=== PATIENT | female | born 1940 | race Caucasian/White ===

== ENCOUNTER 2021-11-11 17:04 | Emergency (ER) | payer MEDICARE, MEDICAID, SELFPAY ==
--- NOTE | 2021-11-11 17:06 | ED_ITS ---
HPI - Female Genitourinary General Chief complaint: Urogenital-Female Stated complaint: cath replacement Source: patient and EMS Mode of arrival: EMS Limitations: no limitations History of Present Illness HPI Narrative: 81-year-old female presents via EMS for Cabrera catheter replacement. MD elicited complaint: other (Replacement Cabrera catheterization) Onset (ago): day(s) (1) Severity: mild Female Urogenital Radiation: Non-Radiating Vaginal discharge: none Vaginal bleeding: none Exacerbating factors: none Relieving factors: none Associated symptoms: denies other symptoms Treatment prior to arrival: none Sexual activity: No Related Data Previous Rx's Medication Instructions Recorded fluconazole 150 mg tablet 150 mg PO DAILY #1 tab 11/11/21 (Diflucan) levofloxacin 750 mg tablet 750 mg PO Q24H #4 tabs 11/11/21 Allergies Allergy/AdvReac Type Severity Reaction Status Date / Time No Known Allergies Allergy Verified 11/11/21 17:20 Review of Systems Review of Systems: Constitutional: No Fever, No Chills ENT/Mouth: No Ear Pain, No Hoarseness, No sore throat Eyes: No Eye Pain, No Swelling, No Redness, No Foreign Body Cardiovascular: No Chest Pain, No SOB Respiratory: No Cough, No Dyspnea Gastrointestinal: No Nausea, No Vomiting, No Diarrhea, No abdominal Pain Genitourinary: No Dysuria, No Hematuria Musculoskeletal: No joint pain, No Myalgias, No Joint Swelling Skin: No Skin lacerations, No rash Neuro: No Weakness, No Numbness, No Paresthesias, No Loss of Consciousness, No Dizziness, No Headache Psych: No Anxiety/Panic, No Depression Heme/Lymph: no easy bruising, no Lymphadenopathy Endocrine: No Polyuria, No Polydipsia Yes all other systems are reviewed and are negative [facility] Past Medical History Attestation statement: The following information was validated with the patient. Source: old records reviewed Social History Social History Patient Tobacco Use Status: Former Tobacco user Use of substances other than those prescribed or required for medical reasons: No Advance Directives: No Advance Directives Information Provided: No Physical Exam Vital Signs: Vital Signs: Last Vital Signs Temp 98 F 11/11/21 19:19 Pulse 83 11/11/21 19:19 Resp 18 11/11/21 19:19 BP 132/61 11/11/21 19:19 Pulse Ox 99 11/11/21 19:19 O2 Del Method 11/11/21 19:19 BMI result Body Mass Index 26.2 Appearance: Alert. Oriented X3. No acute distress. Left-sided hemiparesis per baseline. Eyes: Pupils equal, round and reactive to light. ENT: Pharynx normal. Neck: Normal inspection. Neck supple. CVS: Normal heart rate and rhythm. Pulses normal. Respiratory: No respiratory distress. Breath sounds normal. Abdomen: Soft and nontender. Skin: Skin warm and dry. Normal skin color. Normal skin turgor. Extremities: No lower extremity edema. Moves right-sided extremities without difficulty. Bilateral lower orthotics and braces in place. Neuro: No motor deficit. No sensory deficit. Cranial nerves 2-12 intact. Course Course Course Narrative: 81-year-old female presents via EMS for Cabrera catheter placement. States that she has chronic Cabrera catheterization, catheter fell out. Patient has no other complaints. 17:15 Cabrera catheter placed without any difficulty. Clear yellow urine upon insertion. Skin fold noted to be red and irritated consistent with yeast. Will treat with Diflucan. Patient is in agreement with this plan. Patient verbalized understanding of and agrees to plan of care to discharge home. Verbalized understanding of signs and symptoms indicating need for emergent intervention MDM - Female Genitourinary MDM Narrative Medical decision making narrative: Cabrera catheter placement Differential Diagnosis Differential diagnosis: Likely urinary tract infection Medical Records Attestation: I reviewed the patient's medical records. Lab Data Attestation: I reviewed the patient's lab results. Labs: Lab Results 11/11/21 Range/Units 17:57 Urine Color YELLOW Urine Appearance CLEAR Urine pH 5.5 (5.0-8.0) Ur Specific [place] >= 1.030 H (1.005-1.025) Urine Protein 1+ H (NEG-TRACE) MG/DL Urine Glucose (UA) 100 H (NEG) MG/DL Urine Ketones NEG (NEG) MG/DL Urine Blood 3+ H (NEG) Urine Nitrite NEG (NEG) Ur Leukocyte Esterase 1+ H (NEG) Urine RBC 1-4 (0) /HPF Urine WBC 30-49 H (0-4) /HPF Urine WBC Clumps NOTED Ur Squamous Epith Cells 2+ /LPF Urine Bacteria 1+ /LPF Urine Mucus 2+ /LPF ECG Data Attestation: I personally reviewed and interpreted this ECG as follows: ECG interpretation date: 11/11/21 ECG interpretation time: 19:00 Prior ECG tracings: not available for review Interpretation: Vent. rate 83 BPM MA interval 188 ms QRS duration 70 ms QT/QTc 386/453 ms P-R-T axes 59 -12 3 Normal sinus rhythm Septal infarct , age undetermined Inferior infarct , age undetermined Abnormal ECG No previous ECGs available Procedures Catheter Insertion (Urinary) Date of insertion: 11/11/21 Time of insertion: 17:23 Reason for placing: Yes Reason for placing indwelling catheter: Other (Chronic Cabrera) Bladder scan/ultrasound used before catheterization: No Estimated amount of urine (mLs): 200 Antiseptic solution prep: Povidone-Iodine Topical anesthesia used: No Catheter type/location: Urethral Size (Kazakh): 16 Catheter balloon size (mL): 10 Catheter balloon amount: 10 Results: successfully catheterized-immediate flow Procedure performed: without complications Discharge Plan Discharge Clinical Impression: Urinary catheter (Cabrera) change required, Candidiasis, Urinary tract infection Patient Disposition: Home, Self-Care Instructions: Cabrera Catheter Placement and Care (ED), Yeast Infection (ED), Catheter-associated Urinary Tract Infection (ED) Additional Instructions: You presented to the emergency department for urinary Cabrera catheter replacement. We replaced your fully with a 16 Kazakh, filled the balloon with 10 mL of sterile water. We noticed yeast infection to your abdominal folds and groin. We treated you with 1 tablet of Diflucan. Please repeat Diflucan 150 mg in 3 days from now. Urinalysis positive for UTI. Please take Levaquin 750 mg for the next 4 days. Start this medication tomorrow. We gave your 1st dose in the emergency department on 11/11/2021. Follow-up with primary care physician. Thank you for choosing this emergency department for evaluation. Please follow-up with primary care physician as needed. Return to the emergency department for any new, concerning, or worsening symptoms. Prescriptions: New fluconazole [Diflucan] 150 mg tablet 150 mg PO DAILY Qty: 1 0RF Rx Instructions: Take this medication on 11/14/2021. First dose given 11/11/2021 in the emergency department. levofloxacin 750 mg tablet 750 mg PO Q24H Qty: 4 0RF Rx Instructions: Start 11/12/2021. First dose given in the emergency department on 11/11/2021.
[2021-11-11 17:13] VITALS: BP 157/70; PULSE 95; O2SAT 98; BMI 26.2
[2021-11-11] MEDS: Fluconazole 150 MG TABLET PO (17:40)
[2021-11-11 17:42] VITALS: BP 153/90; PULSE 94; O2SAT 97
[2021-11-11 18:03] LABS: Appearance Urine CLEAR; Color Urine YELLOW; Glucose Urine UA 100 MG/DL (NEG); Leukocyte Esterase Urine 1+ (NEG); Nitrite Urine NEG (NEG); PH 5.5 (5.0-8.0); Specific Gravity - Urine >= 1.030 (1.005-1.025); UACC Culture Trigger YES; Urine Blood 3+ (NEG); Urine Ketones NEG (NEG); Urine Protein 1+ MG/DL (NEG-TRACE)
--- NOTE | 2021-11-11 18:08 | ECG_ITS ---
Test Reason : BASELINE STATUS CHECK Blood Pressure : / mmHG Vent. Rate : 083 BPM Atrial Rate : 083 BPM P-R Int : 188 ms QRS Dur : 070 ms QT Int : 386 ms P-R-T Axes : 059 -12 003 degrees QTc Int : 453 ms Normal sinus rhythm Septal infarct , age undetermined Inferior infarct , age undetermined Abnormal ECG No previous ECGs available Referred By: Elsy Martin Electronically Signed By:PRISCILLA FENTON
[2021-11-11 18:29] LABS: Bacteria Urine 1+ /LPF; Mucus Urine 2+ /LPF; Squamous Epithelial Cell Urine 2+ /LPF; WBC Clumps Urine NOTED; WBC Urine 30-49 /HPF (0-4)
[2021-11-11 19:19] VITALS: BP 132/61; PULSE 83; RESP 18; TEMP 36.6; O2SAT 99
[2021-11-11] MEDS: levoFLOXacin 750 MG TABLET PO (19:21)
== END 2021-11-11 22:10 | disposition home or self-care (01) ==
PROVIDERS: Nurse Practitioner Family; Emergency Provider Emergency Medicine
DX: N39.0 Urinary tract infection, site not specified (principal); B37.49 Other urogenital candidiasis
CPT/HCPCS: 51702; 81001; 87086; 87088; 87186; 93005; 99284

== ENCOUNTER 2021-11-12 13:21 | Emergency (ER) | payer MEDICARE, MEDICAID, SELFPAY ==
--- NOTE | ~2021-11-12 | CT_ITS ---
EXAMINATION: CT abdomen pelvis wo con CLINICAL INFORMATION: Reason for Exam Complicated Cabrera catheter, lower abdominal pain COMPARISON: No prior CT available for comparison. TECHNIQUE: Multidetector volumetric imaging was performed from the superior aspect of the liver through the pubic symphysis , noncontrasted study. Sagittal and coronal reformatted images were obtained on the technologist's workstation. This CT examination was performed using dose optimization techniques as appropriate, variously including the following: *Automated exposure control *Adjustment of mA and/or kV according to patient size (this includes techniques or standardized protocols for targeted exams where dose is matched to indication/reason for exam; i.e. extremities or head) *Use of iterative reconstruction technique DLP: 687 mGy-cm FINDINGS: LOWER THORAX: Included lung bases are clear. HEPATOBILIARY: No focal hepatic lesions. No biliary ductal dilatation. GALLBLADDER: Gallbladder is distended. No gallstones, no pericholecystic fluid collection. SPLEEN: Spleen is normal in size. PANCREAS: No focal mass or ductal dilatation. STOMACH AND GASTROINTESTINAL TRACT: Stomach is grossly unremarkable. There is no bowel distention or thickening. Heavy sigmoid diverticulosis without CT evidence of acute diverticulitis. ADRENALS: No adrenal nodules. KIDNEYS/URETERS: No hydronephrosis, stones or solid mass lesions. URINARY BLADDER: Partially decompressed. Following catheter in place. PELVIC VISCERA: Unremarkable PERITONEUM: No free air or fluid. LYMPH NODES: No lymphadenopathy. VASCULAR:Aorta is heavily calcified, nonaneurysmal. BONES, ABDOMINAL WALL AND SOFT TISSUES: Age-appropriate changes of the spine and skeletal system, no destructive osteolytic or osteosclerotic bone lesion found there is anterior listhesis L4 on L5 and L5 on S1. Underlying degenerative disc disease. CT/CT abdomen pelvis wo con IMPRESSION: Limited noncontrasted study. *Cabrera catheter properly positioned within the urinary bladder. Urinary bladder is decompressed. *Heavy sigmoid diverticulosis without CT evidence of acute diverticulitis. *Distended gallbladder, no evidence of gallbladder wall thickening or pericholecystic fluid. *Heavy vascular calcification. 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 There is underlying degenerative disc disease.
[2021-11-12 13:29] VITALS: BP 152/94; PULSE 94; O2SAT 92
[2021-11-12 13:32] VITALS: BP 126/82; PULSE 84; RESP 16; BMI 32.3
[2021-11-12 13:35] VITALS: BP 126/82; PULSE 84; RESP 16; O2SAT 98
--- NOTE | 2021-11-12 13:38 | PC.NURSE ---
PT REPORTS THAT SHE HAS HAD A 16F PLACED
--- NOTE | 2021-11-12 13:59 | ED_ITS ---
HPI - Female Genitourinary General Chief complaint: Urogenital-Female Stated complaint: cath issues Time Seen by Provider: 11/12/21 13:59 Source: patient and EMS Mode of arrival: EMS Limitations: no limitations History of Present Illness HPI Narrative: 81-year-old female history of stroke and chronic indwelling Cabrera catheter. Patient is here today for placement of Cabrera catheter, patient was seen in the emergency department yesterday and Cabrera catheter was replaced yesterday and patient was treated for suprapubic yeast infection. Patient stated that the catheter fell off and returned today for replacing the Cabrera catheter, patient otherwise declined any abdominal pain, no chest pain, no shortness of breath, no nausea, no vomiting, no diarrhea. Related Data Previous Rx's Medication Instructions Recorded fluconazole 150 mg tablet 150 mg PO DAILY #1 tab 11/11/21 (Diflucan) levofloxacin 750 mg tablet 750 mg PO Q24H #4 tabs 11/11/21 Allergies Allergy/AdvReac Type Severity Reaction Status Date / Time No Known Allergies Allergy Verified 11/11/21 17:20 Review of Systems Review of Systems: All other systems are reviewed and are negative Constitutional: Reports as per HPI and Reports no additional constitutional complaints Eyes: Reports as per HPI and Reports no additional eye complaints Reports system reviewed and no additional complaints, except as documented Cardiovascular: Reports as per HPI and Reports no additional cardiovascular complaints Respiratory: Reports as per HPI and Reports no additional respiratory complaints Gastrointestinal: Reports as per HPI and Reports no additional gastrointestinal complaints Genitourinary: Reports no additional female genitourinary complaints Musculoskeletal: Reports no additional musculoskeletal complaints Skin/Breast: Reports system reviewed and no additional complaints, except as docu Psychiatric: Reports no additional psychiatric complaints Endocrine: Reports no additional endocrine complaints Hematologic/Lymphatic: Reports no additional hematologic/lymphatic complaints Allergic/Immunologic: Reports no additional allergic/immunologic complaints Reports system reviewed and no additional complaints, except as documented and Reports Abnormal speech present [facility] Social History Social History Patient Tobacco Use Status: Former Tobacco user Advance Directives: Yes Advance Directives Information Provided: No Advance Directives on File: No Physical Exam Vital Signs: Vital Signs: Last Vital Signs Pulse 84 11/12/21 13:35 Resp 16 11/12/21 13:35 BP 126/82 11/12/21 13:35 Pulse Ox 98 06/11/22 13:35 O2 Del Method 11/12/21 13:35 BMI result Body Mass Index 32.3 Vital signs have been reviewed as appeared to be correct. Blood pressure normal. Heart rate normal. Respiration rate normal. Temperature normal. Oxygen saturation normal. Appearance: Alert. Oriented X3. No acute distress. Head: Normal external exam. Normocephalic. Atraumatic. No Pace signs noted. No raccoon eyes noted Eyes: PERRLA. EOMI. Conjunctiva and sclera normal. Eyelids normal. ENT: TM's Normal. Pharynx normal. Uvula midline. Moist mucous membranes. No trismus noted. No drooling noted. No muffled voice noted. Neck: Normal inspection. Neck supple. FROM. No adenopathy. Thyroid Normal. No meningeal signs. No neck mass noted. CVS: Normal heart rate and rhythm. Heart sound normal. No murmurs noted. Pulses normal throughout. Respiratory: No respiratory distress. Painless inspiration. Breath sounds normal. No wheezes/rales/rhonchi noted. Chest nontender. No accessory muscle usage noted or decreased air movement noted. Abdomen: Soft and nontender. Bowel sounds normal in all 4 quadrants. No distention noted. No organomegaly noted. No visible injury noted. Lower abdominal wall candidal infection. Pelvic exam: Swollen edematous labia with redness of the skin. Back: No CVA tenderness. Full range of motion noted. Skin: Skin warm and dry. Normal skin color. Normal skin turgor. No rashes/lesions/lacerations noted. Extremities: No lower extremity edema. Extremities exhibit normal range of motion. Extremities nontender. Neuro: Oriented X 3. Cranial nerve exam: II-XII are grossly intact Course Course Course Narrative: Assessment and plan. 81-year-old female require chronic indwelling Cabrera catheter secondary to a stroke, came in for Cabrera catheter placement, patient was received the prescription treatment for Migdalia cellulitis of the lower abdomen and perineum. Discharge Plan Discharge Clinical Impression: Chronic indwelling Cabrera catheter, Complication of Cabrera catheter, Migdalia infection Patient Disposition: Home, Self-Care Instructions: Cabrera Catheter Placement and Care (ED) Prescriptions: No Action fluconazole [Diflucan] 150 mg tablet 150 mg PO DAILY Qty: 1 0RF Rx Instructions: Take this medication on 11/14/2021. First dose given 11/11/2021 in the emergency department. levofloxacin 750 mg tablet 750 mg PO Q24H Qty: 4 0RF Rx Instructions: Start 11/12/2021. First dose given in the emergency department on 11/11/2021. Referrals: Physician,Unknown J [Primary Care Provider] -
[2021-11-12 15:38] VITALS: TEMP 36.6
--- NOTE | 2021-11-12 15:41 | PC.NURSE ---
Patients daughter called to picked her mother up and to bring shorts. Sanderson placed by Me 18f sanderson catheter. instilled 10cc's draining clear yellow urine. Patient is swollen and raw from urinary incontinence. cleaned and dried area. Awaiting daughter for molded goods spot picker.
[2021-11-12 16:34] LABS: MANUAL DIFF FLAG NO
[2021-11-12 16:36] VITALS: BP 118/62; PULSE 70; RESP 16; TEMP 36.8; O2SAT 97
[2021-11-12 16:36] LABS: Basophils Percent Auto 0.1 % (0-2); Eosinophils Absolute Auto 0.1 X10*3/uL (0.0-0.4); Eosinophils Percent Auto 1.2 % (0-4); Hematocrit 38.9 % (37.0-47.0); Hemoglobin 12.6 g/dl (12.0-16.0); Imm Gran Abs Auto 0.06 X10*3/uL (0.00-0.03); Imm Gran Pct Auto 0.7 % (0.0-0.4); Lymphocytes Percent Auto 22.6 % (20-40); Mean Corpuscular HGB Conc 32.4 g/dl (31.0-35.0); Mean Corpuscular Hemoglobin 29.4 pg (27.0-33.0); Mean Corpuscular Volume 90.9 fL (80.0-98.0); Mean Platelet Volume 9.4 fL (9.4-12.3); Monocytes Absolute Auto 0.6 X10*3/uL (0.1-1.2); Monocytes Percent Auto 6.6 % (2-11); Neutrophils Absolute Auto 6.1 x10*3/uL (2.0-8.3); Neutrophils Percent Auto 68.8 % (45-73); Platelet Count 257 X10*3/uL (160-400); Red Blood Count 4.28 X10*6/uL (4.20-5.50); Red Cell Distribution Width 12.9 % (11.0-16.0); White Blood Count 8.9 X10*3/uL (4.8-10.8)
[2021-11-12 17:02] LABS: Anion Gap 15 (12-20); Blood Urea Nitrogen 20 mg/dL (9-16); Calcium 10.3 mg/dL (8.4-10.2); Carbon Dioxide 26 mmol/L (22-29); Chloride 101 mmol/L (96-108); Creatinine Clr Calc Pharmacy 50.7; Estimated Glomerular Filt Rate > 60; Glucose Random 121 mg/dL (60-115); Potassium 4.4 mmol/L (3.3-5.1); Sodium 138 mmol/L (135-145)
[2021-11-12 18:45] VITALS: BP 153/57; PULSE 69; RESP 18; TEMP 36.4; O2SAT 98
== END 2021-11-12 20:29 | disposition home or self-care (01) ==
PROVIDERS: Emergency Provider Emergency Medicine
DX: Z46.6 Encounter for fitting and adjustment of urinary device (principal); L03.311 Cellulitis of abdominal wall; B37.89 Other sites of candidiasis; Z86.73 Personal history of transient ischemic attack (TIA), and cerebral infarction without residual deficits
CPT/HCPCS: 36415; 74176; 80048; 85025; 99283; 99284

== ENCOUNTER 2022-06-23 10:30 | Emergency (ER) | payer MEDICARE, MEDICAID, SELFPAY ==
--- NOTE | ~2022-06-23 | CT_ITS ---
EXAMINATION: CT ABDOMEN AND PELVIS WITH CONTRAST CLINICAL INFORMATION: Left lower quadrant pain COMPARISON: 11/12/2021 TECHNIQUE: Multidetector volumetric images were obtained from the superior aspect of the liver through the pubic symphysis following administration 85 mL of Omnipaque 350 intravenous contrast. Sagittal and coronal reformatted images were obtained on the technologist's workstation. Oral contrast: No This CT examination was performed using dose optimization techniques as appropriate, variously including the following: *Automated exposure control *Adjustment of mA and/or kV according to patient size (this includes techniques or standardized protocols for targeted exams where dose is matched to indication/reason for exam; i.e. extremities or head) *Use of iterative reconstruction technique DLP: 632 mGy-cm FINDINGS: LUNG BASES: The visualized lung bases are unremarkable. LIVER, GALLBLADDER, AND BILIARY TREE: Liver has a nodular contour consistent with cirrhosis. The gallbladder is unremarkable with no evidence of radiopaque gallstones, gallbladder wall thickening, or obvious pericholecystic inflammatory changes. PANCREAS: Unremarkable. SPLEEN: Unremarkable. ADRENAL GLANDS: Unremarkable. KIDNEYS AND URETERS: There is symmetric bilateral renal enhancement. The left kidney is somewhat atrophic compared to the right. There is bilateral hydroureter with mild bilateral hydronephrosis, right greater than left. The dilated ureters are both followed to the level of the urinary bladder. BLADDER: There is a Cabrera catheter in place. The urinary bladder is largely collapsed with circumferential irregularity and hyperemia. GASTROINTESTINAL TRACT: Stomach and small bowel are nondilated. Normal appendix. Extensive colonic diverticulosis without evidence of colitis or diverticulitis. ABDOMINAL WALL: Small fat-containing umbilical hernia. LYMPH NODES: Numerous normal sized retroperitoneal and iliac lymph nodes are present. No pathologically enlarged lymphadenopathy. VASCULAR: No aneurysm or dissection. Circumferential calcified and noncalcified irregular atherosclerotic changes. PELVIC VISCERA: Uterus not seen either diminutive or surgically absent. No adnexal mass. OSSEOUS STRUCTURES: Grade 1 anterolisthesis of L4 on L5 and L5 on S1. Degenerative disc disease with vacuum disc phenomenon at those levels as well. Lower lumbar facet arthropathy. CT/CT abdomen pelvis w IV con IMPRESSION: There is new right greater than left lateral hydroureteronephrosis with the dilated ureters followed to a thick-walled hyperemic urinary bladder. Cystitis could give this appearance. Recommend correlation with urinalysis and cystoscopy as clinically indicated. No evidence of colitis or diverticulitis. Fleischner guidelines were followed.
[2022-06-23 10:35] VITALS: BP 120/90; PULSE 94; O2SAT 98
[2022-06-23 10:36] VITALS: BP 147/58; PULSE 84; RESP 17; TEMP 35.5; O2SAT 98; BMI 29.5
--- NOTE | 2022-06-23 10:53 | ED_ITS ---
HPI - Abdominal Pain General Chief Complaint: Abdominal Pain <BELEN Hill - Last Filed: 06/23/22 16:32> Stated Complaint: abd pain <BELEN Hill - Last Filed: 06/23/22 16:32> Time Seen by Provider: 06/23/22 10:49 <BELEN Hill - Last Filed: 06/23/22 16:32> Source: patient <BELEN Hill - Last Filed: 06/23/22 16:32> Mode of arrival: ambulatory <BELEN Hill - Last Filed: 06/23/22 16:32> Limitations: no limitations <BELEN Hill - Last Filed: 06/23/22 16:32> History of Present Illness HPI narrative: 82 yo female With history of stroke with left-sided hemiparesis, wheelchair-bound,, chronic indwelling Cabrera catheter, history of yeast infection and cellulitis of the lower abdomen and perineum who presents to the ER for evaluation of lower abdominal pain for the last couple of days. She states the pain comes and goes and is cramping in nature. It is worsened for the last couple of days but overall is been happening intermittently for the last 3 months. She does have her Cabrera catheter changed yesterday. She follows with the urologist in [place] who she sees once per year. <BELEN Hill - Last Filed: 06/23/22 16:32> MD elicited complaint: abdominal pain <BELEN Hill Last Filed: 06/23/22 16:32> Pertinent past history: past UTI <BELEN Hill Last Filed: 06/23/22 16:32> Onset (ago): day(s) (3) <BELEN Hill - Last Filed: 06/23/22 16:32> Pain Consistency: intermittent <BELEN Hill Last Filed: 06/23/22 16:32> Location: LLQ and suprapubic <BELEN Hill Last Filed: 06/23/22 16:32> Severity: moderate <BELEN Hill Last Filed: 06/23/22 16:32> Quality: cramping and aching <BELEN Hill - Last Filed: 06/23/22 16:32> Migration to: no migration <BELEN Hill - Last Filed: 06/23/22 16:32> Exacerbating factors: nothing <BELEN Hill Last Filed: 06/23/22 16:32> Relieving factors: nothing <BELEN Hill Last Filed: 06/23/22 16:32> Context: history of similar episodes <BELEN Hill Last Filed: 06/23/22 16:32> Associated symptoms: denies other symptoms <BELEN Hill Last Filed: 06/23/22 16:32> Related Data Home Medications: Previous Rx's Medication Instructions Recorded fluconazole 150 mg tablet 150 mg PO DAILY #1 tab 11/11/21 (Diflucan) levofloxacin 750 mg tablet 750 mg PO Q24H #4 tabs 11/11/21 levofloxacin 500 mg tablet 500 mg PO DAILY #7 tabs 06/23/22 <BELEN Hill - Last Filed: 06/23/22 16:32> Allergies/Adverse Reactions: Allergies Allergy/AdvReac Type Severity Reaction Status Date / Time No Known Allergies Allergy Verified 11/11/21 17:20 <BELEN Hill Last Filed: 06/23/22 16:32> Review of Systems Review of Systems Yes all other systems are reviewed and are negative <BELEN Hill Last Filed: 06/23/22 16:32> [facility] Social History Social History: Social History Patient Tobacco Use Status: Former Tobacco user Advance Directives: No Advance Directives Information Provided: Yes <BELEN Hill Last Filed: 06/23/22 16:32> Physical Exam ED Vital Signs: Vital Signs - 24 hr 06/23/22 10:36 06/23/22 13:51 Temperature 96 F L Pulse Rate 84 74 Respiratory Rate 17 11 L Blood Pressure 147/58 H 138/58 L Pulse Oximetry 98 95 Oxygen Delivery Method Room Air Room Air BMI result Body Mass Index 29.5 <BELEN Hill Last Filed: 06/23/22 16:32> Vital Signs - 24 hr 06/23/22 10:36 06/23/22 13:51 Temperature 96 F L Pulse Rate 84 74 Respiratory Rate 17 11 L Blood Pressure 147/58 H 138/58 L Pulse Oximetry 98 95 Oxygen Delivery Method Room Air Room Air BMI result Body Mass Index 29.5 <Zafar Anderson MD - Last Filed: 07/03/22 18:52> Appearance: Alert. Oriented X3. No acute distress. Eyes: Pupils equal, round and reactive to light. ENT: Pharynx normal. Neck: Normal inspection. Neck supple. CVS: Normal heart rate and rhythm. Pulses normal. Respiratory: No respiratory distress. Breath sounds normal. Abdomen: Obese, soft with left pelvic tenderness, LLQ tenderness, no rebound or guarding, normal +BS x4. normal external genitalia without erythema or rash Skin: Skin warm and dry. Normal skin color. Normal skin turgor. No rashes. Extremities: No lower extremity edema, left leg in brace Neuro: Oriented X 3. left sided hemiparesis <BELEN Hill - Last Filed: 06/23/22 16:32> Course Course Course Narrative: 82-year-old female with history of stroke, residual left-sided weakness, wheelchair bound, history of chronic Cabrera and recurrent UTIs who presents to the ER for intermittent lower abdominal pain for the last couple of months, acu tely worsened last couple of days. She has left lower quadrant, left-sided as suprapubic tenderness without rebound or guarding. Concern for possible UTI, less likely kidney stone. Could be diverticulitis. Will get labs and CT scan for further evaluation. She is hemodynamically stable and afebrile. Her Cabrera catheter was exchanged yesterday and appears to be draining appropriately. <BELEN Hill - Last Filed: 06/23/22 16:32> Reevaluation(s) Reevaluation #1: Labs show WBC 11.7. Normal renal function. No electrolyte abnormalities. Urinalysis is consistent with infection. Her CT scan is showing new, right greater than left hydroureter nephrosis with a decompressed bladder, bladder wall thickening consistent with cystitis. Case was discussed with Dr. Salgado from Urology, this could be due to UTI. He is recommending 7 days of antibiotics and follow up with Urology as an outpatient. Results and plan discussed with patient who is in agreement. <BELEN Hill - Last Filed: 06/23/22 16:32> Medical Decision Making Differential Diagnosis Differential Diagnoses: The differential diagnosis associated with the presentation includes <BELEN Hill Last Filed: 06/23/22 16:32> Diverticulitis, UTI, pyelonephritis, kidney stone, cystitis, malpositioned Cabrera catheter, less likely abscess or colonic perforation, malignancy, cellulitis <BELEN Hill - Last Filed: 06/23/22 16:32> Admission/Observation Consideration of admission/observation: Escalation of care including admission/observation considered <BELEN Hill - Last Filed: 06/23/22 16:32> not septic. no obstructive uropathy -ok for po abx and outpatient follow up. <BELEN Hill Last Filed: 06/23/22 16:32> Consult Healthcare Provider Management of the patient was discussed with: Computer Applications Instructor <BELEN Hill - Last Filed: 06/23/22 16:32> case discussed with Dr. Salgado who is recommending 1 week of antibiotics and follow up with her outpatient urologist. <BELEN Hill - Last Filed: 06/23/22 16:32> Lab Data MDM Lab Attestation statement: I reviewed the patient's lab results. <BELEN Hill - Last Filed: 06/23/22 16:32> Ptosis, WBC 11.7, normal kidney function, no major metabolic derangement. Normal H&H and platelets. <BELEN Hill - Last Filed: 06/23/22 16:32> Result Diagrams: 06/23/22 11:09 06/23/22 11:09 <BELEN Hill - Last Filed: 06/23/22 16:32> Labs: Lab Results 06/23/22 06/23/22 06/23/22 Range/Units 11:09 11:09 13:54 WBC 11.7 H (4.8-10.8) X10*3/uL RBC 4.36 (4.20-5.50) X10*6/uL Hgb 12.7 (12.0-16.0) g/dl Hct 39.0 (37.0-47.0) % MCV 89.4 (80.0-98.0) fL MCH 29.1 (27.0-33.0) pg MCHC 32.6 (31.0-35.0) g/dl RDW 12.9 (11.0-16.0) % Plt Count 276 (160-400) X10*3/uL MPV 8.8 L (9.4-12.3) fL Immature Gran % (Auto) 0.7 H (0.0-0.4) % Neut % (Auto) 69.6 (45-73) % Lymph % (Auto) 20.7 (20-40) % [place] % (Auto) 7.7 (2-11) % Eos % (Auto) 1.0 (0-4) % Baso % (Auto) 0.3 (0-2) % Lymph # (Auto) 2.4 (1.2-4.9) X10*3/uL [place] # (Auto) 0.9 (0.1-1.2) X10*3/uL Eos # (Auto) 0.1 (0.0-0.4) X10*3/uL Baso # (Auto) 0.0 (0.0-0.2) X10*3/uL Abs Immat Gran (auto) 0.08 H (0.00-0.03) X10*3/uL Absolute Neuts (auto) 8.1 (2.0-8.3) x10*3/uL Absolute Nucleated RBC 0.000 (0.0-0.012) X10*3/uL Nucleated RBC % (auto) 0.0 (0.0-0.2) /100WBC Sodium 136 (135-145) mmol/L Potassium 4.1 (3.3-5.1) mmol/L Chloride 97 (96-108) mmol/L Carbon Dioxide 27 (22-29) mmol/L Anion Gap 16 (12-20) BUN 31 H (9-16) mg/dL Creatinine 0.88 (0.5-1.4) mg/dL Estim Creat Clear Calc 51.6 Estimated GFR > 60 Random Glucose 166 H (60-115) mg/dL Calcium 10.3 H (8.4-10.2) mg/dL Magnesium 1.6 (1.6-2.6) mg/dL Total Bilirubin 0.5 (0.0-1.0) mg/dL Direct Bilirubin 0.2 (0.0-0.5) mg/dL AST 34 H (5-31) U/L ALT 26 (0-31) U/L Alkaline Phosphatase 79 (39-117) U/L Total Protein 8.2 H (6.5-8.0) g/dL Albumin 4.5 (3.5-5.0) g/dL Urine Color Yellow Urine Appearance Clear Urine pH 5.5 (5.0-9.0) Ur Specific [place] 1.020 (1.005-1.025) Urine Protein 30 (1+) H (Neg-Trace) mg/dL Urine Glucose (UA) Negative (Negative) mg/dL Urine Ketones Negative (Negative) mg/dL Urine Blood Large (3+) H (Negative) Urine Nitrite Negative (Negative) Ur Leukocyte Esterase Small (1+) H (Negative) Urine RBC >20 H (0-2) /HPF Urine WBC 11-20 H (0-5) /HPF Ur Squamous Epith Cells 0-2 (0-2) /HPF Urine Bacteria None Seen (None Seen) Hyaline Casts 0-2 (0-2) /LPF <BELEN Hill - Last Filed: 06/23/22 16:32> Lab Results 06/23/22 06/23/22 06/23/22 Range/Units 11:09 11:09 13:54 WBC 11.7 H (4.8-10.8) X10*3/uL RBC 4.36 (4.20-5.50) X10*6/uL Hgb 12.7 (12.0-16.0) g/dl Hct 39.0 (37.0-47.0) % MCV 89.4 (80.0-98.0) fL MCH 29.1 (27.0-33.0) pg MCHC 32.6 (31.0-35.0) g/dl RDW 12.9 (11.0-16.0) % Plt Count 276 (160-400) X10*3/uL MPV 8.8 L (9.4-12.3) fL Immature Gran % (Auto) 0.7 H (0.0-0.4) % Neut % (Auto) 69.6 (45-73) % Lymph % (Auto) 20.7 (20-40) % [place] % (Auto) 7.7 (2-11) % Eos % (Auto) 1.0 (0-4) % Baso % (Auto) 0.3 (0-2) % Lymph # (Auto) 2.4 (1.2-4.9) X10*3/uL [place] # (Auto) 0.9 (0.1-1.2) X10*3/uL Eos # (Auto) 0.1 (0.0-0.4) X10*3/uL Baso # (Auto) 0.0 (0.0-0.2) X10*3/uL Abs Immat Gran (auto) 0.08 H (0.00-0.03) X10*3/uL Absolute Neuts (auto) 8.1 (2.0-8.3) x10*3/uL Absolute Nucleated RBC 0.000 (0.0-0.012) X10*3/uL Nucleated RBC % (auto) 0.0 (0.0-0.2) /100WBC Sodium 136 (135-145) mmol/L Potassium 4.1 (3.3-5.1) mmol/L Chloride 97 (96-108) mmol/L Carbon Dioxide 27 (22-29) mmol/L Anion Gap 16 (12-20) BUN 31 H (9-16) mg/dL Creatinine 0.88 (0.5-1.4) mg/dL Estim Creat Clear Calc 51.6 Estimated GFR > 60 Random Glucose 166 H (60-115) mg/dL Calcium 10.3 H (8.4-10.2) mg/dL Magnesium 1.6 (1.6-2.6) mg/dL Total Bilirubin 0.5 (0.0-1.0) mg/dL Direct Bilirubin 0.2 (0.0-0.5) mg/dL AST 34 H (5-31) U/L ALT 26 (0-31) U/L Alkaline Phosphatase 79 (39-117) U/L Total Protein 8.2 H (6.5-8.0) g/dL Albumin 4.5 (3.5-5.0) g/dL Urine Color Yellow Urine Appearance Clear Urine pH 5.5 (5.0-9.0) Ur Specific [place] 1.020 (1.005-1.025) Urine Protein 30 (1+) H (Neg-Trace) mg/dL Urine Glucose (UA) Negative (Negative) mg/dL Urine Ketones Negative (Negative) mg/dL Urine Blood Large (3+) H (Negative) Urine Nitrite Negative (Negative) Ur Leukocyte Esterase Small (1+) H (Negative) Urine RBC >20 H (0-2) /HPF Urine WBC 11-20 H (0-5) /HPF Ur Squamous Epith Cells 0-2 (0-2) /HPF Urine Bacteria None Seen (None Seen) Hyaline Casts 0-2 (0-2) /LPF <Zafar Anderson MD - Last Filed: 07/03/22 18:52> Independent Interpretation I performed an independent interpretation of an: CT Scan <BELEN Hill - Last Filed: 06/23/22 16:32> Interpretation: Dilated ureters, thickened bladder wall. <BELEN Hill - Last Filed: 06/23/22 16:32> Radiology Impression Discussion of test interpretation with radiology: I have reviewed the radiologist's reading. <BELEN Hill - Last Filed: 06/23/22 16:32> Radiologist Impression: There is new right greater than left lateral hydroureteronephrosis with the dilated ureters followed to a thick-walled hyperemic urinary bladder. Cystitis could give this appearance. Recommend correlation with urinalysis and cystoscopy as clinically indicated. ? No evidence of colitis or diverticulitis.? <BELEN Hill - Last Filed: 06/23/22 16:32> Independent Historian Clinical information obtained from an independent historian. History obtained from or confirmed by: EMS <BELEN Hill - Last Filed: 06/23/22 16:32> External Record Review External record reviewed: Outpatient record, Prior outpatient labs and Prior outpatient radiology <BELEN Hill - Last Filed: 06/23/22 16:32> Prior UTIs were both sensitive to Levaquin and she was treated with Levaquin in the past. <BELEN Hill - Last Filed: 06/23/22 16:32> Prescription Management I considered prescription management with: Pain Medication and Antibiotic <BELEN Hill - Last Filed: 06/23/22 16:32> Chronic Conditions Patient?s care impacted by: Other ( Stroke and hemiparesis, neurogenic bladder with chronic Cabrera resulting in chronic and recurring UTIs.) <BELEN Hill - Last Filed: 06/23/22 16:32> Attestation Attending Attestation: Her review the documentation in chart for this patient and was seen primarily by the nurse practitioner/PA. I agree with the assessment and plan. <Zafar Anderson MD - Last Filed: 07/03/22 18:52> Medications Administered Discontinued Medications Generic Name Dose Route Start Last Admin Trade Name Freq PRN Reason Stop Dose Admin Acetaminophen 975 mg 06/23/22 16:45 06/23/22 16:51 Acetaminophen 325 Mg Tablet PO 06/23/22 16:46 975 mg ONCE ONE Administration Iohexol 85 ml 06/23/22 12:54 06/23/22 12:54 Iohexol 350 Mg/Ml 100 Ml Infus..Btl IV 06/23/22 12:55 85 ml ONCE ONE Administration Levofloxacin 750 mg 06/23/22 14:51 06/23/22 15:01 Levofloxacin 750 Mg Tablet PO 06/23/22 14:52 750 mg ONCE ONE Administration <BELEN Hill - Last Filed: 06/23/22 16:32> Medications Administered Discontinued Medications Generic Name Dose Route Start Last Admin Trade Name Freq PRN Reason Stop Dose Admin Acetaminophen 975 mg 06/23/22 16:45 06/23/22 16:51 Acetaminophen 325 Mg Tablet PO 06/23/22 16:46 975 mg ONCE ONE Administration Iohexol 85 ml 06/23/22 12:54 06/23/22 12:54 Iohexol 350 Mg/Ml 100 Ml Infus..Btl IV 06/23/22 12:55 85 ml ONCE ONE Administration Levofloxacin 750 mg 06/23/22 14:51 06/23/22 15:01 Levofloxacin 750 Mg Tablet PO 06/23/22 14:52 750 mg ONCE ONE Administration <Zafar Anderson MD - Last Filed: 07/03/22 18:52> Critical Care Time Critical Care Time Critical Care Time: No <BELEN Hill - Last Filed: 06/23/22 16:32> Discharge Plan Discharge Clinical Impression: Acute UTI, Hydroureteronephrosis <BELEN Hill - Last Filed: 06/23/22 16:32> Patient Disposition: Home, Self-Care <BELEN Hill - Last Filed: 06/23/22 16:32> Instructions: Urinary Tract Infection in Women (ED), Hydronephrosis (ED) <BELEN Hill - Last Filed: 06/23/22 16:32> Additional Instructions: Your urine test showed you have a urinary tract infection. Your CT scan showed new right greater than left lateral hydroureteronephrosis with dilated ureters followed to a thick walled hyperemic urinary bladder. Cystitis could give this appearance. Take the prescribed antibiotic as directed. Complete the entire course. Your given 1st dose today in the emergency room department. Start the antibiotics tomorrow around lunchtime. Make sure drinking plenty of water and staying hydrated. Follow-up with your urologist. If you develop new or worsening symptoms call 911 or come back to the ER for further evaluation. <BELEN Hill Last Filed: 06/23/22 16:32> Prescriptions: New levofloxacin 500 mg tablet 500 mg PO DAILY Qty: 7 0RF No Action fluconazole [Diflucan] 150 mg tablet 150 mg PO DAILY Qty: 1 0RF Rx Instructions: Take this medication on 11/14/2021. First dose given 11/11/2021 in the emergency department. levofloxacin 750 mg tablet 750 mg PO Q24H Qty: 4 0RF Rx Instructions: Start 11/12/2021. First dose given in the emergency department on 11/11/2021. <BELEN Hill - Last Filed: 06/23/22 16:32> Interventions: ED Discharge Assessment Last Done: 06/23/22 16:13 <BELEN Hill Last Filed: 06/23/22 16:32> Discharge Date/Time: 06/23/22 19:53 <BELEN Hill Last Filed: 06/23/22 16:32>
--- OUTSIDE RECORDS SUMMARY | 2022-06-23 11:08 | XMS_ITS | Continuity of Care Document ---
:1940 Author Organization [facility] Address [address] [place] [address]- Care Team Providers Name Role Phone Liz Marks NP Primary Care Physician Encounter [facility] [place] Date(s): 10/18/21 - 12/16/[address] [id number] Attending Physician: Moises Ryan MD Admitting Physician: Moises Ryan MD Referring Physician: Moises Ryan MD Allergies, Adverse Reactions, Alerts Substance Reaction Severity Status sulfa drugs Active Egg Allergy Active Medications atorvastatin 20 mg oral tablet 1 tablet = 20 mg, By Mouth, Daily, # 30 tablet, 0 Refills, Maintenance, 05/26/20 8:51:00 EST, Tablet, Partial fill upon patient request if the prescription is for a schedule II opioid drug. Start Date: 05/26/20 Status: Orderedgabapentin 300 mg oral capsule TAKE ONE CAPSULE DAILY BEFORE BEDTIME Start Date: 05/26/20 Status: Orderedhydrochlorothiazide 25 mg oral tablet 25 mg, 1, tablet, By Mouth, Daily, # 30 tablet, Refills 0, Maintenance, 05/26/20 8:51:00 EST, Partial fill upon patient request if the prescription is for a schedule II opioid drug. Start Date: 05/26/20 Status: Orderedmeclizine 25 mg oral tablet 1 tablet = 25 mg, By Mouth, 3 times a day, PRN for dizziness, # 30 tablet, 0 Refills, Maintenance, 05/26/20 8:52:00 EST, Tablet, Partial fill upon patient request if the prescription is for a schedule II opioid drug. Start Date: 05/26/20 Status: OrderedmetFORMIN 500 mg oral tablet 1 tablet = 500 mg, By Mouth, 2 times a day, # 180 tablet, 0 Refills, Maintenance, 05/26/20 8:51:00 EST, Tablet, Partial fill upon patient request if the prescription is for a schedule II opioid drug. Start Date: 05/26/20 Status: OrderedrOPINIRole 0.25 mg oral tablet TAKE ONE TABLET BY MOUTH EVERY DAY Start Date: 05/26/20 Status: Orderedtamsulosin 0.4 mg oral capsule TAKE ONE CAPSULE BY MOUTH EVERY DAY Start Date: 05/26/20 Status: Ordered
--- OUTSIDE RECORDS SUMMARY | 2022-06-23 11:08 | XMS_ITS | Continuity of Care Document ---
:1940 Author Organization [facility] Address [address] [place] [id number]- Care Team Providers Name Role Phone Liz Marks NP Primary Care Physician [place] [facility] [place] - 04/17/[address] [address]- Discharge Disposition: A-D/C Home Attending Physician: Lavinia Tejeda MD Admitting Physician: Lavinia Tejeda MD Referring Physician: Not on Staff, Referring MD Allergies, Adverse Reactions, Alerts Substance Reaction Severity Status sulfa drugs Active Egg Allergy Active Medications atorvastatin 20 mg oral tablet 1 tablet = 20 mg, By Mouth, Daily, # 30 tablet, 0 Refills, Maintenance, 05/26/20 8:51:00 EST, Tablet, Partial fill upon patient request if the prescription is for a schedule II opioid drug. Start Date: 05/26/20 Status: Orderedcefpodoxime 100 mg oral tablet 1 tablet = 100 mg, By Mouth, Every 12 hours, for 7 days, # 14 tablet, 0 Refills, Acute 04/24/21 20:10:00 EST, 04/17/21 20:10:00 EST, Tablet, Partial fill upon patient request if the prescription is fora schedule II opioid drug. Start Date: 04/17/21 Stop Date: 04/24/21 Status: Orderedgabapentin 300 mg oral capsule TAKE [...] EVERY DAY Start Date: 05/26/20 Status: Ordered Results Orders for Microbiology Reports Name Date Urine Culture (URINE CULTURE) 04/17/21 Microbiology Reports TEST:Urine Culture STATUS:Unauthenticated BODY SITE: SOURCE:URINE COLLECTED DATE/TIME:04/17/21 6:50 PMUrine Culture SPECIMEN DESCRIPTION : URINE SPECIAL REQUESTS : NONE Reflexed from [id number] REPORT STATUS : PRELIMINARY REPORT Vital Signs Most recent to oldest [Reference Range]: 1 2 Oxygen Saturation [94-100 %] 97 % 99 % (04/17/21 8:13 PM) (04/17/21 12:07 PM) Pulse Rate [55-90 bpm] 73 bpm 75 bpm (04/17/21 8:13 PM) (04/17/21 12:07 PM) Blood Pressure [90-138/55-84 mm Hg] 121/55 mm Hg 139/ 68 mm Hg (04/17/21 8:13 PM) *H* (04/17/21 12:07 PM) Respiratory Rate [16-30 br/min] 20 br/min 21 br/mi n (04/17/21 8:13 PM) (04/17/21 12:07 PM) Temperature [96.8-100.4 DegF] 98.9 DegF 97.2 DegF (04/17/21 8:13 PM) (04/17/21 12:07 PM) Mode of Delivery (Oxygen) Room air Room air (04/17/21 8:13 PM) (04/17/21 12:07 PM) Blood pressure sites Arm, right Arm, right (04/17/21 8:13 PM) (04/17/21 12:07 PM) Temperature Route Oral Oral (04/17/21 8:13 PM) (04/17/21 12:07 PM)
--- OUTSIDE RECORDS SUMMARY | 2022-06-23 11:09 | XMS_ITS | Continuity of Care Document ---
:1940 Author Organization [facility] Address [address] [place] [id number]- Care Team Providers Name Role Phone Liz Marks NP Primary Care Physician [place]counter [facility] [place] Date(s): 09/17/21 - 09/17/[address] [address]- Discharge Disposition: A-D/C Home Attending Physician: Escobar Tavares DO Admitting Physician: Escobar Tavares DO Referring Physician: Not on Staff, Referring MD Allergies, Adverse Reactions, Alerts Substance Reaction Severity Status Egg Allergy Active sulfa drugs Active Medications atorvastatin 20 mg oral tablet 1 tablet = 20 mg, By Mouth, Daily, # 30 tablet, 0 Refills, Maintenance, 05/26/20 8:51:00 EST, Tablet, Partial fill upon patient request if the prescription is for a schedule II opioid drug. Start Date: 05/26/20 Status: Orderedcephalexin monohydrate 500 mg oral capsule 1 capsule = 500 mg, By Mouth, 4 times a day, for 7 days, # 28 capsule, 0 Refills, Acute 09/24/21 22:20:00 EDT, 09/17/21 22:20:00 EDT, Capsule, [facility], Partial fill upon patient request if the prescription is for a schedule II opioid... Start Date: 09/17/21 Stop Date: 09/24/21 Status: Orderedgabapentin 300 mg oral capsule TAKE [...] EVERY DAY Start Date: 05/26/20 Status: Ordered Vital Signs Most recent to oldest 1 2 3 [Reference Range]: Oxygen Saturation [94-100 %] 98 % 97 % 97 % (09/17/21 10:36 PM) (09/17/21 8:09 PM) (09/17/21 4: 55 PM) Pulse Rate [55-90 bpm] 81 bpm 79 bpm 86 bpm (09/17/21 10:36 PM) (09/17/21 8:09 PM) (09/17/21 4: 55 PM) Blood Pressure [90-138/55-84 139/63 mm Hg 137/69 mm Hg 138 /70 mm Hg mm Hg] *H* (09/17/21 8:09 PM) (09/17/21 4:55 PM) (09/17/21 10:36 PM) Respiratory Rate [16-30 16 br/min 16 br/min 16 br/mi n br/min] (09/17/21 10:36 PM) (09/17/21 8:09 PM) (09/17/21 4: 55 PM) Temperature [96.8-100.4 DegF] 97.9 DegF 98.2 DegF (09/17/21 8:09 PM) (09/17/21 2:10 PM) Mode of Delivery (Oxygen) Room air Room air Room a ir (09/17/21 10:36 PM) (09/17/21 8:09 PM) (09/17/21 4: 55 PM) Blood pressure sites Arm, right Arm, right (09/17/21 8:09 PM) (09/17/21 2:10 PM) Temperature Route Oral Oral (09/17/21 8:09 PM) (09/17/21 2:10 PM)
--- OUTSIDE RECORDS SUMMARY | 2022-06-23 11:09 | XMS_ITS ---
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 [place] [facility] hammer to e(s) [address] (acquired), righ t foot M20.41 ; Pain in right toe(s) M79.674 ; Other hammer toe(s) (acquired), left foot M20.42 ; Pain in left toe(s) M79.675 ; Type 2 diabetes mellitu s with diabetic periphe ral angiopathy witho ut gangrene E11.51 and Ingrowing nail L 60.[address] [facility] 14 Dec, 2019 Tin ea unguium B35.1 ; [place], [place] Other hammer to e(s) [address] (acquired), righ t foot M20.41 ; Pain in right toe(s) M79.674 ; Other hammer toe(s) (acquired), left foot M20.42 ; Pain in left toe(s) M79.675 a nd Type 2 diabetes melli tus with diabetic peripheral angio franci without gangrene E11.51 IMMUNIZATIONS Vaccine Route Administration Date Status Influenza Unknown Mar 04, 2019 Administered SOCIAL HISTORY Qualifiers Date Former Smoker REASON FOR REFERRAL FUNCTIONAL STATUS PLAN OF CARE Activity Details Future/Pending Procedure [id number] NAIL, 6 OR MOR E Future/Pending Procedure 18976-[id number] Plate Future/Pending Procedure [id number] SKIN LESIONS, 2 T O 4 Future/Pending Procedure [id number] NAIL, 6 OR MOR E Future/Pending Procedure [id number] SKIN LESIONS, 2 T O 4 VITAL SIGNS Height 5 ft 4 in in 2020-03-16 Weight 133 lbs 2020-03-16 BMI 22.83 kg/m2 2020-03-16 Temperature 98.2 degrees Fahrenheit 2020-03-16 Blood pressure systolic N mm Hg 2020-03-16 Blood pressure diastolic A mm Hg 2020-03-16 MEDICATIONS Medication Instructions Dosage Frequency Start End Duration Statu s Date Date Atorvastatin Calcium Orally Once a 1 tablet 24h 30 d ay(s) Active 20 MG day Vitamin C Active Glucosamine as Active Chondroitin Adv - directed rOPINIRole HCl 0.25 Orally Once a 1 tablet 1 24h 30 day(s) Active MG day to 3 hours before bedtime Vitamin D Active Fish Oil Active Aspirin Active metFORMIN HCl 500 MG Orally twice a 1 tablet 12h Active day with a meal Calcium Active hydroCHLOROthiazide Orally Once a 1 tablet 24h 30 da y(s) Active 25 MG day in the morning Extra Depth as Active Orthopedic Shoes (1 directed Pair) with Customized Heat Molded Multidensity Innersoles (3 Pair) Multivitamin Active Apple Cider Vinegar Acti ve Tamsulosin HCl 0.4 MG Orally Once a 1 capsule 24h 30 day(s) Active day PROCEDURES Procedure Date Ordered Result Body Site TRIM SKIN LESIONS, 2 TO 4 Mar 16, 2020 TRIM SKIN LESIONS, 2 TO 4 December 16, 2019 Avulsion Plate Mar 16, 2020 DEBRIDE NAIL, 6 OR MORE Mar 16, 2020 DEBRIDE NAIL, 6 OR MORE December 16, 2019 RESULTS Name Result Date Reference Range HEMOGLOBIN A1C (GLYCOHEMOGLOBIN) 2019-11-25 TOTAL HEMOGLOBIN (HGBA1C) HEMOGLOBIN A1C (HH) 7.2 HEMOGLOBIN A1C % (HH) ESTIMATED AVG GLUCOSE REASON FOR VISIT Insurance Providers [facility] Member Patient Patient Patient Patient Patient Subscriber Subscriber Subscriber Group Insurance Plan Plan Plan Plan ID Relationship Address Phone Name Date of ID Name Date of No Type Insurance Insurance Insurance Coverage to Subscriber Address Phone Name Dates Medicare National [id number] Medicare self [place] [id number] Govt S[employer] [address] [employer] [address] [place] [address] [employer] [phone] Med[employer] self [place] 1 [id number] Shield [id number] Shield [address] [employer] [id number] MEDICAL (GENERAL) HISTORY Type Description Date Medical History Anemia Medical History Arthritis Medical History Back,Hip,and Knee pain Medical History Cataracts Medical History Diabetic Medical History Headaches/Migraines Medical History High blood pressure Medical History Sciatica Medical History Stroke Medical History Measles Medical History Chicken pox Medical History Transfusions Medical History Vertigo Surgical History tonsillectomy 1946 Surgical History hysterectomy 1990 Surgical History cataract surgery 2017 Surgical History eye lift 2018 Surgical History Dental Surgery 1993
[2022-06-23 11:13] LABS: MANUAL DIFF FLAG NO
[2022-06-23 11:14] LABS: Basophils Percent Auto 0.3 % (0-2); Eosinophils Absolute Auto 0.1 X10*3/uL (0.0-0.4); Hemoglobin 12.7 g/dl (12.0-16.0); Imm Gran Abs Auto 0.08 X10*3/uL (0.00-0.03); Imm Gran Pct Auto 0.7 % (0.0-0.4); Lymphocytes Absolute Auto 2.4 X10*3/uL (1.2-4.9); Lymphocytes Percent Auto 20.7 % (20-40); Mean Corpuscular HGB Conc 32.6 g/dl (31.0-35.0); Mean Corpuscular Hemoglobin 29.1 pg (27.0-33.0); Mean Corpuscular Volume 89.4 fL (80.0-98.0); Mean Platelet Volume 8.8 fL (9.4-12.3); Monocytes Absolute Auto 0.9 X10*3/uL (0.1-1.2); Monocytes Percent Auto 7.7 % (2-11); Neutrophils Absolute Auto 8.1 x10*3/uL (2.0-8.3); Neutrophils Percent Auto 69.6 % (45-73); Platelet Count 276 X10*3/uL (160-400); Red Blood Count 4.36 X10*6/uL (4.20-5.50); Red Cell Distribution Width 12.9 % (11.0-16.0); White Blood Count 11.7 X10*3/uL (4.8-10.8)
[2022-06-23 11:45] LABS: Alanine Aminotransferase 26 U/L (0-31); Albumin Level 4.5 g/dL (3.5-5.0); Alkaline Phosphatase 79 U/L (39-117); Anion Gap 16 (12-20); Aspartate Amino Transferase 34 U/L (5-31); Bilirubin Direct 0.2 mg/dL (0.0-0.5); Bilirubin Total 0.5 mg/dL (0.0-1.0); Blood Urea Nitrogen 31 mg/dL (9-16); Calcium 10.3 mg/dL (8.4-10.2); Carbon Dioxide 27 mmol/L (22-29); Chloride 97 mmol/L (96-108); Creatinine Clr Calc Pharmacy 51.6; Estimated Glomerular Filt Rate > 60; Glucose Random 166 mg/dL (60-115); Magnesium 1.6 mg/dL (1.6-2.6); Potassium 4.1 mmol/L (3.3-5.1); Sodium 136 mmol/L (135-145); Total Protein 8.2 g/dL (6.5-8.0)
[2022-06-23] MEDS: iohexoL 350 MG/ML 100 ML INFUS..BTL 85 ML IV (12:54)
[2022-06-23 13:51] VITALS: BP 138/58; PULSE 74; RESP 11; O2SAT 95
[2022-06-23 14:06] LABS: Appearance Urine Clear; Color Urine Yellow; Glucose Urine UA Negative (Negative); Leukocyte Esterase Urine Small (1+) (Negative); Nitrite Urine Negative (Negative); PH 5.5 (5.0-9.0); UMIC TRIGGER UACC YES; Urine Blood Large (3+) (Negative); Urine Ketones Negative (Negative); Urine Protein 30 (1+) mg/dL (Neg-Trace)
[2022-06-23 14:08] LABS: Bacteria Urine None Seen (None Seen); Hyaline Casts Urine 0-2 /LPF (0-2); RBC Urine >20 /HPF (0-2); Squamous Epithelial Cell Urine 0-2 /HPF (0-2); UACC Culture Trigger YES
[2022-06-23] MEDS: levoFLOXacin 750 MG TABLET PO (15:01)
[2022-06-23] MEDS: Acetaminophen 325 MG TABLET 975 MG PO (16:51)
== END 2022-06-23 19:53 | disposition home or self-care (01) ==
PROVIDERS: Physician Assistant; Emergency Provider Emergency Medicine
DX: N39.0 Urinary tract infection, site not specified (principal); N13.6 Pyonephrosis; I69.354 Hemiplegia and hemiparesis following cerebral infarction affecting left non-dominant side; Z99.3 Dependence on wheelchair
CPT/HCPCS: 36415; 74177; 80048; 80076; 81001; 83735; 85025; 87086; 87088; 87186; 99284; Q9967

== ENCOUNTER 2022-07-25 04:52 | Emergency (ER) | payer MEDICARE, MEDICAID, SELFPAY ==
[2022-07-25 05:01] VITALS: BP 142/83; PULSE 118; O2SAT 96
[2022-07-25 05:03] VITALS: BP 146/108; PULSE 119; RESP 18; TEMP 36.8; O2SAT 96; BMI 29.9
--- NOTE | 2022-07-25 05:16 | PC.NURSE ---
balloon not inflated in correct spot, balloon was blocking exit of urine. deflated to check placement, 600mL urine put out no issues. patient reports great relief of pain. will place new sanderson catheter and send urine sample
[2022-07-25 05:42] LABS: Appearance Urine Turbid; Color Urine Red; Glucose Urine UA Negative (Negative); Leukocyte Esterase Urine Large (3+) (Negative); Nitrite Urine Negative (Negative); PH 5.5 (5.0-9.0); UMIC TRIGGER UACC YES; Urine Blood Large (3+) (Negative); Urine Ketones Negative (Negative); Urine Protein 100 (2+) mg/dL (Neg-Trace)
--- NOTE | 2022-07-25 05:42 | ED.FEMALEGU ---
HPI - Female Genitourinary General Chief complaint: Urogenital-Female Stated complaint: lower abd pain, history of uti Time Seen by Provider: 07/25/22 05:17 Source: patient and family Mode of arrival: EMS Limitations: no limitations History of Present Illness HPI Narrative: Patient with history of CVA chronic indwelling Cabrera catheter for last 2 years came as she was feeling discomfort in lower abdomen on arrival bladder scan was done which shows 680 cc of urine and when the balloon was deflated patient urinated likely it was dislodged patient just missed your doxycycline for UTI yesterday received Levaquin last month Related Data Previous Rx's Medication Instructions Recorded fluconazole 150 mg tablet 150 mg PO DAILY #1 tab 11/11/21 (Diflucan) levofloxacin 750 mg tablet 750 mg PO Q24H #4 tabs 11/11/21 levofloxacin 500 mg tablet 500 mg PO DAILY #7 tabs 06/23/22 ciprofloxacin HCl 500 mg tablet 500 mg PO BID #20 tabs 07/25/22 (Cipro) Allergies Allergy/AdvReac Type Severity Reaction Status Date / Time No Known Allergies Allergy Verified 11/11/21 17:20 Review of Systems Review of Systems: Yes all other systems are reviewed and are negative [facility] Social History Social History Patient Tobacco Use Status: Former Tobacco user Advance Directives: No Advance Directives Information Provided: Yes Physical Exam Vital Signs: Vital Signs: Last Vital Signs Temp 98.2 F 07/25/22 05:03 Pulse 119 H 07/25/22 05:03 Resp 18 07/25/22 05:03 BP 146/108 H 07/25/22 05:03 Pulse Ox 96 07/25/22 05:03 O2 Del Method 07/25/22 05:03 BMI result Body Mass Index 29.9 Appearance: Alert. Oriented X3. No acute distress. Eyes: PERRLA, No Nystagmus ENT: Pharynx normal. Oral Mucosa moist Neck: Normal inspection. Neck supple. CVS: Normal heart rate and rhythm. Pulses normal. Respiratory: No respiratory distress. Equal air entry bilateral, no wheezing/rales/rhonchi Abdomen: Soft and nontender. Bowel sounds are present, no mass palpable, no CVA tenderness Skin: Skin warm and dry. Normal skin color. Normal skin turgor. Extremities: No lower extremity edema. No calf tenderness Neuro: Oriented X 3. 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 Labs: Lab Results 07/25/22 Range/Units 05:34 Urine Color Red A Urine Appearance Turbid Urine pH 5.5 (5.0-9.0) Ur Specific [place] 1.020 (1.005-1.025) Urine Protein 100 (2+) H (Neg-Trace) mg/dL Urine Glucose (UA) Negative (Negative) mg/dL Urine Ketones Negative (Negative) mg/dL Urine Blood Large (3+) H (Negative) Urine Nitrite Negative (Negative) Ur Leukocyte Esterase Large (3+) H (Negative) Urine RBC >20 H (0-2) /HPF Urine WBC >50 H (0-5) /HPF Ur Squamous Epith Cells >20 (0-2) /HPF Other Crystals Present Urine Bacteria 2+ (None Seen) Hyaline Casts 11-20 (0-2) /LPF Discharge Plan Discharge Clinical Impression: Urinary tract infection, Dislodged Cabrera catheter Patient Disposition: Home, Self-Care Instructions: Catheter-associated Urinary Tract Infection (ED) Additional Instructions: Drink plenty of fluids Antibiotic as prescribed Follow-up with your PCP Catheter care as advised Prescriptions: New ciprofloxacin HCl [Cipro] 500 mg tablet 500 mg PO BID Qty: 20 0RF No Action fluconazole [Diflucan] 150 mg tablet 150 mg PO DAILY Qty: 1 0RF Rx Instructions: Take this medication on 11/14/2021. First dose given 11/11/2021 in the emergency department. levofloxacin 750 mg tablet 750 mg PO Q24H Qty: 4 0RF Rx Instructions: Start 11/12/2021. First dose given in the emergency department on 11/11/2021. levofloxacin 500 mg tablet 500 mg PO DAILY Qty: 7 0RF
[2022-07-25 05:53] LABS: Bacteria Urine 2+ (None Seen); Other Crystals Urine Present; RBC Urine >20 /HPF (0-2); Squamous Epithelial Cell Urine >20 /HPF (0-2); UACC Culture Trigger YES; WBC Urine >50 /HPF (0-5)
[2022-07-25] MEDS: levoFLOXacin 500 MG TABLET PO (06:52)
--- NOTE | 2022-07-25 08:41 | MHC.EDTECH ---
@0808 [facility] CALLED FOR BLS TX BACK HOME ESTABAN ANSWERS, TAKES PT INFO AND MED NEC, THEN SAYS THEY WILL SEND AN AMB WHEN ONE IS AVAILABLE @0811 LORRIE FROM [facility] CALLS TO ASK MED NEC FOR TX MED GIVEN AND A BETTER ETA REQUESTED LORRIE GIVES WITHIN THE HOUR
[2022-07-25 09:17] VITALS: BP 146/96; PULSE 98; RESP 16; O2SAT 98
--- NOTE | 2022-07-25 10:31 | PHA.MEDREC ---
Pharmacy Consult ? Medication Reconciliatiation pt discharged before med rec could be complete
== END 2022-07-25 09:23 | disposition home or self-care (01) ==
PROVIDERS: Emergency Provider Internal Medicine
DX: T83.511A Infection and inflammatory reaction due to indwelling urethral catheter, initial encounter (principal); N39.0 Urinary tract infection, site not specified; T83.021A Displacement of indwelling urethral catheter, initial encounter; Y73.8 Miscellaneous gastroenterology and urology devices associated with adverse incidents, not elsewhere classified; Y92.9 Unspecified place or not applicable
CPT/HCPCS: 51702; 81001; 87086; 99283; 99284

== ENCOUNTER 2022-08-17 10:09 | Outpatient (REF) | payer MEDICARE, MEDICAID, SELFPAY ==
--- NOTE | ~2022-08-17 | US_ITS ---
EXAMINATION: US RETROPERITONEAL LIMITED (RENAL ONLY) CLINICAL INFORMATION: Other neuromuscular dysfunction of bladder/retention of urine. COMPARISON: CT abdomen and pelvis with contrast 06/23/2022. TECHNIQUE: Real-time imaging of the kidneys. FINDINGS: RIGHT KIDNEY: 9.4 x 5.5 x 5.5 cm (SAG x AP x TRV). The kidney is normal in contour and echogenicity. Renal cortical thickness is normal. No calculi or focal parenchymal lesions. No hydronephrosis. Mild hydronephrosis seen at the time of the prior CT scan is not present on the current study. LEFT KIDNEY: 9.6 x 5.4 x 4.8 cm (SAG x AP x TRV). The kidney is normal in contour and echogenicity. Renal cortical thickness is normal. No calculi or focal parenchymal lesions. No hydronephrosis. Mild hydronephrosis seen at the time of the prior CT scan is not present on the current study. BLADDER: Bladder is decompressed. A Cabrera catheter is in place. US/US retroperitoneal limited IMPRESSION: Normal-appearing kidneys.
== END 2022-08-17 10:10 | disposition home or self-care (01) ==
LOC: HO.US 10:09
PROVIDERS: Visit Provider Nurse Practitioner Family
DX: R33.9 Retention of urine, unspecified (principal); N31.8 Other neuromuscular dysfunction of bladder
CPT/HCPCS: 76775

== ENCOUNTER 2022-08-24 12:34 | Emergency (ER) | payer MEDICARE, MEDICAID, SELFPAY ==
[2022-08-24 13:00] VITALS: BP 136/82; BP 137/54; PULSE 78; PULSE 88; RESP 18; TEMP 36.3; O2SAT 100; O2SAT 99; BMI 25.7
--- NOTE | 2022-08-24 13:09 | ED_ITS ---
HPI - Female Genitourinary General Chief complaint: Urogenital-Female Stated complaint: F/C ISSUE,VNA HAVING TROUBLE INSERTING PER EMS Time Seen by Provider: 08/24/22 13:06 Source: patient, EMS and old records reviewed Mode of arrival: EMS Limitations: no limitations History of Present Illness HPI Narrative: 82-year-old female with history of stroke in 2019with left-sided hemiparesis, wheelchair-bound, chronic indwelling Sanderson for the last 4 years with recurrent UTIs who presents to the ER from home for evaluation of difficulty replacing Sanderson catheter. EMS reported that visiting RN was unable to replace the catheter so a decorating supervisor came and was also unsuccessful. She was leaking around what was placed so she was brought to the ER for further evaluation. She reports suprapubic discomfort and continuously leaking urine. This has been happening on and off for a long time. No fever, chills, N/V/D. She recently completed a course of abx for UTI. She states she gets her catheter exchanged every 3 weeks or so. elicited complaint: other (leaking sanderson catheter) Pertinent past history: recurrent UTIs and other (chronic Sanderson) Location of symptoms: external genitalia and urethra Severity: moderate Female Urogenital Radiation: Suprapubic Quality of pain: aching Consistency: intermittent Vaginal discharge: none Vaginal bleeding: none Exacerbating factors: none Relieving factors: none Associated symptoms: denies other symptoms Treatment prior to arrival: none Related Data Previous Rx's Medication Instructions Recorded fluconazole 150 mg tablet 150 mg PO DAILY #1 tab 11/11/21 (Diflucan) levofloxacin 750 mg tablet 750 mg PO Q24H #4 tabs 11/11/21 levofloxacin 500 mg tablet 500 mg PO DAILY #7 tabs 06/23/22 ciprofloxacin HCl 500 mg tablet 500 mg PO BID #20 tabs 07/25/22 (Cipro) Allergies Allergy/AdvReac Type Severity Reaction Status Date / Time No Known Allergies Allergy Verified 11/11/21 17:20 Review of Systems Review of Systems: Yes all other systems are reviewed and are negative [facility] Past Medical History Medical History (Updated 08/24/22 @ 13:48 by BELEN Hill) 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 Social History Social History Patient Tobacco Use Status: Former Tobacco user Advance Directives: Yes Advance Directives Information Provided: Yes Advance Directives on File: No Physical Exam Vital Signs: Vital Signs: Last Vital Signs Temp 97.4 F 08/24/22 13:00 Pulse 78 08/24/22 13:00 Resp 18 08/24/22 13:00 BP 137/54 L 08/24/22 13:00 Pulse Ox 99 08/24/22 13:00 O2 Del Method Room Air 08/24/22 13:00 BMI result Body Mass Index 25.7 Appearance: Alert. Oriented X3. No acute distress. Eyes: Pupils equal, round and reactive to light. ENT: Pharynx normal. Neck: Normal inspection. Neck supple. CVS: Normal heart rate and rhythm. Pulses normal. Respiratory: No respiratory distress. Breath sounds normal. Abdomen: Soft with suprapubic tenderness, BS x4 Skin: Skin warm and dry. Normal skin color. Normal skin turgor. No rashes. Extremities: No lower extremity edema. Neuro: Oriented X 3. Normal speech and cognition. left sided weakness, hemiparesis Course Course Course Narrative: 82-year-old female with chronic Sanderson with left-sided hemiparesis due to stroke presenting with malfunction/malposition Sanderson catheter. Sanderson catheter was found to be in the vagina. It was easily replaced by nursing. Upgraded to an 18 Ivorian to help with leakage. No infection. Stable for discharge Medical Decision Making Medical Decision Making [facility] Narrative: 82-year-old female presents to the ER for evaluation of difficulty inserting and replacing a chronic Sanderson catheter. Patient was found to have the catheter placed in her vagina rather than her urethra. Nursing was able to replace a Sanderson catheter, size 18 Ivorian into the urethra. No difficulty. Urinalysis does not show any evidence of infection. She will follow-up with your urologist for further care. Stable for discharge back home. Differential Diagnosis Differential Diagnoses: The differential diagnosis associated with the presentation includes Catheter associated UTI, sediment clogging the catheter, false tract, placement in the vagina rather than the urethra Lab Data [facility] Lab Attestation statement: I reviewed the patient's lab results. No evidence of UTI Labs: Lab Results 08/24/22 Range/Units 14:11 Urine Color Yellow Urine Appearance Clear Urine pH 5.0 (5.0-9.0) Ur Specific [place] <= 1.005 (1.005-1.025) Urine Protein Negative (Neg-Trace) mg/dL Urine Glucose (UA) Negative (Negative) mg/dL Urine Ketones Negative (Negative) mg/dL Urine Blood Trace H (Negative) Urine Nitrite Negative (Negative) Ur Leukocyte Esterase Trace H (Negative) Urine RBC 0-2 (0-2) /HPF Urine WBC 0-5 (0-5) /HPF Ur Squamous Epith Cells 0-2 (0-2) /HPF Urine Bacteria None Seen (None Seen) Hyaline Casts 0-2 (0-2) /LPF Independent Historian Clinical information obtained from an independent historian. History obtained from or confirmed by: EMS External Record Review External record reviewed: Outpatient record and Prior outpatient labs Chronic Conditions Patient?s care impacted by: Other (Stroke with hemiparesis, chronic urinary retention requiring Sanderson catheter) Critical Care Time Critical Care Time Critical Care Time: No Discharge Plan Discharge Clinical Impression: Malfunction of Sanderson catheter Patient Disposition: Home, Self-Care Instructions: Sanderson Catheter Placement and Care (ED) Additional Instructions: Your Sanderson catheter was replaced without issue. Size was upgraded to an 18 Ivorian. This should help with leaking. Your urine test did not show any evidence of infection. Recommend following up with your urologist. Prescriptions: No Action fluconazole [Diflucan] 150 mg tablet 150 mg PO DAILY Qty: 1 0RF Rx Instructions: Take this medication on 11/14/2021. First dose given 11/11/2021 in the emergency department. levofloxacin 750 mg tablet 750 mg PO Q24H Qty: 4 0RF Rx Instructions: Start 11/12/2021. First dose given in the emergency department on 11/11/2021. levofloxacin 500 mg tablet 500 mg PO DAILY Qty: 7 0RF ciprofloxacin HCl [Cipro] 500 mg tablet 500 mg PO BID Qty: 20 0RF
--- NOTE | 2022-08-24 13:39 | PC.NURSE ---
18 korean sanderson with Betty PCT at bedside placed clear yellow urine draining will CTM
[2022-08-24 14:19] LABS: Appearance Urine Clear; Color Urine Yellow; Glucose Urine UA Negative (Negative); Leukocyte Esterase Urine Trace (Negative); Nitrite Urine Negative (Negative); Specific Gravity - Urine <= 1.005 (1.005-1.025); UMIC TRIGGER UACC YES; Urine Blood Trace (Negative); Urine Ketones Negative (Negative); Urine Protein Negative (Neg-Trace)
[2022-08-24 14:22] LABS: Bacteria Urine None Seen (None Seen); Hyaline Casts Urine 0-2 /LPF (0-2); RBC Urine 0-2 /HPF (0-2); Squamous Epithelial Cell Urine 0-2 /HPF (0-2); WBC Urine 0-5 /HPF (0-5)
--- NOTE | 2022-08-24 14:45 | PC.NURSE ---
Attempt to call daughter Claribel to let lillien into house no answer, patient stated daughter had appt today unsure of time will attempt to call back later provider aware will CTM
--- NOTE | 2022-08-24 15:09 | PC.NURSE ---
Spoke with daughter Claribel will be available to let patient into house will book transport
[2022-08-24 15:51] VITALS: BP 124/58; PULSE 65; RESP 18; TEMP 36.5; O2SAT 97
--- NOTE | 2022-08-24 16:28 | MHC.EDTECH ---
this pct assumed care of pt at 1500 ,pt was incontinent of urine ,care given linen change .
--- NOTE | 2022-08-24 17:05 | PC.NURSE ---
report to EMS
== END 2022-08-24 17:05 | disposition home or self-care (01) ==
PROVIDERS: Physician Assistant; Emergency Provider Student in an Organized Health Care Education/Training Program
DX: T83.028A Displacement of other urinary catheter, initial encounter (principal); Y73.8 Miscellaneous gastroenterology and urology devices associated with adverse incidents, not elsewhere classified; Y92.019 Unspecified place in single-family (private) house as the place of occurrence of the external cause
CPT/HCPCS: 51702; 81001; 99284

== ENCOUNTER 2022-08-25 12:20 | Emergency (ER) | payer MEDICARE, MEDICAID, SELFPAY ==
--- NOTE | 2022-08-25 12:31 | ED.FEMALEGU ---
HPI - Female Genitourinary General Chief complaint: Urogenital-Female Stated complaint: Cabrera cath fell out per EMS Time Seen by Provider: 08/25/22 12:24 Source: patient, EMS and old records reviewed Mode of arrival: EMS Limitations: no limitations History of Present Illness HPI Narrative: 82-year-old female with a history of a stroke with left-sided hemiparesis, chronic urinary retention requiring Cabrera catheter for the last 4 years, recurrent UTIs presents to the ER for evaluation of a Cabrera dislodgement that occurred at home just prior to arrival while patient was on the commode. Patient denies any knowledge of any trauma or pulling at the catheter. She states the balloon was not fully inflated when he came out. She reports some soreness in her vaginal area. She states this happens from time to time. She was here yesterday when visiting nursing was unable to replace a catheter that fell out. An 18 [place]an Cabrera catheter was placed yesterday, clear yellow urine returned and patient was discharged back home. MD elicited complaint: other Pertinent past history: recurrent UTIs and other (Chronic Cabrera) Onset (ago): minute(s) Location of symptoms: urethra Severity: moderate Female Urogenital Radiation: Non-Radiating Quality of pain: burning Vaginal bleeding: none Exacerbating factors: urination and palpation Relieving factors: none Associated symptoms: denies other symptoms Treatment prior to arrival: none Sexual activity: No Related Data Previous Rx's Medication Instructions Recorded fluconazole 150 mg tablet 150 mg PO DAILY #1 tab 11/11/21 (Diflucan) levofloxacin 750 mg tablet 750 mg PO Q24H #4 tabs 11/11/21 levofloxacin 500 mg tablet 500 mg PO DAILY #7 tabs 06/23/22 ciprofloxacin HCl 500 mg tablet 500 mg PO BID #20 tabs 07/25/22 (Cipro) Allergies Allergy/AdvReac Type Severity Reaction Status Date / Time No Known Allergies Allergy Verified 11/11/21 17:20 Review of Systems Review of Systems: Yes all other systems are reviewed and are negative [facility] Past Medical History Medical History (Updated 08/25/22 @ 12:52 by BELEN Hill) 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 Social History Social History Patient Tobacco Use Status: Former Tobacco user Advance Directives: Yes Advance Directives Information Provided: Yes Advance Directives on File: No Physical Exam Vital Signs: Vital Signs: Last Vital Signs Temp 97.6 F 08/25/22 12:36 Pulse 74 08/25/22 12:36 Resp 18 08/25/22 12:36 BP 121/42 L 08/25/22 12:36 Pulse Ox 100 08/25/22 12:36 O2 Del Method Room Air 08/25/22 12:36 BMI result Body Mass Index 25.7 Appearance: Alert. Oriented X3. No acute distress. HEENT: normal inspection CVS: Normal heart rate and rhythm. Pulses normal. Respiratory: No respiratory distress. Skin: Skin warm and dry. Normal skin color. Normal skin turgor. No rashes. : Normal external appearance of the tail ER, there is some trace blood at the vaginal introitus, visualized the urethral meatus and there was bright red blood, tenderness, no lacerations or lesions. Extremities: normal inspection, brace on the left lower leg. Neuro: Oriented X 3. Left-sided hemiparesis Course Reevaluation(s) Reevaluation #1: Clear yellow urine draining out of the Cabrera catheter after replacement. Stable for discharge home Medical Decision Making Medical Decision Making MDM Narrative: 82-year-old female presents back to the ER within 24 hours for dislodged Cabrera catheter. On examination it appears as though the fully was dislodged dramatically. She has blood at the urethral meatus, the area is very tender. The 18 [place]ankan Cabrera catheter was able to be successfully placed with clear yellow urine returning. No evidence of traumatic hematuria. 10 cc balloon inflated and catheter maintained adequate positioning with adequate drainage. Stable for discharge back to her home with VNA, she will follow-up with her outpatient urologist. Differential Diagnosis Differential Diagnoses: The differential diagnosis associated with the presentation includes Traumatic Cabrera dislodgement, false tract, vaginal placement of the Cabrera catheter Independent Historian Clinical information obtained from an independent historian. History obtained from or confirmed by: EMS External Record Review External record reviewed: Outpatient record Chronic Conditions Patient?s care impacted by: Other (Stroke with hemiparesis, urinary retention requiring chronic Cabrera) Critical Care Time Critical Care Time Critical Care Time: No Discharge Plan Discharge Clinical Impression: Dislodged Cabrera catheter Patient Disposition: Home, Self-Care Instructions: Cabrera Catheter Placement and Care (ED) Additional Instructions: It appeared as though your Cabrera was traumatically dislodged. It is important that you are very careful with any movement or position changes not to pull on it Follow up with your Urologist Prescriptions: No Action fluconazole [Diflucan] 150 mg tablet 150 mg PO DAILY Qty: 1 0RF Rx Instructions: Take this medication on 11/14/2021. First dose given 11/11/2021 in the emergency department. levofloxacin 750 mg tablet 750 mg PO Q24H Qty: 4 0RF Rx Instructions: Start 11/12/2021. First dose given in the emergency department on 11/11/2021. levofloxacin 500 mg tablet 500 mg PO DAILY Qty: 7 0RF ciprofloxacin HCl [Cipro] 500 mg tablet 500 mg PO BID Qty: 20 0RF
[2022-08-25 12:36] VITALS: BP 121/42; BP 125/82; PULSE 74; PULSE 75; RESP 18; TEMP 36.4; O2SAT 100; O2SAT 97; BMI 25.7
--- NOTE | 2022-08-25 13:22 | PC.NURSE ---
18 occitan sanderson with [address] with Patrica PCT at bedside patient has some swelling and redness to uretha reports sanderson just fell out did not pull out provider aware.
--- NOTE | 2022-08-25 15:14 | PC.NURSE ---
Clear yellow urine noted in indwelling sanderson will prepare for discharge
[2022-08-25 16:46] VITALS: BP 114/45; PULSE 67; RESP 16; O2SAT 99
--- NOTE | 2022-08-25 17:25 | PC.NURSE ---
Spoke with daughter Claribel she will be home to let patient into house
--- NOTE | 2022-08-25 18:34 | PC.NURSE ---
Patient sleeping easily aroused awaiting transport home.
--- NOTE | 2022-08-25 18:44 | PC.NURSE ---
Report to EMS
== END 2022-08-25 18:56 | disposition home or self-care (01) ==
PROVIDERS: Emergency Provider Student in an Organized Health Care Education/Training Program
DX: T83.9XXA Unspecified complication of genitourinary prosthetic device, implant and graft, initial encounter (principal); R33.9 Retention of urine, unspecified; Y73.2 Prosthetic and other implants, materials and accessory gastroenterology and urology devices associated with adverse incidents; Y92.9 Unspecified place or not applicable; Z87.891 Personal history of nicotine dependence; Z79.899 Other long term (current) drug therapy
CPT/HCPCS: 51702; 99283; 99284

== ENCOUNTER 2022-09-24 11:33 | Emergency (ER) | payer MEDICARE, MEDICAID, SELFPAY ==
--- NOTE | ~2022-09-24 | CT_ITS ---
EXAMINATION: CT PELVIS WITHOUT CONTRAST CLINICAL INFORMATION: Post Cabrera removal COMPARISON: None available. TECHNIQUE: Helical scanning was performed with submillimeter collimation through the pelvis. Sagittal and coronal multiplanar 2-D reconstructions were obtained. This CT examination was performed using dose optimization techniques as appropriate, variously including the following: *Automated exposure control *Adjustment of mA and/or kV according to patient size (this includes techniques or standardized protocols for targeted exams where dose is matched to indication/reason for exam; i.e. extremities or head) *Use of iterative reconstruction technique DLP: 388 mGy-cm FINDINGS: The bladder is empty. There may be mild diffuse mild bladder wall thickening. No abnormal fluid or air in the pelvis is seen. Diverticulosis of the colon. Small and large bowel is otherwise unremarkable. Atherosclerotic disease. No adenopathy. The uterus appears to have been removed. No pelvic mass. OSSEOUS STRUCTURES: Degenerative changes of the spine and hip joints. Stable mild anterior subluxation of L4 with respect L5 probably related to facet arthritis. CT/CT pelvis wo IV con IMPRESSION: The bladder is empty. There may be mild diffuse bladder wall thickening. No fluid or air collection seen in the pelvis. Diverticulosis.
--- NOTE | ~2022-09-24 | CT_ITS ---
EXAMINATION: CT ABDOMEN AND PELVIS WITHOUT CONTRAST CLINICAL INFORMATION: Rule out bladder mass. Difficulty inserting Cabrera catheter COMPARISON: Previous ultrasound August [address] June 2022 TECHNIQUE: Multidetector volumetric imaging was performed from the superior aspect of the liver through the pubic symphysis. Sagittal and coronal reformatted images were obtained on the technologist's workstation. This CT examination was performed using dose optimization techniques as appropriate, variously including the following: *Automated exposure control *Adjustment of mA and/or kV according to patient size (this includes techniques or standardized protocols for targeted exams where dose is matched to indication/reason for exam; i.e. extremities or head) *Use of iterative reconstruction technique DLP: 623 mGy-cm FINDINGS: LUNG BASES: The visualized lung bases are unremarkable. LIVER, GALLBLADDER, AND BILIARY TREE: Cirrhotic-appearing liver. No focal hepatic lesion or biliary ductal dilatation is present. The gallbladder is unremarkable with no evidence of radiopaque gallstones, gallbladder wall thickening, or obvious pericholecystic inflammatory changes. PANCREAS: Unremarkable. SPLEEN: Unremarkable. ADRENAL GLANDS: Unremarkable. KIDNEYS AND URETERS: The kidneys are normal in size, shape, and attenuation. Small nonobstructing left renal stones. No hydronephrosis. Normal right kidney. BLADDER: There is a Cabrera catheter coiled in the bladder. The bladder is empty. GASTROINTESTINAL TRACT: Diverticulosis of the colon. There is question of mild wall thickening of the proximal colon versus changes due to underdistention. Small and large bowel is otherwise normal. The appendix is normal. ABDOMINAL WALL: No significant hernia is appreciated. LYMPH NODES: Normal. VASCULAR: Atherosclerotic disease. No aneurysm. PELVIC VISCERA: The uterus appears to have been removed. No pelvic mass. OSSEOUS STRUCTURES: Unremarkable. CT/CT abdomen pelvis wo IV con IMPRESSION: Cabrera catheter coiled in the bladder. The bladder is empty. Small nonobstructing left renal stones. No hydronephrosis. Diverticulosis of the colon. Cirrhotic-appearing liver. Fleischner guidelines were followed.
[2022-09-24 11:41] VITALS: BP 132/69; PULSE 84; RESP 18; TEMP 36.4; O2SAT 98; BMI 27.4
[2022-09-24 11:42] VITALS: RESP 16
[2022-09-24 11:46] VITALS: BP 128/84; PULSE 94; O2SAT 99
--- NOTE | 2022-09-24 12:02 | PC.NURSE ---
preliminary med rec completed.
--- NOTE | 2022-09-24 12:59 | ED_ITS ---
HPI - Female Genitourinary General Chief complaint: Urogenital-Female Stated complaint: SOLIS CATH PROBLEM Time Seen by Provider: 09/24/22 12:29 Source: patient Mode of arrival: wheelchair Limitations: physical limitation History of Present Illness HPI Narrative: 82-year-old female with a past medical history of prolapsed urethra and chronic Solis catheter due to neurogenic bladder from stroke presents to the emergency department after her Solis catheter ?shot out? of her urethra with balloon intact at roughly 1:00 a.m.. She reports she had severe 10/10 pain at her urethra and then felt the Solis come out. She reports this has happened several times to her and that the last time she needed replaced was 1 and half weeks ago. She reports she has been unable to urinate since the Solis came out roughly 11-12 hours ago. She denies any abdominal pain, nausea, vomiting, bleeding from the urethra, constipation, diarrhea, fever, chills. Pertinent positives and negatives discussed in HPI. Related Data Home Medications Medication Instructions Recorded Confirmed apple cider vinegar 300 mg tablet 450 mg PO DAILY 09/24/22 09/24/22 ascorbic acid (vitamin C) 1,000 mg 1,000 mg PO DAILY 09/24/22 09/24/22 tablet (Vitamin C) atorvastatin 20 mg tablet 20 mg PO DAILY 09/24/22 09/24/22 calcium carbonate 600 mg-vitamin 2 cap PO DAILY 09/24/22 09/24/22 D3 12.5 mcg (500 unit) capsule (Calcium 600 with Vitamin D3) cholecalciferol (vitamin D3) 100 1,000 unit PO DAILY 09/24/22 09/24/22 mcg (4,000 unit) capsule clotrimazole 1 % topical cream 1 appl topical BID PRN Itching 09/24/22 09/24/22 finerenone 20 mg tablet (Kerendia) 20 mg PO DAILY 09/24/22 09/24/22 gabapentin 300 mg capsule 300 mg PO BID 09/24/22 09/24/22 glucosamine sulf dipot 1 cap PO DAILY 09/24/22 09/24/22 chlr,msm,chond 550 mg-C 30 mg-lyric 1 mg capsule (Glucosamine Chondroitin) hydrochlorothiazide 25 mg tablet 25 mg PO DAILY 09/24/22 09/24/22 meclizine 25 mg tablet 25 mg PO TID PRN Dizziness 09/24/22 09/24/22 metformin 500 mg tablet 1,000 mg PO BID 09/24/22 09/24/22 multivitamin,jz-lmav-mbdownkw 1 tab PO DAILY 09/24/22 09/24/22 omega 0-hkq-wer-fish oil 1,000 mg 1 cap PO DAILY 09/24/22 09/24/22 (120 mg-180 mg) capsule (Fish Oil) oxybutynin chloride 5 mg 5 mg PO DAILY 09/24/22 09/24/22 tablet,extended release 24 hr ropinirole 0.25 mg tablet 0.25 mg PO DAILY 09/24/22 09/24/22 sodium hyaluronate 20 mg capsule 100 mg PO BID 09/24/22 09/24/22 tamsulosin 0.4 mg capsule 0.4 mg PO DAILY 09/24/22 09/24/22 Allergies Allergy/AdvReac Type Severity Reaction Status Date / Time No Known Allergies Allergy Verified 11/11/21 17:20 Review of Systems Review of Systems: Yes all other systems are reviewed and are negative [facility] Past Medical History Medical History (Updated 09/24/22 @ 16:01 by Evelia Osei NP) 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 Social History Social History Alcohol intake: current Alcohol intake frequency: holidays/special occasions on ly Patient Tobacco Use Status: Former Tobacco user Smoked in Last 30 Days: No Use of substances other than those prescribed or required for medical reasons: No Advance Directives: No Advance Directives Information Provided: No Physical Exam Vital Signs: Vital Signs: Last Vital Signs Temp 97.7 F 09/24/22 13:56 Pulse 87 09/24/22 13:56 Resp 14 09/24/22 13:56 BP 124/53 L 09/24/22 13:56 Pulse Ox 96 09/24/22 13:56 O2 Del Method Room Air 09/24/22 13:56 BMI result Body Mass Index 27.4 Nursing notes and vital signs reviewed. GENERAL APPEARANCE: A&0 x 4, generally well appearing, no acute distress HENMT: Normal to inspection, atraumatic, face symmetrical. Normal external ears, nose, and oropharynx clear. CHEST: Normal to inspection HEART: Normal rate and regular rhythm, normal S1/S2, no M/R/G LUNGS: LS CTA, moving air well. Able to speak in complete sentences. No crackles, wheezes, or rhonchi auscultated ABDOMEN: Soft, nontender, nondistended. Normal bowel sounds noted : Prolapse urethra noted on exam protruding 1 cm from normal urethral opening. Patient incontinent of urine. EXTREMITIES: No cyanosis, clubbing, or edema. Normal capillary refill. NEUROLOGICAL: Alert and oriented, moving right-sided extremities at baseline. Left-sided hemiparesis secondary to CVA. CN not formally tested but appearing grossly intact. Cognition normal SKIN: Warm and dry without any lesions, rash, or visible sores PSYCH: Cooperative, normal affect, normal thought process Medical Decision Making Medical Decision Making MDM Narrative: 1240: Old records reviewed for previous imaging, lab studies, ECGs, or notes. Patient was assessed the emergency department. No acute distress or toxicity noted. Patient is A&O x4, LS CTA, SUMNER x4 with good strength. Based on HPI and PE plan for reinsert chronic Solis catheter. 1350: Nursing with difficulty inserting Solis catheter due to discomfort at urethral opening and deep per patient. Nursing reports they feel there is an obstruction that is not allowing them to fully insert catheter. Plan for CT abdomen pelvis to evaluate bladder. 1420: Wet read of CT abdomen pelvis shows Solis catheter coiled in bladder. Solis catheter removed and plan for additional scan of pelvis. 1445: I have independently interpreted the initial CT abdomen pelvis showing the initial Solis catheter coiled in the bladder, small nonobstructing left renal stones, diverticulosis of colon, and cirrhotic appearing liver. Second CT pelvis interpreted by myself showing diffuse bladder wall thickening and an empty bladder. 1515: I spoke with patient regarding reinserted and a Solis catheter verses incontinence care. Patient reports her daughter helps care for her at home and would like to have her daughter included in this conversation. I spoke with patient's daughter regarding home care. Daughter reports patient is wheelchair- bound and cares for herself throughout the day as the daughter works. Discussed need for Solis catheter verses urinary incontinence as Solis catheter insertion was painful and suprapubic catheter placement is scheduled for October 02. Patient's daughter requests reinsertion of Solis catheter as long as her mother is in agreement with catheter. In return conversation with patient, she is agreeable for insertion of Solis catheter. Plan for lidocaine Uro jet and insertion of 20 Arabic Solis catheter. 1530: Solis catheter successfully inserted by myself due to previous urethral trauma from earlier for a catheter. Sterile technique was maintained and RN present during procedure. Patient tolerated without incident. Plan for d ischarge home. Patient is safe for discharge at this time with plan for [id number] Tylenol and/or NSAID such as ibuprofen or naproxen for fever/discomfort with dosing as per packaging. HPI, PE, diagnostics, and plan discussed with patient and family with no unanswered questions at this time. Strict return precautions given to return to the emergency department with new, worsening, or concerning emergent symptoms. Recommended to follow-up with there primary care provider in 24-48 hours for further treatment and management. Differential Diagnosis Differential Diagnoses: The differential diagnosis associated with the presentation includes Dislodged Solis catheter Independent Interpretation I performed an independent interpretation of an: CT Scan Radiology Impression Discussion of test interpretation with radiology: I have reviewed the radiologist's reading. Discharge Plan Discharge Clinical Impression: Dislodged Solis catheter Patient Disposition: Home, Self-Care Instructions: Solis Catheter Placement and Care (ED) Prescriptions: No Action metformin 500 mg tablet 1,000 mg PO BID ascorbic acid (vitamin C) [Vitamin C] 1,000 mg Tablet 1,000 mg PO DAILY atorvastatin 20 mg tablet 20 mg PO DAILY tamsulosin 0.4 mg capsule 0.4 mg PO DAILY ropinirole 0.25 mg tablet 0.25 mg PO DAILY meclizine 25 mg tablet 25 mg PO TID PRN (Reason: Dizziness) oxybutynin chloride 5 mg tablet extended release 24hr 5 mg PO DAILY gabapentin 300 mg capsule 300 mg PO BID hydrochlorothiazide 25 mg tablet 25 mg PO DAILY clotrimazole 1 % cream 1 appl TOPICAL BID PRN (Reason: Itching) Complete Multivitamin Tablet 1 tab PO DAILY Hyaluronic Acid (sodium) 20 mg Capsule 100 mg PO BID apple cider vinegar 300 mg Tablet 450 mg PO DAILY calcium carbonate-vitamin D3 [Calcium 600 with Vitamin D3] 600 mg-12.5 mcg (500 unit) Capsule 2 cap PO DAILY Vitamin D3 100 mcg (4,000 unit) Capsule 1,000 unit PO DAILY Glucosamine Chondroitin 550-30-1 mg Capsule 1 cap PO DAILY Kerendia 20 mg tablet 20 mg PO DAILY omega 4-rug-uai-fish oil [Fish Oil] 1,000 mg (120 mg-180 mg) Capsule 1 cap PO DAILY Referrals: Moises Ryan MD [Physician] - Print Language: Tristanian
[2022-09-24 13:56] VITALS: BP 124/53; PULSE 87; RESP 14; TEMP 36.5; O2SAT 96
--- NOTE | 2022-09-24 14:18 | PC.NURSE ---
Pt has externally visual urethral tissue. Provider aware. Cabrera placed per Order. First attempt done by latin american studies director; tolerated well, with urine return and ultimately with confirmed vaginal placement. Scant bleeding noted opening. 2nd attempt done by myself, with provider at bedside. Pt reported discomfort. Cabrera secured to leg with tape and brought to CT for imaging due to concerns of potential mass/externalized tissue.
--- NOTE | 2022-09-24 15:48 | PC.NURSE ---
Cabrera placed by MLP with urojet. Tolerated well.
[2022-09-24 16:14] VITALS: BP 124/69; PULSE 77; RESP 16; TEMP 36.5; O2SAT 98
[2022-09-24] MEDS: Acetaminophen 325 MG TABLET 650 MG PO (16:28)
== END 2022-09-24 17:24 | disposition home or self-care (01) ==
PROVIDERS: Emergency Provider Emergency Medicine Emergency Medical Services
DX: T83.028A Displacement of other urinary catheter, initial encounter (principal); R10.2 Pelvic and perineal pain; Y73.8 Miscellaneous gastroenterology and urology devices associated with adverse incidents, not elsewhere classified; Y92.9 Unspecified place or not applicable
CPT/HCPCS: 51702; 72192; 74176; 99284

== ENCOUNTER 2022-09-28 13:49 | Emergency (ER) | payer MEDICARE, MEDICAID, SELFPAY ==
--- NOTE | 2022-09-28 13:59 | ED.FEMALEGU ---
HPI - Female Genitourinary General Chief complaint: Urogenital-Female Stated complaint: F/C FELL OUT PER EMS Time Seen by Provider: 09/28/22 13:58 Source: patient, EMS and old records reviewed Mode of arrival: EMS Limitations: no limitations History of Present Illness HPI Narrative: 82 yo female with history of a stroke with left-sided hemiparesis, chronic urinary retention requiring Sanderson catheter for the last 4 years, recurrent UTIs presents to the ER for evaluation of a Sanderson dislodgement that occurred at home. This is her 4th visit to the ER this month for the same. She states today the catheter came out with the balloon inflated and it felt like she was birthing a child. She has some raw sensation of her external genitalia now but no significant pain. She denies bleeding. She denies any sediment or clogging of the tube prior to this. She is due to get a suprapubic catheter on Sunday with her Urologist in [place] due to recurrently dislodging catheters. MD elicited complaint: other (sanderson catheter came out ) Pertinent past history: other (chronic sanderson) Onset (ago): minute(s) Location of symptoms: urethra Severity: moderate Female Urogenital Radiation: Non-Radiating Quality of pain: burning and aching Consistency: improved Vaginal discharge: none Exacerbating factors: palpation Relieving factors: none Associated symptoms: denies other symptoms Treatment prior to arrival: none Sexual activity: No Patient : No Related Data Home Medications Medication Instructions Recorded Confirmed apple cider vinegar 300 mg tablet 450 mg PO DAILY 09/24/22 09/24/22 ascorbic acid (vitamin C) 1,000 mg 1,000 mg PO DAILY 09/24/22 09/24/22 tablet (Vitamin C) atorvastatin 20 mg tablet 20 mg PO DAILY 09/24/22 09/24/22 calcium carbonate 600 mg-vitamin 2 cap PO DAILY 09/24/22 09/24/22 D3 12.5 mcg (500 unit) capsule (Calcium 600 with Vitamin D3) cholecalciferol (vitamin D3) 100 1,000 unit PO DAILY 09/24/22 09/24/22 mcg (4,000 unit) capsule clotrimazole 1 % topical cream 1 appl topical BID PRN Itching 09/24/22 09/24/22 finerenone 20 mg tablet (Kerendia) 20 mg PO DAILY 09/24/22 09/24/22 gabapentin 300 mg capsule 300 mg PO BID 09/24/22 09/24/22 glucosamine sulf dipot 1 cap PO DAILY 09/24/22 09/24/22 chlr,msm,chond 550 mg-C 30 mg-lyric 1 mg capsule (Glucosamine Chondroitin) hydrochlorothiazide 25 mg tablet 25 mg PO DAILY 09/24/22 09/24/22 meclizine 25 mg tablet 25 mg PO TID PRN Dizziness 09/24/22 09/24/22 metformin 500 mg tablet 1,000 mg PO BID 09/24/22 09/24/22 multivitamin,ki-ewie-fixjyqzn 1 tab PO DAILY 09/24/22 09/24/22 omega 3-wco-qfn-fish oil 1,000 mg 1 cap PO DAILY 09/24/22 09/24/22 (120 mg-180 mg) capsule (Fish Oil) oxybutynin chloride 5 mg 5 mg PO DAILY 09/24/22 09/24/22 tablet,extended release 24 hr ropinirole 0.25 mg tablet 0.25 mg PO DAILY 09/24/22 09/24/22 sodium hyaluronate 20 mg capsule 100 mg PO BID 09/24/22 09/24/22 tamsulosin 0.4 mg capsule 0.4 mg PO DAILY 09/24/22 09/24/22 Allergies Allergy/AdvReac Type Severity Reaction Status Date / Time No Known Allergies Allergy Verified 11/11/21 17:20 Review of Systems Review of Systems: Yes all other systems are reviewed and are negative [facility] Past Medical History Medical History (Updated 09/28/22 @ 14:24 by BELEN Hill) 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 Social History Social History Alcohol intake: current Alcohol intake frequency: holidays/special occasions only Patient Tobacco Use Status: Former Tobacco user Smoked in Last 30 Days: No Use of substances other than those prescribed or required for medical reasons: No Advance Directives: Yes Advance Directives Information Provided: No Advance Directives on File: No Patient : No Physical Exam Vital Signs: Vital Signs: Last Vital Signs Temp 97.8 F 09/28/22 14:07 Pulse 89 09/28/22 14:07 Resp 16 09/28/22 14:07 BP 120/48 L 09/28/22 14:07 Pulse Ox 98 09/28/22 14:07 O2 Del Method Room Air 09/28/22 14:07 BMI result Body Mass Index 31.2 Appearance: Alert. Oriented X3. No acute distress. HEENT: normal inspection CVS: Normal heart rate and rhythm. Pulses normal. Respiratory: No respiratory distress. Skin: Skin warm and dry. Normal skin color. Normal skin turgor. No rashes. : erythematous and tender urethreal meatus and vaginal canal. no active bleeding or lesions. Extremities: normal inspection Neuro: Oriented X 3. left sided hemiparesis Medications Administered Discontinued Medications Generic Name Dose Route Start Last Admin Trade Name Freq PRN Reason Stop Dose Admin Lidocaine HCl 10 ml 09/28/22 14:09 09/28/22 15:25 Lidocaine Hcl 2 % Urojet 10 Ml Jel.Pf.Milly TOPICAL 09/28/22 14:10 10 ml ONCE ONE Administration Medical Decision Making Medical Decision Making MDM Narrative: 82 yo female with history of a stroke with left-sided hemiparesis, chronic urinary retention requiring Sanderson catheter for the last 4 years, recurrent UTIs presents to the ER for evaluation of a Sanderson dislodgement that occurred at home. This is her 4th visit to the ER this month for the same, plan for SBT on Sunday with her Urologist. Sanderson catheter was replaced by nursing. no immediate return of urine however patient was just incontinent of urine. she was given PO juice and then clear yellow urine was draining from the tube. she is stable for d/c back home with outpatient Urology workup Differential Diagnosis Differential Diagnoses: The differential diagnosis associated with the presentation includes dislodged sanderson catheter, urethrea diltation, urethral trauma, UTI Independent Historian Clinical information obtained from an independent historian. History obtained from or confirmed by: EMS External Record Review External record reviewed: Outpatient record Prescription Management I considered prescription management with: Pain Medication Chronic Conditions Patient?s care impacted by: Other (CVA w/ urinary retention requiring chronic Sanderson) Critical Care Time Critical Care Time Critical Care Time: No Discharge Plan Discharge Clinical Impression: Dislodged Sanderson catheter Patient Disposition: Home, Self-Care Instructions: Sanderson Catheter Placement and Care (ED) Additional Instructions: goodluck with your suprapubic catheter procedure on Sunday :) Prescriptions: No Action metformin 500 mg tablet 1,000 mg PO BID ascorbic acid (vitamin C) [Vitamin C] 1,000 mg Tablet 1,000 mg PO DAILY atorvastatin 20 mg tablet 20 mg PO DAILY tamsulosin 0.4 mg capsule 0.4 mg PO DAILY ropinirole 0.25 mg tablet 0.25 mg PO DAILY meclizine 25 mg tablet 25 mg PO TID PRN (Reason: Dizziness) oxybutynin chloride 5 mg tablet extended release 24hr 5 mg PO DAILY gabapentin 300 mg capsule 300 mg PO BID hydrochlorothiazide 25 mg tablet 25 mg PO DAILY clotrimazole 1 % cream 1 appl TOPICAL BID PRN (Reason: Itching) Complete Multivitamin Tablet 1 tab PO DAILY Hyaluronic Acid (sodium) 20 mg Capsule 100 mg PO BID apple cider vinegar 300 mg Tablet 450 mg PO DAILY calcium carbonate-vitamin D3 [Calcium 600 with Vitamin D3] 600 mg-12.5 mcg (500 unit) Capsule 2 cap PO DAILY Vitamin D3 100 mcg (4,000 unit) Capsule 1,000 unit PO DAILY Glucosamine Chondroitin 550-30-1 mg Capsule 1 cap PO DAILY Kerendia 20 mg tablet 20 mg PO DAILY omega 4-ztv-ekz-fish oil [Fish Oil] 1,000 mg (120 mg-180 mg) Capsule 1 cap PO DAILY
[2022-09-28 14:00] VITALS: BP 114/82; BP 120/48; PULSE 80; PULSE 89; RESP 16; TEMP 36.4; O2SAT 98; O2SAT 99; BMI 31.2
[2022-09-28 14:07] VITALS: BP 120/48; PULSE 89; RESP 16; TEMP 36.6; O2SAT 98
[2022-09-28] MEDS: Lidocaine HCl 2 % Urojet 10 ML JEL.PF.APP TOPICAL (15:25)
== END 2022-09-28 18:19 | disposition home or self-care (01) ==
PROVIDERS: Emergency Provider Emergency Medicine; PCP Nurse Practitioner Adult Health
DX: T83.028A Displacement of other urinary catheter, initial encounter (principal); R10.2 Pelvic and perineal pain; Y82.8 Other medical devices associated with adverse incidents; Y92.099 Unspecified place in other non-institutional residence as the place of occurrence of the external cause; I69.354 Hemiplegia and hemiparesis following cerebral infarction affecting left non-dominant side
CPT/HCPCS: 51702; 99284

== ENCOUNTER 2023-08-30 20:40 | Inpatient (IN) | payer MEDICARE, MEDICAID, SELFPAY ==
--- NOTE | ~2023-08-30 | XR_ITS ---
EXAMINATION: XR CHEST CLINICAL INFORMATION: Dyspnea, cough COMPARISON: None available. TECHNIQUE: Frontal view of the chest was obtained. FINDINGS: Lung volumes are symmetric. No focal consolidation is seen. No evidence of pneumothorax, pleural effusion, or pulmonary edema. Cardiac silhouette appears near the upper limits of normal in size. Degenerative changes are noted in the spine. XR/XR chest 1V IMPRESSION: No acute cardiopulmonary findings.
[2023-08-30 20:55] VITALS: BP 100/70; BP 144/74; PULSE 100; PULSE 101; RESP 18; TEMP 37.4; O2SAT 95; BMI 25.7
[2023-08-30 21:54] LABS: Influenza A PCR POSITIVE (Negative); Influenza B PCR NEGATIVE (Negative); Resp Syncy Virus RNA Qual PCR NEGATIVE (Negative); SARS COV2 PCR INHOUSE NEGATIVE (Negative)
--- NOTE | 2023-08-30 22:33 | ED_ITS ---
HPI - General Adult General Chief complaint: Fever Stated complaint: FLU-LIKE SYMPTOMS,BODY ACHES Time Seen by Provider: 08/30/23 22:19 Source: patient and EMS Mode of arrival: EMS Limitations: no limitations History of Present Illness HPI narrative: Patient comes to the emergency room via ambulance from home. According to the EMS crew, the family informed them that the patient has had flu-like symptoms for 2 days including body aches, fever, poor appetite. All the family has the same symptoms as well. At baseline patient has left-sided paralysis in upper and lower extremity secondary to a CVA. Patient seems a bit confused, not answering questions clearly, seems forgetful. Unclear if patient has dementia or what her baseline is. Related Data Home Medications Medication Instructions Recorded Confirmed apple cider vinegar 300 mg tablet 450 mg PO DAILY 09/24/22 09/24/22 ascorbic acid (vitamin C) 1,000 mg 1,000 mg PO DAILY 09/24/22 09/24/22 tablet (Vitamin C) atorvastatin 20 mg tablet 20 mg PO DAILY 09/24/22 09/24/22 calcium carbonate 600 mg-vitamin 2 cap PO DAILY 09/24/22 09/24/22 D3 12.5 mcg (500 unit) capsule (Calcium 600 with Vitamin D3) cholecalciferol (vitamin D3) 100 1,000 unit PO DAILY 09/24/22 09/24/22 mcg (4,000 unit) capsule clotrimazole 1 % topical cream 1 appl topical BID PRN Itching 09/24/22 09/24/22 finerenone 20 mg tablet (Kerendia) 20 mg PO DAILY 09/24/22 09/24/22 gabapentin 300 mg capsule 300 mg PO BID 09/24/22 09/24/22 glucosamine sulf dipot 1 cap PO DAILY 09/24/22 09/24/22 chlr,msm,chond 550 mg-C 30 mg-lyric 1 mg capsule (Glucosamine Chondroitin) hydrochlorothiazide 25 mg tablet 25 mg PO DAILY 09/24/22 09/24/22 meclizine 25 mg tablet 25 mg PO TID PRN Dizziness 09/24/22 09/24/22 metformin 500 mg tablet 1,000 mg PO BID 09/24/22 09/24/22 multivitamin,rz-rdge-qmwyxppp 1 tab PO DAILY 09/24/22 09/24/22 omega 2-ipe-oag-fish oil 1,000 mg 1 cap PO DAILY 09/24/22 09/24/22 (120 mg-180 mg) capsule (Fish Oil) oxybutynin chloride 5 mg 5 mg PO DAILY 09/24/22 09/24/22 tablet,extended release 24 hr ropinirole 0.25 mg tablet 0.25 mg PO DAILY 09/24/22 09/24/22 sodium hyaluronate 20 mg capsule 100 mg PO BID 09/24/22 09/24/22 tamsulosin 0.4 mg capsule 0.4 mg PO DAILY 09/24/22 09/24/22 Allergies Allergy/AdvReac Type Severity Reaction Status Date / Time No Known Allergies Allergy Verified 11/11/21 17:20 Review of Systems 2 Review of Systems: Yes Unobtainable due to mental condition [facility] Past Medical History Medical History 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 Social History Social History Alcohol intake: current Alcohol intake frequency: holidays/special occasions only Patient Tobacco Use Status: Former Tobacco user Smoked in Last 30 Days: No Use of substances other than those prescribed or required for medical reasons: No Advance Directives: No Advance Directives Information Provided: No Physical Exam ED Vital Signs: Vital Signs - 24 hr 08/30/23 20:55 08/30/23 23:25 Temperature 99.4 F 101.7 F H Pulse Rate 101 H Respiratory Rate 18 Blood Pressure 144/74 H Pulse Oximetry 95 Oxygen Delivery Method Room Air BMI result Body Mass Index 25.7 Const Other: Appearance: Alert. No acute distress. Patient too weak to sit up by herself Eyes: Pupils equal, round and reactive to light. ENT: Pharynx normal. Neck: Normal inspection. Neck supple. No lymph nodes noted. No crepitus CVS: Normal heart rate and rhythm. Pulses normal. Normal S1 and S2 Respiratory: No respiratory distress. Breath sounds normal. No Wheezing. No rales Abdomen: Soft and nontender. No rigidity. No distention. : Chronic Cabrera catheter in place, strong odor of UTI Skin: Skin warm and dry. Normal skin color. Normal skin turgor. Extremities: No lower extremity edema. No Lacerations. No Rash Neuro: No motor deficit. No sensory deficit. Moving all extremities. No slurred speech. CN 2 through 12 grossly intact Psych: calm, cooperative, normal affect Course Course Course Narrative: All of patient's labs and imaging pending Medications Administered Discontinued Medications Generic Name Dose Route Start Last Admin Trade Name Cindy PRN Reason Stop Dose Admin Sodium Chloride 1,000 mls @ 999 mls/hr 08/30/23 22:35 08/30/23 23:23 Ns IVCONT 08/30/23 23:35 999 mls/hr .Q1H1M ONE Administration Medical Decision Making Medical Decision Making [facility] Narrative: -my interpretation of labs: Patient tested positive for influenza, patient has a chronic Cabrera catheter, expected to be positive. However, patient is significantly symptomatic, possibly because of the influenza but the UTI could contribute to the weakness as well. -patient is too weak to sit up -patient does have fever, tachycardia from the fever, blood pressure 144/74, at this time, 23:32, sepsis not suspected. -rectal temperature 101.7 degrees. Patient given Tylenol. -my interpretation of labs: Hematology and chemistry do not show any significant abnormalities. Patient did test positive for influenza. Patient has a chronic Cabrera catheter, UA was positive. However, patient is weaker than usual, we will go ahead and treat. -we are able to get in touch with the patient's family, they state that they are usually able to take care of her. However, over last 2 days, patient has been too weak. In the ED, patient is also be, unable to sit up due to weakness. -I discussed the patient with Dr. Oliva, patient being admitted Differential Diagnosis Differential Diagnoses: The differential diagnosis associated with the presentation includes (Influenza, COVID, UTI, viral syndrome) Admission/Observation Consideration of admission/observation: Escalation of care including admission/observation considered Consult Healthcare Provider Management of the patient was discussed with: Hospitalist Lab Data [facility] Lab Attestation statement: I reviewed the patient's lab results. 08/30/23 23:15 08/30/23 23:15 Labs: Lab Results 08/30/23 08/30/23 08/30/23 Range/Units 21:12 22:37 23:15 WBC 6.1 (4.8-10.8) X10*3/uL RBC 3.23 L D (4.20-5.50) X10*6/uL Hgb 9.6 L D (12.0-16.0) g/dl Hct 29.6 L D (37.0-47.0) % MCV 91.6 (80.0-98.0) fL MCH 29.7 (27.0-33.0) pg MCHC 32.4 (31.0-35.0) g/dl RDW 13.1 (11.0-16.0) % Plt Count 166 D (160-400) X10*3/uL MPV 9.5 (9.4-12.3) fL Immature Gran % (Auto) 0.5 H (0.0-0.4) % Neut % (Auto) 75.6 H (45-73) % Lymph % (Auto) 15.7 L (20-40) % [place] % (Auto) 8.0 (2-11) % Eos % (Auto) 0.0 (0-4) % Baso % (Auto) 0.2 (0-2) % Lymph # (Auto) 1.0 L (1.2-4.9) X10*3/uL [place] # (Auto) 0.5 (0.1-1.2) X10*3/uL Eos # (Auto) 0.0 (0.0-0.4) X10*3/uL Baso # (Auto) 0.0 (0.0-0.2) X10*3/uL Abs Immat Gran (auto) 0.03 (0.00-0.03) X10*3/uL Absolute Neuts (auto) 4.6 (2.0-8.3) x10*3/uL Absolute Nucleated RBC 0.000 (0.0-0.012) X10*3/uL Nucleated RBC % (auto) 0.0 (0.0-0.2) /100WBC Sodium 138 (135-145) mmol/L Potassium 3.9 (3.3-5.1) mmol/L Chloride 99 (96-108) mmol/L Carbon Dioxide 26 (22-29) mmol/L Anion Gap 17 (12-20) BUN 14 (9-16) mg/dL Creatinine 0.96 (0.5-1.4) mg/dL Estim Creat Clear Calc 43.5 Estimated GFR 56 Random Glucose 169 H (60-115) mg/dL Lactic Acid 1.5 (0.5-2.0) mmol/L Calcium 9.9 (8.4-10.2) mg/dL Total Bilirubin 0.4 (0.0-1.0) mg/dL Direct Bilirubin 0.2 (0.0-0.5) mg/dL AST 87 H (5-31) U/L ALT 67 H (0-31) U/L Alkaline Phosphatase 83 (39-117) U/L Total Protein 8.1 H (6.5-8.0) g/dL Albumin 4.1 (3.5-5.0) g/dL Urine Color Yellow Urine Appearance Cloudy Urine pH 7.5 (5.0-9.0) Ur Specific [place] 1.015 (1.005-1.025) Urine Protein Trace (Neg-Trace) mg/dL Urine Glucose (UA) Negative (Negative) mg/dL Urine Ketones Trace (Negative) mg/dL Urine Blood Small (1+) H (Negative) Urine Nitrite Negative (Negative) Ur Leukocyte Esterase Moderate (2+) H (Negative) Urine RBC 3-5 H (0-2) /HPF Urine WBC 6-10 (0-5) /HPF Ur Squamous Epith Cells 3-5 (0-2) /HPF Urine Bacteria 2+ (None Seen) Hyaline Casts 3-5 (0-2) /LPF Influenza Type A (PCR) POSITIVE A (Negative) Influenza Type B (PCR) NEGATIVE (Negative) RSV RNA Qual (PCR) NEGATIVE (Negative) SARS-CoV-2 RNA (RT-PCR) NEGATIVE (Negative) Critical Care Time Critical Care Time Critical Care Time: Yes Total Critical Care Time: 60 Attestation: I have personally provided critical care time. Time includes review of lab data, radiology results, discussion with consultants, and monitoring for potential decompensation. Intervention performed as documented. Discharge Plan Discharge Clinical Impression: Influenza, Acute UTI, Weakness Patient Disposition: Admitted As Inpatient Prescriptions: No Action metformin 500 mg tablet 1,000 mg PO BID ascorbic acid (vitamin C) [Vitamin C] 1,000 mg Tablet 1,000 mg PO DAILY atorvastatin 20 mg tablet 20 mg PO DAILY tamsulosin 0.4 mg capsule 0.4 mg PO DAILY ropinirole 0.25 mg tablet 0.25 mg PO DAILY meclizine 25 mg tablet 25 mg PO TID PRN (Reason: Dizziness) oxybutynin chloride 5 mg tablet extended release 24hr 5 mg PO DAILY gabapentin 300 mg capsule 300 mg PO BID hydrochlorothiazide 25 mg tablet 25 mg PO DAILY clotrimazole 1 % cream 1 appl TOPICAL BID PRN (Reason: Itching) Complete Multivitamin Tablet 1 tab PO DAILY Hyaluronic Acid (sodium) 20 mg Capsule 100 mg PO BID apple cider vinegar 300 mg Tablet 450 mg PO DAILY calcium carbonate-vitamin D3 [Calcium 600 with Vitamin D3] 600 mg-12.5 mcg (500 unit) Capsule 2 cap PO DAILY Vitamin D3 100 mcg (4,000 unit) Capsule 1,000 unit PO DAILY Glucosamine Chondroitin 550-30-1 mg Capsule 1 cap PO DAILY Kerendia 20 mg tablet 20 mg PO DAILY omega 7-ifl-pgg-fish oil [Fish Oil] 1,000 mg (120 mg-180 mg) Capsule 1 cap PO DAILY
[2023-08-30 22:45] LABS: Appearance Urine Cloudy; Color Urine Yellow; Glucose Urine UA Negative (Negative); Leukocyte Esterase Urine Moderate (2+) (Negative); Nitrite Urine Negative (Negative); PH 7.5 (5.0-9.0); Specific Gravity - Urine 1.015 (1.005-1.025); UMIC TRIGGER UACC YES; Urine Blood Small (1+) (Negative); Urine Ketones Trace mg/dL (Negative); Urine Protein Trace mg/dL (Neg-Trace)
[2023-08-30 23:16] LABS: Bacteria Urine 2+ (None Seen); UACC Culture Trigger YES
[2023-08-30] MEDS: 0.9 % Sodium Chloride 1,000 ML 999 ML IVCONT (23:23)
[2023-08-30 23:25] VITALS: TEMP 38.7
[2023-08-30 23:28] LABS: MANUAL DIFF FLAG NO
[2023-08-30 23:29] LABS: Basophils Percent Auto 0.2 % (0-2); Hematocrit 29.6 % (37.0-47.0); Hemoglobin 9.6 g/dl (12.0-16.0); Imm Gran Abs Auto 0.03 X10*3/uL (0.00-0.03); Imm Gran Pct Auto 0.5 % (0.0-0.4); Lymphocytes Percent Auto 15.7 % (20-40); Mean Corpuscular HGB Conc 32.4 g/dl (31.0-35.0); Mean Corpuscular Hemoglobin 29.7 pg (27.0-33.0); Mean Corpuscular Volume 91.6 fL (80.0-98.0); Mean Platelet Volume 9.5 fL (9.4-12.3); Monocytes Absolute Auto 0.5 X10*3/uL (0.1-1.2); Neutrophils Absolute Auto 4.6 x10*3/uL (2.0-8.3); Neutrophils Percent Auto 75.6 % (45-73); Platelet Count 166 X10*3/uL (160-400); Red Blood Count 3.23 X10*6/uL (4.20-5.50); Red Cell Distribution Width 13.1 % (11.0-16.0); White Blood Count 6.1 X10*3/uL (4.8-10.8)
[2023-08-30 23:40] LABS: Lactic Acid 1.5 mmol/L (0.5-2.0)
[2023-08-30 23:45] LABS: Alanine Aminotransferase 67 U/L (0-31); Albumin Level 4.1 g/dL (3.5-5.0); Alkaline Phosphatase 83 U/L (39-117); Anion Gap 17 (12-20); Aspartate Amino Transferase 87 U/L (5-31); Bilirubin Direct 0.2 mg/dL (0.0-0.5); Bilirubin Total 0.4 mg/dL (0.0-1.0); Blood Urea Nitrogen 14 mg/dL (9-16); Calcium 9.9 mg/dL (8.4-10.2); Carbon Dioxide 26 mmol/L (22-29); Chloride 99 mmol/L (96-108); Creatinine Clr Calc Pharmacy 43.5; Estimated Glomerular Filt Rate 56; Glucose Random 169 mg/dL (60-115); Potassium 3.9 mmol/L (3.3-5.1); Sodium 138 mmol/L (135-145); Total Protein 8.1 g/dL (6.5-8.0)
[2023-08-30] MEDS: cefTRIAXone sodium 1 GM in 0.9 % Sodium Chloride 50 ML IV (23:58)
[2023-08-31] VITALS (7 sets, daily range): BP systolic 109–149; BP diastolic 52–75; PULSE 67–82; RESP 18–22; TEMP 36.2–37.1; O2SAT 93–98
[2023-08-31] MEDS: Oseltamivir Phosphate 75 MG CAPSULE PO (00:56)
[2023-08-31] MEDS: Acetaminophen 325 MG TABLET 975 MG PO (00:56)
--- NOTE | 2023-08-31 01:26 | P.HPHOSP_ITS ---
History of Present Illness Date of Service: 08/31/23 Chief Complaint: Fever This is a 83-year-old female with pertinent history of urinary incontinence, mixed hyperlipidemia, essential hypertension, cyd-scqqafz-knonjxhys diabetes mellitus, history of CVA who was sent to the emergency department for evaluation of fever, confusion and weakness. Patient is a poor historian and does not know why she in the hospital. History obtained after talking to the daughter via phone call. The daughter states that the whole family has been sick for the last 2 days. The patient has been having fevers, generalized malaise and fatigability. On the day of presentation, she was found to be confused and she was unable to get up from her bed. The patient does not have dementia at baseline as per the daughter. 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 Unable to obtain review of systems. Review of Systems 2 Review of Systems: Yes Unobtainable due to mental status [facility] Medical History Mixed hyperlipidemia Urinary incontinence Non-insulin dependent type 2 diabetes mellitus Hypertension 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 Pertinent family history: Unable to obtain Social History Alcohol intake: current Alcohol intake frequency: holidays/special occasions only Patient Tobacco Use Status: Former Tobacco user Smoked in Last 30 Days: No Use of substances other than those prescribed or required for medical reasons: No Advance Directives: No Advance Directives Information Provided: No Meds Allergies Allergy/AdvReac Type Severity Reaction Status Date / Time No Known Allergies Allergy Verified 11/11/21 17:20 Home Medications Medication Instructions Recorded Confirmed Last Taken Type apple cider vinegar 300 mg tablet 450 mg PO DAILY 09/24/22 09/24/22 1 Day Ago History ~09/23/22 ascorbic acid (vitamin C) 1,000 mg 1,000 mg PO DAILY 09/24/22 09/24/22 1 Day Ago History tablet (Vitamin C) ~09/23/22 atorvastatin 20 mg tablet 20 mg PO DAILY 09/24/22 09/24/22 1 Day Ago History ~09/23/22 calcium carbonate 600 mg-vitamin 2 cap PO DAILY 09/24/22 09/24/22 1 Day Ago History D3 12.5 mcg (500 unit) capsule ~09/23/22 (Calcium 600 with Vitamin D3) cholecalciferol (vitamin D3) 100 1,000 unit PO DAILY 09/24/22 09/24/22 1 Day Ago History mcg (4,000 unit) capsule ~09/23/22 clotrimazole 1 % topical cream 1 appl topical BID PRN Itching 09/24/22 09/24/22 1 Day Ago History ~09/23/22 finerenone 20 mg tablet (Kerendia) 20 mg PO DAILY 09/24/22 09/24/22 1 Day Ago History ~09/23/22 gabapentin 300 mg capsule 300 mg PO BID 09/24/22 09/24/22 1 Day Ago History ~09/23/22 glucosamine sulf dipot 1 cap PO DAILY 09/24/22 09/24/22 1 Day Ago History chlr,msm,chond 550 mg-C 30 mg-lyric ~09/23/22 1 mg capsule (Glucosamine Chondroitin) hydrochlorothiazide 25 mg tablet 25 mg PO DAILY 09/24/22 09/24/22 1 Day Ago History ~09/23/22 meclizine 25 mg tablet 25 mg PO TID PRN Dizziness 09/24/22 09/24/22 1 Day Ago History ~09/23/22 metformin 500 mg tablet 1,000 mg PO BID 09/24/22 09/24/22 1 Day Ago History ~09/23/22 multivitamin,hn-mqik-obviepfs 1 tab PO DAILY 09/24/22 09/24/22 1 Day Ago History ~09/23/22 omega 9-ihh-mzm-fish oil 1,000 mg 1 cap PO DAILY 09/24/22 09/24/22 1 Day Ago History (120 mg-180 mg) capsule (Fish Oil) ~09/23/22 oxybutynin chloride 5 mg 5 mg PO DAILY 09/24/22 09/24/22 1 Day Ago History tablet,extended release 24 hr ~09/23/22 ropinirole 0.25 mg tablet 0.25 mg PO DAILY 09/24/22 09/24/22 1 Day Ago History ~09/23/22 sodium hyaluronate 20 mg capsule 100 mg PO BID 09/24/22 09/24/22 1 Day Ago History ~09/23/22 tamsulosin 0.4 mg capsule 0.4 mg PO DAILY 09/24/22 09/24/22 1 Day Ago History ~09/23/22 Physical Exam 2 Vital Signs and Narrative: Vital Signs: Last Vital Signs Temp 101.7 F H 08/30/23 23:25 Pulse 101 H 08/30/23 20:55 Resp 18 08/30/23 20:55 BP 144/74 H 08/30/23 20:55 Pulse Ox 95 08/30/23 20:55 O2 Del Method Room Air 08/30/23 20:55 BMI result Body Mass Index 25.7 Middle-aged female lying in bed in no distress Neck supple, no JVD, dry mucous membranes Regular rate and rhythm, S1-S2 heard Regular breath sounds bilaterally, no wheezing or crackles appreciated Abdomen soft nontender, no guarding, no rigidity Patient is awake, alert and oriented to self, disoriented to place, time and person ; left-sided weakness present Psych: Normal mood Results Labs 08/30/23 23:15 08/30/23 23:15 Labs: Laboratory Results - last 24 hr 08/30/23 08/30/23 08/30/23 21:12 22:37 23:15 MCV 91.6 MCH 29.7 MCHC 32.4 RDW 13.1 Plt Count 166 D MPV 9.5 Immature Gran % (Auto) 0.5 H Neut % (Auto) 75.6 H Lymph % (Auto) 15.7 L [place] % (Auto) 8.0 Eos % (Auto) 0.0 Baso % (Auto) 0.2 Lymph # (Auto) 1.0 L [place] # (Auto) 0.5 Eos # (Auto) 0.0 Baso # (Auto) 0.0 Abs Immat Gran (auto) 0.03 Absolute Neuts (auto) 4.6 Absolute Nucleated RBC 0.000 Nucleated RBC % (auto) 0.0 Anion Gap 17 Estim Creat Clear Calc 43.5 Estimated GFR 56 Random Glucose 169 H Lactic Acid 1.5 Calcium 9.9 Total Bilirubin 0.4 Direct Bilirubin 0.2 AST 87 H ALT 67 H Alkaline Phosphatase 83 Total Protein 8.1 H Albumin 4.1 Urine Color Yellow Urine Appearance Cloudy Urine pH 7.5 Ur Specific [place] 1.015 Urine Protein Trace Urine Glucose (UA) Negative Urine Ketones Trace Urine Blood Small (1+) H Urine Nitrite Negative Ur Leukocyte Esterase Moderate (2+) H Urine RBC 3-5 H Urine WBC 6-10 Ur Squamous Epith Cells 3-5 Urine Bacteria 2+ Hyaline Casts 3-5 Influenza Type A (PCR) POSITIVE A Influenza Type B (PCR) NEGATIVE RSV RNA Qual (PCR) NEGATIVE SARS-CoV-2 RNA (RT-PCR) NEGATIVE Imaging Radiologist's Impressions: Impressions Chest X-Ray 08/31/23 00:57 IMPRESSION: No acute cardiopulmonary findings. Assessment and Plan (1) Influenza: Status: Acute (2) Weakness: Status: Acute Plan This is a 83-year-old female with pertinent history of urinary incontinence, mixed hyperlipidemia, essential hypertension, pgs-jbwrxey-tyempidok diabetes mellitus, history of CVA who was sent to the emergency department for evaluation of fever, confusion and weakness. #. Acute metabolic encephalopathy and viral sepsis due to influenza a infection: Will admit patient with isolation precautions. Resuscitated with IV crystalloids. Patient received Rocephin in the ER, defer further antibiotics. Lactic acid and blood culture obtained. Initiating Tamiflu. Monitor mentation #. Generalized weakness in the setting of above: Consulting Physical therapy to evaluate and treat #. Urinary incontinence: On oxybutynin and Flomax #. Rgp-gbptmaz-quztoosim diabetes mellitus: Initiating Accu-Cheks sliding scale insulin #. History of CVA: Not on aspirin or high-intensity statin #. Bacteriuria: Nitrite negative and no pyuria, no overt evidence of UTI. Med rec pending DVT prophylaxis: Lovenox Full code. Discussed with daughter on the phone Admit as inpatient and will require two night minimum hospital stay for close monitoring of mentation, IV crystalloid resuscitation (as above), which is not possible in a lesser acute setting. Will need evaluation by physical therapy for safe disposition Quality Stroke Does the patient have a stroke diagnosis?: No VTE Prior VTE?: No VTE Risk Level:: Medical - moderate - high VTE Device Contraindication: Treatment Not Indicated VTE Drug Contraindication: N/A - Med Ordered
[2023-08-31] MEDS: Enoxaparin Sodium 40 MG/0.4 ML SYRINGE SUBCUT (03:01)
[2023-08-31] MEDS: 0.9 % Sodium Chloride 1,000 ML 125 ML IVCONT (03:02)
[2023-08-31 05:31] LABS: MANUAL DIFF FLAG NO
[2023-08-31 05:35] LABS: Basophils Percent Auto 0.2 % (0-2); Eosinophils Percent Auto 0.2 % (0-4); Hematocrit 34.7 % (37.0-47.0); Hemoglobin 11.3 g/dl (12.0-16.0); Imm Gran Abs Auto 0.04 X10*3/uL (0.00-0.03); Imm Gran Pct Auto 0.7 % (0.0-0.4); Lymphocytes Absolute Auto 1.7 X10*3/uL (1.2-4.9); Mean Corpuscular HGB Conc 32.6 g/dl (31.0-35.0); Mean Corpuscular Hemoglobin 28.8 pg (27.0-33.0); Mean Corpuscular Volume 88.5 fL (80.0-98.0); Mean Platelet Volume 9.8 fL (9.4-12.3); Monocytes Absolute Auto 0.7 X10*3/uL (0.1-1.2); Monocytes Percent Auto 11.8 % (2-11); Neutrophils Absolute Auto 3.6 x10*3/uL (2.0-8.3); Neutrophils Percent Auto 59.1 % (45-73); Platelet Count 214 X10*3/uL (160-400); Red Blood Count 3.92 X10*6/uL (4.20-5.50); Red Cell Distribution Width 13.1 % (11.0-16.0)
[2023-08-31] MEDS: Benzonatate 100 MG CAPSULE 200 MG PO ×2 (05:42→20:13)
[2023-08-31 05:51] LABS: Anion Gap 12 (12-20); Blood Urea Nitrogen 15 mg/dL (9-16); Carbon Dioxide 23 mmol/L (22-29); Chloride 104 mmol/L (96-108); Creatinine Clr Calc Pharmacy 41.7; Estimated Glomerular Filt Rate 53; Glucose Random 129 mg/dL (60-115); Potassium 3.4 mmol/L (3.3-5.1); Sodium 136 mmol/L (135-145)
[2023-08-31 07:18] LABS: Glucose, Whole Blood 112 mg/dL (60-115)
--- NOTE | 2023-08-31 07:39 | P.PNIM_ITS ---
Subjective Subjective Date of Service: 08/31/23 Interval History: f/u on metabolic encephalopathy, uti, interval history: mental state seems better, Physical Exam 2 Vital Signs: Vital Signs: Last Vital Signs Temp 98.3 F 08/31/23 05:39 Pulse 67 08/31/23 07:32 Resp 20 08/31/23 05:39 BP 149/67 H 08/31/23 07:32 Pulse Ox 98 08/31/23 07:32 O2 Del Method Room Air 08/31/23 05:39 BMI result Body Mass Index 25.7 General: AO X 2, no acute distress Resp: CTA bilateral CVS: S1,S2,RRR GI: +BS, NT, no distention Skin: No rash Neuro: motor grossly intact Psych: appropriate affect Objective Data Active Medications Acetaminophen (Acetaminophen 325 Mg Tablet) 650 mg PO Q6H PRN PRN Reason: Pain, Mild (Pain Scale 1-3) Benzonatate (Benzonatate 100 Mg Capsule) 200 mg PO TID PRN PRN Reason: Cough Last Admin: 08/31/23 05:42 Dose: 200 mg Documented By: CANDELARIO Dextrose (Dextrose 50 % 25 Gm/50 Ml Syringe) 25 gm IVPUSH Q15M PRN; Protocol PRN Reason: per Hypoglycemia Standing Ord. Enoxaparin Sodium (Enoxaparin Sodium 40 Mg/0.4 Ml Syringe) 40 mg SUBCUT DAILY@0600 ZAC Last Admin: 08/31/23 03:01 Dose: 40 mg Documented By: CANDELARIO Glucose (Glucose Gel 15 Gm Gel..Gram.) 15 gm PO Q15M PRN; Protocol PRN Reason: per Hypoglycemia Standing Ord. Sodium Chloride (Ns) 1,000 mls @ 125 mls/hr IVCONT .Q8H ONE Stop: 08/31/23 10:17 Last Admin: 08/31/23 03:02 Dose: 125 mls/hr Documented By: CANDELARIO Insulin Human Lispro (Insulin Lispro 100 Unit/Ml 3 Ml Vial) 0 unit SUBCUT QIDACHS [facility]; Protocol Melatonin (Melatonin 3 Mg Tablet) 6 mg PO BEDTIME PRN PRN Reason: Insomnia Ondansetron HCl (Ondansetron Hcl 4 Mg/2 Ml Vial) 4 mg IVPUSH Q8H PRN PRN Reason: Nausea and Vomiting Oseltamivir Phosphate (Oseltamivir Phosphate 30 Mg Capsule) 30 mg PO Q12H [facility] Stop: 09/04/23 21:01 Sodium Chloride (0.9 % Sodium Chloride Flush 3 Ml Syringe) [facility] 08/31/23 05:00 08/31/23 05:00 Labs: Laboratory Results - last 24 hr 08/30/23 08/30/23 08/30/23 21:12 22:37 23:15 MCV 91.6 MCH 29.7 MCHC 32.4 RDW 13.1 Plt Count 166 D MPV 9.5 Immature Gran % (Auto) 0.5 H Neut % (Auto) 75.6 H Lymph % (Auto) 15.7 L [place] % (Auto) 8.0 Eos % (Auto) 0.0 Baso % (Auto) 0.2 Lymph # (Auto) 1.0 L [place] # (Auto) 0.5 Eos # (Auto) 0.0 Baso # (Auto) 0.0 Abs Immat Gran (auto) 0.03 Absolute Neuts (auto) 4.6 Absolute Nucleated RBC 0.000 Nucleated RBC % (auto) 0.0 Anion Gap 17 Estim Creat Clear Calc 43.5 Estimated GFR 56 POC Glucose Random Glucose 169 H Lactic Acid 1.5 Calcium 9.9 Total Bilirubin 0.4 Direct Bilirubin 0.2 AST 87 H ALT 67 H Alkaline Phosphatase 83 Total Protein 8.1 H Albumin 4.1 Urine Color Yellow Urine Appearance Cloudy Urine pH 7.5 Ur Specific [place] 1.015 Urine Protein Trace Urine Glucose (UA) Negative Urine Ketones Trace Urine Blood Small (1+) H Urine Nitrite Negative Ur Leukocyte Esterase Moderate (2+) H Urine RBC 3-5 H Urine WBC 6-10 Ur Squamous Epith Cells 3-5 Urine Bacteria 2+ Hyaline Casts 3-5 Influenza Type A (PCR) POSITIVE A Influenza Type B (PCR) NEGATIVE RSV RNA Qual (PCR) NEGATIVE SARS-CoV-2 RNA (RT-PCR) NEGATIVE 08/31/23 08/31/23 05:00 07:15 MCV 88.5 MCH 28.8 MCHC 32.6 RDW 13.1 Plt Count 214 D MPV 9.8 Immature Gran % (Auto) 0.7 H Neut % (Auto) 59.1 Lymph % (Auto) 28.0 [place] % (Auto) 11.8 H Eos % (Auto) 0.2 Baso % (Auto) 0.2 Lymph # (Auto) 1.7 [place] # (Auto) 0.7 Eos # (Auto) 0.0 Baso # (Auto) 0.0 Abs Immat Gran (auto) 0.04 H Absolute Neuts (auto) 3.6 Absolute Nucleated RBC 0.000 Nucleated RBC % (auto) 0.0 Anion Gap 12 Estim Creat Clear Calc 41.7 Estimated GFR 53 POC Glucose 112 Random Glucose 129 H Lactic Acid Calcium 9.0 D Total Bilirubin Direct Bilirubin AST ALT Alkaline Phosphatase Total Protein Albumin Urine Color Urine Appearance Urine pH Ur Specific [place] Urine Protein Urine Glucose (UA) Urine Ketones Urine Blood Urine Nitrite Ur Leukocyte Esterase Urine RBC Urine WBC Ur Squamous Epith Cells Urine Bacteria Hyaline Casts Influenza Type A (PCR) Influenza Type B (PCR) RSV RNA Qual (PCR) SARS-CoV-2 RNA (RT-PCR) Assessment and Plan (1) Metabolic encephalopathy: Status: Acute (2) Acute UTI: Status: Acute (3) Non-insulin dependent type 2 diabetes mellitus: Status: Acute (4) Mixed hyperlipidemia: Status: Acute Plan This is a 83-year-old female with pertinent history of urinary incontinence, mixed hyperlipidemia, essential hypertension, vdk-fwdhfbs-odgzdynpx diabetes mellitus, history of CVA who was sent to the emergency department for evaluation of fever, confusion and weakness. Acute metabolic encephalopathy and viral sepsis due to influenza a infection and UTI. -Treat underlying issues as below UTI--Given ceftriaxone in ED, no associated sepsis, ceftin 250 bid for 3 days Influenaza--symptomatic treatment and Tamiflu for 5 days Generalized weakness in the setting of above - out of bed, -PT eval prior to discharge Urinary incontinence: On oxybutynin and Flomax Tuq-hwrbvyl-egczvbyop diabetes mellitus -BS check, SSI, restart metformin if eating History of CVA: Not on aspirin or high-intensity statin DVT prophylaxis: Lovenox Full code. Per daughter Need for inptient: neuropathy, UTI causing weakness, need for hydration, antibiotics and safe disposition Quality Stroke Does the patient have a stroke diagnosis?: No VTE Prior VTE?: No VTE Risk Level:: Medical - moderate - high VTE Device Contraindication: Treatment Not Indicated VTE Drug Contraindication: N/A - Med Ordered
[2023-08-31] MEDS: Oseltamivir Phosphate 30 MG CAPSULE PO ×2 (09:48→20:13)
--- NOTE | 2023-08-31 10:11 | PHA.MEDREC ---
Pharmacy Consult ? Medication Reconciliation Pharmacy has completed the medication reconciliation. Spoke to daughter Jodi Hines [phone] on phone and confirmed medication list. Hometyped medication list was also faxed to pharmacy.
--- NOTE | 2023-08-31 10:26 | PC.NURSE ---
Daughter updated on current condition and plan for Toshia to be admitted
[2023-08-31] MEDS: Cholecalciferol (Vitamin D3) 25 MCG TABLET 50 MCG PO (11:15)
[2023-08-31] MEDS: Tamsulosin HCL 0.4 MG CAPSULE PO (11:15)
[2023-08-31] MEDS: Gabapentin 300 MG CAPSULE PO ×2 (11:15→20:23)
[2023-08-31] MEDS: Multivitamin TABLET 1 TAB PO (11:15)
[2023-08-31 11:41] LABS: Glucose, Whole Blood 154 mg/dL (60-115)
[2023-08-31] MEDS: Insulin Lispro 100 UNIT/ML 3 ML VIAL SUBCUT ×3 (13:07→20:27)
[2023-08-31] MEDS: guaiFENesin 100 MG/5 ML LIQUID PO ×2 (14:08→20:13)
[2023-08-31 16:15] LABS: Glucose, Whole Blood 185 mg/dL (60-115)
[2023-08-31] MEDS: metFORMIN HCl 1,000 MG TABLET 1000 MG PO (16:48)
[2023-08-31] MEDS: Acetaminophen 325 MG TABLET 650 MG PO (17:46)
[2023-08-31] MEDS: Losartan Potassium 50 MG TABLET PO (20:11)
[2023-08-31] MEDS: Aspirin Enteric Coated 81 MG TABLET.DR PO (20:11)
[2023-08-31] MEDS: oxyBUTYnin chloride ER 5 MG TAB.ER.24 PO (20:12)
[2023-08-31] MEDS: hydroCHLOROthiazide 25 MG TABLET PO (20:12)
[2023-08-31] MEDS: rOPINIRole HCL 0.25 MG TABLET PO (20:13)
[2023-08-31] MEDS: cefuroxime axetiL 250 MG TABLET PO (20:13)
[2023-08-31] MEDS: 0.9 % Sodium Chloride Flush 3 ML SYRINGE IVFLUSH (20:14)
[2023-08-31] MEDS: Atorvastatin Calcium 20 MG TABLET PO (20:23)
[2023-08-31 20:50] LABS: Glucose, Whole Blood 153 mg/dL (60-115)
[2023-09-01 03:07] VITALS: BP 112/56; PULSE 78; RESP 18; TEMP 36.6; O2SAT 92
[2023-09-01] MEDS: Enoxaparin Sodium 40 MG/0.4 ML SYRINGE SUBCUT (05:04)
[2023-09-01 07:33] VITALS: BP 106/59; PULSE 68; RESP 17; TEMP 37; O2SAT 92
[2023-09-01 07:45] LABS: Glucose, Whole Blood 118 mg/dL (60-115)
[2023-09-01] MEDS: Ascorbic Acid 500 MG TABLET PO (08:01)
[2023-09-01] MEDS: Gabapentin 300 MG CAPSULE PO ×2 (08:01→20:27)
[2023-09-01] MEDS: 0.9 % Sodium Chloride Flush 3 ML SYRINGE IVFLUSH ×3 (08:01→22:15)
[2023-09-01] MEDS: Calcium + Vitamin D 250 MG TABLET 500 MG PO (08:02)
[2023-09-01] MEDS: Tamsulosin HCL 0.4 MG CAPSULE PO (08:02)
[2023-09-01] MEDS: Multivitamin TABLET 1 TAB PO (08:02)
[2023-09-01] MEDS: Oseltamivir Phosphate 30 MG CAPSULE PO ×2 (08:02→20:27)
[2023-09-01] MEDS: cefuroxime axetiL 250 MG TABLET PO ×2 (08:02→20:27)
[2023-09-01] MEDS: metFORMIN HCl 1,000 MG TABLET 1000 MG PO ×2 (08:02→16:54)
[2023-09-01] MEDS: Cholecalciferol (Vitamin D3) 25 MCG TABLET 50 MCG PO (08:02)
--- NOTE | 2023-09-01 09:37 | PM.DS ---
DS: Providers Provider Date of Service: 09/02/23 Date of admission: 08/31/23 01:25 Primary care physician: Unknown Physician Consults: 08/31/23 12:59 Consult to Wound Care Routine Reason for consultation: ulcer at rectum. redness around suprapubic site. DS: Diagnosis Discharge Diagnosis (1) Metabolic encephalopathy: Status: Acute (2) Acute UTI: Status: Acute (3) Non-insulin dependent type 2 diabetes mellitus: Status: Acute (4) Mixed hyperlipidemia: Status: Acute DS: Summary Hospital Course Hospital Course: Admission hpi Chief Complaint: Fever This is a 83-year-old female with pertinent history of urinary incontinence, mixed hyperlipidemia, essential hypertension, noy-hemdhov-qcvtoijtx diabetes mellitus, history of CVA who was sent to the emergency department for evaluation of fever, confusion and weakness. Patient is a poor historian and does not know why she in the hospital. History obtained after talking to the daughter via phone call. The daughter states that the whole family has been sick for the last 2 days. The patient has been having fevers, generalized malaise and fatigability. On the day of presentation, she was found to be confused and she was unable to get up from her bed. The patient does not have dementia at baseline as per the daughter. 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 Unable to obtain review of systems. hospital course She presented with with fever, altered mental status and found to have Influenza and UTI. Her symptoms have resolved with treatement for the influeza and UTI. She is not requiring oxygen and essentially is back to her baseline. She will be discharge to complete Tamiflu for total of 5 days and Cefuroxime for UTI. Time Attestation Discharge Coordination Time (in mins): 35 Quality: Safe Use of Opioids Does Pt have an Active Cancer Diagnosis on the Problem List?: No Quality: Stroke Does the patient have a stroke diagnosis?: No Physical Exam Vital Signs: Vital Signs: Selected Entries 09/02/23 07:06 Temperature 98 F Pulse Rate 68 Respiratory Rate 18 Blood Pressure 105/58 L Pulse Oximetry 96 Oxygen Delivery Me thod Room Air Discharge Plan Discharge Anticipated Discharge Date/Time: 09/02/23 08:25 Patient Disposition: Home, Self-Care Discharge Diagnosis: Metabolic encephalopathy, UTI, and Influenza Referrals: Physician,Unknown J [Primary Care Provider] - 1 Week Discharge Medications: New oseltamivir 30 mg Capsule 30 mg PO Q12H Qty: 5 0RF cefuroxime axetil 250 mg Tablet 250 mg PO BID Qty: 4 0RF Continued metformin 500 mg tablet 1,000 mg PO BID ascorbic acid (vitamin C) [Vitamin C] 1,000 mg Tablet 500 mg PO QAM atorvastatin 20 mg tablet 20 mg PO QPM tamsulosin 0.4 mg capsule 0.4 mg PO DAILY ropinirole 0.25 mg tablet 0.25 mg PO QPM meclizine 25 mg tablet 25 mg PO TID PRN (Reason: Dizziness) oxybutynin chloride 5 mg tablet extended release 24hr 5 mg PO QPM gabapentin 300 mg capsule 300 mg PO BID hydrochlorothiazide 25 mg tablet 25 mg PO QPM clotrimazole 1 % cream 1 appl TOPICAL BID PRN (Reason: Itching) calcium carbonate-vitamin D3 [Calcium 600 with Vitamin D3] 600 mg-12.5 mcg (500 unit) Capsule 2 cap PO DAILY Kerendia 20 mg tablet 20 mg PO QPM losartan 50 mg tablet 50 mg PO QPM aspirin 81 mg Tablet,Delayed Release (Dr/Ec) 81 mg PO QPM multivitamin Tablet 1 tab PO QAM acetaminophen 500 mg Tablet 1,000 mg PO QAM PRN (Reason: Pain) apple cider vinegar 500 mg Tablet 450 mg PO QAM cholecalciferol (vitamin D3) [Vitamin D3] 50 mcg (2,000 unit) Tablet 50 mcg PO QAM omega 8-yuo-ttm-fish oil [Fish Oil] 1,000 mg (120 mg-180 mg) Capsule 1 cap PO QAM Hyaluronic Acid (chond-collgn) 40-80-400 mg Capsule 2 cap PO QAM Glucosamine Chondroitin 550-30-1 mg Capsule 1 cap PO QAM Discharge Orders: Discharge Order (Routine); Ordered 09/02/23 Ordered By: Sixto Ivy Diet: Diabetic diet Activity on Discharge: As tolerated Stand Alone Forms: Patient Portal Discharge page Care Plan Goals: recovery from influenza and urinary tract infection and returned to baseline functional status Health Concerns: metabolic encephalopathy urinary tract infection influenza a Plan of Treatment: take Tamiflu for Influenza take Cefuroxime for UTI follow up with your Doctor in a week, call for appointment Assessment: see above
--- NOTE | 2023-09-01 09:46 | HO.PM.IMPN ---
Subjective Subjective Date of Service: 09/01/23 Interval History: f/u on metabolic encephalopathy, uti, interval history: no confusion, at baseline, no fever, and respiratory issues Physical Exam Vital Signs: Vital Signs: Last Vital Signs Temp 98.6 F 09/01/23 07:33 Pulse 68 09/01/23 07:33 Resp 17 09/01/23 07:33 BP 106/59 L 09/01/23 07:33 Pulse Ox 92 09/01/23 07:33 O2 Del Method Room Air 09/01/23 07:33 BMI result Body Mass Index 25.7 Objective Data Active Medications Acetaminophen (Acetaminophen 325 Mg Tablet) 650 mg PO Q6H PRN PRN Reason: Pain, Mild (Pain Scale 1-3) Last Admin: 08/31/23 17:46 Dose: 650 mg Documented By: TRINO Ascorbic Acid (Ascorbic Acid 500 Mg Tablet) 500 mg PO DAILY [facility] Last Admin: 09/01/23 08:01 Dose: 500 mg Documented By: CHRISTINE Aspirin (Aspirin Enteric Coated 81 Mg Tablet.) 81 mg PO BEDTIME [facility] Last Admin: 08/31/23 20:11 Dose: 81 mg Documented By: JOSESITO Atorvastatin Calcium (Atorvastatin Calcium 20 Mg Tablet) 20 mg PO BEDTIME [facility] Last Admin: 08/31/23 20:23 Dose: 20 mg Documented By: JOSESITO Benzonatate (Benzonatate 100 Mg Capsule) 200 mg PO TID PRN PRN Reason: Cough Last Admin: 08/31/23 20:13 Dose: 200 mg Documented By: JOSESITO Calcium Carbonate/Cholecalciferol (Calcium + Vitamin D 250 Mg Tablet) 500 mg PO DAILY [facility] Last Admin: 09/01/23 08:02 Dose: 500 mg Documented By: CHRISTINE Cefuroxime Axetil (Cefuroxime Axetil 250 Mg Tablet) 250 mg PO BID [facility] Last Admin: 09/01/23 08:02 Dose: 250 mg Documented By: CHRISTINE Clotrimazole (Clotrimazole 1 % Cream 15 Gm Tube) 1 appl TOPICAL BID PRN; Protocol PRN Reason: Itching Dextrose (Dextrose 50 % 25 Gm/50 Ml Syringe) 25 gm IVPUSH Q15M PRN; Protocol PRN Reason: per Hypoglycemia Standing Ord. Enoxaparin Sodium (Enoxaparin Sodium 40 Mg/0.4 Ml Syringe) 40 mg SUBCUT DAILY@0600 [facility] Last Admin: 09/01/23 05:04 Dose: 40 mg Documented By: REJI Gabapentin (Gabapentin 300 Mg Capsule) 300 mg PO BID [facility] Last Admin: 09/01/23 08:01 Dose: 300 mg Documented By: CHRISTINE Glucose (Glucose Gel 15 Gm Gel..Gram.) 15 gm PO Q15M PRN; Protocol PRN Reason: per Hypoglycemia Standing Ord. Guaifenesin (Guaifenesin 100 Mg/5 Ml Liquid) 5 ml PO Q6H PRN PRN Reason: Cough Last Admin: 08/31/23 20:13 Dose: 5 ml Documented By: JOSESITO Hydrochlorothiazide (Hydrochlorothiazide 25 Mg Tablet) 25 mg PO BEDTIME [facility]; Protocol Last Admin: 08/31/23 20:12 Dose: 25 mg Documented By: JOSESITO Insulin Human Lispro (Insulin Lispro 100 Unit/Ml 3 Ml Vial) 0 unit SUBCUT QIDACHS [facility]; Protocol Last Admin: 09/01/23 07:47 Dose: Not Given Documented By: CHRISTINE Non-Admin Reason: No Insulin Coverage Losartan Potassium (Losartan Potassium 50 Mg Tablet) 50 mg PO BEDTIME [facility]; Protocol Last Admin: 08/31/23 20:11 Dose: 50 mg Documented By: JOSESITO Melatonin (Melatonin 3 Mg Tablet) 6 mg PO BEDTIME PRN PRN Reason: Insomnia Metformin HCl (Metformin Hcl 1,000 Mg Tablet) 1,000 mg PO BID@0800,1700 [facility] Last Admin: 09/01/23 08:02 Dose: 1,000 mg Documented By: CHRISTINE Multivitamins/Vitamin C (Multivitamin Tablet) 1 tab PO DAILY [facility] Last Admin: 09/01/23 08:02 Dose: 1 tab Documented By: CHRISTINE Ondansetron HCl (Ondansetron Hcl 4 Mg/2 Ml Vial) 4 mg IVPUSH Q8H PRN PRN Reason: Nausea and Vomiting Oseltamivir Phosphate (Oseltamivir Phosphate 30 Mg Capsule) 30 mg PO Q12H [facility] Stop: 09/04/23 21:01 Last Admin: 09/01/23 08:02 Dose: 30 mg Documented By: CHRISTINE Oxybutynin Chloride (Oxybutynin Chloride Er 5 Mg Tab.Er.24) 5 mg PO BEDTIME [facility] Last Admin: 08/31/23 20:12 Dose: 5 mg Documented By: JOSESITO Ropinirole HCl (Ropinirole Hcl 0.25 Mg Tablet) 0.25 mg PO BEDTIME [facility] Last Admin: 08/31/23 20:13 Dose: 0.25 mg Documented By: JOSESITO Sodium Chloride (0.9 % Sodium Chloride Flush 3 Ml Syringe) 3 ml IVFLUSH QSHIFT [facility] Last Admin: 09/01/23 08:01 Dose: 3 ml Documented By: CHRISTINE Tamsulosin HCl (Tamsulosin Hcl 0.4 Mg Capsule) 0.4 mg PO DAILY [facility] Last Admin: 09/01/23 08:02 Dose: 0.4 mg Documented By: CHRISTINE Vitamin D (Cholecalciferol (Vitamin D3) 25 Mcg Tablet) 50 mcg PO DAILY [facility] Last Admin: 09/01/23 08:02 Dose: 50 mcg Documented By: CHRISTINE Labs 08/31/23 05:00 08/31/23 05:00 Labs: Laboratory Results - last 24 hr 08/31/23 08/31/23 08/31/23 11:37 16:12 20:22 POC Glucose 154 H 185 H 153 H 09/01/23 07:39 POC Glucose 118 H Microbiology Microbiology Results: Microbiology 08/31/23 00:13 Urine Culture - Preliminary Urine clean catch - Urine feldman top Culture in progress. 08/31/23 00:13 Blood Culture - Preliminary Blood - Venous No growth after 24 hours. 08/30/23 23:15 Blood Culture - Preliminary Blood - Venous No growth after 24 hours. Assessment and Plan (1) Metabolic encephalopathy: Status: Acute (2) Acute UTI: Status: Acute (3) Non-insulin dependent type 2 diabetes mellitus: Status: Acute (4) Mixed hyperlipidemia: Status: Acute Plan This is a 83-year-old female with pertinent history of urinary incontinence, mixed hyperlipidemia, essential hypertension, smt-sxxhqbd-rzaeffrxj diabetes mellitus, history of CVA who was sent to the emergency department for evaluation of fever, confusion and weakness. Acute metabolic encephalopathy and viral sepsis due to influenza a infection and UTI. Ecephalopathy resolved and back to baseline -Treat underlying issues as below UTI--Given ceftriaxone in ED, no associated sepsis, ceftin 250 bid for 3 more days Influenaza--symptomatic treatment and Tamiflu for 5 days Generalized weakness in the setting of above - out of bed, -PT recommends return home Urinary incontinence: On oxybutynin and Flomax Skn-uqfvdmz-afamomcae diabetes mellitus -BS check, SSI, continue metformin History of CVA: Not on aspirin or high-intensity statin DVT prophylaxis: Lovenox Full code. Per daughter Need for inptient: neuropathy, UTI causing weakness, need for hydration, antibiotics and safe disposition consider dc today Quality Stroke Does the patient have a stroke diagnosis?: No VTE Prior VTE?: No VTE Risk Level:: Medical - moderate - high VTE Device Contraindication: Treatment Not Indicated VTE Drug Contraindication: N/A - Med Ordered
[2023-09-01 11:23] LABS: Glucose, Whole Blood 134 mg/dL (60-115)
[2023-09-01 15:26] VITALS: BP 104/52; PULSE 73; RESP 18; TEMP 36.4; O2SAT 94
[2023-09-01 16:24] LABS: Glucose, Whole Blood 177 mg/dL (60-115)
[2023-09-01] MEDS: Insulin Lispro 100 UNIT/ML 3 ML VIAL SUBCUT ×2 (16:54→20:28)
[2023-09-01] MEDS: guaiFENesin 100 MG/5 ML LIQUID PO ×2 (16:54→22:18)
[2023-09-01 19:57] VITALS: BP 119/60; PULSE 76; RESP 16; TEMP 36.4; O2SAT 96
[2023-09-01 20:09] LABS: Glucose, Whole Blood 159 mg/dL (60-115)
[2023-09-01] MEDS: Atorvastatin Calcium 20 MG TABLET PO (20:25)
[2023-09-01] MEDS: Aspirin Enteric Coated 81 MG TABLET.DR PO (20:26)
[2023-09-01] MEDS: Losartan Potassium 50 MG TABLET PO (20:26)
[2023-09-01] MEDS: rOPINIRole HCL 0.25 MG TABLET PO (20:27)
[2023-09-01] MEDS: hydroCHLOROthiazide 25 MG TABLET PO (20:27)
[2023-09-01] MEDS: oxyBUTYnin chloride ER 5 MG TAB.ER.24 PO (20:28)
[2023-09-01] MEDS: Benzonatate 100 MG CAPSULE 200 MG PO (22:18)
[2023-09-02 03:06] VITALS: BP 101/53; PULSE 70; RESP 16; TEMP 36.4; O2SAT 94
[2023-09-02] MEDS: Enoxaparin Sodium 40 MG/0.4 ML SYRINGE SUBCUT (05:48)
[2023-09-02 07:06] VITALS: BP 105/58; PULSE 68; RESP 18; TEMP 36.6; O2SAT 96
[2023-09-02 07:24] LABS: Glucose, Whole Blood 120 mg/dL (60-115)
[2023-09-02] MEDS: Ascorbic Acid 500 MG TABLET PO (08:49)
[2023-09-02] MEDS: Oseltamivir Phosphate 30 MG CAPSULE PO (08:49)
[2023-09-02] MEDS: Tamsulosin HCL 0.4 MG CAPSULE PO (08:49)
[2023-09-02] MEDS: metFORMIN HCl 1,000 MG TABLET 1000 MG PO (08:49)
[2023-09-02] MEDS: Multivitamin TABLET 1 TAB PO (08:49)
[2023-09-02] MEDS: 0.9 % Sodium Chloride Flush 3 ML SYRINGE IVFLUSH (08:49)
[2023-09-02] MEDS: Gabapentin 300 MG CAPSULE PO (08:49)
[2023-09-02] MEDS: Cholecalciferol (Vitamin D3) 25 MCG TABLET 50 MCG PO (08:50)
[2023-09-02] MEDS: Calcium + Vitamin D 250 MG TABLET 500 MG PO (08:52)
[2023-09-02] MEDS: guaiFENesin 100 MG/5 ML LIQUID PO (08:54)
[2023-09-02] MEDS: cefuroxime axetiL 250 MG TABLET PO (08:56)
--- NOTE | 2023-09-02 10:03 | MHC.CM.PN ---
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
== END 2023-09-02 11:34 | disposition home or self-care (01) | DRG 871 ==
LOC: HO.ED 08-31 00:45 → HO.EDOVER 08-31 01:28 → HO.S3 08-31 11:27
PROVIDERS: Admitting Provider Student in an Organized Health Care Education/Training Program; Emergency Provider Emergency Medicine; Visit Provider Internal Medicine
DX: A41.89 Other specified sepsis (principal); G93.41 Metabolic encephalopathy; I69.354 Hemiplegia and hemiparesis following cerebral infarction affecting left non-dominant side; N39.0 Urinary tract infection, site not specified; I10 Essential (primary) hypertension; J10.1 Influenza due to other identified influenza virus with other respiratory manifestations; E78.2 Mixed hyperlipidemia; R32 Unspecified urinary incontinence; E11.9 Type 2 diabetes mellitus without complications; Z20.822 Contact with and (suspected) exposure to COVID-19; Z87.891 Personal history of nicotine dependence; Z79.82 Long term (current) use of aspirin; Z79.84 Long term (current) use of oral hypoglycemic drugs; Z79.899 Other long term (current) drug therapy
CPT/HCPCS: 0241U; 36415; 71045; 80048; 80076; 81001; 82947; 83605; 85025; 87040; 87086; 87186; 97162; 99285; J0696; J1650

== ENCOUNTER → 2023-08-31 01:25 | Outpatient (BNV) | payer MEDICARE, MEDICAID, SELFPAY | PROVIDERS: Admitting Provider Student in an Organized Health Care Education/Training Program; Emergency Provider Emergency Medicine; Visit Provider Student in an Organized Health Care Education/Training Program | DX: G93.41 Metabolic encephalopathy (principal); N39.0 Urinary tract infection, site not specified; E11.9 Type 2 diabetes mellitus without complications; E78.2 Mixed hyperlipidemia | CPT/HCPCS: 99223; 99232; 99239; 99499 ==

== ENCOUNTER 2023-12-08 20:37 | Emergency (ER) | payer MEDICARE, MEDICAID, SELFPAY ==
--- NOTE | 2023-12-08 | ECG_ITS ---
Test Reason : HEADACHE Blood Pressure : / mmHG Vent. Rate : 071 BPM Atrial Rate : 071 BPM P-R Int : 180 ms QRS Dur : 072 ms QT Int : 398 ms P-R-T Axes : 019 -13 017 degrees QTc Int : 432 ms Normal sinus rhythm Low voltage QRS Borderline ECG When compared with ECG of 11-NOV-2021 18:58, Criteria for Septal infarct are no longer Present T wave inversion no longer evident in Anterior leads Referred By: Tristen Bhandari Electronically Signed By:PRISCILLA FENTON
[2023-12-08 20:42] VITALS: BP 141/88; BP 147/73; PULSE 73; PULSE 78; RESP 17; TEMP 37.2; O2SAT 95; O2SAT 96; BMI 29.5
[2023-12-08 21:02] LABS: MANUAL DIFF FLAG NO
--- NOTE | 2023-12-08 21:03 | PC.NURSE ---
pt biba from home, a&ox4, respirations even and unlabored. pt reporting onset of headache and sore throat x1 week. reports the headache is intermittent, front side of the head reports it feels throbbing and sharp. pt reports photosensitivity.pt reports having hx of stroke with left sided deficits, pt has bilateral leg braces, supra pubic sanderson in place draining well. pt denies n/v/d and chest pain. 20G placed in right wrist, labs obtained and sent to lab.
[2023-12-08 21:05] LABS: Basophils Percent Auto 0.4 % (0-2); Eosinophils Absolute Auto 0.2 X10*3/uL (0.0-0.4); Hematocrit 37.2 % (37.0-47.0); Hemoglobin 12.3 g/dl (12.0-16.0); Imm Gran Abs Auto 0.03 X10*3/uL (0.00-0.03); Imm Gran Pct Auto 0.4 % (0.0-0.4); Lymphocytes Absolute Auto 2.6 X10*3/uL (1.2-4.9); Lymphocytes Percent Auto 35.7 % (20-40); Mean Corpuscular HGB Conc 33.1 g/dl (31.0-35.0); Mean Corpuscular Volume 90.7 fL (80.0-98.0); Mean Platelet Volume 9.4 fL (9.4-12.3); Monocytes Absolute Auto 0.5 X10*3/uL (0.1-1.2); Monocytes Percent Auto 7.3 % (2-11); Neutrophils Percent Auto 54.2 % (45-73); Platelet Count 256 X10*3/uL (160-400); White Blood Count 7.4 X10*3/uL (4.8-10.8)
--- NOTE | 2023-12-08 21:13 | ED_ITS ---
HPI - Headache General Chief Complaint: Headache Stated Complaint: HEADACHE X 1WK,SORE THROAT Time Seen by Provider: 12/08/23 20:44 Source: patient Mode of arrival: EMS Limitations: no limitations History of Present Illness ED Provider: Dr. 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 The patient states that she has had a headache for proximally 1 week, located behind her left eye, associated with nausea, photophobia and is 10/10. Patient states that the headache is similar to her previous migraine headaches. Patient was also complaining of a sore throat. Vital signs revealed an elevated blood pressure otherwise unremarkable. Physical examination was unremarkable except for her left-sided hemiplegia which is consistent with her previous stroke. She also has a suprapubic catheter which appears to be functioning with no evidence of cellulitis around the insertion site. Differential diagnosis: ?Includes but is not limited to migraine headache, nonspecific headache, viral syndrome, COVID-19, influenza, RSV, electrolyte abnormalities, anemia Following evaluation was ordered: CBC, CMP, rapid strep test, COVID-19, influenza, RSV Patient was initially treated with the following: Benadryl 12.5 mg IV, Toradol 15 mg IV and Reglan 5 mg IV Course: 21:32 My interpretation patient's laboratory evaluation as follows: CBC was normal. BUN elevated 21 with normal creatinine of 1.01 patient has had similar elevations in the past. AST and ALT were elevated 54 and 50, again with similar elevations in the past. Rapid strep was negative. Related Data Home Medications ?Medication ?Instructions ?Recorded ?Confirmed ascorbic acid (vitamin C) 1,000 mg 500 mg PO QAM 09/24/22 08/31/23 tablet (Vitamin C) atorvastatin 20 mg tablet 20 mg PO QPM 09/24/22 08/31/23 calcium carbonate 600 mg-vitamin 2 cap PO DAILY 09/24/22 08/31/23 D3 12.5 mcg (500 unit) capsule (Calcium 600 with Vitamin D3) clotrimazole 1 % topical cream 1 appl topical BID PRN Itching 09/24/22 08/31/23 finerenone 20 mg tablet (Kerendia) 20 mg PO QPM 09/24/22 08/31/23 gabapentin 300 mg capsule 300 mg PO BID 09/24/22 08/31/23 hydrochlorothiazide 25 mg tablet 25 mg PO QPM 09/24/22 08/31/23 meclizine 25 mg tablet 25 mg PO TID PRN Dizziness 09/24/22 08/31/23 metformin 500 mg tablet 1,000 mg PO BID 09/24/22 08/31/23 oxybutynin chloride 5 mg 5 mg PO QPM 09/24/22 08/31/23 tablet,extended release 24 hr ropinirole 0.25 mg tablet 0.25 mg PO QPM 09/24/22 08/31/23 tamsulosin 0.4 mg capsule 0.4 mg PO DAILY 09/24/22 08/31/23 acetaminophen 500 mg tablet 1,000 mg PO QAM PRN Pain 08/31/23 08/31/23 apple cider vinegar 500 mg tablet 450 mg PO QAM 08/31/23 08/31/23 aspirin 81 mg tablet,delayed 81 mg PO QPM 08/31/23 08/31/23 release cholecalciferol (vitamin D3) 50 50 mcg PO QAM 08/31/23 08/31/23 mcg (2,000 unit) tablet (Vitamin D3) glucosamine sulf dipot 1 cap PO QAM 08/31/23 08/31/23 chlr,msm,chond 550 mg-C 30 mg-lyric 1 mg capsule (Glucosamine Chondroitin) hyalur ac-chond sul-colg II-AA 40 2 cap PO QAM 08/31/23 08/31/23 mg-80 mg-400 mg capsule losartan 50 mg tablet 50 mg PO QPM 08/31/23 08/31/23 multivitamin 1 tab PO QAM 08/31/23 08/31/23 omega 8-zcx-twr-fish oil 1,000 mg 1 cap PO QAM 08/31/23 08/31/23 (120 mg-180 mg) capsule (Fish Oil) Previous Rx's ?Medication ?Instructions ?Recorded cefuroxime axetil 250 mg tablet 250 mg PO BID #4 tabs 09/02/23 oseltamivir 30 mg capsule 30 mg PO Q12H #5 caps 09/02/23 diphenhydramine HCl 25 mg capsule 25 mg PO Q6H PRN headache, 12/08/23 nausea, vomiting #20 caps ibuprofen 400 mg tablet 400 mg PO TID PRN fever or pain 12/08/23 #30 tabs metoclopramide HCl 10 mg tablet 10 mg PO Q6H PRN nausea and 12/08/23 (Reglan) vomiting #14 tabs Allergies Allergy/AdvReac Type Severity Reaction Status Date / Time egg Allergy Unknown Verified 12/08/23 20:48 Penicillins Allergy Unknown Verified 12/08/23 20:48 walnut Allergy Unknown Verified 12/08/23 20:48 Review of Systems 2 Review of Systems: Yes all other systems are reviewed and are negative [facility] Past Medical History [facility] Narrative: Social history: The patient denies tobacco, alcohol and drug use Medical History Mixed hyperlipidemia Urinary incontinence Non-insulin dependent type 2 diabetes mellitus Hypertension 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 Social History Social History Household Members: Family Household Members Other:: daughter and son in law Housing: House Do you presently have visiting nurse or other home services: Yes (Elder services) Alcohol intake: current Alcohol intake frequency: holidays/special occasions only Patient Tobacco Use Status: Former Tobacco user Smoked in Last 30 Days: No Use of substances other than those prescribed or required for medical reasons: No Advance Directives: No Advance Directives Information Provided: No Do you have a plan to hurt others: No Plan service: No Physical Exam 2 Vital Signs: Vital Signs: Last Vital Signs Temp 98.9 F 12/08/23 20:42 Pulse 73 12/08/23 20:42 Resp 17 12/08/23 20:42 BP 147/73 H 12/08/23 20:42 Pulse Ox 95 12/08/23 20:42 O2 Del Method Room Air 12/08/23 20:42 BMI result Body Mass Index 29.5 Vital signs did reveal an elevated blood pressure of 147/73 Exam: General: Awake, alert in no distress Head: Normocephalic, atraumatic EENT: PERRL, Lids normal, sclera normal, conjunctiva normal, nose normal , ears normal, throat without erythema or exudates Neck: Supple, no adenopathy Lung: breath sounds symmetric, no wheezing, rales or rhonchi Chest: symmetric movement, nontender Heart: regular rate and rhythm, normal S1, S2 no murmurs or rubs Abdomen: soft, non-tender, nondistended, normal bowel sounds, patient's suprapubic catheter is in place, there is some slight reddish discharge from the insertion site but no obvious bleeding noted Back: no vertebral tenderness, no CVAT Extremities: no deformities, moves all extremities symmetrically Neuro: Awake, alert, oriented, normal speech, cranial nerves intact, moves all extremities symmetrically Psych: Pleasant, cooperative Medications Administered Discontinued Medications Generic Name Dose Route Start Last Admin Trade Name Freq PRN Reason Stop Dose Admin Diphenhydramine HCl 12.5 mg 12/08/23 21:14 12/08/23 21:35 Diphenhydramine Hcl 50 Mg/Ml Vial IVPUSH 12/08/23 21:15 12.5 mg ONCE ONE Administration Ketorolac Tromethamine 15 mg 12/08/23 21:14 12/08/23 21:35 Ketorolac Tromethamine 15 Mg/Ml Vial IVPUSH 12/08/23 21:15 15 mg ONCE STA Administration Metoclopramide HCl 10 mg 12/08/23 21:14 12/08/23 21:35 Metoclopramide Hcl 10 Mg/2 Ml Vial IVPUSH 12/08/23 21:15 10 mg ONCE STA Administration Medical Decision Making Medical Decision Making [facility] Narrative: 83-year-old female with a history of migraine headaches, hyperlipidemia, diabetes, hypertension, stroke in 2019 with left-sided hemiplegia, suprapubic catheter who presents emergency department for evaluation of headache and sore throat. The patient states that she has had a headache for proximally 1 week. She states that the headache is constant, located on the left side of her head behind her eye associated with nausea and photophobia. Patient states she has had similar headaches in the past and has seen a neurologist at [facility] and was diagnosed with migraines and was started on gabapentin. Patient's vital signs revealed an elevated blood pressure of 147/73, physical examination was otherwise unremarkable Differential diagnosis: ?Includes but is not limited to migraine headache, nonspecific headache, viral infection, COVID-19, influenza, RSV, electrolyte abnormalities, anemia Following evaluation was ordered: CBC, CMP, COVID-19, influenza, RSV, rapid strep, EKG Patient was initially treated with the following: Toradol 15 mg IV, Benadryl 12.5 mg IV, Reglan 5 mg IV Course: 22:38 My interpretation patient's laboratory evaluation is as follows: CBC was normal. Elevated AST and ALT 54 and 50, COVID-19, RSV, influenza and rapid strep were negative. Patient states that her headache did improve with the above treatment. The patient states she feels good enough to go home. Patient will be started on the following medications for her migraine headaches every 6 hours as needed: Reglan 10 mg, Benadryl 25 mg and ibuprofen 400 mg. Patient was given printed and verbal instructions and discharged Admission/Observation Consideration of admission/observation: Escalation of care including admission/observation considered Lab Data 12/08/23 20:58 12/08/23 20:58 Labs: Lab Results 12/08/23 Range/Units 20:58 WBC 7.4 (4.8-10.8) X10*3/uL RBC 4.10 L (4.20-5.50) X10*6/uL Hgb 12.3 (12.0-16.0) g/dl Hct 37.2 (37.0-47.0) % MCV 90.7 (80.0-98.0) fL MCH 30.0 (27.0-33.0) pg MCHC 33.1 (31.0-35.0) g/dl RDW 13.0 (11.0-16.0) % Plt Count 256 (160-400) X10*3/uL MPV 9.4 (9.4-12.3) fL Immature Gran % (Auto) 0.4 (0.0-0.4) % Neut % (Auto) 54.2 (45-73) % Lymph % (Auto) 35.7 (20-40) % Lasalle % (Auto) 7.3 (2-11) % Eos % (Auto) 2.0 (0-4) % Baso % (Auto) 0.4 (0-2) % Lymph # (Auto) 2.6 (1.2-4.9) X10*3/uL Lasalle # (Auto) 0.5 (0.1-1.2) X10*3/uL Eos # (Auto) 0.2 (0.0-0.4) X10*3/uL Baso # (Auto) 0.0 (0.0-0.2) X10*3/uL Abs Immat Gran (auto) 0.03 (0.00-0.03) X10*3/uL Absolute Neuts (auto) 4.0 (2.0-8.3) x10*3/uL Absolute Nucleated RBC 0.000 (0.0-0.012) X10*3/uL Nucleated RBC % (auto) 0.0 (0.0-0.2) /100WBC Sodium 142 (135-145) mmol/L Potassium 4.4 D (3.3-5.1) mmol/L Chloride 104 (96-108) mmol/L Carbon Dioxide 26 (22-29) mmol/L Anion Gap 16 (12-20) BUN 21 H (9-16) mg/dL Creatinine 1.01 (0.5-1.4) mg/dL Estim Creat Clear Calc 44.1 Estimated GFR 53 Random Glucose 111 (60-115) mg/dL Calcium 10.5 H D (8.4-10.2) mg/dL Total Bilirubin 0.5 (0.0-1.0) mg/dL AST 54 H (5-31) U/L ALT 50 H (0-31) U/L Alkaline Phosphatase 71 (39-117) U/L Total Protein 8.2 H (6.5-8.0) g/dL Albumin 4.2 (3.5-5.0) g/dL Influenza Type A (PCR) NEGATIVE (Negative) Influenza Type B (PCR) NEGATIVE (Negative) RSV RNA Qual (PCR) NEGATIVE (Negative) SARS-CoV-2 RNA (RT-PCR) NEGATIVE (Negative) S. pyogenes GrpA ADRIA Negative (Negative) Discharge Plan Discharge Clinical Impression: Migraine Patient Disposition: Home, Self-Care Instructions: Migraine Headache (ED) Additional Instructions: Your blood work was unremarkable. Your COVID-19, influenza, RSV and rapid strep tests were negative. Your symptoms are consistent with a migraine headache. Continue taking medications as prescribed by your providers. I want you to take the following 3 medications together every 6 hours as needed for headache, nausea or vomiting. Reglan (metoclopramide) in 10 mg, 1 pill Benadry (diphenhydramine) 25 mg, 1 pills Ibuprofen 400 mg pills, 1 pill After you take these medications, lie down in a dark quiet room and try to fall asleep. ?These medications will make you sleepy, do not drive or work after taking these medications. Follow-up with your doctor in 2 days. Please return to the emergency department if your symptoms get worse or if you develop any symptoms that are concerning to you. Prescriptions: New diphenhydramine HCl 25 mg capsule 25 mg PO Q6H PRN (Reason: headache, nausea, vomiting) Qty: 20 0RF ibuprofen 400 mg tablet 400 mg PO TID PRN (Reason: fever or pain) Qty: 30 0RF metoclopramide HCl [Reglan] 10 mg tablet 10 mg PO Q6H PRN (Reason: nausea and vomiting) Qty: 14 0RF No Action metformin 500 mg tablet 1,000 mg PO BID ascorbic acid (vitamin C) [Vitamin C] 1,000 mg Tablet 500 mg PO QAM atorvastatin 20 mg tablet 20 mg PO QPM tamsulosin 0.4 mg capsule 0.4 mg PO DAILY ropinirole 0.25 mg tablet 0.25 mg PO QPM meclizine 25 mg tablet 25 mg PO TID PRN (Reason: Dizziness) oxybutynin chloride 5 mg tablet extended release 24hr 5 mg PO QPM gabapentin 300 mg capsule 300 mg PO BID hydrochlorothiazide 25 mg tablet 25 mg PO QPM clotrimazole 1 % cream 1 appl TOPICAL BID PRN (Reason: Itching) calcium carbonate-vitamin D3 [Calcium 600 with Vitamin D3] 600 mg-12.5 mcg (500 unit) Capsule 2 cap PO DAILY Kerendia 20 mg tablet 20 mg PO QPM losartan 50 mg tablet 50 mg PO QPM aspirin 81 mg Tablet,Delayed Release (Dr/Ec) 81 mg PO QPM multivitamin Tablet 1 tab PO QAM acetaminophen 500 mg Tablet 1,000 mg PO QAM PRN (Reason: Pain) apple cider vinegar 500 mg Tablet 450 mg PO QAM cholecalciferol (vitamin D3) [Vitamin D3] 50 mcg (2,000 unit) Tablet 50 mcg PO QAM omega 4-oxh-xxb-fish oil [Fish Oil] 1,000 mg (120 mg-180 mg) Capsule 1 cap PO QAM hyalur ac-chond sul-colg II-AA 40-80-400 mg Capsule 2 cap PO QAM Glucosamine Chondroitin 550-30-1 mg Capsule 1 cap PO QAM cefuroxime axetil 250 mg Tablet 250 mg PO BID Qty: 4 0RF Rx Instructions: Tolerated in the hospital oseltamivir 30 mg Capsule 30 mg PO Q12H Qty: 5 0RF Print Language: Cape Verdean
[2023-12-08 21:18] LABS: IDNOW Serial# 58CA691E; Strep A Nucleic Acid Negative (Negative)
[2023-12-08 21:21] LABS: Alanine Aminotransferase 50 U/L (0-31); Albumin Level 4.2 g/dL (3.5-5.0); Alkaline Phosphatase 71 U/L (39-117); Anion Gap 16 (12-20); Aspartate Amino Transferase 54 U/L (5-31); Bilirubin Total 0.5 mg/dL (0.0-1.0); Blood Urea Nitrogen 21 mg/dL (9-16); Calcium 10.5 mg/dL (8.4-10.2); Carbon Dioxide 26 mmol/L (22-29); Chloride 104 mmol/L (96-108); Creatinine Clr Calc Pharmacy 44.1; Estimated Glomerular Filt Rate 53; Glucose Random 111 mg/dL (60-115); Potassium 4.4 mmol/L (3.3-5.1); Sodium 142 mmol/L (135-145); Total Protein 8.2 g/dL (6.5-8.0)
[2023-12-08] MEDS: Ketorolac Tromethamine 15 MG/ML VIAL IVPUSH (21:35)
[2023-12-08] MEDS: diphenhydrAMINE HCL 50 MG/ML VIAL 12.5 MG IVPUSH (21:35)
[2023-12-08] MEDS: Metoclopramide HCl 10 MG/2 ML VIAL IVPUSH (21:35)
--- NOTE | 2023-12-08 21:37 | PC.NURSE ---
pt medicated per mar at this time.
[2023-12-08 21:43] LABS: Influenza A PCR NEGATIVE (Negative); Influenza B PCR NEGATIVE (Negative); Resp Syncy Virus RNA Qual PCR NEGATIVE (Negative); SARS COV2 PCR INHOUSE NEGATIVE (Negative)
[2023-12-08 22:34] VITALS: BP 126/50; PULSE 60; RESP 17; TEMP 36.9; O2SAT 98
[2023-12-09 00:34] VITALS: BP 136/57; PULSE 60; RESP 15; TEMP 36.4; O2SAT 95
[2023-12-09 01:10] VITALS: BP 149/76; PULSE 68; RESP 15; TEMP 37.2; O2SAT 95
[2023-12-09 01:25] VITALS: BP 149/76; PULSE 68; RESP 15; TEMP 37.2; O2SAT 95
== END 2023-12-09 01:25 | disposition home or self-care (01) ==
PROVIDERS: Emergency Provider Emergency Medicine Emergency Medical Services
DX: G43.909 Migraine, unspecified, not intractable, without status migrainosus (principal); J02.9 Acute pharyngitis, unspecified; E11.9 Type 2 diabetes mellitus without complications; I10 Essential (primary) hypertension; E78.5 Hyperlipidemia, unspecified; Z03.818 Encounter for observation for suspected exposure to other biological agents ruled out; Z79.84 Long term (current) use of oral hypoglycemic drugs; Z79.02 Long term (current) use of antithrombotics/antiplatelets; Z79.899 Other long term (current) drug therapy; Z79.82 Long term (current) use of aspirin; Z96.0 Presence of urogenital implants
CPT/HCPCS: 0241U; 80053; 85025; 87651; 93005; 96374; 96375; 99284; 99285; J1200; J1885; J2765

== ENCOUNTER → 2023-12-08 21:12 | Outpatient (BNV) | payer MEDICARE, MEDICAID, SELFPAY | PROVIDERS: Emergency Provider Emergency Medicine Emergency Medical Services; Visit Provider Internal Medicine | DX: R94.31 Abnormal electrocardiogram [ECG] [EKG] (principal) | CPT/HCPCS: 93010 ==

== ENCOUNTER 2024-02-07 08:11 | Emergency (ER) | payer MEDICARE, MEDICAID, SELFPAY ==
--- NOTE | ~2024-02-07 | XR_ITS ---
EXAMINATION: XR CHEST CLINICAL INFORMATION: Cough. COMPARISON: August 31, 2023 TECHNIQUE: Frontal view of the chest was obtained. FINDINGS: The lungs are hyperexpanded. No focal consolidation. No pleural effusion. Cardiac silhouette is unchanged. Advanced degenerative changes of the right shoulder. XR/XR chest 1V IMPRESSION: No acute abnormality. Electronically signed by: Celestino Horn MD 02/07/2024 09:57 AM EDT
[2024-02-07 08:21] VITALS: BP 114/64; BP 128/84; PULSE 100; PULSE 96; RESP 18; TEMP 37.2; O2SAT 93; O2SAT 94; BMI 28.8
[2024-02-07 08:25] VITALS: O2SAT 94
--- OUTSIDE RECORDS SUMMARY | 2024-02-07 08:48 | XMS_ITS | Patient Health Record ---
[facility] randall HuangKimani Address [address] [address] Care Team Providers Care Medic Technician Name Role Phone Kendrick HUBBARD, Liz Primary Care Provider Josse Leyva Unavailable [phone] ALLERGIES Allergen (clinical drug ingredient) Drug/Non Drug Allergy documented on EMR Reaction Allergy Type Onset Date Status amoxicillin Amoxicillin rash Drug Allergy Act natty Adhesive Unknown Allergy Active REASON FOR REFERRAL No Information MEDICATIONS Medication SIG (Take, Route, Frequency, Duration) Notes Start Date End Date Status rOPINIRole HCl 0.25 MG 1 tablet 1 to 3 h ours before bedtime Orally Once a day for 30 day(s) Active Tamsulosin HCl 0.4 MG 1 capsule Orally O nce a day for 30 day(s) Active Atorvastatin Calcium 20 MG 1 tablet Oral ly Once a day for 30 day(s) Active Vitamin C Active Aspirin Active Vitamin D Active Apple Cider Vinegar Active Extra Depth Orthopedic Shoes (1 Pair) with Customized Heat Molded Multidensity Innersoles (3 Pair) as directed Dx: NIDDM/Polyneuropathy (E11.42), Hammertoe Foot Deformity (M20.41,M20.42), Preulcerative Skin Lesion(s) (L85.1 Active Calcium Active Fish Oil Active hydroCHLOROthiazide 25 MG 1 tablet in th e morning Orally Once a day for 30 day(s) Active Glucosamine Chondroitin Adv - as directed Orally Active metFORMIN HCl 500 MG 1 tablet with a glenna l Orally twice a day Active Multivitamin Active IMMUNIZATIONS Vaccine Route Administration Date Status Comme nts Influenza Unknown 03/04/2019 Administered SOCIAL HISTORY Tobacco Use: Social History Observation Description Date Details (start date - stop date) Former Smoker NA - NA Sex Assigned At : Social History Observation Description Sex Assigned At Unknown Tobacco Use/Smoking Question Answer Notes Are you a: former smoker Additional Findings: Tobacco Non-User Current no n-smoker Alcohol Screen Question Answer Notes Did you have a drink containing alcohol in the p ast year? No Points 0 Interpretation Negative Tobacco use other than smoking: Question Answer Notes Are you an other tobacco user? 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.51) Active confirmed Type 2 diabetes mellitus with peripheral angiopathy (380661882) PLAN OF TREATMENT Pending Test Test Name Order Date [id number] NAIL, 6 OR MORE 03/16/2020 [id number] NAIL, 6 OR MORE 12/16/2019 [id number] Plate 03/16/2020 [id number] SKIN LESIONS, 2 TO 4 03/16/20 [id number] SKIN LESIONS, 2 TO 4 12/16/19 Insurance Providers Payer Name Payer Address Payer Phone Subscriber Number Group Number Insured Name Patient Relationship to Insured Coverage Start Date Coverage End Date Medicare National Govt Sv[employer] [address] [place] [address] [id number] Toshia Senior Self - patient is the insured [employer] [address] [place] [address] [phone] [id number] Toshia Senior Self - patient is the insured MEDICAL (GENERAL) HISTORY Medical History History ICD Code Anemia Arthritis Back,Hip,and Knee pain Cataracts Diabetic Headaches/Migraines High blood pressure Sciatica Stroke Measles Chicken pox Transfusions Vertigo Surgical History Surgery Date(Month/Year) tonsillectomy 194 hysterectomy 1990 cataract surgery 2018 eye lift 2019 Dental Surgery 1994
--- OUTSIDE RECORDS SUMMARY | 2024-02-07 08:48 | XMS_ITS | Continuity of Care Document ---
Author Organization [facility] Address [address] [place] [id number]- Care Team Providers Care Stereotyper Name Role Phone Kendrick FRANKLIN, Liz Mcdowell Primary Care Physician [place] [facility] [place] 05/26/20 - 05/31/[address] [id number]- Encounter Diagnosis UTI (urinary tract infection)(Final) - 05/25/20 Discharge Disposition: A-Transfer SNF Attending Physician: Anusha Wilson MD Admitting Physician: Blas Richards MD Referring Physician: Not on Staff, Referring [...] II opioid drug. Start Date: 05/26/20 Status: Ordered dexamethasone 6 mg oral tablet 1 tablet = 6 mg, By Mouth, Daily, for 4 days, # 4 tablet, 0 Refills, Acute 06/04/20 10:37:00 EST, 05/31/20 10:37:00 EST, Tablet, [facility], 71.1, kg, 05/26/20 9:40:00 EST, Dry Weight Start Date: 05/31/20 Stop Date: 06/04/20 Status: Ordered gabapentin 300 mg oral capsule TAKE ONE CAPSULE DAILY BEFORE BEDTIME Start Date: 05/26/20 Status: Ordered hydrochlorothiazide 25 mg oral tablet 25 mg, 1, tablet, By Mouth, Daily, # 30 tablet, Refills 0, Maintenance, 05/26/20 8:51:00 EST, Partial fill upon patient request if the prescription is for a schedule II opioid drug. Start Date: 05/26/20 Status: Ordered meclizine 25 mg oral tablet 1 tablet = 25 mg, By Mouth, 3 times a day, PRN for dizziness, # 30 tablet, 0 Refills, Maintenance, 05/26/20 8:52:00 EST, Tablet, Partial fill upon patient request if the prescription is for a schedule II opioid drug. Start Date: 05/26/20 Status: Ordered metFORMIN 500 mg oral tablet 1 tablet = 500 mg, By Mouth, 2 times a day, # 180 tablet, 0 Refills, Maintenance, 05/26/20 8:51:00 EST, Tablet, Partial fill upon patient request if the prescription is for a schedule II opioid drug. Start Date: 05/26/20 Status: Ordered rOPINIRole 0.25 mg oral tablet TAKE ONE TABLET BY MOUTH EVERY DAY Start Date: 05/26/20 Status: Ordered tamsulosin 0.4 mg oral capsule TAKE ONE CAPSULE BY MOUTH EVERY DAY Start Date: 05/26/20 Status: Ordered Results Orders for Microbiology Reports Name Date Urine Culture (URINE CULTURE) 05/25/20 Microbiology Reports TEST:Urine Culture STATUS:Auth (Verified) BODY SITE: SOURCE:URINE COLLECTED DATE/TIME:05/25/20 6:39 PM Urine Culture SPECIMEN DESCRIPTION : URINE CLEAN CATCH/MIDSTREAM SPECIAL REQUESTS : NONE CULTURE : Mixed bacterial joyce, indicative of urogenital contamination. REPORT STATUS : FINAL 05/27/2020 Radiology Reports * Exam Date Time Procedure Performing Provider Status 05/25/20 10:58 PM Chest Portable Dolly Haas; Auth (Verified) Notes: (Chest Portable) Reason For Exam: Abdominal Pain RESULT: Chest Portable Chest Portable Hx of Present Illness: pt has had nausea and vommiting x3-4 days. radiates to back. chronic sanderson and elft sided defisits from past stroke.; Reason: Abdominal Pain; Clinical Question(s): Pneumonia COMPARISON: None. FINDINGS: LINES AND TUBES: None. LUNGS AND PLEURA: Low lung volumes with mild basilar atelectasis. Lungs are otherwise clear with no consolidation. No pleural effusion. No pneumothorax. HEART, MEDIASTINUM AND STARR: Mild prominence of the cardiac silhouette. Normal upper mediastinal and hilar contour. BONES AND SOFT TISSUES: No acute abnormality. IMPRESSION: Low lung volumes with mild basilar atelectasis. No acute abnormality. WSN: [id number] Ordering Physician: Liz Sifuentes Dictated By: Fercho Duvall MD Dictated Date/Time: 05/25/20 11:22 p Reviewed By: Fercho Duvall MD Signed By: Fercho Duvall MD Signed Date/Time: 05/25/20 11:22 pm Transcribed By: YO Transcribed Date/Time: 05/25/20 11:21 pm Vital Signs Most recent to oldest [Reference Range]: 1 2 3 Oxygen Saturation [94-100 %] 96 % (05/31/20 7:47 PM) 98 % (05/31/20 4:00 PM) 100 % (05/31/20 12:00 PM) Pulse Rate [55-90 bpm] 68 bpm (05/31/20 7:47 PM) 76 bpm (05/31/20 4:00 PM) 63 bpm (05/31/20 12:00 PM) Blood Pressure [90-138/55-84 mm Hg] 114/60mm Hg (05/31/20 7:47 PM) 137/73mm Hg (05/31/20 4:00 PM) 115/70mm Hg (05/31/20 12:00 PM) Respiratory Rate [16-30 br/min] 18 br/min (05/31/20 7:47 PM) 18 br/min (05/31/20 4:00 PM) 18 br/min (05/31/20 12:00 PM) Temperature [96.8-100.4 DegF] 97.1 DegF (05/31/20 7:47 PM) 97.6 DegF (05/31/20 4:00 PM) 97.6 DegF (05/31/20 12:00 PM) Liters per Minute 0 L/min (05/27/20 7:43 AM) 2 L/min (05/26/20 12:19 AM) 2 L/min (05/25/20 8:21 PM) Mode of Delivery (Oxygen) Room air (05/31/20 7:47 PM) Room air (05/31/20 4:00 PM) Room air (05/31/20 12:00 PM) Blood pressure sites Arm, left (05/31/20 4:00 PM) Arm, left (05/31/20 12:00 PM) Arm, left (05/31/20 8:00 AM) Temperature Route Oral (05/31/20 7:47 PM) Oral (05/31/20 4:00 PM) Oral (05/31/20 12:00 PM) Dry Weight 71.1 kg (05/26/20 9:40 AM)
--- NOTE | 2024-02-07 09:01 | ED.URI ---
HPI - URI/Sore Throat General Chief Complaint: Upper Respiratory Symptoms Stated Complaint: COUGH X4D,L WEAK FROM STROKE PER EMS Source: patient and EMS Mode of arrival: EMS Limitations: no limitations History of Present Illness ED Provider: ERICA HUNTER Narrative: 83 yo female with PMH of CVA L sided hemiparesis and neurogenic bladder, HTN, HLD, suprapubic catheter, here with c/o cough x 4 days but no fevers, eating and drinking well, at her baseline, she just hates the cough. Her grandchild was ill. No n/v/d, fevers, weakness, no chest pain or trouble breathing. She wants the cough to stop. Her also has illness. MD elicited complaint: cough Onset (ago): day(s) (4) Consistency: intermittent Severity: mild Description of mucous: clear Able to tolerate fluids by mouth: Yes Exacerbating factors: nothing Relieving factors: nothing Context: other Associated symptoms: denies other symptoms Treatments prior to arrival: none Related Data Home Medications ?Medication ?Instructions ?Recorded ?Confirmed ascorbic acid (vitamin C) 1,000 mg 500 mg PO QAM 09/24/22 08/31/23 tablet (Vitamin C) atorvastatin 20 mg tablet 20 mg PO QPM 09/24/22 08/31/23 calcium carbonate 600 mg-vitamin 2 cap PO DAILY 09/24/22 08/31/23 D3 12.5 mcg (500 unit) capsule (Calcium 600 with Vitamin D3) clotrimazole 1 % topical cream 1 appl topical BID PRN Itching 09/24/22 08/31/23 finerenone 20 mg tablet (Kerendia) 20 mg PO QPM 09/24/22 08/31/23 gabapentin 300 mg capsule 300 mg PO BID 09/24/22 08/31/23 hydrochlorothiazide 25 mg tablet 25 mg PO QPM 09/24/22 08/31/23 meclizine 25 mg tablet 25 mg PO TID PRN Dizziness 09/24/22 08/31/23 metformin 500 mg tablet 1,000 mg PO BID 09/24/22 08/31/23 oxybutynin chloride 5 mg 5 mg PO QPM 09/24/22 08/31/23 tablet,extended release 24 hr ropinirole 0.25 mg tablet 0.25 mg PO QPM 09/24/22 08/31/23 tamsulosin 0.4 mg capsule 0.4 mg PO DAILY 09/24/22 08/31/23 acetaminophen 500 mg tablet 1,000 mg PO QAM PRN Pain 08/31/23 08/31/23 apple cider vinegar 500 mg tablet 450 mg PO QAM 08/31/23 08/31/23 aspirin 81 mg tablet,delayed 81 mg PO QPM 08/31/23 08/31/23 release cholecalciferol (vitamin D3) 50 50 mcg PO QAM 08/31/23 08/31/23 mcg (2,000 unit) tablet (Vitamin D3) glucosamine sulf dipot 1 cap PO QAM 08/31/23 08/31/23 chlr,msm,chond 550 mg-C 30 mg-lyric 1 mg capsule (Glucosamine Chondroitin) hyalur ac-chond sul-colg II-AA 40 2 cap PO QAM 08/31/23 08/31/23 mg-80 mg-400 mg capsule losartan 50 mg tablet 50 mg PO QPM 08/31/23 08/31/23 multivitamin 1 tab PO QAM 08/31/23 08/31/23 omega 7-uzp-uwz-fish oil 1,000 mg 1 cap PO QAM 08/31/23 08/31/23 (120 mg-180 mg) capsule (Fish Oil) Previous Rx's ?Medication ?Instructions ?Recorded cefuroxime axetil 250 mg tablet 250 mg PO BID #4 tabs 09/02/23 oseltamivir 30 mg capsule 30 mg PO Q12H #5 caps 09/02/23 diphenhydramine HCl 25 mg capsule 25 mg PO Q6H PRN headache, 12/08/23 nausea, vomiting #20 caps ibuprofen 400 mg tablet 400 mg PO TID PRN fever or pain 12/08/23 #30 tabs metoclopramide HCl 10 mg tablet 10 mg PO Q6H PRN nausea and 12/08/23 (Reglan) vomiting #14 tabs Allergies Allergy/AdvReac Type Severity Reaction Status Date / Time egg Allergy Unknown Verified 02/07/24 08:22 Penicillins Allergy Unknown Verified 02/07/24 08:22 walnut Allergy Unknown Verified 02/07/24 08:22 Review of Systems Review of Systems: Constitutional : No Fever, No Chills ENT/Mouth : No Hoarseness, No sore throat, No Rhinorrhea Eyes: No Redness, No Discharge, No Vision Changes Cardiovascular : No Chest Pain, no SOB, Respiratory : positive Cough, No Sputum, no Wheezing, Gastrointestinal : No Nausea, No Vomiting, No Diarrhea, No abdominal Pain Genitourinary : No Dysuria, No Hematuria Musculoskeletal : No joint pain, No Myalgias Skin : No rash Neuro : No Weakness, No Numbness, No Headache Psych : No anxiety, depression All other systems reviewed and are negative [facility] Past Medical History Attestation statement: The following information was validated with the patient. Source: old records reviewed Medical History Mixed hyperlipidemia Urinary incontinence Non-insulin dependent type 2 diabetes mellitus Hypertension 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 Social History Social History Household Members: Family Household Members Other:: daughter and son in law Housing: House Do you presently have visiting nurse or other home services: Yes (Elder services) Alcohol intake: current Alcohol intake frequency: other Patient Tobacco Use Status: Former Tobacco user Smoked in Last 30 Days: No Use of substances other than those prescribed or required for medical reasons: No Advance Directives: No Advance Directives Information Provided: No Do you have a plan to hurt others: No Plan service: No Physical Exam Vital Signs: Vital Signs: Last Vital Signs Temp 99 F 02/07/24 08:21 Pulse 96 02/07/24 08:21 Resp 18 02/07/24 08:21 BP 114/64 02/07/24 08:21 Pulse Ox 94 02/07/24 08:25 O2 Del Method Room Air 02/07/24 08:25 BMI result Body Mass Index 28.8 Appearance: Alert. Oriented X3. No acute distress. Eyes: Pupils equal, round and reactive to light. ENT: Pharynx normal. Neck: Normal inspection. Neck supple. CVS: Normal heart rate and rhythm. Pulses normal. Respiratory: No respiratory distress. Breath sounds normal. Abdomen: Soft and nontender. Skin: Skin warm and dry. Normal skin color. Normal skin turgor. Extremities: No lower extremity edema. Neuro: Oriented X 3. chronic L sided deficits. No sensory deficit. Medical Decision Making Medical Decision Making MDM Narrative: 83 yo female with PMH of CVA L sided hemiparesis and neurogenic bladder, HTN, HLD, suprapubic catheter, here with c/o cough but no other symptoms no hypoxia and not toxic appearing. she denies n/v/d states she is tolerating PO and has no CP/SOB. She has sick contacts as well with and grandson - suspect viral syndrome. Overall looks well. Differential Diagnosis Differential Diagnoses: The differential diagnosis associated with the presentation includes URI, bronchitis, COVID Admission/Observation Consideration of admission/observation: Escalation of care including admission/observation considered no hypoxia not toxic, xray negative 94% on RA stable for DC Lab Data [facility] Lab Attestation statement: I reviewed the patient's lab results. Labs: Lab Results 02/07/24 Range/Units 08:49 Influenza Type A (PCR) NEGATIVE (Negative) Influenza Type B (PCR) NEGATIVE (Negative) RSV RNA Qual (PCR) NEGATIVE (Negative) SARS-CoV-2 RNA (RT-PCR) POSITIVE A (Negative) Independent Interpretation I performed an independent interpretation of an: Plain X-Ray (no pneumonia) Radiology Impression Discussion of test interpretation with radiology: I have reviewed the radiologist's reading. External Record Review External record reviewed: Outpatient record Discharge Plan Discharge Clinical Impression: COVID-19 Patient Disposition: Home, Self-Care Instructions: COVID-19 (Coronavirus Disease 2019) (ED) Additional Instructions: return for worsening breathing, chest pain, confusion, vomiting or any other concerns normal oxygen level and no pneumonia on chest xray wear a mask and protect others stay hydrated your cough can last up to 1 month Prescriptions: No Action metformin 500 mg tablet 1,000 mg PO BID ascorbic acid (vitamin C) [Vitamin C] 1,000 mg Tablet 500 mg PO QAM atorvastatin 20 mg tablet 20 mg PO QPM tamsulosin 0.4 mg capsule 0.4 mg PO DAILY ropinirole 0.25 mg tablet 0.25 mg PO QPM meclizine 25 mg tablet 25 mg PO TID PRN (Reason: Dizziness) oxybutynin chloride 5 mg tablet extended release 24hr 5 mg PO QPM gabapentin 300 mg capsule 300 mg PO BID hydrochlorothiazide 25 mg tablet 25 mg PO QPM clotrimazole 1 % cream 1 appl TOPICAL BID PRN (Reason: Itching) calcium carbonate-vitamin D3 [Calcium 600 with Vitamin D3] 600 mg-12.5 mcg (500 unit) Capsule 2 cap PO DAILY Kerendia 20 mg tablet 20 mg PO QPM diphenhydramine HCl 25 mg capsule 25 mg PO Q6H PRN (Reason: headache, nausea, vomiting) Qty: 20 0RF ibuprofen 400 mg tablet 400 mg PO TID PRN (Reason: fever or pain) Qty: 30 0RF metoclopramide HCl [Reglan] 10 mg tablet 10 mg PO Q6H PRN (Reason: nausea and vomiting) Qty: 14 0RF losartan 50 mg tablet 50 mg PO QPM aspirin 81 mg Tablet,Delayed Release (Dr/Ec) 81 mg PO QPM multivitamin Tablet 1 tab PO QAM acetaminophen 500 mg Tablet 1,000 mg PO QAM PRN (Reason: Pain) apple cider vinegar 500 mg Tablet 450 mg PO QAM cholecalciferol (vitamin D3) [Vitamin D3] 50 mcg (2,000 unit) Tablet 50 mcg PO QAM omega 5-eoa-fxj-fish oil [Fish Oil] 1,000 mg (120 mg-180 mg) Capsule 1 cap PO QAM hyalur ac-chond sul-colg II-AA 40-80-400 mg Capsule 2 cap PO QAM Glucosamine Chondroitin 550-30-1 mg Capsule 1 cap PO QAM cefuroxime axetil 250 mg Tablet 250 mg PO BID Qty: 4 0RF Rx Instructions: Tolerated in the hospital oseltamivir 30 mg Capsule 30 mg PO Q12H Qty: 5 0RF Print Language: Mohawk
[2024-02-07 09:29] LABS: Influenza A PCR NEGATIVE (Negative); Influenza B PCR NEGATIVE (Negative); Resp Syncy Virus RNA Qual PCR NEGATIVE (Negative); SARS COV2 PCR INHOUSE POSITIVE (Negative)
[2024-02-07 10:12] VITALS: BP 140/62; PULSE 97; RESP 16; TEMP 37.2; O2SAT 95
[2024-02-07 12:48] VITALS: BP 140/62; PULSE 97; RESP 16; TEMP 37.2; O2SAT 95
== END 2024-02-07 12:48 | disposition home or self-care (01) ==
PROVIDERS: Emergency Provider Emergency Medicine; PCP Nurse Practitioner Adult Health
DX: U07.1 COVID-19 (principal); R05.9 Cough, unspecified
CPT/HCPCS: 0241U; 71045; 99283; 99284

== ENCOUNTER 2025-01-03 10:52 | Emergency (ER) | payer MEDICARE, MEDICAID, SELFPAY ==
--- NOTE | ~2025-01-03 | XR_ITS ---
CLINICAL HISTORY: thoracic back pain Three views of the thoracic spine. COMPARISON: None provided. FINDINGS: Normal vertebral body alignment. Vertebral body heights are maintained. No evidence of acute vertebral body injury. Marginal osteophytes with loss of disc space height present throughout the mid to lower thoracic spine. Advanced degenerative changes of the partially visualized cervical spine. IMPRESSION: 1. No radiographic evidence of acute injury to the thoracic spine. 2. Moderate to advanced mid to lower thoracic spondylosis. This document has been electronically signed by: Anthony Khoury MD on 01/03/2025 13:05:40
--- NOTE | ~2025-01-03 | XR_ITS ---
CLINICAL HISTORY: SOB, cough Single view of the chest. COMPARISON: XR chest dated 02/07/24 at 09:28 EDT FINDINGS: Low lung volumes. Borderline cardiomegaly, likely exaggerated secondary to low lung volumes. Atherosclerotic thoracic aorta. No consolidation. Crowding of the bronchovascular markings, likely secondary to low lung volumes. No pleural effusion. No pneumothorax. Mild spondylosis. No acute fracture. IMPRESSION: 1. Low lung volumes with associated crowding of the bronchovascular markings. This document has been electronically signed by: Anthony Khoury MD on 01/03/2025 13:00:15
--- NOTE | ~2025-01-03 | CT_ITS ---
CLINICAL HISTORY: back px rad to neck, comment on Tspine plz! CT angiography of the chest with IV contrast. 3D/MIP post processing reconstructions were performed. COMPARISON: None provided. FINDINGS: No evidence of thoracic aortic dissection. Atherosclerotic plaque present along the partially visualized infrarenal abdominal aorta without significant stenosis. Visualized portions of the arch branch vessels appear patent. Celiac trunk, SMA renal arteries appear patent. No central pulmonary embolism. Visualized thyroid is unremarkable. No supraclavicular or axillary lymphadenopathy. Ascending aorta and main pulmonary artery are normal in caliber. Cardiomegaly. No pericardial effusion. Normal esophagus. No mediastinal or hilar lymphadenopathy. No pleural effusion. Minimal atelectasis along the posterior lower lobes. Trachea and central airways are clear. No significant bronchial wall thickening. No bronchiectasis. Lobular hepatic contour. Normal gallbladder. Normal spleen. Normal pancreas. Normal adrenal glands. Moderate to advanced spondylosis in the mid to lower thoracic spine. No acute fracture. Advanced degenerative changes of the partially visualized lower cervical spine. Degenerative changes of the bilateral shoulders. IMPRESSION: 1. No evidence of aortic dissection. 2. No acute intrathoracic findings. No evidence of pneumonia. 3. Moderate to advanced mid to lower thoracic spondylosis. No acute fracture. This document has been electronically signed by: Anthony Khoury MD on 01/03/2025 17:05:43
[2025-01-03 11:05] VITALS: PULSE 70; RESP 18; TEMP 36.4; O2SAT 96; BMI 28.5
--- NOTE | 2025-01-03 11:08 | ED.GENADULT ---
HPI - General Adult General Chief complaint: Back Pain/Injury Stated complaint: BACK PAIN PER EMS Time Seen by Provider: 01/03/25 11:06 Source: patient, EMS and RN notes reviewed Mode of arrival: EMS Limitations: no limitations History of Present Illness ED Provider: Theresa Miranda PA-C HPI narrative: 84-year-old female with medical history of HLD, T2DM, HTN, CVA with left-sided deficits, urinary incontinence, presents to ED by EMS due to 2 days of mid back pain. Patient states she was sitting at her computer doing work when she felt her right side mid back tense up, and pain radiate up to the right shoulder and neck. Patient states she has been taking Tylenol, using a heating pad at night, without effect. Patient states she uses a wheelchair and 4 pronged cane for ambulation at baseline however, has had to use her wheelchair more due to back pain. Patient states the pain is steady, aching, and sharp when turning her torso to the left or right, and coughing, movement makes the pain worse. She denies tearing pain, chest pain, shortness of breath, abdominal pain, nausea, vomiting, diarrhea, dark/tarry stool, headaches, visual changes. MD complaint: thoracic back pain Related Data Home Medications ?Medication ?Instructions ?Recorded ?Confirmed ascorbic acid (vitamin C) 1,000 mg 500 mg PO QAM 09/24/22 08/31/23 tablet (Vitamin C) atorvastatin 20 mg tablet 20 mg PO QPM 09/24/22 08/31/23 calcium 600 mg (as 2 cap PO DAILY 09/24/22 08/31/23 carbonate)-vitamin D3 12.5 mcg (500 unit) capsule (Calcium with Vit D3) clotrimazole 1 % topical cream 1 appl topical BID PRN Itching 09/24/22 08/31/23 finerenone 20 mg tablet (Kerendia) 20 mg PO QPM 09/24/22 08/31/23 gabapentin 300 mg capsule 300 mg PO BID 09/24/22 08/31/23 hydrochlorothiazide 25 mg tablet 25 mg PO QPM 09/24/22 08/31/23 meclizine 25 mg tablet 25 mg PO TID PRN Dizziness 09/24/22 08/31/23 metformin 500 mg tablet 1,000 mg PO BID 09/24/22 08/31/23 oxybutynin chloride 5 mg 5 mg PO QPM 09/24/22 08/31/23 tablet,extended release 24 hr ropinirole 0.25 mg tablet 0.25 mg PO QPM 09/24/22 08/31/23 tamsulosin 0.4 mg capsule 0.4 mg PO DAILY 09/24/22 08/31/23 acetaminophen 500 mg tablet 1,000 mg PO QAM PRN Pain 08/31/23 08/31/23 apple cider vinegar 500 mg tablet 450 mg PO QAM 08/31/23 08/31/23 aspirin 81 mg tablet,delayed 81 mg PO QPM 08/31/23 08/31/23 release cholecalciferol (vitamin D3) 50 50 mcg PO QAM 08/31/23 08/31/23 mcg (2,000 unit) tablet (Vitamin D3) chondroitin 80 mg-collagen 400 2 cap PO QAM 08/31/23 08/31/23 mg-hyaluronic 40 mg-amino acid capsule glucosamine sulf dipot 1 cap PO QAM 08/31/23 08/31/23 chlr,msm,chond 550 mg-C 30 mg-lyric 1 mg capsule (Glucosamine Chondroitin) losartan 50 mg tablet 50 mg PO QPM 08/31/23 08/31/23 multivitamin 1 tab PO QAM 08/31/23 08/31/23 omega 4-upf-xwc-fish oil 1,000 mg 1 cap PO QAM 08/31/23 08/31/23 (120 mg-180 mg) capsule (Fish Oil) Previous Rx's ?Medication ?Instructions ?Recorded cefuroxime axetil 250 mg tablet 250 mg PO BID #4 tabs 09/02/23 oseltamivir 30 mg capsule 30 mg PO Q12H #5 caps 09/02/23 diphenhydramine HCl 25 mg capsule 25 mg PO Q6H PRN headache, 12/08/23 nausea, vomiting #20 caps ibuprofen 400 mg tablet 400 mg PO TID PRN fever or pain 12/08/23 #30 tabs metoclopramide HCl 10 mg tablet 10 mg PO Q6H PRN nausea and 12/08/23 (Reglan) vomiting #14 tabs Allergies Allergy/AdvReac Type Severity Reaction Status Date / Time egg Allergy Unknown Verified 01/03/25 11:09 Penicillins Allergy Unknown Verified 01/03/25 11:09 walnut Allergy Unknown Verified 01/03/25 11:09 Review of Systems Review of Systems: CONST: Negative for fever, body aches and chills. HENT: Negative for neck pain/stiffness, headache, congestion, sore throat, swelling. EYES: Negative for discharge/pain or vision changes. RESP: Negative for cough/hemoptysis and shortness of breath. CV: Negative chest pain, difficulty breathing, palpitations. ABD: Negative pain, nausea, vomiting. : Negative increase frequency, dysuria, blood in urine or stool. MUSC: Negative for muscle aches, edema. POS R sided thoracic back pain, radiate to R neck and shoulder SKIN: Negative rash, lesions/sores. NEURO: Negative headache, dizziness, weakness. [facility] Past Medical History Attestation statement: The following information was validated with the patient. Source: old records reviewed and nursing notes reviewed Medical History Mixed hyperlipidemia Urinary incontinence Non-insulin dependent type 2 diabetes mellitus Hypertension 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 Social History Social History Household Members: Family Household Members Other:: daughter and son in law Housing: House Do you presently have visiting nurse or other home services: Yes (Elder services) Alcohol intake: current Alcohol intake frequency: other Patient Tobacco Use Status: Former Tobacco user Smoked in Last 30 Days: No Use of substances other than those prescribed or required for medical reasons: No Advance Directives: Yes Advance Directives Information Provided: No Advance Directives on File: No Do you have a plan to hurt others: No Plan service: No Physical Exam ED Vital Signs: Vital Signs - 24 hr 01/03/25 11:05 01/03/25 11:15 01/03/25 14:23 Temperature 97.5 F 97.5 F Pulse Rate 70 75 66 Respiratory Rate 18 14 20 Blood Pressure 148/54 H 134/62 Pulse Oximetry 96 97 96 Oxygen Delivery Method Room Air Room Air Room Air 01/03/25 16:04 Temperature Pulse Rate 80 Respiratory Rate 18 Blood Pressure 134/64 Pulse Oximetry 98 Oxygen Delivery Method Room Air BMI result Body Mass Index 28.5 GENERAL APPEARANCE: ?AxOx4, generally well-appearing, no acute distress. HEENT: ?NC, AT. MMM. EOMI, clear conjunctiva, oropharynx clear. NECK: ?Supple without lymphadenopathy.? No stiffness. Cervical paraspinal muscles TTP, without restricted ROM. HEART:? Normal rate and regular rhythm, normal S1/S2, no m/r/g LUNGS:? CTAB, moving air well. No crackles or wheezes are heard. ABDOMEN: ?Soft, nontender, nondistended with good bowel sounds heard. BACK: No CVAT, no obvious deformity. Right side Thoracic paraspinal muscles TTP, no overlying skin changes, no midline spinal tenderness. EXTREMITIES: ?Without cyanosis, clubbing or edema. Right shoulder TTP over glenohumeral joint, restricted ROM due to pain with flexion, SILT NEUROLOGICAL: ?Grossly nonfocal. Alert and oriented, moving right sided extremities. Skin: ?Warm and dry without any rash. Medications Administered Discontinued Medications Generic Name Dose Route Start Last Admin Trade Name Freq PRN Reason Stop Dose Admin Acetaminophen 650 mg 01/03/25 11:22 01/03/25 11:34 Acetaminophen 325 Mg Tablet PO 01/03/25 11:23 650 mg ONCE ONE Administration Cyclobenzaprine HCl 5 mg 01/03/25 11:22 01/03/25 11:34 Cyclobenzaprine Hcl 5 Mg Tablet PO 01/03/25 11:23 5 mg ONCE ONE Administration Magnesium Sulfate 2 gm in 50 mls @ 150 mls/hr 01/03/25 12:44 01/03/25 16:38 Magnesium Sulfate/H2o IV 01/03/25 13:03 Infused ONCE ONE Infusion Iohexol 100 ml 01/03/25 15:41 01/03/25 15:45 Iohexol 350 Mg/Ml 100 Ml Infus..Btl IV 01/03/25 15:42 70 ml ONCE ONE Administration Prednisone 40 mg 01/03/25 11:22 01/03/25 11:34 Prednisone 20 Mg Tablet PO 01/03/25 11:23 40 mg ONCE ONE Administration Medical Decision Making Medical Decision Making MDM Narrative: 84-year-old female with medical history of HLD, T2DM, HTN, CVA with left-sided deficits, urinary incontinence, presents to ED by EMS due to 2 days of mid back pain. Patient states she was sitting at her computer doing work when she felt her right side mid back tense up, and pain radiate up to the right shoulder and neck. Patient states she has been taking Tylenol, using a heating pad at night, without effect. Patient states she has been using her wheelchair more for ambulation due to the pain. Patient states the pain is steady, aching, and sharp when turning her torso to the left or right, and coughing, movement makes the pain worse. VSS, BP 148/54 no hypotension, pulse rate 75 beats per minute, O2 saturation 97% on room air. Physical exam reveals thoracic paraspinal muscles TTP, no overlying skin changes, cervical paraspinal muscles TTP, without reduced ROM, right shoulder with TTP over glenohumeral joint, restricted ROM with flexion due to pain. Abdomen soft, nontender, no pulsatile masses. EKG normal sinus rhythm, no ST elevation/depression, T-wave abnormality, initial troponin 4.7, we will obtain 2nd troponin to evaluate for positive delta changes. Plan for XR thoracic spine to evaluate for compression fracture, XR chest to observe aortic silhouette, pneumothorax. Course 12:36- labs reveal hypomagnesemia at 1.5, H&H stable. We will replete with 2 g IV magnesium. Patient medicated with 40 mg prednisone, 5 mg cyclobenzaprine, 650 mg Tylenol for thoracic lumbar strain. 13:50- patient states pain has not improved after being medicated with 40 mg prednisone, 5 mg cyclobenzaprine, 650 mg Tylenol. Due to patient's vital signs stable, BP 134/62, patient is stable, in no acute distress, thoracic back pain right-sided only, H and H stable, no pulsatile masses on abdominal exam, D-dimer negative at 215 NG/mL -less likely aortic dissection. 14:33- patient states back pain is still present. Will obtain CTA chest to observe for possible occult fracture, and aortic dissection as patient is diabetic and pain is radiating into neck. 17:14- CTA negative for aortic dissection, imaging shows degenerative changes of the lower cervical spine, degenerative changes of bilateral shoulders, with moderate to advanced spondylosis in the mid to lower thoracic spine. No acute fractures observed. I spoke with the patient's daughter on the phone, patient lives with her daughter, daughter feels that she will be able to care for her at home. Patient states that she feels she will be able to manage back pain at home with lidocaine patches and Tylenol. I discussed strict return precautions with patient, she is in understanding with the plan. Differential Diagnosis Differential Diagnoses: The differential diagnosis associated with the presentation includes Tension pneumothorax Thoracic lumbar strain Electrolyte abnormality Admission/Observation Consideration of admission/observation: Escalation of care including admission/observation considered Lab Data MDM Lab Attestation statement: I reviewed the patient's lab results. 01/03/25 11:36 01/03/25 11:36 Labs: Lab Results 01/03/25 01/03/25 Range/Units 11:36 13:34 WBC 6.7 (4.8-10.8) X10*3/uL RBC 4.02 L (4.20-5.50) X10*6/uL Hgb 11.9 L (12.0-16.0) g/dl Hct 36.7 L (37.0-47.0) % MCV 91.3 (80.0-98.0) fL MCH 29.6 (27.0-33.0) pg MCHC 32.4 (31.0-35.0) g/dl RDW 13.0 (11.0-16.0) % Plt Count 262 (160-400) X10*3/uL MPV 9.5 (9.4-12.3) fL Immature Gran % (Auto) 0.6 H (0.0-0.4) % Neut % (Auto) 60.0 (45-73) % Lymph % (Auto) 29.0 (20-40) % Archer % (Auto) 8.1 (2-11) % Eos % (Auto) 2.0 (0-4) % Baso % (Auto) 0.3 (0-2) % Lymph # (Auto) 1.9 (1.2-4.9) X10*3/uL Archer # (Auto) 0.5 (0.1-1.2) X10*3/uL Eos # (Auto) 0.1 (0.0-0.4) X10*3/uL Baso # (Auto) 0.0 (0.0-0.2) X10*3/uL Abs Immat Gran (auto) 0.04 H (0.00-0.03) X10*3/uL Absolute Neuts (auto) 4.0 (2.0-8.3) x10*3/uL Absolute Nucleated RBC 0.000 (0.0-0.012) X10*3/uL Nucleated RBC % (auto) 0.0 (0.0-0.2) /100WBC D-Dimer High Sensitivty 215 NG/ML Sodium 140 (135-145) mmol/L Potassium 4.8 (3.3-5.1) mmol/L Chloride 101 (96-108) mmol/L Carbon Dioxide 29 (22-29) mmol/L Anion Gap 15 (12-20) BUN 19 H (9-16) mg/dL Creatinine 1.05 (0.5-1.4) mg/dL Estim Creat Clear Calc 41.0 Estimated GFR 50 Random Glucose 170 H (60-115) mg/dL Calcium 10.4 H (8.4-10.2) mg/dL Magnesium 1.5 L (1.6-2.6) mg/dL Total Bilirubin 0.3 (0.0-1.0) mg/dL AST 50 H (5-31) U/L ALT 44 H (0-31) U/L Alkaline Phosphatase 73 (39-117) U/L Troponin I High Sens 4.7 4.8 (<3.5-17.0) ng/L Total Protein 8.4 H (6.5-8.0) g/dL Albumin 4.5 (3.5-5.0) g/dL Independent Interpretation I performed an independent interpretation of an: EKG and Plain X-Ray Interpretation: I independently interpreted the EKG which reveals normal sinus rhythm, no ST elevation/depression, T-wave abnormality Vent. Rate : 74 BPM Atrial Rate : 74 BPM P-R Int : 166 ms QRS Dur : 70 ms QT Int : 392 ms P-R-T Axes : 13 -22 3 degrees QTcB Int : 435 ms Normal sinus rhythm Cannot rule out Anterior infarct , age undetermined Abnormal ECG When compared with ECG of 08-Dec-2023 21:12, No significant change was found I independently interpreted the CXR which reveals appropriate aortic notch, no evidence of pleural effusions, pneumothorax, infiltrates, I agree with the radiologist's impression I independently interpreted the XR thoracic spine which does not reveal fracture, dislocation, I agree with the radiologist's impression. Radiology Impression Discussion of test interpretation with radiology: I have reviewed the radiologist's reading. Radiologist Impression: CXR FINDINGS: Low lung volumes. Borderline cardiomegaly, likely exaggerated secondary to low lung volumes. Atherosclerotic thoracic aorta. No consolidation. Crowding of the bronchovascular markings, likely secondary to low lung volumes. No pleural effusion. No pneumothorax. Mild spondylosis. No acute fracture. IMPRESSION: 1. Low lung volumes with associated crowding of the bronchovascular markings. This document has been electronically signed by: Anthony Khoury MD on 01/03/2025 13:00:15 Dictated By: Anthony Khoury MD Signed By: <Electronically signed by Anthony Khoury MD in OV> 01/03/25 130 XR thoracic spine FINDINGS: Normal vertebral body alignment. Vertebral body heights are maintained. No evidence of acute vertebral body injury. Marginal osteophytes with loss of disc space height present throughout the mid to lower thoracic spine. Advanced degenerative changes of the partially visualized cervical spine. IMPRESSION: 1. No radiographic evidence of acute injury to the thoracic spine. 2. Moderate to advanced mid to lower thoracic spondylosis. This document has been electronically signed by: Anthony Khoury MD on 01/03/2025 13:05:40 Dictated By: Anthony Khoury MD Signed By: <Electronically signed by Anthony Khoury MD in OV> 01/03/25 1306 CTA chest/aorta FINDINGS: No evidence of thoracic aortic dissection. Atherosclerotic plaque present along the partially visualized infrarenal abdominal aorta without significant stenosis. Visualized portions of the arch branch vessels appear patent. Celiac trunk, SMA renal arteries appear patent. No central pulmonary embolism. Visualized thyroid is unremarkable. No supraclavicular or axillary lymphadenopathy. Ascending aorta and main pulmonary artery are normal in caliber. Cardiomegaly. No pericardial effusion. Normal esophagus. No mediastinal or hilar lymphadenopathy. No pleural effusion. Minimal atelectasis along the posterior lower lobes. Trachea and central airways are clear. No significant bronchial wall thickening. No bronchiectasis. Lobular hepatic contour. Normal gallbladder. Normal spleen. Normal pancreas. Normal adrenal glands. Moderate to advanced spondylosis in the mid to lower thoracic spine. No acute fracture. Advanced degenerative changes of the partially visualized lower cervical spine. Degenerative changes of the bilateral shoulders. IMPRESSION: 1. No evidence of aortic dissection. 2. No acute intrathoracic findings. No evidence of pneumonia. 3. Moderate to advanced mid to lower thoracic spondylosis. No acute fracture. This document has been electronically signed by: Anthony Khoury MD on 01/03/2025 17:05:43 Dictated By: Anthony Khoury MD Signed By: <Electronically signed by Anthony Khoury MD in OV> 01/03/25 1706 Independent Historian Clinical information obtained from an independent historian. History obtained from or confirmed by: Other (Daughter contacted by phone) External Record Review External record reviewed: Inpatient record, Office record and Outpatient record Chronic Conditions Patient?s care impacted by: Diabetes and Hypertension Discharge Plan Discharge Clinical Impression: Strain of thoracic region Patient Disposition: Home, Self-Care Instructions: Muscle Strain (DC) Additional Instructions: You were evaluated in the ED today due to mid back pain. While in the department your labs showed that you were low on magnesium which is an electrolyte in the body. Your EKG was normal. The x-ray of your spine did not reveal any fracture, dislocations. The CAT scan of your chest did not reveal any emergent processes, however did reveal that you have some degenerative osteoarthritic changes of your cervical spine, bilateral shoulders, and of your thoracic spine which is your mid back. I believe you had of a mid back muscle strain. To manage this pain I will prescribe you lidocaine patches that you can place over the affected area once a day, and 500 mg of Tylenol that you can take every 8 hours. Additionally you can use ice, or heat pads to manage this pain. Please do not place ice or heat over the lidocaine patches when they are on your skin, as they can burn the skin. Please follow up with your primary care doctor to ensure improvement with this pain. Please return to the emergency department if you experience worsening back pain, difficulty ambulating, chest pain, shortness of breath, fevers over 100.4?, or any other new/concerning/worsening symptoms. Prescriptions: No Action metformin 500 mg tablet 1,000 mg PO BID ascorbic acid (vitamin C) [Vitamin C] 1,000 mg Tablet 500 mg PO QAM atorvastatin 20 mg tablet 20 mg PO QPM tamsulosin 0.4 mg capsule 0.4 mg PO DAILY ropinirole 0.25 mg tablet 0.25 mg PO QPM meclizine 25 mg tablet 25 mg PO TID PRN (Reason: Dizziness) oxybutynin chloride 5 mg tablet extended release 24hr 5 mg PO QPM gabapentin 300 mg capsule 300 mg PO BID hydrochlorothiazide 25 mg tablet 25 mg PO QPM clotrimazole 1 % cream 1 appl TOPICAL BID PRN (Reason: Itching) calcium carbonate-vitamin D3 [Calcium 600 with Vitamin D3] 600 mg-12.5 mcg (500 unit) Capsule 2 cap PO DAILY Kerendia 20 mg tablet 20 mg PO QPM diphenhydramine HCl 25 mg capsule 25 mg PO Q6H PRN (Reason: headache, nausea, vomiting) Qty: 20 0RF ibuprofen 400 mg tablet 400 mg PO TID PRN (Reason: fever or pain) Qty: 30 0RF metoclopramide HCl [Reglan] 10 mg tablet 10 mg PO Q6H PRN (Reason: nausea and vomiting) Qty: 14 0RF losartan 50 mg tablet 50 mg PO QPM aspirin 81 mg Tablet,Delayed Release (Dr/Ec) 81 mg PO QPM multivitamin Tablet 1 tab PO QAM acetaminophen 500 mg Tablet 1,000 mg PO QAM PRN (Reason: Pain) apple cider vinegar 500 mg Tablet 450 mg PO QAM cholecalciferol (vitamin D3) [Vitamin D3] 50 mcg (2,000 unit) Tablet 50 mcg PO QAM omega 2-yiy-ubc-fish oil [Fish Oil] 1,000 mg (120 mg-180 mg) Capsule 1 cap PO QAM ezbwyeqzt-knteywpa-egdrblth-AA 40-80-400 mg Capsule 2 cap PO QAM Glucosamine Chondroitin 550-30-1 mg Capsule 1 cap PO QAM cefuroxime axetil 250 mg Tablet 250 mg PO BID Qty: 4 0RF Rx Instructions: Tolerated in the hospital oseltamivir 30 mg Capsule 30 mg PO Q12H Qty: 5 0RF Print Language: [place] Citizen
[2025-01-03 11:15] VITALS: BP 148/54; PULSE 75; RESP 14; TEMP 36.4; O2SAT 97
--- NOTE | 2025-01-03 11:22 | ECG_ITS ---
Test Reason : UPPER BACK PAIN Blood Pressure : */* mmHG Vent. Rate : 74 BPM Atrial Rate : 74 BPM P-R Int : 166 ms QRS Dur : 70 ms QT Int : 392 ms P-R-T Axes : 13 -22 3 degrees QTcB Int : 435 ms Normal sinus rhythm Poor R wave progression Borderline ECG When compared with ECG of 08-Dec-2023 21:12, No significant change was found Referred By: Ruth Cardenas Electronically Signed By: CHRISTIANO FIELD MD
[2025-01-03 11:43] LABS: MANUAL DIFF FLAG NO
[2025-01-03 11:45] LABS: Hematocrit 36.7 % (37.0-47.0); Hemoglobin 11.9 g/dl (12.0-16.0); Imm Gran Abs Auto 0.04 X10*3/uL (0.00-0.03); Imm Gran Pct Auto 0.6 % (0.0-0.4); Lymphocytes Absolute Auto 1.9 X10*3/uL (1.2-4.9); Mean Corpuscular HGB Conc 32.4 g/dl (31.0-35.0); Mean Corpuscular Hemoglobin 29.6 pg (27.0-33.0); Mean Corpuscular Volume 91.3 fL (80.0-98.0); NRBC Abs Auto 0.000 X10*3/uL (0.0-0.012); NRBC Pct Auto 0.0 /100WBC (0.0-0.2); Platelet Count 262 X10*3/uL (160-400); Red Blood Count 4.02 X10*6/uL (4.20-5.50); White Blood Count 6.7 X10*3/uL (4.8-10.8)
--- OUTSIDE RECORDS SUMMARY | 2025-01-03 11:52 | XMS_ITS | Patient Health Record ---
Author Organization [facility] randall HuangKimani Address [address] [place] [address] Care Team Providers Care Ham Smoker Name Role Phone Kendrick HUBBARD, Liz Primary Care Provider Josse Leyva Unavailable [phone] Allergies Allergen (clinical drug ingredient) Drug/Non Drug Allergy documented on EMR Reaction Allergy Type Onset Date Status amoxicillin Amoxicillin rash Drug Allergy Act natty Adhesive Unknown Allergy Active Reason For Referral No Information Medications Medication SIG (Take, Route, Frequency, Duration) Notes Start Date End Date Status rOPINIRole HCl 0.25 MG 1 tablet 1 to 3 h ours before bedtime Orally Once a day; Duration: 30 day(s) Active Tamsulosin HCl 0.4 MG 1 capsule Orally O nce a day; Duration: 30 day(s) Active Atorvastatin Calcium 20 MG 1 tablet Oral ly Once a day; Duration: 30 day(s) Active Vitamin C Active Aspirin Active Vitamin D Active Apple Cider Vinegar Active Extra Depth Orthopedic Shoes (1 Pair) with Customized Heat Molded Multidensity Innersoles (3 Pair) as directed Dx: NIDDM/Polyneuropathy (E11.42), Hammertoe Foot Deformity (M20.41,M20.42), Preulcerative Skin Lesion(s) (L85.1 Active Calcium Active Fish Oil Active hydroCHLOROthiazide 25 MG 1 tablet in th e morning Orally Once a day; Duration: 30 day(s) Active Glucosamine Chondroitin Adv - as directed Orally Active metFORMIN HCl 500 MG 1 tablet with a glenna l Orally twice a day Active Multivitamin Active Immunizations Vaccine Route Administration Date Status Comme nts Influenza Unknown 03/04/2019 Administered Social History Tobacco Use: Social History Observation Description Date Details (start date - stop date) Former Smoker NA - NA Tobacco Use/Smoking Question Answer Notes Are you a: former smoker Additional Findings: Tobacco Non-User Current no n-smoker Alcohol Screen Question Answer Notes Did you have a drink containing alcohol in the p ast year? No Points 0 Interpretation Negative Tobacco use other than smoking: Question Answer Notes Are you an other tobacco user? No Problems Problem Type SNOMED Code ICD Code Onset Dates Problem Status W/U Status Risk Notes Problem Type 2 diabetes mellitus with peripheral angiopathy (728890636) Type 2 diabetes mellitus with diabetic peripheral angiopathy without gangrene (E11.51) Active confirmed Plan Of Treatment Pending Test Test Name Order Date [id number] NAIL, 6 OR MORE 12/16/2019 [id number] NAIL, 6 OR MORE 03/16/2020 [id number] Plate 03/16/2020 [id number] SKIN LESIONS, 2 TO 4 03/16/20 [id number] SKIN LESIONS, 2 TO 4 12/16/19 Insurance Providers Payer Name Payer Address Payer Phone Subscriber Number Group Number Insured Name Patient Relationship to Insured Coverage Start Date Coverage End Date Medicare National [employer] [address] [place] [address] [id number] Toshia Senior Self - patient is the insured [employer] [address] [place] [address] [phone] [id number] Toshia Senior Self - patient is the insured Medical (General) History Medical History History ICD Code Anemia Arthritis Back,Hip,and Knee pain Cataracts Diabetic Headaches/Migraines High blood pressure Sciatica Stroke Measles Chicken pox Transfusions Vertigo Surgical History Surgery Date(Month/Year) tonsillectomy 194 hysterectomy 1991 cataract surgery 2018 eye lift 2019 Dental Surgery 1994
--- OUTSIDE RECORDS SUMMARY | 2025-01-03 11:52 | XMS_ITS ---
Author Organization [facility] Care Team Providers Care Key Account Director Name Role Phone Pa Fung Unavailable Unavailable Genia Mcfarlane Unavailable Unavailable Allergies and adverse reactions Code CodeSystem Substance Reaction Severity StartDate Concern Status 242169058 SNOMED CT Sulfa Antibiotics Nausea (co de- 392497309, SNOMED CT) Moderate 05/31/2020 active Egg Nausea (code- 033193282, SNOMED CT) Moderate 05/31/2020 active Care Team Name Role Address Phone Organization Dates Pa Fung PCP [address] [facility] [address], [place], [address], [place]Office[place] : [facility] 06/01/2020 - 07/02/2020 Genia Mcfarlane [address] [facility] [address], [place], [address], [place] (Office): [facility] 06/01/2020 - 07/02/2020 Immunizations Immunization Status Vaccine Details Vaccine Code CodeSystem Yohan e Notes Influenza aborted Influenza, split virus, trivalent, injectable, contains preservative 141 CVX created date: 06/07/2020 consent date: 06/07/2020 eggs TB 2 Step Mantoux Skin Test completed tuberculin skin test; unspecified formulation lotNumber: [id number] expiry: 08/01/2021 Mfg: PAR pharmaceical Given 0.1 ml Left Forearm intradermally Step 1 of Multi-step with next step required 98 CVX created date: 06/09/2020 consent date: 06/08/2020 administere d date: 06/09/2020 TB 2 Step Mantoux Skin Test completed tuberculin skin test; unspecified formulation Given Left Forearm Step 1 of Multi-step with next step required 98 CVX created date: 06/07/2020 consent date: 06/07/2020 administere d date: 06/01/2020 PCV13 (Pneumococcal Conjugate)Vaccine completed pneumococcal conjugate vaccine, 13 valent 133 CVX created date: 06/07/2020 administere d date: 02/04/2020 Mental Status Section Date Assessment Total Score Description 07/02/2020 BIMS 15 cognitively int act CAM 0 No delirium ind icated PHQ-9 00 06/06/2020 BIMS 13 cognitively int act CAM 0 No delirium ind icated PHQ-9 00 Problems Problem # Description Date of onset Resolved Date Code CodeSystem Concern Status 1 COVID-19 06/01/[address] active 2 ESSENTIAL (PRIMARY) HYPERTENSION 06/01/[address] active 3 HYPERLIPIDEMIA, UNSPECIFIED 06/01/[address] active 4 TYPE 2 DIABETES MELLITUS WITHOUT COMPLICATIONS 06/01/[address] active 5 URINARY TRACT INFECTION, SITE NOT SPECIFIED 06/01/[address] active 6 ATELECTASIS 05/31/[address] active 7 BRADYCARDIA, UNSPECIFIED 05/31/[address] active 8 DIFFICULTY IN WALKING, NOT ELSEWHERE CLASSIFIED 05/31/[address] active 9 DYSPHAGIA FOLLOWING CEREBRAL INFARCTION 05/31/[address] active 10 HEMIPLEGIA AND HEMIPARESIS FOLLOWING CEREBRAL INFARCTION AFFECTING LEFT NON-DOMINANT SIDE 05/31/[address] active 11 MUSCLE WASTING AND ATROPHY, NOT ELSEWHERE CLASSIFIED, LEFT HAND 05/31/[address] active 12 MUSCLE WASTING AND ATROPHY, NOT ELSEWHERE CLASSIFIED, LEFT SHOULDER 05/31/[address] active 13 MUSCLE WEAKNESS (GENERALIZED) 05/31/[address] active 14 OTHER ABNORMALITIES OF GAIT AND MOBILITY 05/31/[address] active 15 OTHER LACK OF COORDINATION 05/31/[address] active 16 OTHER MALAISE 05/31/[address] act natty 17 OTHER REDUCED MOBILITY 05/31/[address] active 18 UNSPECIFIED LACK OF COORDINATION 05/31/[address] active 19 WEAKNESS 05/31/[address] active Reason for Referral No Reasons for Referral Entered Social History Social History Observation Description Start Date End Date Code Code System Current Smoking Status Tobacco smoking consumption unknown 482403048 SNOMED CT Sex Assigned At Female 1940 95138-9 [facility] Gender Identity Vital Signs Code Code System Vitals Name Values and Units Timing Information 2339-0 [facility] Blood Sugar Txklk=850.0 Units=mg/dL 07/02/2020 8462-4 [facility] Blood Pressure-Diastolic Value=88 Un its=mmHg 07/02/2020 8480-6 [facility] Blood Pressure-Systolic Uhubz=229 Un its=mmHg 07/02/2020 8867-4 [facility] Heart rate Value=72.0 Units=/min 50396-6 [facility] Pain Level Value=0.0 07/02/2020 9279-1 [facility] Respiratory Rate Value=18.0 Units=/m in 07/02/2020 8310-5 [facility] Body Temperature Value=97.4 Units= F 07/02/2020 96066-0 [facility] O2 % BldC Oximetry Value=95.0 Units= % 07/02/2020 03491-0 [facility] Weight Gyflo=750.0 Units=Lbs 8302-2 [facility] Height Value=63.0 Units=Inches 06/01/2020
[2025-01-03 12:02] LABS: Alanine Aminotransferase 44 U/L (0-31); Albumin Level 4.5 g/dL (3.5-5.0); Alkaline Phosphatase 73 U/L (39-117); Anion Gap 15 (12-20); Aspartate Amino Transferase 50 U/L (5-31); Blood Urea Nitrogen 19 mg/dL (9-16); Calcium 10.4 mg/dL (8.4-10.2); Carbon Dioxide 29 mmol/L (22-29); Chloride 101 mmol/L (96-108); Creatinine Clr Calc Pharmacy 41.0; Estimated Glomerular Filt Rate 50; Magnesium 1.5 mg/dL (1.6-2.6); Potassium 4.8 mmol/L (3.3-5.1); Sodium 140 mmol/L (135-145); Total Protein 8.4 g/dL (6.5-8.0)
[2025-01-03 12:12] LABS: Troponin-I High Sensitivity 4.7 ng/L (<3.5-17.0)
[2025-01-03] MEDS: Magnesium Sulfate/H2O 2 GM/50 ML PIGGYBACK IV (13:36)
[2025-01-03 13:55] LABS: D Dimer High Sensitivity 215 NG/ML
[2025-01-03 14:02] LABS: Troponin-I High Sensitivity 4.8 ng/L (<3.5-17.0)
[2025-01-03 14:23] VITALS: BP 134/62; PULSE 66; RESP 20; O2SAT 96
[2025-01-03] MEDS: iohexoL 350 MG/ML 100 ML INFUS..BTL IV (15:45)
[2025-01-03 16:04] VITALS: BP 134/64; PULSE 80; RESP 18; O2SAT 98
[2025-01-03 18:45] VITALS: BP 134/64; PULSE 80; RESP 18; TEMP 36.4; O2SAT 98
== END 2025-01-03 18:45 | disposition home or self-care (01) ==
PROVIDERS: Emergency Provider Emergency Medicine
DX: S29.012A Strain of muscle and tendon of back wall of thorax, initial encounter (principal); X58.XXXA Exposure to other specified factors, initial encounter; M54.6 Pain in thoracic spine; M54.2 Cervicalgia; M25.511 Pain in right shoulder; E78.5 Hyperlipidemia, unspecified; E11.9 Type 2 diabetes mellitus without complications; I10 Essential (primary) hypertension; I69.354 Hemiplegia and hemiparesis following cerebral infarction affecting left non-dominant side; R32 Unspecified urinary incontinence; E78.2 Mixed hyperlipidemia; R94.31 Abnormal electrocardiogram [ECG] [EKG]; Z87.891 Personal history of nicotine dependence; Z79.84 Long term (current) use of oral hypoglycemic drugs; Z79.82 Long term (current) use of aspirin
CPT/HCPCS: 36415; 71045; 71275; 72070; 80053; 83735; 84484; 85025; 85379; 93005; 96365; 96366; 99285; J3475; Q9967

== ENCOUNTER → 2025-01-03 11:22 | Outpatient (BNV) | payer MEDICARE, MEDICAID, SELFPAY | PROVIDERS: Emergency Provider Emergency Medicine; Visit Provider Radiology Diagnostic Radiology | DX: M47.814 Spondylosis without myelopathy or radiculopathy, thoracic region (principal); J84.9 Interstitial pulmonary disease, unspecified | CPT/HCPCS: 71045; 71275; 72070 ==

== ENCOUNTER → 2025-01-03 11:22 | Outpatient (BNV) | payer MEDICARE, MEDICAID, SELFPAY | PROVIDERS: Emergency Provider Emergency Medicine; Visit Provider Internal Medicine Cardiovascular Disease | DX: M54.6 Pain in thoracic spine (principal) | CPT/HCPCS: 93010 ==

== ENCOUNTER 2025-01-09 14:45 | Emergency (ER) | payer MEDICARE, MEDICAID, SELFPAY ==
[2025-01-09 14:56] VITALS: BP 140/100; PULSE 97; O2SAT 97
[2025-01-09 15:01] VITALS: BP 132/64; PULSE 91; RESP 16; TEMP 36.3; O2SAT 97; BMI 28.5
[2025-01-09 15:06] VITALS: TEMP 37.6
--- OUTSIDE RECORDS SUMMARY | 2025-01-09 15:21 | XMS_ITS | Patient Health Record ---
[facility] randall HuangKimani Address [address] [place] [address] Care Team Providers Care Field Merchandiser Name Role Phone Kendrick HUBBARD, Liz Primary Care Provider Josse Leyva Unavailable [phone] Allergies Allergen (clinical drug ingredient) Drug/Non Drug [...] Type 2 diabetes mellitus with peripheral angiopathy (154432863) Type 2 diabetes mellitus with diabetic peripheral angiopathy without gangrene (E11.51) Active confirmed Plan Of Treatment Pending Test Test Name Order Date 03472-YSRSOPT NAIL, 6 OR MORE 12/16/2019 72184-BNPPGXV NAIL, 6 OR MORE 03/16/2020 65779-Hynirrxp Plate 03/16/2020 73953-RUFT SKIN LESIONS, 2 TO 4 03/16/20 45016-SUPA SKIN LESIONS, 2 TO 4 12/16/19 Insurance Providers Payer Name Payer Address Payer Phone Subscriber Number Group Number Insured Name Patient Relationship to Insured Coverage Start Date Coverage End Date Medicare National [employer] [address] [place] [address] [id number] Toshia Senior Self - patient is the insured [employer] [address] [place] [address] [phone] [id number] Toshia Senior Self - patient is the insured Medical (General) History Medical History History ICD Code Anemia Arthritis Back,Hip,and Knee pain Cataracts Diabetic Headaches/Migraines High blood pressure Sciatica Stroke Measles Chicken pox Transfusions Vertigo Surgical History Surgery Date(Month/Year) tonsillectomy 194 hysterectomy 1991 cataract surgery 2018 eye lift 2019 Dental Surgery 1994
--- OUTSIDE RECORDS SUMMARY | 2025-01-09 15:21 | XMS_ITS | Clinical Summary ---
Author Organization [facility] Address [address] [address] Phone Care Team Providers Care Incident Response Consultant Name Role Phone Liz Marks RIGOBERTO Primary Care Provider [phone] Allergies Active Allergy Reactions Criticality Noted Date Comments Penicillins Rash Low 04/14/2019 Medications losartan (COZAAR) 50 MG tablet Take 50 mg by mouth daily. Active simvastatin (ZOCOR) 40 MG tablet Take 40 mg by mouth nightly at bedtime. Active meclizine (ANTIVERT) 25 MG tablet Take 25 mg by mouth as needed. Active metFORMIN (GLUCOPHAGE) 500 MG tablet Take 1,000 mg by mouth 2 (two) times a day with meals. Active acetaminophen (TYLENOL) 500 MG tablet Take 1,000 mg by mouth 3 (three) times a day. Active omega 7-bfw-ydr-fish oil 1,000 mg (120 mg-180 mg) Cap Take 1 capsule by mouth daily. Active Ca cit-D3-mag#11-zin j-jija-knc-bor (CALTRATE 600+D) 600 mg calcium- 800 unit-50 mg Tab Take 1 tablet by mouth daily. Active hydroCHLOROthiazi de (HYDRODIURIL) 25 MG tablet Take 25 mg by mouth daily. Active therapeutic multivitamin tablet Take 1 tablet by mouth daily. Active tamsulosin (FLOMAX) 0.4 mg Cap Take 0.4 mg by mouth daily. Active Active Problems Patient Care Coordination No te Formatting of this note migh t be different from the original. Height reported by pt. 5'4 unable to stand. 04/14/19 CA Problem Noted Date Diagnosed Date Bleeding disorder 05/19/2019 Encounters Date Type Department Care Team Description 12/31/2024 2:08 PM EDT - 12/31/2024 11:59 PM EDT Hospital Encounter Non-Invasive Cardiology [address] [place] [address] Matthew Champion MD Discharge Disposition: Home or Self Care 12/12/2024 Procedure Pass Non-Invasive Cardiology [address] [place] [address] 12/12/2024 Transcribe Orders Virtual Department [address] [place] [address] Matthew Champion MD Cerebrovascular accident (CVA), unspecified mechanism (Primary Dx) 12/12/2024 Transcribe Orders Virtual Department [address] [place] [address] Matthew Champion MD Cerebrovascular accident (CVA), unspecified mechanism (Primary Dx) 12/08/2024 7:14 AM EDT - 12/08/2024 11:59 PM EDT Hospital Encounter [address] [address] Matthew Champion MD Discharge Disposition: Home or Self Care 12/08/2024 Ancillary Orders [facility],Outside Imaging [address] [place] [address] Unknown, Mel, 12/08/2024 Ancillary Orders [facility],Outside Imaging [address] [place] [address] Unknown, MD Mel 12/08/2024 Ancillary Orders [facility],Outside Imaging [address] [place] [address] Unknown, MD Mel 12/08/2024 Ancillary Orders [facility],Outside Imaging [address] [place] [address] Unknown, MD Mel 11/17/2024 Procedure Pass [address] [address] 11/17/2024 Transcribe Orders Virtual Department [address] [place] [address] Matthew Champion MD Memory loss (Primary Dx); Cerebrovascular accident (CVA), unspecified mechanism; Vertigo from Last 3 Months Social History Tobacco Use Types Packs/Day Years Used Date Smoking Tobacco: Former Cigarettes Q uit: 04/14/2009 Smokeless Tobacco: Never Alcohol Use Standard Drinks/Week Comments Not Currently 0 (1 standard drink = 0.6 oz pur e alcohol) Education Answer Date Recorded Are you interested in more education? Not on silverio e 09/29/2022 Are you concerned about learning? Not on file 09/29/2022 No 09/29/2022 No 09/29/2022 Digital Access Answer Date Recorded No 10/31/2022 No 10/31/2022 No 10/31/2022 Reliable internet access at home? Not on file 10/31/2022 Device with a working camera? Not on file Comments Unknown Sex and Gender Information Value Date Recorded Sex Assigned at Not on file Legal Sex Female 10:52 AM EDT Gender Identity Not on file Sexual Orientation Not on file Last Filed Vital Signs Vital Sign Reading Time Taken Comments Blood Pressure 109/73 05/19/2019 4:31 PM EST Pulse 99 05/19/2019 4:31 PM EST Temperature 36.4 C (97.5 F) 05/19/2019 4:31 PM EST Respiratory Rate - - Oxygen Saturation 96% 05/19/2019 4:31 PM EST Inhaled Oxygen Concentration - - Weight 66.7 kg (147 lb) 12/01/2024 2:02 PM EDT Height 162.6 cm (5' 4 ) 12/01/2024 2:02 PM EDT Body Mass Index 25.23 12/01/2024 2:02 PM EDT Plan of Treatment Upcoming Encounters Date Type Department Care Team (Late st Contact Info) Description 12/12/2024 Procedure Pass [address] [address] 12/12/2024 Procedure Pass [address] [address] 01/30/2025 9:25 AM EDT Appointment [address] [address] Matthew Champion MD [address] [place] [address], [address] [place] [address] 01/30/2025 10:00 AM EDT Appointment [facility], Mri - [address] [address] Matthew Champion MD [address] [facility], [address] [place] [address] 02/14/2025 8:45 AM EDT Appointment [facility], Bone Density - [address] [address] Yudy Ham NP [address] [place] [phone] [email or web address] Health Maintenance Due Date Last Done Comments Adult Td,Tdap Booster 1940 DEPRESSION SCREENING 1954 LIPID PANEL 1960 OSTEOPOROSIS SCREENING INITIAL (ONE-TIME) 2007 ZOSTER VACCINES (2 of 3) 03/06/2012 01/10/2012 RSV VACCINE (1 - 1-dose 75+ series) 2017 CREATININE LEVEL 04/29/2020 04/29/2019, , 03/12/2019, Additional history exists POTASSIUM LEVEL 04/29/2020 04/29/2019, 03/04, 03/12/2019, Additional history exists COVID-19 VACCINE (2 - 2023- season) 2024 10/04/2020 PNEUMOCOCCAL VACCINES (50+ years) Completed 04/29/2019, 03/09/2016, 12/15/2014, Additional history exists HEPATITIS A VACCINES Aged Out No long er eligible based on patient's age to complete this topic HIB VACCINES Aged Out No longer eligi ble based on patient's age to complete this topic MENINGOCOCCAL VACCINES (ACWY) Aged Out No longer eligible based on patient's age to complete this topic MENINGOCOCCAL VACCINES (B) Aged Out N o longer eligible based on patient's age to complete this topic Medical Devices Not on file Procedures Procedure Name Priority Date/Time Associated Diagnosis Comments MRI BRAIN WITHOUT CONTRAST Routine 12/08/2024 8:48 AM EDT Memory loss Cerebrovascular accident (CVA), unspecified mechanism Vertigo COMPREHENSIVE METABOLIC PANEL Routine 04/29/2019 1:30 PM EST Bruising from Last 3 Months or Most Recently Relevant to Health Maintenance Results * MRI BRAIN WITHOUT CONTRAST (12/08/2024 8:48 AM EDT) Anatomical Region Laterality Modality Head Magnetic Resonan ce 12/09/2024 2:12 PM EDT Impressions 12/09/2024 2:21 PM EDT 1. No acute infarct, hemorrhage, or mass lesion. 2. Multiple small chronic right MCA territory infarcts in the right frontal and parietal lobes, new since the prior MRI from 01/18/2019. 3. Chronic infarct in the right internal capsule (acute at the time of the the prior MRI dated 01/18/2019). 4. Chronic lacunar infarcts in the bilateral thalami and right caudate. 5. Mild generalized volume loss. No disproportionate regional atrophy is identified. Narrative 12/09/2024 2:21 PM EDT MRI BRAIN WITHOUT CONTRAST Referring clinician's provided indication for this examination in Epic: Outside Radiology Order TECHNIQUE: MRI BRAIN WITHOUT CONTRAST Multi-sequence, multi-planar MRI of the brain was performed without intravenous contrast. COMPARISON: MRI BRAIN OUTSIDE (NO INTERPRETATION) FINDINGS: Brain Parenchyma: No evidence of acute infarct, mass lesion, or hemorrhage. Chronic infarct in the right internal capsule with wallerian degeneration along the right cortical spinal tract. This infarct was acute at the time of the prior MRI from 01/18/2019. Multiple small chronic infarcts in the right frontal and parietal lobes, new compared with the prior MRI. Chronic lacunar infarcts in the bilateral thalami and right caudate. Mild scattered foci of T2 hyperintensity in the cerebral white matter, likely a manifestation of chronic small vessel disease. Mild generalized volume loss. No disproportionate regional atrophy is identified. Ventricular System and Extra-Axial Spaces: No midline shift. No hydrocephalus. No extra-axial collections. Extracranial Structures: Arterial flow voids in the skull base are present. The extracranial soft tissues and orbits are unremarkable. No osseous lesions identified. Procedure Note Pascual Morales MD - 12/09/2024 MRI BRAIN WITHOUT CONTRAST Referring clinician's provided indication for this examination in Epic:Outside Radiology Order TECHNIQUE: MRI BRAIN WITHOUT CONTRAST Multi-sequence, multi-planar MRI of the brain was performed withoutintravenous contrast. COMPARISON: MRI BRAIN OUTSIDE (NO INTERPRETATION) FINDINGS: Brain Parenchyma: No evidence of acute infarct, mass lesion, orhemorrhage. Chronic infarct in the right internal capsule with wallerian degenerationalong the right cortical spinal tract. This infarct was acute at the timeof the prior MRI from 01/18/2019. Multiple small chronic infarcts in theright frontal and parietal lobes, new compared with the prior MRI. Chroniclacunar infarcts in the bilateral thalami and right caudate. Mild scattered foci of T2 hyperintensity in the cerebral white matter,likely a manifestation of chronic small vessel disease. Mild generalized volume loss. No disproportionate regional atrophy isidentified. Ventricular System and Extra-Axial Spaces: No midline shift. Nohydrocephalus. No extra-axial collections. Extracranial Structures: Arterial flow voids in the skull base arepresent. The extracranial soft tissues and orbits are unremarkable. Noosseous lesions identified. IMPRESSION: 1. No acute infarct, hemorrhage, or mass lesion. 2. Multiple small chronic right MCA territory infarcts in the rightfrontal and parietal lobes, new since the prior MRI from 01/18/2019. 3. Chronic infarct in the right internal capsule (acute at the time ofthe the prior MRI dated 01/18/2019). 4. Chronic lacunar infarcts in the bilateral thalami and right caudate. 5. Mild generalized volume loss. No disproportionate regional atrophy isidentified. us Matthew Champion MD IM MR HEAD/NECK Final Resul t * (ABNORMAL) Comprehensive metabolic panel (04/29/2019 1:30 PM EST) SODIUM 138 133 - 146 mmol/L [facility] POTASSIUM 3.6 3.3 - 5.1 mmol/L [facility] CHLORIDE 97 96 - 108 mmol/L [facility] CO2 26 21 - 35 mmol/L [facility] BUN 22(H) 6 - 19 mg/dL [facility] CREATININE 0.60 0.5 - 1.5 mg/dL [facility] GLUCOSE 141(H) 70 - 99 mg/dL [facility] ALBUMIN 4.5 3.9 - 4.8 g/dL [facility] TOTAL PROTEIN 8.3(H) 6.5 - 8.0 g/dL [facility] CALCIUM 10.7(H) 8.4 - 10.3 mg/dL [facility] ALKALINE PHOSPHATASE 170(H) 39 - 117 U/L [facility] TOTAL BILIRUBIN 0.3 0.0 - 1.2 mg/dL [facility] AST 48(H) 0 - 37 U/L [facility] ALT 53(H) 0 - 40 U/L [facility] GLOBULIN 3.8 1 - 4.8 g/dL [facility] EGFR 89 >59 mL/min/1.7 3m2 [facility] Comment:If patient is black, multiply result by 1.159. Estimated glomerular filtration rate calculated using the CKD-EPI equation. ANION GAP 19 10 - 20 mmol/L [facility] Blood 04/29/2019 1:30 PM EST 04/29/2019 1:51 PM EST us Kyle Humphrey MD LAB BLOOD ORDERABLES Final Resul t [facility] [address] [place] [address] from Last 3 Months or Most Recently Relevant to Health Maintenance Insurance MEDICARE PART A [place] & [place] MEDICARE PART A & B MEDICARE PART A & B HEALTH MEDICARE PART A & B MEDICARE PART A & B MEDICARE PART A [place] [id number] MEDICARE PART [place] [phone] Care Teams Incident Response Consultant Relationship Specialty Start Date End Date Liz Marks NP [address] [place] [address] PCP - General 04/14/19 Additional Source Comments The information contained in this document represents components of the legal health record. It is not the complete legal health record.[facility]
--- NOTE | 2025-01-09 16:54 | ED.BACK ---
HPI - Back Pain/Injury General Chief Complaint: Back Pain/Injury Stated Complaint: BACK PAIN Time Seen by Provider: 01/09/25 15:08 Source: patient Mode of arrival: EMS Limitations: no limitations History of Present Illness ED Provider: HPI Narrative: Patient has chronic back pain was seen here on 01/03 had a CTA chest shows scoliosis and arthritis and thoracic spine patient does complain of pain in same area said she could not get the prescription fell pain is interscapular no recent injury no paresthesia patient is lying in bed comfortably Related Data Home Medications ?Medication ?Instructions ?Recorded ?Confirmed ascorbic acid (vitamin C) 1,000 mg 500 mg PO QAM 09/24/22 08/31/23 tablet (Vitamin C) atorvastatin 20 mg tablet 20 mg PO QPM 09/24/22 08/31/23 calcium 600 mg (as 2 cap PO DAILY 09/24/22 08/31/23 carbonate)-vitamin D3 12.5 mcg (500 unit) capsule (Calcium with Vit D3) clotrimazole 1 % topical cream 1 appl topical BID PRN Itching 09/24/22 08/31/23 finerenone 20 mg tablet (Kerendia) 20 mg PO QPM 09/24/22 08/31/23 gabapentin 300 mg capsule 300 mg PO BID 09/24/22 08/31/23 hydrochlorothiazide 25 mg tablet 25 mg PO QPM 09/24/22 08/31/23 meclizine 25 mg tablet 25 mg PO TID PRN Dizziness 09/24/22 08/31/23 metformin 500 mg tablet 1,000 mg PO BID 09/24/22 08/31/23 oxybutynin chloride 5 mg 5 mg PO QPM 09/24/22 08/31/23 tablet,extended release 24 hr ropinirole 0.25 mg tablet 0.25 mg PO QPM 09/24/22 08/31/23 tamsulosin 0.4 mg capsule 0.4 mg PO DAILY 09/24/22 08/31/23 acetaminophen 500 mg tablet 1,000 mg PO QAM PRN Pain 08/31/23 08/31/23 apple cider vinegar 500 mg tablet 450 mg PO QAM 08/31/23 08/31/23 aspirin 81 mg tablet,delayed 81 mg PO QPM 08/31/23 08/31/23 release cholecalciferol (vitamin D3) 50 50 mcg PO QAM 08/31/23 08/31/23 mcg (2,000 unit) tablet (Vitamin D3) chondroitin 80 mg-collagen 400 2 cap PO QAM 08/31/23 08/31/23 mg-hyaluronic 40 mg-amino acid capsule glucosamine sulf dipot 1 cap PO QAM 08/31/23 08/31/23 chlr,msm,chond 550 mg-C 30 mg-lyric 1 mg capsule (Glucosamine Chondroitin) losartan 50 mg tablet 50 mg PO QPM 08/31/23 08/31/23 multivitamin 1 tab PO QAM 08/31/23 08/31/23 omega 3-qsg-rqx-fish oil 1,000 mg 1 cap PO QAM 08/31/23 08/31/23 (120 mg-180 mg) capsule (Fish Oil) Previous Rx's ?Medication ?Instructions ?Recorded cefuroxime axetil 250 mg tablet 250 mg PO BID #4 tabs 09/02/23 oseltamivir 30 mg capsule 30 mg PO Q12H #5 caps 09/02/23 diphenhydramine HCl 25 mg capsule 25 mg PO Q6H PRN headache, 12/08/23 nausea, vomiting #20 caps ibuprofen 400 mg tablet 400 mg PO TID PRN fever or pain 12/08/23 #30 tabs metoclopramide HCl 10 mg tablet 10 mg PO Q6H PRN nausea and 12/08/23 (Reglan) vomiting #14 tabs acetaminophen 500 mg tablet 500 mg PO Q6H PRN pain #40 tabs 01/09/25 (Tylenol Extra Strength) lidocaine 4 % topical patch 1 patch topical DAILY PRN pain #30 01/09/25 (Salonpas (lidocaine)) ea Allergies Allergy/AdvReac Type Severity Reaction Status Date / Time egg Allergy Unknown Verified 01/09/25 15:05 Penicillins Allergy Unknown Verified 01/09/25 15:05 walnut Allergy Unknown Verified 01/09/25 15:05 Review of Systems Review of Systems: Yes all other systems are reviewed and are negative [facility] Past Medical History Medical History Mixed hyperlipidemia Urinary incontinence Non-insulin dependent type 2 diabetes mellitus Hypertension 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 Social History Social History Household Members: Family Household Members Other:: daughter and son in law Housing: House Do you presently have visiting nurse or other home services: Yes (Elder services) Alcohol intake: current Alcohol intake frequency: other Patient Tobacco Use Status: Former Tobacco user Advance Directives: Yes Advance Directives Information Provided: No Advance Directives on File: No service: No Physical Exam Vital Signs: Vital Signs: Last Vital Signs Temp 99.7 F 01/09/25 15:06 Pulse 91 01/09/25 15:01 Resp 16 01/09/25 15:01 BP 132/64 01/09/25 15:01 Pulse Ox 97 01/09/25 15:01 O2 Del Method Room Air 01/09/25 15:01 BMI result Body Mass Index 28.5 Appearance: Alert. Oriented X3. No acute distress. Eyes: no pallor or icterus ENT: Pharynx normal Oral Mucosa moist tympanic membrane intact no erythema, Neck: Normal inspection. Neck supple. CVS: Normal heart rate and rhythm. Pulses normal. Respiratory: No respiratory distress. Equal air entry bilateral, no wheezing/rales/rhonchi Abd: soft, not tender Skin: Skin warm and dry. Normal skin color. Normal skin turgor. back; diffuse parathoracic spine diffuse tenderness no midline tenderness Extremities: No lower extremity edema, no calf tenderness Neuro: Oriented X 3. Medical Decision Making Medical Decision Making [facility] Narrative: Patient has diffuse thoracic spine muscular tenderness no midline tenderness no neuro deficits will prescribe forensic chemist cane patch and Tylenol Discharge Plan Discharge Clinical Impression: Thoracic back pain Patient Disposition: Home, Self-Care Instructions: Thoracic Pain (ED) Additional Instructions: Tylenol for pain as prescribed Apply lidocaine patch once a day as needed for the pain Prescriptions: New lidocaine [Salonpas (lidocaine)] 4 % adhesive patch,medicated 1 patch topical DAILY PRN (Reason: pain) Qty: 30 0RF acetaminophen [Tylenol Extra Strength] 500 mg tablet 500 mg PO Q6H PRN (Reason: pain) Qty: 40 0RF No Action metformin 500 mg tablet 1,000 mg PO BID ascorbic acid (vitamin C) [Vitamin C] 1,000 mg Tablet 500 mg PO QAM atorvastatin 20 mg tablet 20 mg PO QPM tamsulosin 0.4 mg capsule 0.4 mg PO DAILY ropinirole 0.25 mg tablet 0.25 mg PO QPM meclizine 25 mg tablet 25 mg PO TID PRN (Reason: Dizziness) oxybutynin chloride 5 mg tablet extended release 24hr 5 mg PO QPM gabapentin 300 mg capsule 300 mg PO BID hydrochlorothiazide 25 mg tablet 25 mg PO QPM clotrimazole 1 % cream 1 appl TOPICAL BID PRN (Reason: Itching) calcium carbonate-vitamin D3 [Calcium 600 with Vitamin D3] 600 mg-12.5 mcg (500 unit) Capsule 2 cap PO DAILY Kerendia 20 mg tablet 20 mg PO QPM diphenhydramine HCl 25 mg capsule 25 mg PO Q6H PRN (Reason: headache, nausea, vomiting) Qty: 20 0RF ibuprofen 400 mg tablet 400 mg PO TID PRN (Reason: fever or pain) Qty: 30 0RF metoclopramide HCl [Reglan] 10 mg tablet 10 mg PO Q6H PRN (Reason: nausea and vomiting) Qty: 14 0RF losartan 50 mg tablet 50 mg PO QPM aspirin 81 mg Tablet,Delayed Release (Dr/Ec) 81 mg PO QPM multivitamin Tablet 1 tab PO QAM acetaminophen 500 mg Tablet 1,000 mg PO QAM PRN (Reason: Pain) apple cider vinegar 500 mg Tablet 450 mg PO QAM cholecalciferol (vitamin D3) [Vitamin D3] 50 mcg (2,000 unit) Tablet 50 mcg PO QAM omega 1-dxb-nhu-fish oil [Fish Oil] 1,000 mg (120 mg-180 mg) Capsule 1 cap PO QAM btueyjkks-nkslveev-rctuffed-AA 40-80-400 mg Capsule 2 cap PO QAM Glucosamine Chondroitin 550-30-1 mg Capsule 1 cap PO QAM cefuroxime axetil 250 mg Tablet 250 mg PO BID Qty: 4 0RF Rx Instructions: Tolerated in the hospital oseltamivir 30 mg Capsule 30 mg PO Q12H Qty: 5 0RF Print Language: [place]
[2025-01-09] MEDS: Lidocaine 4 % Patch ADH..PATCH 1 PATCH TRANSDERMA (17:08)
[2025-01-09 19:41] VITALS: BP 152/70; PULSE 77; TEMP 36.4; O2SAT 97
== END 2025-01-09 21:55 | disposition home or self-care (01) ==
PROVIDERS: Emergency Provider Internal Medicine; PCP Nurse Practitioner Adult Health
DX: M54.6 Pain in thoracic spine (principal); M41.9 Scoliosis, unspecified; M19.90 Unspecified osteoarthritis, unspecified site; E11.9 Type 2 diabetes mellitus without complications; I10 Essential (primary) hypertension; E78.5 Hyperlipidemia, unspecified
CPT/HCPCS: 99282; 99283

== ENCOUNTER 2025-01-14 09:31 | Inpatient (IN) | payer MEDICARE, MEDICAID, SELFPAY ==
[2025-01-14] VITALS (26 sets, daily range): BP systolic 101–178; BP diastolic 40–88; PULSE 90–148; RESP 14–32; TEMP 36.6–38.7; O2SAT 88–100; BMI 25.3; BMI 23.6
--- NOTE | ~2025-01-14 | XR_ITS ---
EXAMINATION: XR CHEST 1 VIEW HISTORY: fever COMPARISON: Comparison is made with the prior examination dated 01/03/2025. FINDINGS: A single AP portable view of the chest performed at 10:14 AM is submitted. There are low lung volumes. The lungs are clear. There is no pleural effusion, pneumothorax, or pulmonary vascular congestion. The heart is normal in size. The aorta is calcified. There is degenerative disc disease of the spine. XR/XR chest 1V IMPRESSION: Low lung volumes. No acute cardiopulmonary abnormality. Electronically signed by: Jimenez Arauz MD 01/14/2025 10:30 AM EDT
--- NOTE | ~2025-01-14 | FL_ITS ---
EXAMINATION: FL GUIDANCE ONLY HISTORY: stone left COMPARISON: Correlation is made with a CT of the abdomen and pelvis without contrast dated 01/14/2025. TECHNIQUE: Fluoroscopy time: 18.7 seconds. Cumulative Dose: 5.88 mGy. Images: 2. FINDINGS: Images demonstrate placement of a right nephroureteral stent. The distal portion of the stent is not imaged. FL/FL guidance in OR IMPRESSION: Fluoroscopy during procedure. Please see procedure report for additional information. Electronically signed by: Jimenez Arauz MD 01/15/2025 07:18 AM EDT
--- NOTE | ~2025-01-14 | CT_ITS ---
EXAMINATION: CT ABDOMEN PELVIS WITHOUT IV CONTRAST HISTORY: flank pain, fevers, weakness, confusion COMPARISON: Comparison is made with the prior examination dated 09/24/2022. TECHNIQUE: CT scan of the abdomen and pelvis was performed without contrast using standard departmental protocol. Coronal and sagittal reformatted images were generated and reviewed. Oral contrast material was not administered per department protocol. This CT exam was performed with one or more of the following dose reduction techniques: automated exposure control, adjustment of the mA and/or kV according to patient size, use of iterative reconstruction technique. DLP: 388 mGy-cm FINDINGS: LOWER CHEST: The visualized lung bases are clear. There is no pleural effusion. CARDIOVASCULATURE: The heart is normal in size. There is no pericardial effusion. LIVER: The liver again demonstrates a nodular contour, consistent with cirrhosis. Evaluation for masses is limited on this unenhanced examination. GALLBLADDER / BILE DUCTS: The gallbladder is unremarkable. There is no intra or extrahepatic biliary ductal dilatation. SPLEEN: The spleen is normal in size and has an unremarkable unenhanced appearance. PANCREAS: The pancreas has an unremarkable unenhanced appearance. ADRENAL GLANDS: Unremarkable. KIDNEYS/RETROPERITONEUM: There is a 3 mm nonobstructing right renal calculus. An additional punctate calculus is noted at the lower pole. There is severe right hydroureteronephrosis. There is a 4 mm calculus at the UVJ and at least 2 additional calculi in the distal ureter measuring up to 6 mm in diameter. There is moderate perinephric soft tissue stranding. There is a 1.1 cm nonobstructing left renal calculus. There is no left hydronephrosis. LYMPH NODES: No retroperitoneal lymphadenopathy is identified in the abdomen or pelvis. VASCULATURE: The abdominal aorta demonstrates atherosclerotic calcification, but is normal in caliber. MESENTERY/PERITONEUM: No free fluid. No masses. There is no free intraperitoneal gas. STOMACH: There is a small hiatal hernia. The remainder of the stomach is collapsed. SMALL BOWEL: The small bowel is normal in caliber. COLON: There is colonic diverticulosis without evidence of diverticulitis. A temperature probe is seen in the rectum. APPENDIX: Normal. URINARY BLADDER/PELVIC ORGANS: The urinary bladder is decompressed with a suprapubic tube. The patient is status post hysterectomy. BONES / SOFT TISSUES: There is degenerative disc disease of the spine. There is grade I spondylolisthesis of L4 on L5, without change. CT/CT abdomen pelvis wo IV con IMPRESSION: 1. Severe right hydroureteronephrosis. There is a 4 mm calculus at the UVJ and at least 2 additional calculi in the distal ureter measuring up to 6 mm in diameter. 2. Bilateral nephrolithiasis as described. Electronically signed by: Jimenez Arauz MD 01/14/2025 12:24 PM EDT
--- NOTE | 2025-01-14 09:50 | PC.NURSE ---
Pt BIBA from home for reports of increased AMS. Upon arrival pt warm to touch and arrousable to verbal stimuli. Rectal temp 101.4, MD Null aware and rectal temp probe placed. Suprapubic cath noted with foul smelling/cloudy urine and redness noted to insertion site.
--- NOTE | 2025-01-14 09:52 | ECG_ITS ---
Test Reason : WEAKNESS Blood Pressure : */* mmHG Vent. Rate : 116 BPM Atrial Rate : 116 BPM P-R Int : 166 ms QRS Dur : 66 ms QT Int : 308 ms P-R-T Axes : 55 -13 22 degrees QTcB Int : 428 ms Sinus tachycardia Low voltage QRS Abnormal ECG When compared with ECG of 03-Jan-2025 11:31, No significant changes seen Referred By: Hellen Null Electronically Signed By: Anmol Brink
--- NOTE | 2025-01-14 10:01 | ED.GENADULT ---
HPI - General Adult General Chief complaint: General Medical Stated complaint: DTR STS AMS,SLURRED SPEECH PER EMS Time Seen by Provider: 01/14/25 09:31 Source: patient, EMS and old records reviewed Mode of arrival: EMS Limitations: altered mental status History of Present Illness ED Provider: ERICA HUNTER narrative: 84 yo female with PMHH of HTN, HLD, DM, prior CVA, UTI and suprapubic catheterization - prior Enterococcus and Pseudomonas infection, just seen here for thoracic back pain with xrays and neg CTA done. She reportedly has been getting more confused and EMS was called this AM. She just keeps telling me her now and wincing in pain. She cannot provider any other history. I am waiting for family to arrive. She is tachycardic on arrival and has very strong odor smell as well. MD complaint: confusion, weakness Onset (ago): day(s) Severity: severe Relieving factors: none Exacerbating factors: movement Associated symptoms: fever/chills, loss of appetite, weakness and other (confusion) Treatments prior to arrival: none Related Data Home Medications ?Medication ?Instructions ?Recorded ?Confirmed ascorbic acid (vitamin C) 1,000 mg 500 mg PO QAM 09/24/22 08/31/23 tablet (Vitamin C) atorvastatin 20 mg tablet 20 mg PO QPM 09/24/22 08/31/23 calcium 600 mg (as 2 cap PO DAILY 09/24/22 08/31/23 carbonate)-vitamin D3 12.5 mcg (500 unit) capsule (Calcium with Vit D3) clotrimazole 1 % topical cream 1 appl topical BID PRN Itching 09/24/22 08/31/23 finerenone 20 mg tablet (Kerendia) 20 mg PO QPM 09/24/22 08/31/23 gabapentin 300 mg capsule 300 mg PO BID 09/24/22 08/31/23 hydrochlorothiazide 25 mg tablet 25 mg PO QPM 09/24/22 08/31/23 meclizine 25 mg tablet 25 mg PO TID PRN Dizziness 09/24/22 08/31/23 metformin 500 mg tablet 1,000 mg PO BID 09/24/22 08/31/23 oxybutynin chloride 5 mg 5 mg PO QPM 09/24/22 08/31/23 tablet,extended release 24 hr ropinirole 0.25 mg tablet 0.25 mg PO QPM 09/24/22 08/31/23 tamsulosin 0.4 mg capsule 0.4 mg PO DAILY 09/24/22 08/31/23 acetaminophen 500 mg tablet 1,000 mg PO QAM PRN Pain 08/31/23 08/31/23 apple cider vinegar 500 mg tablet 450 mg PO QAM 08/31/23 08/31/23 aspirin 81 mg tablet,delayed 81 mg PO QPM 08/31/23 08/31/23 release cholecalciferol (vitamin D3) 50 50 mcg PO QAM 08/31/23 08/31/23 mcg (2,000 unit) tablet (Vitamin D3) chondroitin 80 mg-collagen 400 2 cap PO QAM 08/31/23 08/31/23 mg-hyaluronic 40 mg-amino acid capsule glucosamine sulf dipot 1 cap PO QAM 08/31/23 08/31/23 chlr,msm,chond 550 mg-C 30 mg-lyric 1 mg capsule (Glucosamine Chondroitin) losartan 50 mg tablet 50 mg PO QPM 08/31/23 08/31/23 multivitamin 1 tab PO QAM 08/31/23 08/31/23 omega 8-koj-tez-fish oil 1,000 mg 1 cap PO QAM 08/31/23 08/31/23 (120 mg-180 mg) capsule (Fish Oil) Previous Rx's ?Medication ?Instructions ?Recorded cefuroxime axetil 250 mg tablet 250 mg PO BID #4 tabs 09/02/23 oseltamivir 30 mg capsule 30 mg PO Q12H #5 caps 09/02/23 diphenhydramine HCl 25 mg capsule 25 mg PO Q6H PRN headache, 12/08/23 nausea, vomiting #20 caps ibuprofen 400 mg tablet 400 mg PO TID PRN fever or pain 12/08/23 #30 tabs metoclopramide HCl 10 mg tablet 10 mg PO Q6H PRN nausea and 12/08/23 (Reglan) vomiting #14 tabs acetaminophen 500 mg tablet 500 mg PO Q6H PRN pain #40 tabs 01/09/25 (Tylenol Extra Strength) lidocaine 4 % topical patch 1 patch topical DAILY PRN pain #30 01/09/25 (Salonpas (lidocaine)) ea Allergies Allergy/AdvReac Type Severity Reaction Status Date / Time egg Allergy Unknown Verified 01/14/25 09:52 Penicillins Allergy Unknown Verified 01/14/25 09:52 walnut Allergy Unknown Verified 01/14/25 09:52 Review of Systems Review of Systems: ROS unable to be obtained due to altered mental status [facility] Past Medical History Attestation statement: The following information was validated with the patient. Source: old records reviewed Medical History Mixed hyperlipidemia Urinary incontinence Non-insulin dependent type 2 diabetes mellitus Hypertension 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 Social History Social History Household Members: Family Household Members Other:: daughter and son in law Housing: House Do you presently have visiting nurse or other home services: Yes (Elder services) Unable to assess alcohol history related to: Unknown Alcohol intake: current Alcohol intake frequency: other Patient Tobacco Use Status: Former Tobacco user Advance Directives: No Advance Directives Information Provided: Yes service: No Physical Exam ED Vital Signs: Vital Signs - 24 hr 01/14/25 09:42 01/14/25 10:00 01/14/25 10:15 Temperature 101.4 F H 101.4 F H 101.5 F H Pulse Rate 113 H 113 H 112 H Respiratory Rate 14 17 17 Blood Pressure 130/63 124/46 L 135/49 L Pulse Oximetry 97 98 97 Oxygen Delivery Method Room Air Room Air Room Air Oxygen Flow Rate 01/14/25 10:32 01/14/25 12:10 01/14/25 12:31 Temperature 101.6 F H 101.5 F H 100.4 F Pulse Rate 106 H 116 H 109 H Respiratory Rate 17 20 18 Blood Pressure 127/71 110/47 L 106/45 L Pulse Oximetry 96 95 88 L Oxygen Delivery Method Room Air Room Air Room Air Oxygen Flow Rate 01/14/25 12:34 01/14/25 12:46 Temperature 99.7 F Pulse Rate 110 H Respiratory Rate 20 Blood Pressure 114/83 Pulse Oximetry 96 97 Oxygen Delivery Method Nasal Cannula Nasal Cannula Oxygen Flow Rate 2 2 BMI result Body Mass Index 25.3 Appearance: weak appearing, lethargic, confused repeating her name. moderate acute distress. Eyes: Pupils equal, round and reactive to light. ENT: Pharynx dry MM Neck: Normal inspection. Neck supple. CVS: tachycardic heart rate and rhythm. Pulses normal. Respiratory: No respiratory distress. Breath sounds bases diminished Abdomen: Soft and nontender. her suprapubic cath site is c/d/i but her tubing is caked with sediment there is dark yellow urine in her bag with clumps noted in it Back: touched her back and she cries it out is lower Skin: Skin warm and dry. pale Extremities: No lower extremity edema. Neuro: confused, cannot participate in exam but she is moving all extremities Course Course Course Narrative: left message for daughter went right to voicemail - 115pm Reevaluation(s) Reevaluation #1: daughter aware called back 119pm discussed plan Medications Administered Discontinued Medications Generic Name Dose Route Start Last Admin Trade Name Freq PRN Reason Stop Dose Admin Cefepime HCl 2 gm in 50 mls @ 100 mls/hr 01/14/25 09:51 01/14/25 12:02 Maxipime IV 01/14/25 10:20 Infused ONCE ONE Infusion Acetaminophen 1,000 mg in 100 mls @ 400 mls/hr 01/14/25 09:53 01/14/25 12:01 Ofirmev IV 01/14/25 10:07 Infused ONCE ONE Infusion Lactated Ringer's 2,133 mls @ 2,133 mls/hr 01/14/25 09:54 01/14/25 11:48 Lr 30 ml/kg infuse over 1 hr (2133 ml) 01/14/25 10:53 2,133 mls/hr IV Administration .Q1H ONE Vancomycin HCl 1,000 mg/ 535 mls @ 267.5 mls/hr 01/14/25 11:00 01/14/25 11:30 Vancomycin HCl 750 mg/ Sodium IV 01/14/25 12:59 267.5 mls/hr Chloride ONCE ONE Administration Ondansetron HCl 4 mg 01/14/25 12:25 01/14/25 12:28 Ondansetron Hcl 4 Mg/2 Ml Vial IVPUSH 01/14/25 12:26 4 mg ONCE ONE Administration Medical Decision Making Medical Decision Making [facility] Narrative: 84 yo female with PMHH of HTN, HLD, DM, prior CVA, UTI and suprapubic catheterization - prior Enterococcus and Pseudomonas infection here with c/o of weakness, confusion, back pain, AMS - she is febrile on arrival she cannot give a history I am putting her through sepsis protocol with IVF, tylenol, labs, cultures, lactic acid - sepsis alert was called. She is going to get a CXR for pneumonia and CT scan for possible abscess/pyelo/renal colic. She will get IV cefepime and vanco based off her prior cultures. RN aware of sepsis alert. Differential Diagnosis Differential Diagnoses: The differential diagnosis associated with the presentation includes UTI, pneumonia, weakness, viral syndrome, CHAI, anemia Admission/Observation Consideration of admission/observation: Escalation of care including admission/observation considered admit for UTI/OR Consult Healthcare Provider Management of the patient was discussed with: Hospitalist (will admit) and Independent Trader (Dr. Slagado notified 1239pm) added on OR later today Lab Data MDM Lab Attestation statement: I reviewed the patient's lab results. 01/14/25 11:29 01/14/25 11:28 Labs: Lab Results 01/14/25 01/14/25 01/14/25 Range/Units 11:28 11:29 12:12 WBC 24.6 H (4.8-10.8) X10*3/uL RBC 4.18 L (4.20-5.50) X10*6/uL Hgb 12.6 (12.0-16.0) g/dl Hct 38.0 (37.0-47.0) % MCV 90.9 (80.0-98.0) fL MCH 30.1 (27.0-33.0) pg MCHC 33.2 (31.0-35.0) g/dl RDW 13.5 (11.0-16.0) % Plt Count 310 (160-400) X10*3/uL MPV 9.4 (9.4-12.3) fL Immature Gran % (Auto) 0.6 H (0.0-0.4) % Neut % (Auto) 87.0 H (45-73) % Lymph % (Auto) 6.0 L (20-40) % [place] % (Auto) 5.8 (2-11) % Eos % (Auto) 0.4 (0-4) % Baso % (Auto) 0.2 (0-2) % Lymph # (Auto) 1.5 (1.2-4.9) X10*3/uL [place] # (Auto) 1.4 H (0.1-1.2) X10*3/uL Eos # (Auto) 0.1 (0.0-0.4) X10*3/uL Baso # (Auto) 0.0 (0.0-0.2) X10*3/uL Abs Immat Gran (auto) 0.16 H (0.00-0.03) X10*3/uL Absolute Neuts (auto) 21.5 H (2.0-8.3) x10*3/uL Absolute Nucleated RBC 0.000 (0.0-0.012) X10*3/uL Nucleated RBC % (auto) 0.0 (0.0-0.2) /100WBC Smear Tech's Comments VERIFIED Sodium 139 (135-145) mmol/L Potassium 4.3 (3.3-5.1) mmol/L Chloride 103 (96-108) mmol/L Carbon Dioxide 24 (22-29) mmol/L Anion Gap 16 (12-20) BUN 37 H (9-16) mg/dL Creatinine 1.44 H (0.5-1.4) mg/dL Estim Creat Clear Calc 28.1 Estimated GFR 35 Random Glucose 284 H (60-115) mg/dL Lactic Acid 3.2 H* (0.5-2.0) mmol/L Calcium 10.0 (8.4-10.2) mg/dL Magnesium 1.6 (1.6-2.6) mg/dL Total Bilirubin 0.6 (0.0-1.0) mg/dL Direct Bilirubin 0.3 (0.0-0.5) mg/dL AST 35 H (5-31) U/L ALT 21 (0-31) U/L Alkaline Phosphatase 61 (39-117) U/L C-Reactive Protein 26.73 H (< or = 0.50) mg/dL Total Protein 8.5 H (6.5-8.0) g/dL Albumin 4.4 (3.5-5.0) g/dL Lipase 8 (8-78) U/L Procalcitonin 9.24 ng/mL Urine Color Yellow Urine Appearance Turbid Urine pH 5.5 (5.0-9.0) Ur Specific [place] 1.020 (1.005-1.025) Urine Protein 100 (2+) H (Neg-Trace) mg/dL Urine Glucose (UA) >=1000 H (Negative) mg/dL Urine Ketones 15 (Negative) mg/dL Urine Blood Large (3+) H (Negative) Urine Nitrite Positive H (Negative) Ur Leukocyte Esterase Large (3+) H (Negative) Urine RBC 3-5 H (0-2) /HPF Urine WBC >50 H (0-5) /HPF Ur Squamous Epith Cells 0-2 (0-2) /HPF Urine Bacteria 4+ (None Seen) Hyaline Casts 11-20 (0-2) /LPF Granular Casts Present Influenza Type A (PCR) NEGATIVE (Negative) Influenza Type B (PCR) NEGATIVE (Negative) RSV RNA Qual (PCR) NEGATIVE (Negative) SARS-CoV-2 RNA (RT-PCR) NEGATIVE (Negative) Independent Interpretation I performed an independent interpretation of an: EKG, Plain X-Ray (normal ) and CT Scan (+ ureteral obstruction) Interpretation: Rate: 116 Rhythm: sinus tach [place]: left Normal P waves. Normal [place]. Normal QRS complex. ST T wave : artifact noted poor tracing no BETTY noted. qTC: 428 prior studies: artifact noted will repeat once HR down The study has been interpreted contemporaneously by me. . Radiology Impression Discussion of test interpretation with radiology: I have reviewed the radiologist's reading. Independent Historian Clinical information obtained from an independent historian. History obtained from or confirmed by: EMS External Record Review External record reviewed: Inpatient record and Outpatient record Critical Care Time Critical Care Time Critical Care Time: Yes Total Critical Care Time: 60 Attestation: Time is exclusive of separately billable procedures. Time includes: direct patient care, patient reassessment, coordination of patient care, interpretation of data (laboratory data, pulse oximetry, arterial blood gases and chest xrays), review of patient's medical records, medical consultation and documentation of patient care. IVF 30cc/kg bolus, sepsis protocol. Procedures excluded from critical care time: electrocardiography. I attest to this time spent taking care of the patient Discharge Plan Discharge Clinical Impression: Acute UTI, Acidosis, lactic, Ureterolithiasis Elevated WBC count Qualifiers: Leukocytosis type: unspecified Qualified Code(s): D72.829 - Elevated white blood cell count, unspecified Sepsis Qualifiers: Sepsis type: sepsis due to unspecified organism Sepsis acute organ dysfunction status: with acute organ dysfunction Severe sepsis acute organ dysfunction type: encephalopathy Severe sepsis shock status: without septic shock Qualified Code(s): A41.9 - Sepsis, unspecified organism Patient Disposition: Admitted As Inpatient Print Language: [place]
--- NOTE | 2025-01-14 10:22 | PC.NURSE ---
Pt difficult stick, attempted made my RN and technician assistant x 2, unable to obtain. Second technician assistant to attempt to attain labs. MD Null aware.
--- NOTE | 2025-01-14 10:47 | PC.NURSE ---
Addendum entered by Ginny Jauregui RN 01/14/25 10:59: Phlebotomy at bedside attempting to obtain labs, aware pt is difficult stick and phlebotomy is attempting to obtain labs Original Note: Additional certified composites technician attempted to obtain labs and unsuccessful x 2, phlebotomy contacted and reportedly on way to attempt to obtain labs.
--- NOTE | 2025-01-14 11:19 | PC.NURSE ---
Phlebotomy unable to obtain labs, MD Null aware. Additional soil science technical officer at bedside attempting to obtain.
[2025-01-14] MEDS: cefEPime HCl/D5W 2 GM/50 ML PIGGYBACK IV (11:30)
[2025-01-14] MEDS: vancomycin HCL 1,000 MG, vancomycin HCL 750 MG in 0.9 % Sodium Chloride 500 ML 267.5 MG IV (11:30)
[2025-01-14 11:43] LABS: Hematocrit 38.0 % (37.0-47.0); Hemoglobin 12.6 g/dl (12.0-16.0); Imm Gran Abs Auto 0.16 X10*3/uL (0.00-0.03); Imm Gran Pct Auto 0.6 % (0.0-0.4); Lymphocytes Absolute Auto 1.5 X10*3/uL (1.2-4.9); MANUAL DIFF FLAG SCAN; Mean Corpuscular HGB Conc 33.2 g/dl (31.0-35.0); Mean Corpuscular Hemoglobin 30.1 pg (27.0-33.0); Mean Corpuscular Volume 90.9 fL (80.0-98.0); NRBC Abs Auto 0.000 X10*3/uL (0.0-0.012); NRBC Pct Auto 0.0 /100WBC (0.0-0.2); Platelet Count 310 X10*3/uL (160-400); Red Blood Count 4.18 X10*6/uL (4.20-5.50); SCAN SMEAR FLAG 1; White Blood Count 24.6 X10*3/uL (4.8-10.8)
[2025-01-14] MEDS: LACTATED RINGERS 2133 ML IV (11:48)
--- NOTE | 2025-01-14 11:59 | PC.NURSE ---
Addendum entered by Ginny Jauregui RN 01/14/25 12:10: Pt noted to have small laceration to under side of right second toe, aware. Original Note: Labs obtained by additonal metallurgical lab technician. aware, abx/fluids admin per AUG. Pt to CT scan.
--- OUTSIDE RECORDS SUMMARY | 2025-01-14 12:01 | XMS_ITS | Clinical Summary ---
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 Active omega 7-yip-pwc-fish oil 1,000 mg (120 mg-180 mg) Cap Take 1 capsule by mouth daily. Active Ca cit-D3-mag#11-zin y-vwhx-pdz-bor (CALTRATE 600+D) 600 mg calcium- 800 unit-50 [...] 11:59 PM EDT Hospital Encounter Non-Invasive Cardiology [address] [place] [id number] Matthew Champion MD Discharge Disposition: Home or Self Care 12/12/2024 Procedure Pass Non-Invasive Cardiology [address] [place] [address] 12/12/2024 Transcribe Orders Virtual Department [address] [place] [phone] Matthew Champion MD Cerebrovascular accident (CVA), unspecified mechanism (Primary Dx) 12/12/2024 Transcribe Orders Virtual Department [address] [place] [id number] Matthew Champion MD Cerebrovascular accident (CVA), unspecified mechanism (Primary Dx) 12/08/2024 7:14 AM EDT - 12/08/2024 11:59 PM EDT Hospital Encounter [address] [address] Matthew Champion MD Discharge Disposition: Home or Self Care 12/08/2024 Ancillary Orders [facility],Outside Imaging [address] [place] [phone] Unknown, Mel, 12/08/2024 Ancillary Orders [facility],Outside Imaging [address] [place] [id number] Unknown, MD Mel 12/08/2024 Ancillary Orders [facility],Outside Imaging [address] [place] [phone] Unknown, MD Mel 12/08/2024 Ancillary Orders [facility],Outside Imaging [address] [place] [phone] Unknown, MD Mel 11/17/2024 Procedure Pass [address] [address] 11/17/2024 Transcribe Orders Virtual Department [address] [place] [phone] Matthew Champion MD Memory loss (Primary Dx); [...] st Contact Info) Description 12/12/2024 Procedure Pass [address] [address] 12/12/2024 Procedure Pass [address] [address] 01/30/2025 9:25 AM EDT Appointment [address] [address] Matthew Champion MD [address] [place] [address], [address] [place] [address] 01/30/2025 10:00 AM EDT Appointment [facility], Mri - [address] [address] Matthew Champion MD [address] [facility], [address] [place] [address] 02/14/2025 8:45 AM EDT Appointment [facility], Bone Density - [address] [address] Yudy Ham NP [address] [place] [phone] [email or web address] Health Maintenance Due Date Last Done [...] EST) SODIUM 138 133 - 146 mmol/L [facility] POTASSIUM 3.6 3.3 - 5.1 mmol/L [facility] CHLORIDE 97 96 - 108 mmol/L [facility] CO2 26 21 - 35 mmol/L [facility] BUN 22(H) 6 - 19 mg/dL [facility] CREATININE 0.60 0.5 - 1.5 mg/dL [facility] GLUCOSE 141(H) 70 - 99 mg/dL [facility] ALBUMIN 4.5 3.9 - 4.8 g/dL [facility] TOTAL PROTEIN 8.3(H) 6.5 - 8.0 g/dL [facility] CALCIUM 10.7(H) 8.4 - 10.3 mg/dL [facility] ALKALINE PHOSPHATASE 170(H) 39 - 117 U/L [facility] TOTAL BILIRUBIN 0.3 0.0 - 1.2 mg/dL [facility] AST 48(H) 0 - 37 U/L [facility] ALT 53(H) 0 - 40 U/L [facility] GLOBULIN 3.8 1 - 4.8 g/dL [facility] EGFR 89 >59 mL/min/1.7 3m2 [facility] Comment:If patient is black, multiply result by 1.159. Estimated glomerular filtration rate calculated using the CKD-EPI equation. ANION GAP 19 10 - 20 mmol/L [facility] Blood 04/29/2019 1:30 PM EST 04/29/2019 1:51 PM EST us Kyle Humphrey MD LAB BLOOD ORDERABLES Final Resul t [facility] [address] [place] [address] from Last 3 Months or Most Recently Relevant to Health Maintenance Insurance MEDICARE PART A [place] MEDICARE PART A & B MEDICARE PART A & B HEALTH MEDICARE PART A & B MEDICARE PART A & [place] MEDIC[place] [id number] MED[place] [phone] Care Teams Underground Drill Operator Relationship Specialty Start Date End Date Liz Marks NP [address] [place] [id number] PCP - General 04/14/19 Additional Source Comments The information contained in this document represents components of the legal health record. It is not the complete legal health record.[facility]
--- OUTSIDE RECORDS SUMMARY | 2025-01-14 12:01 | XMS_ITS | Patient Health Record ---
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 Name Role Phone Kendrick HUBBARD, Liz Primary Care Provider Josse Leyva Unavailable [phone] Allergies Allergen (clinical drug ingredient) Drug/Non Drug [...] Type 2 diabetes mellitus with peripheral angiopathy (554120374) Type 2 diabetes mellitus with diabetic peripheral angiopathy without gangrene (E11.51) Active confirmed Plan Of Treatment Pending Test Test Name Order Date [id number] NAIL, 6 OR MORE 12/16/2019 [id number] NAIL, 6 OR MORE 03/16/2020 [id number] Plate 03/16/2020 [id number] SKIN LESIONS, 2 TO 4 03/16/20 [id number] SKIN LESIONS, 2 TO 4 12/16/19 Insurance Providers Payer Name Payer Address Payer Phone Subscriber Number Group Number Insured Name Patient Relationship to Insured Coverage Start Date Coverage End Date Medicare National Govt Sv[employer] [address] [facility] [address] [id number] Toshia Senior Self - patient is the insured [employer] [address] [place] [address] [phone] [id number] Toshia Senior Self - patient is the insured Medical (General) History Medical History History ICD Code Anemia Arthritis Back,Hip,and Knee pain Cataracts Diabetic Headaches/Migraines High blood pressure Sciatica Stroke Measles Chicken pox Transfusions Vertigo Surgical History Surgery Date(Month/Year) tonsillectomy 194 hysterectomy 1991 cataract surgery 2018 eye lift 2019 Dental Surgery 1994
[2025-01-14 12:03] LABS: Alanine Aminotransferase 21 U/L (0-31); Albumin Level 4.4 g/dL (3.5-5.0); Alkaline Phosphatase 61 U/L (39-117); Anion Gap 16 (12-20); Aspartate Amino Transferase 35 U/L (5-31); Blood Urea Nitrogen 37 mg/dL (9-16); Calcium 10.0 mg/dL (8.4-10.2); Carbon Dioxide 24 mmol/L (22-29); Chloride 103 mmol/L (96-108); Creatinine Clr Calc Pharmacy 28.1; Estimated Glomerular Filt Rate 35; Lipase 8 U/L (8-78); Magnesium 1.6 mg/dL (1.6-2.6); Potassium 4.3 mmol/L (3.3-5.1); Sodium 139 mmol/L (135-145); Total Protein 8.5 g/dL (6.5-8.0)
[2025-01-14 12:18] LABS: Procalcitonin 9.24 ng/mL
[2025-01-14 12:19] LABS: Resp Syncy Virus RNA Qual PCR NEGATIVE (Negative); SARS COV2 PCR INHOUSE NEGATIVE (Negative)
[2025-01-14 12:30] LABS: Appearance Urine Turbid; Glucose Urine UA >=1000 mg/dL (Negative); PH 5.5 (5.0-9.0); Specific Gravity - Urine 1.020 (1.005-1.025); UMIC TRIGGER UACC YES
[2025-01-14 12:44] LABS: UACC Culture Trigger YES
--- NOTE | 2025-01-14 12:45 | PC.NURSE ---
Pt found to nausea and episode of vomiting x 2, aware and new orders in place. Pt medicated per AUG. Also noted to have O2 say 88 on room air, 2L O2 NC applied and O2 say >92%
[2025-01-14 13:38] LABS: Reflex Lactate? Lactic Acid Added
--- NOTE | 2025-01-14 13:51 | PC.NURSE ---
Report given to pre-op RN in short stay
--- NOTE | 2025-01-14 14:00 | PM.IMHP ---
History of Present Illness Date of Service: 01/14/25 Chief Complaint: Altered mental status and fever This is a 84-year-old female with pertinent history of urinary incontinence, has chronic suprapubic cather, mixed hyperlipidemia, essential hypertension, nmz-xxywbuh-vdcpvwcid diabetes mellitus, history of CVA sent to the ED to be evaluated for fever, confusion and cloudy smelling urine. Work up here has revealed gross UTI and meet sepsis criteris with elevated WBC of 24K, tachycardia and temp of 101. CT of abdomen and Pelvis show 1. Severe right hydroureteronephrosis. There is a 4 mm calculus at the UVJ and at least 2 additional calculi in the distal ureter measuring up to 6 mm in diameter. 2. Bilateral nephrolithiasis as described. Has been given IV vanco and Cefepime. Past urine cultures have included Pseudomoas and Enteroccocus. She is less confused now. There is plan for possible cystoscopy later today Review of Systems Review of Systems: Gen: + fever Resp: no sob, no cough CV: no chest, no LUND, no leg edema GI: No n/v, no abd pain Neuro: +confusion Yes all other systems are reviewed and are negative [facility], [facility] Medical History Mixed hyperlipidemia Urinary incontinence Non-insulin dependent type 2 diabetes mellitus Hypertension 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 Social History Household Members: Children and None Household Members Other:: daughter and son in law Housing: House Do you presently have visiting nurse or other home services: Yes Unable to assess alcohol history related to: Unknown Alcohol intake: current Alcohol intake frequency: other Patient Tobacco Use Status: Former Tobacco user e-Cigarette/Vaping Use: Former Use Second Hand Smoke Exposure: No service: No Meds Allergies Allergy/AdvReac Type Severity Reaction Status Date / Time egg Allergy Unknown Verified 01/14/25 09:52 Penicillins Allergy Unknown Verified 01/14/25 09:52 walnut Allergy Unknown Verified 01/14/25 09:52 Home Medications ?Medication ?Instructions ?Recorded ?Confirmed ?Last Taken ?Type ascorbic acid (vitamin C) 1,000 mg 500 mg PO QAM 09/24/22 01/14/25 01/13/25 History tablet (Vitamin C) atorvastatin 20 mg tablet 20 mg PO QPM 09/24/22 01/14/25 01/13/25 History calcium 600 mg (as 2 cap PO DAILY 09/24/22 01/14/25 01/13/25 History carbonate)-vitamin D3 12.5 mcg (500 unit) capsule (Calcium with Vit D3) clotrimazole 1 % topical cream 1 appl topical BID PRN Itching 09/24/22 01/14/25 01/13/25 History finerenone 20 mg tablet (Kerendia) 20 mg PO QPM 09/24/22 01/14/25 01/13/25 History gabapentin 300 mg capsule 300 mg PO BID 09/24/22 01/14/25 01/13/25 History hydrochlorothiazide 25 mg tablet 25 mg PO QPM 09/24/22 01/14/25 01/13/25 History meclizine 25 mg tablet 25 mg PO TID PRN Dizziness 09/24/22 01/14/25 01/13/25 History metformin 500 mg tablet 1,000 mg PO BID 09/24/22 01/14/25 01/13/25 History oxybutynin chloride 5 mg 5 mg PO QPM 09/24/22 01/14/25 01/13/25 History tablet,extended release 24 hr ropinirole 0.25 mg tablet 0.25 mg PO QPM 09/24/22 01/14/25 01/13/25 History acetaminophen 500 mg tablet 1,000 mg PO QAM PRN Pain 08/31/23 01/14/25 01/13/25 History apple cider vinegar 500 mg tablet 450 mg PO QAM 08/31/23 01/14/25 01/13/25 History aspirin 81 mg tablet,delayed 81 mg PO QPM 08/31/23 01/14/25 01/13/25 History release cholecalciferol (vitamin D3) 50 50 mcg PO QAM 08/31/23 01/14/25 01/13/25 History mcg (2,000 unit) tablet (Vitamin D3) chondroitin 80 mg-collagen 400 2 cap PO QAM 08/31/23 01/14/25 01/13/25 History mg-hyaluronic 40 mg-amino acid capsule glucosamine sulf dipot 1 cap PO QAM 08/31/23 01/14/25 01/13/25 History chlr,msm,chond 550 mg-C 30 mg-lyric 1 mg capsule (Glucosamine Chondroitin) losartan 50 mg tablet 50 mg PO QPM 08/31/23 01/14/25 01/13/25 History multivitamin 1 tab PO QAM 08/31/23 01/14/25 01/13/25 History omega 2-eip-zii-fish oil 1,000 mg 1 cap PO QAM 08/31/23 01/14/25 01/13/25 History (120 mg-180 mg) capsule (Fish Oil) cyanocobalamin (vitamin B-12) 1,000 mcg PO DAILY 01/14/25 01/14/25 01/13/25 History 1,000 mcg tablet (Vitamin B-12) sodium hyaluronate 20 mg capsule 200 mg PO DAILY 01/14/25 01/14/25 01/13/25 History tramadol 50 mg tablet 50 mg PO Q6H PRN Pain 01/14/25 01/14/25 01/13/25 History Physical Exam Vital Signs and Narrative: Vital Signs: Last Vital Signs Temp 99.7 F 01/14/25 12:46 Pulse 110 H 01/14/25 12:46 Resp 20 01/14/25 12:46 BP 114/83 01/14/25 12:46 Pulse Ox 97 01/14/25 12:46 O2 Del Method Nasal Cannula 01/14/25 12:46 O2 Flow Rate 2 01/14/25 12:46 BMI result Body Mass Index 25.3 Const: Other: General: Alert oriented to self and [facility], no acute distress Resp: CTA bilateral CVS: S1,S2,RRR GI: +BS, NT, no distention Skin: No rash Neuro: motor grossly intact Psych: appropriate affect Results Labs 01/15/25 06:05 01/15/25 06:05 Labs: Laboratory Results - last 24 hr 01/14/25 01/14/25 01/14/25 11:28 11:29 12:12 MCV 90.9 MCH 30.1 MCHC 33.2 RDW 13.5 Plt Count 310 MPV 9.4 Immature Gran % (Auto) 0.6 H Neut % (Auto) 87.0 H Lymph % (Auto) 6.0 L [place] % (Auto) 5.8 Eos % (Auto) 0.4 Baso % (Auto) 0.2 Lymph # (Auto) 1.5 [place] # (Auto) 1.4 H Eos # (Auto) 0.1 Baso # (Auto) 0.0 Abs Immat Gran (auto) 0.16 H Absolute Neuts (auto) 21.5 H Absolute Nucleated RBC 0.000 Nucleated RBC % (auto) 0.0 Smear Tech's Comments VERIFIED Anion Gap 16 Estim Creat Clear Calc 28.1 Estimated GFR 35 Random Glucose 284 H Lactic Acid 3.2 H* Calcium 10.0 Magnesium 1.6 Total Bilirubin 0.6 Direct Bilirubin 0.3 AST 35 H ALT 21 Alkaline Phosphatase 61 C-Reactive Protein 26.73 H Total Protein 8.5 H Albumin 4.4 Lipase 8 Procalcitonin 9.24 Urine Color Yellow Urine Appearance Turbid Urine pH 5.5 Ur Specific [place] 1.020 Urine Protein 100 (2+) H Urine Glucose (UA) >=1000 H Urine Ketones 15 Urine Blood Large (3+) H Urine Nitrite Positive H Ur Leukocyte Esterase Large (3+) H Urine RBC 3-5 H Urine WBC >50 H Ur Squamous Epith Cells 0-2 Urine Bacteria 4+ Hyaline Casts 11-20 Granular Casts Present Influenza Type A (PCR) NEGATIVE Influenza Type B (PCR) NEGATIVE RSV RNA Qual (PCR) NEGATIVE SARS-CoV-2 RNA (RT-PCR) NEGATIVE Imaging Radiologist's Impressions: Impressions Chest X-Ray 01/14/25 09:14 IMPRESSION: Low lung volumes. No acute cardiopulmonary abnormality. Electronically signed by: Jimenez Arauz MD 01/14/2025 10:30 AM EDT RP Abdomen/Pelvis CT 01/14/25 11:00 IMPRESSION: 1. Severe right hydroureteronephrosis. There is a 4 mm calculus at the UVJ and at least 2 additional calculi in the distal ureter measuring up to 6 mm in diameter. 2. Bilateral nephrolithiasis as described. Electronically signed by: Jimenez Arauz MD 01/14/2025 12:24 PM EDT RP Assessment and Plan (1) Acute UTI: Status: Acute (2) Sepsis: Qualifiers: Sepsis acute organ dysfunction status: with acute organ dysfunction Sepsis type: sepsis due to unspecified organism Severe sepsis acute organ dysfunction type: encephalopathy Severe sepsis shock status: without septic shock Qualified Code(s): A41.9 - Sepsis, unspecified organism; R65.20 - Severe sepsis without septic shock; G93.41 - Metabolic encephalopathy Status: Acute (3) Kidney stone: Status: Acute Plan This is a 84-year-old female with pertinent history of urinary incontinence, s/p suprapubic cath, hyperlipidemia, l hypertension, dxn-xevnxst-jtmvkxyld diabetes mellitus, history of CVA here with fever, AMS and found to have sepsis d/t UTI Acute metabolic encephalopathy d/t UTI -Treat underlying UTI Sepsis d/t UTI with chronic indwelling catheter -given Cefepime in the ED, continue, has unknown pen allergy -no further vanco for now Infected Kidney stone: 1. Severe right hydroureteronephrosis. There is a 4 mm calculus at the UVJ and at least 2 additional calculi in the distal ureter measuring up to 6 mm in diameter. Uro consult and possible cystoscopy and stenting later today Urinary incontinence: On oxybutynin and Flomax Das-mhrujmf-eomlrxdum diabetes mellitus -BS check, SSI, metformin when eating History of CVA: Not on aspirin or high-intensity statin DVT prophylaxis: Lovenox Full code. Quality Stroke Does the patient have a stroke diagnosis?: No VTE Prior VTE?: No VTE Risk Level:: Medical - moderate - high VTE Device Contraindication: Treatment Not Indicated VTE Drug Contraindication: N/A - Med Ordered
--- NOTE | 2025-01-14 14:01 | HO.ANESPROP2 ---
Documented by User: Alyce Fong NP 01/14/25 15:00 HPI - Anesthesia Eval Consult details Narrative: 84 yr old female Cystoscopy, Ureteroroscopy, Retro, Laser on left H/O CVA: left sided deficit, non-ambulatory Type 2 DM: on metformin On Kerendia: pt does not know why, unable to reach daughterJodi Active Problems Active Problems: All Active Problems Sepsis (Acute) Ureterolithiasis (Acute) Acidosis, lactic (Acute) Elevated WBC count (Acute) COVID-19 (Acute) Hypertension (Acute) Urinary incontinence (Acute) Acute UTI (Acute) Influenza (Acute) Past Medical History Medical History Mixed hyperlipidemia Urinary incontinence Non-insulin dependent type 2 diabetes mellitus Hypertension 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 Social History Social History Household Members: Family Household Members Other:: daughter and son in law Housing: House Do you presently have visiting nurse or other home services: Yes (Elder services) Unable to assess alcohol history related to: Unknown Alcohol intake: current Alcohol intake frequency: other Patient Tobacco Use Status: Former Tobacco user Advance Directives: No Advance Directives Information Provided: Yes service: No Meds Allergies Allergy/AdvReac Type Severity Reaction Status Date / Time egg Allergy Unknown Verified 01/14/25 09:52 Penicillins Allergy Unknown Verified 01/14/25 09:52 walnut Allergy Unknown Verified 01/14/25 09:52 Home Medications ?Medication ?Instructions ?Recorded ?Confirmed ?Last Taken ?Type ascorbic acid (vitamin C) 1,000 mg 500 mg PO QAM 09/24/22 01/14/25 01/13/25 History tablet (Vitamin C) atorvastatin 20 mg tablet 20 mg PO QPM 09/24/22 01/14/25 01/13/25 History calcium 600 mg (as 2 cap PO DAILY 09/24/22 01/14/25 01/13/25 History carbonate)-vitamin D3 12.5 mcg (500 unit) capsule (Calcium with Vit D3) clotrimazole 1 % topical cream 1 appl topical BID PRN Itching 09/24/22 01/14/25 01/13/25 History finerenone 20 mg tablet (Kerendia) 20 mg PO QPM 09/24/22 01/14/25 01/13/25 History gabapentin 300 mg capsule 300 mg PO BID 09/24/22 01/14/25 01/13/25 History hydrochlorothiazide 25 mg tablet 25 mg PO QPM 09/24/22 01/14/25 01/13/25 History meclizine 25 mg tablet 25 mg PO TID PRN Dizziness 09/24/22 01/14/25 01/13/25 History metformin 500 mg tablet 1,000 mg PO BID 09/24/22 01/14/25 01/13/25 History oxybutynin chloride 5 mg 5 mg PO QPM 09/24/22 01/14/25 01/13/25 History tablet,extended release 24 hr ropinirole 0.25 mg tablet 0.25 mg PO QPM 09/24/22 01/14/25 01/13/25 History acetaminophen 500 mg tablet 1,000 mg PO QAM PRN Pain 08/31/23 01/14/25 01/13/25 History apple cider vinegar 500 mg tablet 450 mg PO QAM 08/31/23 01/14/25 01/13/25 History aspirin 81 mg tablet,delayed 81 mg PO QPM 08/31/23 01/14/25 01/13/25 History release cholecalciferol (vitamin D3) 50 50 mcg PO QAM 08/31/23 01/14/25 01/13/25 History mcg (2,000 unit) tablet (Vitamin D3) chondroitin 80 mg-collagen 400 2 cap PO QAM 08/31/23 01/14/25 01/13/25 History mg-hyaluronic 40 mg-amino acid capsule glucosamine sulf dipot 1 cap PO QAM 08/31/23 01/14/25 01/13/25 History chlr,msm,chond 550 mg-C 30 mg-lyric 1 mg capsule (Glucosamine Chondroitin) losartan 50 mg tablet 50 mg PO QPM 08/31/23 01/14/25 01/13/25 History multivitamin 1 tab PO QAM 08/31/23 01/14/25 01/13/25 History omega 9-hef-rqn-fish oil 1,000 mg 1 cap PO QAM 08/31/23 01/14/25 01/13/25 History (120 mg-180 mg) capsule (Fish Oil) cyanocobalamin (vitamin B-12) 1,000 mcg PO DAILY 01/14/25 01/14/25 01/13/25 History 1,000 mcg tablet (Vitamin B-12) sodium hyaluronate 20 mg capsule 200 mg PO DAILY 01/14/25 01/14/25 01/13/25 History tramadol 50 mg tablet 50 mg PO Q6H PRN Pain 01/14/25 01/14/25 01/13/25 History Exam Height,Weight and Vital Signs: Height 5 ft 6 in Weight 71.1 kg Last Vital Signs Temp 99.7 F 01/14/25 12:46 Pulse 110 H 01/14/25 12:46 Resp 20 01/14/25 12:46 BP 114/83 01/14/25 12:46 Pulse Ox 97 01/14/25 12:46 O2 Del Method Nasal Cannula 01/14/25 12:46 O2 Flow Rate 2 01/14/25 12:46 Pertinent Lab Results Pertinent Lab Results: Laboratory Tests 01/14/25 01/14/25 01/14/25 11:28 11:29 12:12 WBC 24.6 H RBC 4.18 L Hgb 12.6 Hct 38.0 MCV 90.9 MCH 30.1 MCHC 33.2 RDW 13.5 Plt Count 310 MPV 9.4 Immature Gran % (Auto) 0.6 H Neut % (Auto) 87.0 H Lymph % (Auto) 6.0 L [place] % (Auto) 5.8 Eos % (Auto) 0.4 Baso % (Auto) 0.2 Lymph # (Auto) 1.5 [place] # (Auto) 1.4 H Eos # (Auto) 0.1 Baso # (Auto) 0.0 Abs Immat Gran (auto) 0.16 H Absolute Neuts (auto) 21.5 H Absolute Nucleated RBC 0.000 Nucleated RBC % (auto) 0.0 Smear Tech's Comments VERIFIED Sodium 139 Potassium 4.3 Chloride 103 Carbon Dioxide 24 Anion Gap 16 BUN 37 H Creatinine 1.44 H Estim Creat Clear Calc 28.1 Estimated GFR 35 Random Glucose 284 H Lactic Acid 3.2 H* Calcium 10.0 Magnesium 1.6 Total Bilirubin 0.6 Direct Bilirubin 0.3 AST 35 H ALT 21 Alkaline Phosphatase 61 C-Reactive Protein 26.73 H Total Protein 8.5 H Albumin 4.4 Lipase 8 Procalcitonin 9.24 Urine Color Yellow Urine Appearance Turbid Urine pH 5.5 Ur Specific [place] 1.020 Urine Protein 100 (2+) H Urine Glucose (UA) >=1000 H Urine Ketones 15 Urine Blood Large (3+) H Urine Nitrite Positive H Ur Leukocyte Esterase Large (3+) H Urine RBC 3-5 H Urine WBC >50 H Ur Squamous Epith Cells 0-2 Urine Bacteria 4+ Hyaline Casts 11-20 Granular Casts Present Influenza Type A (PCR) NEGATIVE Influenza Type B (PCR) NEGATIVE RSV RNA Qual (PCR) NEGATIVE SARS-CoV-2 RNA (RT-PCR) NEGATIVE Narrative Narrative: EKG 01/14/25 Vent. 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 Functional capacity: bed bound Family History Family history of problems with anesthesia: No Surgical History History of Problems with Anesthesia: No Social History Social History Household Members: Family Household Members Other:: daughter and son in law Housing: House Do you presently have visiting nurse or other home services: Yes (Elder services) Unable to assess alcohol history related to: Unknown Alcohol intake: current Alcohol intake frequency: other Patient Tobacco Use Status: Former Tobacco user Advance Directives: No Advance Directives Information Provided: Yes service: No Meds Allergies Allergy/AdvReac Type Severity Reaction Status Date / Time egg Allergy Unknown Verified 01/14/25 09:52 Penicillins Allergy Unknown Verified 01/14/25 09:52 walnut Allergy Unknown Verified 01/14/25 09:52 Home Medications ?Medication ?Instructions ?Recorded ?Confirmed ?Last Taken ?Type ascorbic acid (vitamin C) 1,000 mg 500 mg PO QAM 09/24/22 01/14/25 01/13/25 History tablet (Vitamin C) atorvastatin 20 mg tablet 20 mg PO QPM 09/24/22 01/14/25 01/13/25 History calcium 600 mg (as 2 cap PO DAILY 09/24/22 01/14/25 01/13/25 History carbonate)-vitamin D3 12.5 mcg (500 unit) capsule (Calcium with Vit D3) clotrimazole 1 % topical cream 1 appl topical BID PRN Itching 09/24/22 01/14/25 01/13/25 History finerenone 20 mg tablet (Kerendia) 20 mg PO QPM 09/24/22 01/14/25 01/13/25 History gabapentin 300 mg capsule 300 mg PO BID 09/24/22 01/14/25 01/13/25 History hydrochlorothiazide 25 mg tablet 25 mg PO QPM 09/24/22 01/14/25 01/13/25 History meclizine 25 mg tablet 25 mg PO TID PRN Dizziness 09/24/22 01/14/25 01/13/25 History metformin 500 mg tablet 1,000 mg PO BID 09/24/22 01/14/25 01/13/25 History oxybutynin chloride 5 mg 5 mg PO QPM 09/24/22 01/14/25 01/13/25 History tablet,extended release 24 hr ropinirole 0.25 mg tablet 0.25 mg PO QPM 09/24/22 01/14/25 01/13/25 History acetaminophen 500 mg tablet 1,000 mg PO QAM PRN Pain 08/31/23 01/14/25 01/13/25 History apple cider vinegar 500 mg tablet 450 mg PO QAM 08/31/23 01/14/25 01/13/25 History aspirin 81 mg tablet,delayed 81 mg PO QPM 08/31/23 01/14/25 01/13/25 History release cholecalciferol (vitamin D3) 50 50 mcg PO QAM 08/31/23 01/14/25 01/13/25 History mcg (2,000 unit) tablet (Vitamin D3) chondroitin 80 mg-collagen 400 2 cap PO QAM 08/31/23 01/14/25 01/13/25 History mg-hyaluronic 40 mg-amino acid capsule glucosamine sulf dipot 1 cap PO QAM 08/31/23 01/14/25 01/13/25 History chlr,msm,chond 550 mg-C 30 mg-lyric 1 mg capsule (Glucosamine Chondroitin) losartan 50 mg tablet 50 mg PO QPM 08/31/23 01/14/25 01/13/25 History multivitamin 1 tab PO QAM 08/31/23 01/14/25 01/13/25 History omega 9-szg-mwc-fish oil 1,000 mg 1 cap PO QAM 08/31/23 01/14/25 01/13/25 History (120 mg-180 mg) capsule (Fish Oil) cyanocobalamin (vitamin B-12) 1,000 mcg PO DAILY 01/14/25 01/14/25 01/13/25 History 1,000 mcg tablet (Vitamin B-12) sodium hyaluronate 20 mg capsule 200 mg PO DAILY 01/14/25 01/14/25 01/13/25 History tramadol 50 mg tablet 50 mg PO Q6H PRN Pain 01/14/25 01/14/25 01/13/25 History Exam Exam Date and Time: 01/14/2025 Airway Mallampati Class: II TM Dist: >3cm Neck ROM: Full Denture: Upper and Lower Heart: rrr Lungs: cta Assessment and Plan Assessment Anesthesia Assessment: Anesthesia Plan Discussed and Chart Reviewed Final Anesthetic Review Family History of Problems with Anesthesia: No History of Problems with Anesthesia: No NPO: Yes ASA Class: III and Emergency Final Preanesthetic Review: No Changes in Pt Med Stat, Meds/Allgs Chart Reviewed, Consent Obtained/Reviewed and Anes Risks/Benef Reviewed Patient Risk: High Procedure Risk: Intermediate Anesthetic Plan Anesthetic Plan: GA Disposition: Standard PACU
[2025-01-14 14:27] LABS: ~Lactic Acid-LAB USE ONLY 1.7 mmol/L (0.5-2.0)
[2025-01-14] MEDS: Lactated Ringers 1,000 ML 100 ML IVCONT (15:08)
[2025-01-14] MEDS: 0.9 % Sodium Chloride Flush 3 ML SYRINGE IVFLUSH (15:09)
--- NOTE | 2025-01-14 15:30 | MHC.EDTECH ---
Took over assignment @1530. Pad underneath pt was wet with urine, new pads placed, pillow placed behind pt's back d/t slight redness on sacrum. Vitals obtained and documented. Call rodarte and within reach
[2025-01-14 15:32] LABS: Glucose, Whole Blood 281 mg/dL (60-115)
--- NOTE | 2025-01-14 15:41 | PHA.MEDREC ---
Pharmacy Consult ? Medication Reconciliation Pharmacy has completed the medication reconciliation.
--- NOTE | 2025-01-14 16:37 | PM.UROCN ---
History of Present Illness Consult details Consult date: 01/14/25 Narrative: CC: Distal right ureteric stone with severe hydro uretero nephrosis and possible lactate acidosis 84-year-old female Chronic suprapubic catheter, [id number] diabetic Refer to emergency room for evaluation of altered mental status with fever and confusion and foul-smelling urine On evaluation meets sepsis criteria with WBC 24, tachycardia and temp of a 101 degrees UA shows positive nitrites, positive leukocytes, glucose greater than a 1000 suggestive of disordered blood sugars Imaging - CT - Severe right hydroureteronephrosis. There is a 4 mm calculus at the UVJ and at least 2 additional calculi in the distal ureter measuring up to 6 mm in diameter. Prior urine cultures have been positive for Pseudomonas and Enterococcus Has been given dose of vancomycin and cefepime Recommend intervention with at minimum stent placement on right side Review of Systems Constitutional: Constitutional: Reports as per HPI and Reports no additional constitutional complaints Cardiovascular: Cardiovascular: Reports as per HPI and Reports no additional cardiovascular complaints Respiratory: Respiratory: Reports as per HPI and Reports no additional respiratory complaints Gastrointestinal: Gastrointestinal: Reports as per HPI and Reports no additional gastrointestinal complaints Genitourinary: Genitourinary: Reports as per HPI Musculoskeletal: Musculoskeletal: Reports no additional musculoskeletal complaints and Reports as per HPI Neurologic: Reports system reviewed and no additional complaints, except as documented and Reports as per HPI [facility] Past Medical History Medical History Mixed hyperlipidemia Urinary incontinence Non-insulin dependent type 2 diabetes mellitus Hypertension 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 Social History Social History Household Members: Family Household Members Other:: daughter and son in law Housing: House Do you presently have visiting nurse or other home services: Yes (Elder services) Unable to assess alcohol history related to: Unknown Alcohol intake: current Alcohol intake frequency: other Patient Tobacco Use Status: Former Tobacco user Advance Directives: No Advance Directives Information Provided: Yes service: No Meds Allergies Allergy/AdvReac Type Severity Reaction Status Date / Time egg Allergy Unknown Verified 01/14/25 09:52 Penicillins Allergy Unknown Verified 01/14/25 09:52 walnut Allergy Unknown Verified 01/14/25 09:52 Active Medications: Current Medications Acetaminophen (Acetaminophen 325 Mg Tablet) 650 mg PO Q6H PRN PRN Reason: Pain, Mild 1-3,fever,headache Calcium Carbonate (Calcium Carbonate 750 Mg Tab.Chew) 750 mg PO Q4H PRN PRN Reason: Heartburn Dextrose (Dextrose 50 % 25 Gm/50 Ml Syringe) 25 gm IVPUSH Q15M PRN; Protocol PRN Reason: per Hypoglycemia Standing Ord. Enoxaparin Sodium (Enoxaparin Sodium 30 Mg/0.3 Ml Syringe) 30 mg SUBCUT Q24H [facility] Last Admin: 01/14/25 14:43 Dose: Not Given Glucose (Glucose Gel 15 Gm Gel..Gram.) 15 gm PO Q15M PRN; Protocol PRN Reason: per Hypoglycemia Standing Ord. Lactated Ringer's (Lr) 1,000 mls @ 100 mls/hr IVCONT .Q10H [facility] Last Admin: 01/14/25 15:08 Dose: 100 mls/hr Cefepime HCl 1 gm/ Sodium (Chloride) 50 mls @ 100 mls/hr IV Q24H [facility] Insulin Human Lispro (Insulin Lispro 100 Unit/Ml 3 Ml Vial) 0 unit SUBCUT QIDACHS [facility]; Protocol Last Admin: 01/14/25 15:13 Dose: Not Given Magnesium Hydroxide (Milk Of Magnesia 30 Ml Oral.Susp) 30 ml PO DAILY PRN PRN Reason: Constipation Melatonin (Melatonin 3 Mg Tablet) 6 mg PO BEDTIME PRN PRN Reason: Insomnia Ondansetron HCl (Ondansetron Hcl 4 Mg/2 Ml Vial) 4 mg IVPUSH Q8H PRN PRN Reason: Nausea and Vomiting Polyethylene Glycol (Polyethylene Glycol 3350 17 Gm Powd.Pack) 17 gm PO DAILY PRN PRN Reason: Constipation Sodium Chloride (0.9 % Sodium Chloride Flush 3 Ml Syringe) 3 ml IVFLUSH QSHIFT [facility] Last Admin: 01/14/25 15:09 Dose: 3 ml Home Medications ?Medication ?Instructions ?Recorded ?Confirmed ?Last Taken ?Type ascorbic acid (vitamin C) 1,000 mg 500 mg PO QAM 09/24/22 01/14/25 01/13/25 History tablet (Vitamin C) atorvastatin 20 mg tablet 20 mg PO QPM 09/24/22 01/14/25 01/13/25 History calcium 600 mg (as 2 cap PO DAILY 09/24/22 01/14/25 01/13/25 History carbonate)-vitamin D3 12.5 mcg (500 unit) capsule (Calcium with Vit D3) clotrimazole 1 % topical cream 1 appl topical BID PRN Itching 09/24/22 01/14/25 01/13/25 History finerenone 20 mg tablet (Kerendia) 20 mg PO QPM 09/24/22 01/14/25 01/13/25 History gabapentin 300 mg capsule 300 mg PO BID 09/24/22 01/14/25 01/13/25 History hydrochlorothiazide 25 mg tablet 25 mg PO QPM 09/24/22 01/14/25 01/13/25 History meclizine 25 mg tablet 25 mg PO TID PRN Dizziness 09/24/22 01/14/25 01/13/25 History metformin 500 mg tablet 1,000 mg PO BID 09/24/22 01/14/25 01/13/25 History oxybutynin chloride 5 mg 5 mg PO QPM 09/24/22 01/14/25 01/13/25 History tablet,extended release 24 hr ropinirole 0.25 mg tablet 0.25 mg PO QPM 09/24/22 01/14/25 01/13/25 History acetaminophen 500 mg tablet 1,000 mg PO QAM PRN Pain 08/31/23 01/14/25 01/13/25 History apple cider vinegar 500 mg tablet 450 mg PO QAM 08/31/23 01/14/25 01/13/25 History aspirin 81 mg tablet,delayed 81 mg PO QPM 08/31/23 01/14/25 01/13/25 History release cholecalciferol (vitamin D3) 50 50 mcg PO QAM 08/31/23 01/14/25 01/13/25 History mcg (2,000 unit) tablet (Vitamin D3) chondroitin 80 mg-collagen 400 2 cap PO QAM 08/31/23 01/14/25 01/13/25 History mg-hyaluronic 40 mg-amino acid capsule glucosamine sulf dipot 1 cap PO QAM 08/31/23 01/14/25 01/13/25 History chlr,msm,chond 550 mg-C 30 mg-lyric 1 mg capsule (Glucosamine Chondroitin) losartan 50 mg tablet 50 mg PO QPM 08/31/23 01/14/25 01/13/25 History multivitamin 1 tab PO QAM 08/31/23 01/14/25 01/13/25 History omega 2-hmx-dfg-fish oil 1,000 mg 1 cap PO QAM 08/31/23 01/14/25 01/13/25 History (120 mg-180 mg) capsule (Fish Oil) cyanocobalamin (vitamin B-12) 1,000 mcg PO DAILY 01/14/25 01/14/25 01/13/25 History 1,000 mcg tablet (Vitamin B-12) sodium hyaluronate 20 mg capsule 200 mg PO DAILY 01/14/25 01/14/25 01/13/25 History tramadol 50 mg tablet 50 mg PO Q6H PRN Pain 01/14/25 01/14/25 01/13/25 History Physical Exam Vital Signs: Vital Signs: Last Vital Signs Temp 99.1 F 01/14/25 15:39 Pulse 98 01/14/25 15:39 Resp 26 H 01/14/25 15:39 BP 117/61 01/14/25 15:39 Pulse Ox 92 01/14/25 15:39 O2 Del Method Room Air 01/14/25 15:39 O2 Flow Rate 1 01/14/25 14:41 BMI result Body Mass Index 25.3 Const: General: cooperative, healthy appearing, comfortable and no acute distress Orientation/consciousness: patient oriented x3 HEENT: Face and sinus: Yes normal facial exam Mouth: moist mucous membranes Neck: Neck: Yes normal visual inspection, Yes full ROM and Yes trachea midline Chest: Chest palpation & inspection: normal inspection of the chest Resp: Effort & Inspection: normal respiratory effort, able to speak in complete sentences and no respiratory distress GI: Inspection: Yes normal to inspection Back/Spine/Pelvis: Cervical Spine: normal cervical lordosis Thoracic/Lumbar Spine: thoracic and lumbar spine normal to inspection Skin: General skin exam: no rashes or lesions noted Neuro: General: patient oriented x3, tone normal and moves all extremities Extrem: General: Yes normal to inspection and Yes capillary refill normal Results Labs 01/14/25 11:29 01/14/25 11:28 Labs: Abnormal lab results 01/14/25 01/14/25 01/14/25 Range/Units 11:28 11:29 12:12 WBC 24.6 H (4.8-10.8) X10*3/uL RBC 4.18 L (4.20-5.50) X10*6/uL Immature Gran % (Auto) 0.6 H (0.0-0.4) % Neut % (Auto) 87.0 H (45-73) % Lymph % (Auto) 6.0 L (20-40) % [place] # (Auto) 1.4 H (0.1-1.2) X10*3/uL Abs Immat Gran (auto) 0.16 H (0.00-0.03) X10*3/uL Absolute Neuts (auto) 21.5 H (2.0-8.3) x10*3/uL BUN 37 H (9-16) mg/dL Creatinine 1.44 H (0.5-1.4) mg/dL POC Glucose (60-115) mg/dL Random Glucose 284 H (60-115) mg/dL Lactic Acid 3.2 H* (0.5-2.0) mmol/L AST 35 H (5-31) U/L C-Reactive Protein 26.73 H (< or = 0.50) mg/dL Total Protein 8.5 H (6.5-8.0) g/dL Urine Protein 100 (2+) H (Neg-Trace) mg/dL Urine Glucose (UA) >=1000 H (Negative) mg/dL Urine Blood Large (3+) H (Negative) Urine Nitrite Positive H (Negative) Ur Leukocyte Esterase Large (3+) H (Negative) Urine RBC 3-5 H (0-2) /HPF Urine WBC >50 H (0-5) /HPF 01/14/25 Range/Units 15:28 WBC (4.8-10.8) X10*3/uL RBC (4.20-5.50) X10*6/uL Immature Gran % (Auto) (0.0-0.4) % Neut % (Auto) (45-73) % Lymph % (Auto) (20-40) % [place] # (Auto) (0.1-1.2) X10*3/uL Abs Immat Gran (auto) (0.00-0.03) X10*3/uL Absolute Neuts (auto) (2.0-8.3) x10*3/uL BUN (9-16) mg/dL Creatinine (0.5-1.4) mg/dL POC Glucose 281 H (60-115) mg/dL Random Glucose (60-115) mg/dL Lactic Acid (0.5-2.0) mmol/L AST (5-31) U/L C-Reactive Protein (< or = 0.50) mg/dL Total Protein (6.5-8.0) g/dL Urine Protein (Neg-Trace) mg/dL Urine Glucose (UA) (Negative) mg/dL Urine Blood (Negative) Urine Nitrite (Negative) Ur Leukocyte Esterase (Negative) Urine RBC (0-2) /HPF Urine WBC (0-5) /HPF Short CBC 01/14/25 Range/Units 11:29 WBC 24.6 H (4.8-10.8) X10*3/uL Hgb 12.6 (12.0-16.0) g/dl Hct 38.0 (37.0-47.0) % Plt Count 310 (160-400) X10*3/uL BMP 01/14/25 11:28 Sodium 139 Potassium 4.3 Chloride 103 Carbon Dioxide 24 BUN 37 H Creatinine 1.44 H Calcium 10.0 Liver Function 01/14/25 Range/Units 11:28 Total Bilirubin 0.6 (0.0-1.0) mg/dL Direct Bilirubin 0.3 (0.0-0.5) mg/dL AST 35 H (5-31) U/L ALT 21 (0-31) U/L Alkaline Phosphatase 61 (39-117) U/L Albumin 4.4 (3.5-5.0) g/dL Urine 01/14/25 Range/Units 12:12 Urine Color Yellow Urine Appearance Turbid Urine pH 5.5 (5.0-9.0) Ur Specific [place] 1.020 (1.005-1.025) Urine Protein 100 (2+) H (Neg-Trace) mg/dL Urine Glucose (UA) >=1000 H (Negative) mg/dL All other labs normal. Assessment and Plan (1) Hydroureteronephrosis: Status: Acute (2) Ureterolithiasis: Status: Acute (3) Acidosis, lactic: Status: Acute Plan Risks, benefits and alternatives to therapy were discussed. These include but are not limited to infection, bleeding, damage to local organs and tissues, need for further interventions. Anesthetic risks regarding cardiac arrhythmia, blood clots, and potential mortality were discussed. The patient understands the typical recovery time and the outpatient nature of the procedure. After consideration of these risks the patient gives full informed consent and they wish to move ahead with the procedure. - cystoscopy, right retrograde, right stent placement - possible ureteroscopy but will depend on blood pressure Procedures Date of Service Date of Service: 01/14/25
--- NOTE | 2025-01-14 16:58 | MHC.SHP ---
Pre-Procedural Eval Section A - 24 Hr Update-Section A only Date of Service: 01/14/25 The patient is an INPATIENT: No Changes since office visit: No Cold of Flu in the past 2 weeks, No New Medical Problems, No Changes in Medication and No Patient answered all questions The patient has been examined within 24 hours of the surgical procedure. The History & Physical has been completed within 30 days and I have reviewed it.: Yes Section B - Complete if H&P > 30 days Chief Complaint: sepsis Allergies: Allergies Allergy/AdvReac Type Severity Reaction Status Date / Time egg Allergy Unknown Verified 01/14/25 09:52 Penicillins Allergy Unknown Verified 01/14/25 09:52 walnut Allergy Unknown Verified 01/14/25 09:52 Plan I have reviewed the history and physical and performed a pertinent physical examination on my patient. No changes have occurred unless specified. Time Spent With Patient Time: Total time managing care of this patient today ____ minutes.
--- NOTE | 2025-01-14 17:45 | HO.ANESPROP2 ---
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 Functional capacity: bed bound Patient : No Family History Family history of problems with anesthesia: No Surgical History History of Problems with Anesthesia: No Social History Social History Household Members: Family Household Members Other:: daughter and son in law Housing: House Do you presently have visiting nurse or other home services: Yes (Elder services) Unable to assess alcohol history related to: Unknown Alcohol intake: current Alcohol intake frequency: other Patient Tobacco Use Status: Former Tobacco user Advance Directives: No Advance Directives Information Provided: Yes service: No Meds Allergies Allergy/AdvReac Type Severity Reaction Status Date / Time egg Allergy Unknown Verified 01/14/25 09:52 Penicillins Allergy Unknown Verified 01/14/25 09:52 walnut Allergy Unknown Verified 01/14/25 09:52 Active Medications: Current Medications Acetaminophen (Acetaminophen 325 Mg Tablet) 650 mg PO Q6H PRN PRN Reason: Pain, Mild 1-3,fever,headache Calcium Carbonate (Calcium Carbonate 750 Mg Tab.Chew) 750 mg PO Q4H PRN PRN Reason: Heartburn Dextrose (Dextrose 50 % 25 Gm/50 Ml Syringe) 25 gm IVPUSH Q15M PRN; Protocol PRN Reason: per Hypoglycemia Standing Ord. Enoxaparin Sodium (Enoxaparin Sodium 30 Mg/0.3 Ml Syringe) 30 mg SUBCUT Q24H ZAC Last Admin: 01/14/25 14:43 Dose: Not Given Fentanyl (Fentanyl Citrate/Pf 100 Mcg/2 Ml Vial) 25 mcg IVPUSH Q5M PRN PRN Reason: Pain, Moderate to Severe (Pain Scale 4-10) Stop: 01/14/25 22:51 Glucose (Glucose Gel 15 Gm Gel..Gram.) 15 gm PO Q15M PRN; Protocol PRN Reason: per Hypoglycemia Standing Ord. Hydromorphone HCl (Hydromorphone Hcl 0.5 Mg/0.5 Ml Syringe) 0.25 mg IVPUSH Q5M PRN PRN Reason: Pain, Moderate to Severe (Pain Scale 4-10) Stop: 01/14/25 22:51 Lactated Ringer's (Lr) 1,000 mls @ 100 mls/hr IVCONT .Q10H [facility] Last Admin: 01/14/25 15:08 Dose: 100 mls/hr Cefepime HCl 1 gm/ Sodium (Chloride) 50 mls @ 100 mls/hr IV Q24H [facility]AC Lactated Ringer's (Lr) 500 mls @ 20 mls/hr IVCONT .Q24H [facility] Insulin Human Lispro (Insulin Lispro 100 Unit/Ml 3 Ml Vial) 0 unit SUBCUT QIDACHS [facility]; Protocol Last Admin: 01/14/25 15:13 Dose: Not Given Magnesium Hydroxide (Milk Of Magnesia 30 Ml Oral.Susp) 30 ml PO DAILY PRN PRN Reason: Constipation Melatonin (Melatonin 3 Mg Tablet) 6 mg PO BEDTIME PRN PRN Reason: Insomnia Naloxone HCl (Naloxone Hcl 0.4 Mg/Ml Vial) 0.04 mg IVPUSH Q5M PRN PRN Reason: Excessive sedation or RR < 8 Ondansetron HCl (Ondansetron Hcl 4 Mg/2 Ml Vial) 4 mg IVPUSH Q8H PRN PRN Reason: Nausea and Vomiting Ondansetron HCl (Ondansetron Hcl 4 Mg/2 Ml Vial) 4 mg IVPUSH ONCE PRN PRN Reason: Nausea and Vomiting Stop: 01/14/25 22:52 Polyethylene Glycol (Polyethylene Glycol 3350 17 Gm Powd.Pack) 17 gm PO DAILY PRN PRN Reason: Constipation Sodium Chloride (0.9 % Sodium Chloride Flush 3 Ml Syringe) 3 ml IVFLUSH [facility] Last Admin: 01/14/25 15:09 Dose: 3 ml Home Medications ?Medication ?Instructions ?Recorded ?Confirmed ?Last Taken ?Type ascorbic acid (vitamin C) 1,000 mg 500 mg PO QAM 09/24/22 01/14/25 01/13/25 History tablet (Vitamin C) atorvastatin 20 mg tablet 20 mg PO QPM 09/24/22 01/14/25 01/13/25 History calcium 600 mg (as 2 cap PO DAILY 09/24/22 01/14/25 01/13/25 History carbonate)-vitamin D3 12.5 mcg (500 unit) capsule (Calcium with Vit D3) clotrimazole 1 % topical cream 1 appl topical BID PRN Itching 09/24/22 01/14/25 01/13/25 History finerenone 20 mg tablet (Kerendia) 20 mg PO QPM 09/24/22 01/14/25 01/13/25 History gabapentin 300 mg capsule 300 mg PO BID 09/24/22 01/14/25 01/13/25 History hydrochlorothiazide 25 mg tablet 25 mg PO QPM 09/24/22 01/14/25 01/13/25 History meclizine 25 mg tablet 25 mg PO TID PRN Dizziness 09/24/22 01/14/25 01/13/25 History metformin 500 mg tablet 1,000 mg PO BID 09/24/22 01/14/25 01/13/25 History oxybutynin chloride 5 mg 5 mg PO QPM 09/24/22 01/14/25 01/13/25 History tablet,extended release 24 hr ropinirole 0.25 mg tablet 0.25 mg PO QPM 09/24/22 01/14/25 01/13/25 History acetaminophen 500 mg tablet 1,000 mg PO QAM PRN Pain 08/31/23 01/14/25 01/13/25 History apple cider vinegar 500 mg tablet 450 mg PO QAM 08/31/23 01/14/25 01/13/25 History aspirin 81 mg tablet,delayed 81 mg PO QPM 08/31/23 01/14/25 01/13/25 History release cholecalciferol (vitamin D3) 50 50 mcg PO QAM 08/31/23 01/14/25 01/13/25 History mcg (2,000 unit) tablet (Vitamin D3) chondroitin 80 mg-collagen 400 2 cap PO QAM 08/31/23 01/14/25 01/13/25 History mg-hyaluronic 40 mg-amino acid capsule glucosamine sulf dipot 1 cap PO QAM 08/31/23 01/14/25 01/13/25 History chlr,msm,chond 550 mg-C 30 mg-lyric 1 mg capsule (Glucosamine Chondroitin) losartan 50 mg tablet 50 mg PO QPM 08/31/23 01/14/25 01/13/25 History multivitamin 1 tab PO QAM 08/31/23 01/14/25 01/13/25 History omega 1-jcu-vbr-fish oil 1,000 mg 1 cap PO QAM 08/31/23 01/14/25 01/13/25 History (120 mg-180 mg) capsule (Fish Oil) cyanocobalamin (vitamin B-12) 1,000 mcg PO DAILY 01/14/25 01/14/25 01/13/25 History 1,000 mcg tablet (Vitamin B-12) sodium hyaluronate 20 mg capsule 200 mg PO DAILY 01/14/25 01/14/25 01/13/25 History tramadol 50 mg tablet 50 mg PO Q6H PRN Pain 01/14/25 01/14/25 01/13/25 History Exam Height,Weight and Vital Signs: Height 5 ft 6 in Weight 71.1 kg Last Vital Signs Temp 98.9 F 01/14/25 16:45 Pulse 122 H 01/14/25 16:45 Resp 22 H 01/14/25 16:45 BP 125/77 01/14/25 16:45 Pulse Ox 96 01/14/25 16:45 O2 Del Method Room Air 01/14/25 16:45 O2 Flow Rate 1 01/14/25 14:41 Pertinent Lab Results Pertinent Lab Results: Laboratory Tests 01/14/25 01/14/25 01/14/25 11:28 11:29 12:12 WBC 24.6 H RBC 4.18 L Hgb 12.6 Hct 38.0 MCV 90.9 MCH 30.1 MCHC 33.2 RDW 13.5 Plt Count 310 MPV 9.4 Immature Gran % (Auto) 0.6 H Neut % (Auto) 87.0 H Lymph % (Auto) 6.0 L [place] % (Auto) 5.8 Eos % (Auto) 0.4 Baso % (Auto) 0.2 Lymph # (Auto) 1.5 [place] # (Auto) 1.4 H Eos # (Auto) 0.1 Baso # (Auto) 0.0 Abs Immat Gran (auto) 0.16 H Absolute Neuts (auto) 21.5 H Absolute Nucleated RBC 0.000 Nucleated RBC % (auto) 0.0 Smear Tech's Comments VERIFIED Sodium 139 Potassium 4.3 Chloride 103 Carbon Dioxide 24 Anion Gap 16 BUN 37 H Creatinine 1.44 H Estim Creat Clear Calc 28.1 Estimated GFR 35 POC Glucose Random Glucose 284 H Lactic Acid 3.2 H* Lactic Acid F/U @ 2Hr Calcium 10.0 Magnesium 1.6 Total Bilirubin 0.6 Direct Bilirubin 0.3 AST 35 H ALT 21 Alkaline Phosphatase 61 C-Reactive Protein 26.73 H Total Protein 8.5 H Albumin 4.4 Lipase 8 Procalcitonin 9.24 Urine Color Yellow Urine Appearance Turbid Urine pH 5.5 Ur Specific [place] 1.020 Urine Protein 100 (2+) H Urine Glucose (UA) >=1000 H Urine Ketones 15 Urine Blood Large (3+) H Urine Nitrite Positive H Ur Leukocyte Esterase Large (3+) H Urine RBC 3-5 H Urine WBC >50 H Ur Squamous Epith Cells 0-2 Urine Bacteria 4+ Hyaline Casts 11-20 Granular Casts Present Influenza Type A (PCR) NEGATIVE Influenza Type B (PCR) NEGATIVE RSV RNA Qual (PCR) NEGATIVE SARS-CoV-2 RNA (RT-PCR) NEGATIVE 01/14/25 01/14/25 14:08 15:28 WBC RBC Hgb Hct MCV MCH MCHC RDW Plt Count MPV Immature Gran % (Auto) Neut % (Auto) Lymph % (Auto) [place] % (Auto) Eos % (Auto) Baso % (Auto) Lymph # (Auto) [place] # (Auto) Eos # (Auto) Baso # (Auto) Abs Immat Gran (auto) Absolute Neuts (auto) Absolute Nucleated RBC Nucleated RBC % (auto) Smear Tech's Comments Sodium Potassium Chloride Carbon Dioxide Anion Gap BUN Creatinine Estim Creat Clear Calc Estimated GFR POC Glucose 281 H Random Glucose Lactic Acid Lactic Acid F/U @ 2Hr 1.7 Calcium Magnesium Total Bilirubin Direct Bilirubin AST ALT Alkaline Phosphatase C-Reactive Protein Total Protein Albumin Lipase Procalcitonin Urine Color Urine Appearance Urine pH Ur Specific [place] Urine Protein Urine Glucose (UA) Urine Ketones Urine Blood Urine Nitrite Ur Leukocyte Esterase Urine RBC Urine WBC Ur Squamous Epith Cells Urine Bacteria Hyaline Casts Granular Casts Influenza Type A (PCR) Influenza Type B (PCR) RSV RNA Qual (PCR) SARS-CoV-2 RNA (RT-PCR) Airway TM Dist: >3cm Neck ROM: Full Heart: tachycardic Lungs: CTA Assessment and Plan Assessment Anesthesia Assessment: Anesthesia Plan Discussed Final Anesthetic Review Family History of Problems with Anesthesia: No History of Problems with Anesthesia: No NPO: Yes ASA Class: IV and Emergency Final Preanesthetic Review: Meds/Allgs Chart Reviewed, Consent Obtained/Reviewed and Anes Risks/Benef Reviewed Patient Risk: Intermediate Procedure Risk: Intermediate Anesthetic Plan Anesthetic Plan: GA Disposition: Standard PACU
--- NOTE | 2025-01-14 17:55 | P.OP_ITS ---
Operative Note Operative Note Date of Service: 01/14/25 Narrative: PreOperative Diagnosis: Distal right ureteric stone with hydro uretero nephrosis Post Operative Diagnosis: Distal right ureteric stone with hydro uretero nephrosis Procedure: 1) removal of stone from ureteric orifice right side 2) right retrograde 3) right stent placement modifier 22 100% longer than typical Surgeon: Dr Jose Miguel Salgado Anesthesia: GI Indications for procedure: 84-year-old female presents with urosepsis through emergency department. CT imaging showed distal right ureteric stone with hydro uretero nephrosis. Procedure: After informed consent was verified the patient was brought to the operating room and placed in a supine position. Anesthesia was administered per protocol. The patient was placed in modified dorsal lithotomy position and prepped and draped in a sterile fashion. A safety pause time-out was performed. Laterality of procedure and antibiotics were confirmed, appropriate imaging was available A 22 [place] cystoscope was introduced per urethra. No abnormality was noted of urethra or bladder. Both ureteric orifices were seen in a normal position. The right ureteric orifice was markedly inflamed compared to the left side and the ureteric orifice significantly rotated and deformed. It appeared we could see a stone in the distal portion of the ureter by the ureteric orifice through the overlying tissue. Attempts were made to place a sensor wire. Converted to angled Glidewire. With manipulation of the ureteric orifice a stone started to emerge. Using a stent grasper we were able to remove a 9-10 mm stone from the distal portion of the ureteric orifice. At this point we continued to try to enter the ureteric orifice. The swelling significantly deformed the ureteric orifice. Using a 70 degree lens within Alberranz deflector we eventually were able to advance the angled wire with an open-ended catheter into the distal portion of the ureteric orifice. This took a proximally 200% longer than typical 30-40 minutes. Retrograde showed proximal hydro uretero nephrosis. The angled Glidewire was switched out for a sensor guidewire and this was advanced A Sensor guidewire was placed under fluoroscopy and a good coil was seen within the renal pelvis. A 6 [place] by 26 cm double J stent was advanced over the wire and up to the level of the renal pelvis under fluoroscopic and direct visualization. The stent was seen with appropriate coil within the renal pelvis and in the bladder after deployment. There was significant out wash of purulent material from the tail of the stent The patient tolerated the procedure well and was transferred in a stable condition to the recovery area. Pathology: Stone Drains: As above
[2025-01-14 20:35] LABS: Glucose, Whole Blood 203 mg/dL (60-115)
[2025-01-15] VITALS (11 sets, daily range): BP systolic 78–151; BP diastolic 43–58; PULSE 87–120; RESP 14–20; TEMP 36.4–39.6; O2SAT 95–99
[2025-01-15] MEDS: Lactated Ringers 500 ML 999 ML IV ×3 (01:37→09:47)
--- NOTE | 2025-01-15 02:59 | HO.SKINPHOTO ---
Location buttocks/coccyx Category: Stage: Length: Width: Depth: cm Category: Stage: Length: Width: Depth: cm Location: Category: Stage: Length: Width: Depth: cm Location: Category: Stage: Length: Width: Depth: cm
[2025-01-15] MEDS: Lactated Ringers 1,000 ML 100 ML IVCONT (03:57)
--- NOTE | 2025-01-15 05:21 | PM.EVENT ---
Event Note Date of Service: 01/15/25 Event Note: 5:10 am - contacted by coin machine collector supervisor to evaluate patient due to decreased level of consciousness. On evaluation, patient is barely responsive, just moaning. Not following simple commands. Pupils look equally round. NC in place 2L/min. Cardiopulmonary exam is remarkable for sinus tachycardia. No tachypnea or wheezing. Temperature was checked rectally and is 103. A: Acute encephalopathy due to urosepsis/bacteremia by Gram-negative rods. P: Tylenol 1 g IV Toradol 15 mg IV LR 500 ml bolus Check labs stat: CBC, lactic acid, CMP and VBG Continue cefepime Time Spent With Patient Time: Total time managing care of this patient today ____ minutes.
[2025-01-15 05:26] LABS: Glucose, Whole Blood 222 mg/dL (60-115)
[2025-01-15 06:17] LABS: MANUAL DIFF FLAG NO
--- NOTE | 2025-01-15 06:18 | PC.NURSE ---
0515 Patient admitted for acute Encephalopathy d/t urosepsis , bacteremia. S/P Cystoscopy. This RN in room to assess and reposition patient. Patient noted to be lethargic , minimally responsive. Wire Insulator , and provider called to bedside. BP 99/46, P 109, RR18, Rectal temp 103. O2 sat 95% on 2L O2 NC. POC 222. Patient responding to name by opening eyes.Unable to follow commands. Pupils equally reactive. Provider ordered IV Acetaminophen , and Toradol , LR 500 ml bolus, and lab work. LS clear, ST on telemetry. +BS x4. Suprapubic catheter draining clear yellow urine. On reassessment patient is more awake, answering questions appropriately. Appears to be back to baseline. Report given to oncdaphney day RN.
[2025-01-15 06:21] LABS: Venous Blood Gas Refer to POC result
[2025-01-15 06:24] LABS: VBG HCO3 24 mmol/L (22-26); VBG O2 % Saturation 100.0 %
[2025-01-15 06:30] LABS: Hematocrit 29.2 % (37.0-47.0); Hemoglobin 9.3 g/dl (12.0-16.0); Imm Gran Abs Auto 0.21 X10*3/uL (0.00-0.03); Imm Gran Pct Auto 1.5 % (0.0-0.4); Lymphocytes Absolute Auto 0.6 X10*3/uL (1.2-4.9); Mean Corpuscular HGB Conc 31.8 g/dl (31.0-35.0); Mean Corpuscular Hemoglobin 29.2 pg (27.0-33.0); Mean Corpuscular Volume 91.8 fL (80.0-98.0); NRBC Abs Auto 0.000 X10*3/uL (0.0-0.012); NRBC Pct Auto 0.0 /100WBC (0.0-0.2); Platelet Count 207 X10*3/uL (160-400); Red Blood Count 3.18 X10*6/uL (4.20-5.50); White Blood Count 13.8 X10*3/uL (4.8-10.8)
[2025-01-15 06:42] LABS: Alanine Aminotransferase 13 U/L (0-31); Albumin Level 3.0 g/dL (3.5-5.0); Alkaline Phosphatase 53 U/L (39-117); Anion Gap 14 (12-20); Aspartate Amino Transferase 50 U/L (5-31); Blood Urea Nitrogen 24 mg/dL (9-16); Calcium 8.5 mg/dL (8.4-10.2); Carbon Dioxide 23 mmol/L (22-29); Chloride 106 mmol/L (96-108); Creatinine Clr Calc Pharmacy 32.2; Estimated Glomerular Filt Rate 41; Potassium 3.5 mmol/L (3.3-5.1); Sodium 139 mmol/L (135-145); Total Protein 6.1 g/dL (6.5-8.0)
[2025-01-15 07:51] LABS: Glucose, Whole Blood 221 mg/dL (60-115)
[2025-01-15] MEDS: Lactated Ringers 1,000 ML 999 ML IVCONT (08:25)
--- NOTE | 2025-01-15 08:36 | PC.NURSE ---
Addendum entered by Lisbeth Emery RN 01/15/25 16:23: 11:36 Pt is more awake and talking, able to make needs known alert to self and place. Aware. Nursing bedside swallow evaluated, pt swallowing well, no coughing on thin liquids or soft foods, per MD Ivy ok to order diabetic diet, pt able to take whole pills with thin liquids. Addendum entered by Lisbeth Emery RN 01/15/25 10:23: 10:20 after 500Ml bolus BP recheck 82/44, pt appears more aware at this time, still answering with one word responses. Per give 1000ml bolus, labs ordered, phleb called to draw labs STAT. Addendum entered by Lisbeth Emery RN 01/15/25 09:35: 0929 BP after 1L bolus 84/48, MD Ivy notified, per MD run second bolus. Original Note: 0805 MD Ivy made aware pt bp 78/43, MD at bedside to assess pt, per 1L LR bolus ordered and infusing. Pt contineus to be minimally responsive to verbal stimuli, opens eyes, grunts one word answer then falls back to sleep. All safety measures in place. Insulin held at this time, MD Ivy aware.
--- NOTE | 2025-01-15 08:42 | HO.POSTANES ---
Post Anesthesia Evaluation Post Anesthesia Evaluation Date of Service: 01/15/25 Vital Signs: Vital Signs Temp Pulse Resp BP Pulse Ox O2 Del Method O2 Flow Rate 01/15/25 08:08 78/43 L 01/15/25 07:55 98.5 F 87 14 96 Nasal Cannula 3 01/15/25 05:15 103.2 F H 20 99/46 L 95 Nasal Cannula 2 01/15/25 03:12 98.7 F 151/58 H 97 Nasal Cannula 2 01/15/25 01:15 98.4 F 120 H 18 128/57 L Room Air, Nasal Cannula 01/14/25 23:31 100.3 F 119 H 20 130/74 97 Nasal Cannula 2 01/14/25 21:17 98 F 108 H 18 120/56 L 98 Nasal Cannula 2 Anesthesia: General Mental Status: Awake Pain Control: Satisfactory Nausea/Vomiting: None Hydration: Adequate Anesthesia-Related Issues: No Anes. Related Issues
[2025-01-15] MEDS: 0.9 % Sodium Chloride Flush 3 ML SYRINGE IVFLUSH ×2 (09:48→15:23)
--- NOTE | 2025-01-15 09:58 | P.PNIM_ITS ---
Subjective Subjective Date of Service: 01/15/25 Interval History: f/u on sespis, uti and infected kidney s/p cystoscopy with stent yesterday and now hypotensive and likely septic shock WBC is trending migd[place], was drowsy earlier this morning but now more alert Physical Exam 2 Vital Signs: Vital Signs: Last Vital Signs Temp 98.5 F 01/15/25 07:55 Pulse 87 01/15/25 07:55 Resp 14 01/15/25 07:55 BP 84/48 L 01/15/25 09:35 Pulse Ox 96 01/15/25 07:55 O2 Del Method Nasal Cannula 01/15/25 07:55 O2 Flow Rate 3 01/15/25 07:55 BMI result Body Mass Index 23.6 Const: Other: General: AO X 3, no acute distress Resp: CTA bilateral CVS: S1,S2,RRR GI: +BS, NT, no distention Skin: No rash Neuro: Left sided weakness old since stroke Psych: appropriate affect Objective Data Active Medications Acetaminophen (Acetaminophen 325 Mg Tablet) 650 mg PO Q6H PRN PRN Reason: Pain, Mild 1-3,fever,headache Calcium Carbonate (Calcium Carbonate 750 Mg Tab.Chew) 750 mg PO Q4H PRN PRN Reason: Heartburn Dextrose (Dextrose 50 % 25 Gm/50 Ml Syringe) 25 gm IVPUSH Q15M PRN; Protocol PRN Reason: per Hypoglycemia Standing Ord. Enoxaparin Sodium (Enoxaparin Sodium 30 Mg/0.3 Ml Syringe) 30 mg SUBCUT Q24H [facility] Last Admin: 01/14/25 14:43 Dose: Not Given Documented By: ARIELLE Non-Admin Reason: Physician Held Med Glucose (Glucose Gel 15 Gm Gel..Gram.) 15 gm PO Q15M PRN; Protocol PRN Reason: per Hypoglycemia Standing Ord. Cefepime HCl 1 gm/ Sodium (Chloride) 50 mls @ 100 mls/hr IV Q24H [facility] Lactated Ringer's (Lr) 500 mls @ 20 mls/hr IVCONT .Q24H [facility] Last Admin: 01/14/25 20:14 Dose: Not Given Documented By: JENNIFER Non-Admin Reason: in PACU Lactated Ringer's (Lr) 1,000 mls @ 100 mls/hr IVCONT .Q10H [facility] Lactated Ringer's (Lr) 500 mls @ 999 mls/hr IV .Q31M [facility] Stop: 01/15/25 10:15 Last Admin: 01/15/25 09:47 Dose: 999 mls/hr Documented By: CORTEZ Insulin Human Lispro (Insulin Lispro 100 Unit/Ml 3 Ml Vial) 0 unit SUBCUT QIDACHS [facility]; Protocol Last Admin: 01/15/25 08:36 Dose: Not Given Documented By: CORTEZ Non-Admin Reason: Pt lethargic Magnesium Hydroxide (Milk Of Magnesia 30 Ml Oral.Susp) 30 ml PO DAILY PRN PRN Reason: Constipation Melatonin (Melatonin 3 Mg Tablet) 6 mg PO BEDTIME PRN PRN Reason: Insomnia Naloxone HCl (Naloxone Hcl 0.4 Mg/Ml Vial) 0.04 mg IVPUSH Q5M PRN PRN Reason: Excessive sedation or RR < 8 Naloxone HCl (Naloxone Hcl 0.4 Mg/Ml Vial) 0.04 mg IVPUSH Q5M PRN PRN Reason: Excessive sedation or RR < 8 Ondansetron HCl (Ondansetron Hcl 4 Mg/2 Ml Vial) 4 mg IVPUSH Q8H PRN PRN Reason: Nausea and Vomiting Polyethylene Glycol (Polyethylene Glycol 3350 17 Gm Powd.Pack) 17 gm PO DAILY PRN PRN Reason: Constipation Sodium Chloride (0.9 % Sodium Chloride Flush 3 Ml Syringe) [facility] Last Admin: 01/15/25 09:48 Dose: 3 ml Documented By: CORTEZ Labs 01/16/25 05:01 01/16/25 05:01 Labs: Laboratory Results - last 24 hr 01/14/25 01/14/25 01/14/25 11:28 11:29 12:12 MCV 90.9 MCH 30.1 MCHC 33.2 RDW 13.5 Plt Count 310 MPV 9.4 Immature Gran % (Auto) 0.6 H Neut % (Auto) 87.0 H Lymph % (Auto) 6.0 L [place] % (Auto) 5.8 Eos % (Auto) 0.4 Baso % (Auto) 0.2 Lymph # (Auto) 1.5 [place] # (Auto) 1.4 H Eos # (Auto) 0.1 Baso # (Auto) 0.0 Abs Immat Gran (auto) 0.16 H Absolute Neuts (auto) 21.5 H Absolute Nucleated RBC 0.000 Nucleated RBC % (auto) 0.0 Smear Tech's Comments VERIFIED VBG pH VBG pCO2 VBG pO2 VBG HCO3 VBG O2 Saturation VBG Base Excess Anion Gap 16 Estim Creat Clear Calc 28.1 Estimated GFR 35 POC Glucose Random Glucose 284 H Lactic Acid 3.2 H* Lactic Acid F/U @ 2Hr Calcium 10.0 Magnesium 1.6 Total Bilirubin 0.6 Direct Bilirubin 0.3 AST 35 H ALT 21 Alkaline Phosphatase 61 C-Reactive Protein 26.73 H Total Protein 8.5 H Albumin 4.4 Lipase 8 Procalcitonin 9.24 Urine Color Yellow Urine Appearance Turbid Urine pH 5.5 Ur Specific [place] 1.020 Urine Protein 100 (2+) H Urine Glucose (UA) >=1000 H Urine Ketones 15 Urine Blood Large (3+) H Urine Nitrite Positive H Ur Leukocyte Esterase Large (3+) H Urine RBC 3-5 H Urine WBC >50 H Ur Squamous Epith Cells 0-2 Urine Bacteria 4+ Hyaline Casts 11-20 Granular Casts Present Influenza Type A (PCR) NEGATIVE Influenza Type B (PCR) NEGATIVE RSV RNA Qual (PCR) NEGATIVE SARS-CoV-2 RNA (RT-PCR) NEGATIVE 01/14/25 01/14/25 01/14/25 14:08 15:28 20:24 MCV MCH MCHC RDW Plt Count MPV Immature Gran % (Auto) Neut % (Auto) Lymph % (Auto) [place] % (Auto) Eos % (Auto) Baso % (Auto) Lymph # (Auto) [place] # (Auto) Eos # (Auto) Baso # (Auto) Abs Immat Gran (auto) Absolute Neuts (auto) Absolute Nucleated RBC Nucleated RBC % (auto) Smear Tech's Comments VBG pH VBG pCO2 VBG pO2 VBG HCO3 VBG O2 Saturation VBG Base Excess Anion Gap Estim Creat Clear Calc Estimated GFR POC Glucose 281 H 203 H Random Glucose Lactic Acid Lactic Acid F/U @ 2Hr 1.7 Calcium Magnesium Total Bilirubin Direct Bilirubin AST ALT Alkaline Phosphatase C-Reactive Protein Total Protein Albumin Lipase Procalcitonin Urine Color Urine Appearance Urine pH Ur Specific [place] Urine Protein Urine Glucose (UA) Urine Ketones Urine Blood Urine Nitrite Ur Leukocyte Esterase Urine RBC Urine WBC Ur Squamous Epith Cells Urine Bacteria Hyaline Casts Granular Casts Influenza Type A (PCR) Influenza Type B (PCR) RSV RNA Qual (PCR) SARS-CoV-2 RNA (RT-PCR) 01/15/25 01/15/25 01/15/25 05:20 06:05 06:20 MCV 91.8 MCH 29.2 MCHC 31.8 RDW 13.8 Plt Count 207 D MPV 9.6 Immature Gran % (Auto) 1.5 H Neut % (Auto) 87.5 H Lymph % (Auto) 4.6 L [place] % (Auto) 6.2 Eos % (Auto) 0.0 Baso % (Auto) 0.2 Lymph # (Auto) 0.6 L [place] # (Auto) 0.9 Eos # (Auto) 0.0 Baso # (Auto) 0.0 Abs Immat Gran (auto) 0.21 H Absolute Neuts (auto) 12.0 H Absolute Nucleated RBC 0.000 Nucleated RBC % (auto) 0.0 Smear Tech's Comments VBG pH 7.46 H VBG pCO2 34 VBG pO2 93 VBG HCO3 24 VBG O2 Saturation 100.0 VBG Base Excess 1.4 Anion Gap 14 Estim Creat Clear Calc 32.2 Estimated GFR 41 POC Glucose 222 H Random Glucose 233 H Lactic Acid 1.6 Lactic Acid F/U @ 2Hr Calcium 8.5 D Magnesium Total Bilirubin 0.5 Direct Bilirubin AST 50 H ALT 13 Alkaline Phosphatase 53 C-Reactive Protein Total Protein 6.1 L Albumin 3.0 L Lipase Procalcitonin Urine Color Urine Appearance Urine pH Ur Specific [place] Urine Protein Urine Glucose (UA) Urine Ketones Urine Blood Urine Nitrite Ur Leukocyte Esterase Urine RBC Urine WBC Ur Squamous Epith Cells Urine Bacteria Hyaline Casts Granular Casts Influenza Type A (PCR) Influenza Type B (PCR) RSV RNA Qual (PCR) SARS-CoV-2 RNA (RT-PCR) 01/15/25 07:44 MCV MCH MCHC RDW Plt Count MPV Immature Gran % (Auto) Neut % (Auto) Lymph % (Auto) [place] % (Auto) Eos % (Auto) Baso % (Auto) Lymph # (Auto) [place] # (Auto) Eos # (Auto) Baso # (Auto) Abs Immat Gran (auto) Absolute Neuts (auto) Absolute Nucleated RBC Nucleated RBC % (auto) Smear Tech's Comments VBG pH VBG pCO2 VBG pO2 VBG HCO3 VBG O2 Saturation VBG Base Excess Anion Gap Estim Creat Clear Calc Estimated GFR POC Glucose 221 H Random Glucose Lactic Acid Lactic Acid F/U @ 2Hr Calcium Magnesium Total Bilirubin Direct Bilirubin AST ALT Alkaline Phosphatase C-Reactive Protein Total Protein Albumin Lipase Procalcitonin Urine Color Urine Appearance Urine pH Ur Specific [place] Urine Protein Urine Glucose (UA) Urine Ketones Urine Blood Urine Nitrite Ur Leukocyte Esterase Urine RBC Urine WBC Ur Squamous Epith Cells Urine Bacteria Hyaline Casts Granular Casts Influenza Type A (PCR) Influenza Type B (PCR) RSV RNA Qual (PCR) SARS-CoV-2 RNA (RT-PCR) Microbiology Microbiology Results: Microbiology 01/14/25 11:28 Blood Culture - Preliminary Blood - Venous Prelim: GNR Gram Stain only 01/14/25 11:43 Blood Culture - Preliminary Blood - Venous Prelim: GNR Gram Stain only Assessment and Plan (1) Metabolic encephalopathy: Status: Resolved (2) Acute UTI: Status: Acute (3) Non-insulin dependent type 2 diabetes mellitus: Status: Inactive (4) Mixed hyperlipidemia: Status: Inactive Plan This is a 84-year-old female with pertinent history of urinary incontinence, s/p suprapubic cath, hyperlipidemia, l hypertension, [id number]-nocwowukd diabetes mellitus, history of CVA here with fever, AMS and found to have sepsis d/t UTI Acute metabolic encephalopathy d/t UTI -Treat underlying UTI Sepsis d/t UTI with chronic indwelling catheter Infected Kidney stone: 1. Severe right hydroureteronephrosis. There is a 4 mm calculus at the UVJ and at least 2 additional calculi in the distal ureter measuring up to 6 mm in diameter. Uro consult and possible cystoscopy and stenting later today s/p cystoscopy with stent yesteryda Now septic shock and given IVF repeat lactic acid and if BP not improving will need to go to ICU Urinary incontinence: On oxybutynin and Flomax [id number] diabetes mellitus -BS check, SSI, metformin when eating History of CVA: Not on aspirin or high-intensity statin DVT prophylaxis: Lovenox Full code. Quality Stroke Does the patient have a stroke diagnosis?: No VTE Prior VTE?: No VTE Risk Level:: Medical - moderate - high VTE Device Contraindication: Treatment Not Indicated VTE Drug Contraindication: N/A - Med Ordered
--- NOTE | 2025-01-15 10:04 | P.PNUR_ITS ---
Subjective Subjective Date of Service: 01/15/25 Interval history: Postop day 1 stone removal and stent placement Significant drop in white cell count from 24-13 BP has remained soft and is receiving bolus Creatinine resolving has moved from 1.4-1.2 Continue with Cabrera catheter and clearing urine Physical Exam 2 Vital Signs: Vital Signs: Last Vital Signs Temp 98.5 F 01/15/25 07:55 Pulse 87 01/15/25 07:55 Resp 14 01/15/25 07:55 BP 84/48 L 01/15/25 09:35 Pulse Ox 96 01/15/25 07:55 O2 Del Method Nasal Cannula 01/15/25 07:55 O2 Flow Rate 3 01/15/25 07:55 BMI result Body Mass Index 23.6 Const: General: cooperative, healthy appearing, comfortable and no acute distress Orientation/consciousness: patient oriented x3 HEENT: Face and sinus: Yes normal facial exam Mouth: moist mucous membranes Neck: Neck: Yes normal visual inspection, Yes full ROM and Yes trachea midline Chest: Chest palpation & inspection: normal inspection of the chest Resp: Effort & Inspection: normal respiratory effort, able to speak in complete sentences and no respiratory distress GI: Inspection: Yes normal to inspection Back/Spine/Pelvis: Cervical Spine: normal cervical lordosis Thoracic/Lumbar Spine: thoracic and lumbar spine normal to inspection Skin: General skin exam: no rashes or lesions noted Neuro: General: patient oriented x3, tone normal and moves all extremities Extrem: General: Yes normal to inspection and Yes capillary refill normal Urology Results Labs 01/15/25 06:05 01/15/25 06:05 Labs: Laboratory Results - last 24 hr 01/14/25 01/14/25 01/14/25 11:28 11:29 12:12 WBC 24.6 H RBC 4.18 L Hgb 12.6 Hct 38.0 MCV 90.9 MCH 30.1 MCHC 33.2 RDW 13.5 Plt Count 310 MPV 9.4 Immature Gran % (Auto) 0.6 H Neut % (Auto) 87.0 H Lymph % (Auto) 6.0 L [place] % (Auto) 5.8 Eos % (Auto) 0.4 Baso % (Auto) 0.2 Lymph # (Auto) 1.5 [place] # (Auto) 1.4 H Eos # (Auto) 0.1 Baso # (Auto) 0.0 Abs Immat Gran (auto) 0.16 H Absolute Neuts (auto) 21.5 H Absolute Nucleated RBC 0.000 Nucleated RBC % (auto) 0.0 Smear Tech's Comments VERIFIED VBG pH VBG pCO2 VBG pO2 VBG HCO3 VBG O2 Saturation VBG Base Excess Sodium 139 Potassium 4.3 Chloride 103 Carbon Dioxide 24 Anion Gap 16 BUN 37 H Creatinine 1.44 H Estim Creat Clear Calc 28.1 Estimated GFR 35 POC Glucose Random Glucose 284 H Lactic Acid 3.2 H* Lactic Acid F/U @ 2Hr Calcium 10.0 Magnesium 1.6 Total Bilirubin 0.6 Direct Bilirubin 0.3 AST 35 H ALT 21 Alkaline Phosphatase 61 C-Reactive Protein 26.73 H Total Protein 8.5 H Albumin 4.4 Lipase 8 Procalcitonin 9.24 Urine Color Yellow Urine Appearance Turbid Urine pH 5.5 Ur Specific [place] 1.020 Urine Protein 100 (2+) H Urine Glucose (UA) >=1000 H Urine Ketones 15 Urine Blood Large (3+) H Urine Nitrite Positive H Ur Leukocyte Esterase Large (3+) H Urine RBC 3-5 H Urine WBC >50 H Ur Squamous Epith Cells 0-2 Urine Bacteria 4+ Hyaline Casts 11-20 Granular Casts Present Influenza Type A (PCR) NEGATIVE Influenza Type B (PCR) NEGATIVE RSV RNA Qual (PCR) NEGATIVE SARS-CoV-2 RNA (RT-PCR) NEGATIVE 01/14/25 01/14/25 01/14/25 14:08 15:28 20:24 WBC RBC Hgb Hct MCV MCH MCHC RDW Plt Count MPV Immature Gran % (Auto) Neut % (Auto) Lymph % (Auto) [place] % (Auto) Eos % (Auto) Baso % (Auto) Lymph # (Auto) [place] # (Auto) Eos # (Auto) Baso # (Auto) Abs Immat Gran (auto) Absolute Neuts (auto) Absolute Nucleated RBC Nucleated RBC % (auto) Smear Tech's Comments VBG pH VBG pCO2 VBG pO2 VBG HCO3 VBG O2 Saturation VBG Base Excess Sodium Potassium Chloride Carbon Dioxide Anion Gap BUN Creatinine Estim Creat Clear Calc Estimated GFR POC Glucose 281 H 203 H Random Glucose Lactic Acid Lactic Acid F/U @ 2Hr 1.7 Calcium Magnesium Total Bilirubin Direct Bilirubin AST ALT Alkaline Phosphatase C-Reactive Protein Total Protein Albumin Lipase Procalcitonin Urine Color Urine Appearance Urine pH Ur Specific [place] Urine Protein Urine Glucose (UA) Urine Ketones Urine Blood Urine Nitrite Ur Leukocyte Esterase Urine RBC Urine WBC Ur Squamous Epith Cells Urine Bacteria Hyaline Casts Granular Casts Influenza Type A (PCR) Influenza Type B (PCR) RSV RNA Qual (PCR) SARS-CoV-2 RNA (RT-PCR) 01/15/25 01/15/25 01/15/25 05:20 06:05 06:20 WBC 13.8 H RBC 3.18 L D Hgb 9.3 L D Hct 29.2 L D MCV 91.8 MCH 29.2 MCHC 31.8 RDW 13.8 Plt Count 207 D MPV 9.6 Immature Gran % (Auto) 1.5 H Neut % (Auto) 87.5 H Lymph % (Auto) 4.6 L [place] % (Auto) 6.2 Eos % (Auto) 0.0 Baso % (Auto) 0.2 Lymph # (Auto) 0.6 L [place] # (Auto) 0.9 Eos # (Auto) 0.0 Baso # (Auto) 0.0 Abs Immat Gran (auto) 0.21 H Absolute Neuts (auto) 12.0 H Absolute Nucleated RBC 0.000 Nucleated RBC % (auto) 0.0 Smear Tech's Comments VBG pH 7.46 H VBG pCO2 34 VBG pO2 93 VBG HCO3 24 VBG O2 Saturation 100.0 VBG Base Excess 1.4 Sodium 139 Potassium 3.5 Chloride 106 Carbon Dioxide 23 Anion Gap 14 BUN 24 H Creatinine 1.26 Estim Creat Clear Calc 32.2 Estimated GFR 41 POC Glucose 222 H Random Glucose 233 H Lactic Acid 1.6 Lactic Acid F/U @ 2Hr Calcium 8.5 D Magnesium Total Bilirubin 0.5 Direct Bilirubin AST 50 H ALT 13 Alkaline Phosphatase 53 C-Reactive Protein Total Protein 6.1 L Albumin 3.0 L Lipase Procalcitonin Urine Color Urine Appearance Urine pH Ur Specific [place] Urine Protein Urine Glucose (UA) Urine Ketones Urine Blood Urine Nitrite Ur Leukocyte Esterase Urine RBC Urine WBC Ur Squamous Epith Cells Urine Bacteria Hyaline Casts Granular Casts Influenza Type A (PCR) Influenza Type B (PCR) RSV RNA Qual (PCR) SARS-CoV-2 RNA (RT-PCR) 01/15/25 07:44 WBC RBC Hgb Hct MCV MCH MCHC RDW Plt Count MPV Immature Gran % (Auto) Neut % (Auto) Lymph % (Auto) [place] % (Auto) Eos % (Auto) Baso % (Auto) Lymph # (Auto) [place] # (Auto) Eos # (Auto) Baso # (Auto) Abs Immat Gran (auto) Absolute Neuts (auto) Absolute Nucleated RBC Nucleated RBC % (auto) Smear Tech's Comments VBG pH VBG pCO2 VBG pO2 VBG HCO3 VBG O2 Saturation VBG Base Excess Sodium Potassium Chloride Carbon Dioxide Anion Gap BUN Creatinine Estim Creat Clear Calc Estimated GFR POC Glucose 221 H Random Glucose Lactic Acid Lactic Acid F/U @ 2Hr Calcium Magnesium Total Bilirubin Direct Bilirubin AST ALT Alkaline Phosphatase C-Reactive Protein Total Protein Albumin Lipase Procalcitonin Urine Color Urine Appearance Urine pH Ur Specific [place] Urine Protein Urine Glucose (UA) Urine Ketones Urine Blood Urine Nitrite Ur Leukocyte Esterase Urine RBC Urine WBC Ur Squamous Epith Cells Urine Bacteria Hyaline Casts Granular Casts Influenza Type A (PCR) Influenza Type B (PCR) RSV RNA Qual (PCR) SARS-CoV-2 RNA (RT-PCR) Progress Note: A&P Assessment and plan (1) Hydroureteronephrosis: Status: Acute (2) Kidney stone: Status: Acute (3) Sepsis: Status: Acute Plan Resolving pyelonephritis sepsis Indwelling stent Continue to follow up Time Spent With Patient Time: Total time managing care of this patient today ____ minutes. Progress Note: Quality Stroke Does the patient have a stroke diagnosis?: No
[2025-01-15] MEDS: Lactated Ringers 1,000 ML 999 ML IV (10:26)
[2025-01-15 11:26] LABS: Glucose, Whole Blood 201 mg/dL (60-115)
[2025-01-15] MEDS: Lactated Ringers 1,000 ML 150 ML IVCONT ×3 (12:31→23:23)
--- NOTE | 2025-01-15 15:41 | MHC.CM.PN ---
IMM given 01/15. Pt lives at home with her daughter/HCP Jodi, copy of HCP requested. Pt uses an electric wheelchair, a hospital bed, commode, and has assistive rails in the bathroom. ' Pt active with [facility], and [facility] for MOW's daily and a social work administrator 2x/week. Pt will need a BLS transport home at discharge. PCP: Liz FRANKLIN
[2025-01-15 15:58] LABS: Glucose, Whole Blood 299 mg/dL (60-115)
[2025-01-15 20:30] LABS: Glucose, Whole Blood 210 mg/dL (60-115)
[2025-01-16] VITALS (7 sets, daily range): BP systolic 116–142; BP diastolic 57–67; PULSE 85–103; RESP 16–22; TEMP 36.1–37.1; O2SAT 95–99
[2025-01-16] MEDS: Lactated Ringers 1,000 ML 150 ML IVCONT (05:18)
[2025-01-16 05:58] LABS: Hematocrit 26.4 % (37.0-47.0); Hemoglobin 8.8 g/dl (12.0-16.0); Mean Corpuscular HGB Conc 33.3 g/dl (31.0-35.0); Mean Corpuscular Hemoglobin 29.8 pg (27.0-33.0); Mean Corpuscular Volume 89.5 fL (80.0-98.0); NRBC Abs Auto 0.000 X10*3/uL (0.0-0.012); NRBC Pct Auto 0.0 /100WBC (0.0-0.2); Platelet Count 184 X10*3/uL (160-400); Red Blood Count 2.95 X10*6/uL (4.20-5.50); White Blood Count 8.7 X10*3/uL (4.8-10.8)
[2025-01-16 06:02] LABS: Anion Gap 11 (12-20); Blood Urea Nitrogen 21 mg/dL (9-16); Calcium 8.1 mg/dL (8.4-10.2); Carbon Dioxide 24 mmol/L (22-29); Chloride 105 mmol/L (96-108); Creatinine Clr Calc Pharmacy 37.9; Estimated Glomerular Filt Rate 49; Potassium 3.3 mmol/L (3.3-5.1); Sodium 137 mmol/L (135-145)
[2025-01-16 07:38] LABS: Glucose, Whole Blood 141 mg/dL (60-115)
--- NOTE | 2025-01-16 08:58 | PC.NURSE ---
Md Ivy made aware pt unable to tolerate pills with thin liquids, attempted to take pills with daughter at bedside and pt gagged, spit out pill, and was coughing. Held the rest of AM med pass. Pt was able to take meds whole with thin liquids yesterday without difficultly.
[2025-01-16] MEDS: Lactated Ringers 1,000 ML 100 ML IVCONT ×3 (09:33→22:52)
--- NOTE | 2025-01-16 11:00 | P.PNIM_ITS ---
Subjective Subjective Date of Service: 01/16/25 Interval History: f/u on sespis, uti and infected kidney s/p cystoscopy with stent 01/14, hypotensive 01/15 and required multiple IVF boluses, hypotension now resolved, sepsis resolved. WBC normal. Seems a bit off this morning, not eating but mental status is intact Physical Exam 2 Vital Signs: Vital Signs: Last Vital Signs Temp 97.6 F 01/16/25 07:12 Pulse 95 01/16/25 07:12 Resp 22 H 01/16/25 07:12 BP 119/61 01/16/25 07:12 Pulse Ox 95 01/16/25 07:12 O2 Del Method Nasal Cannula 01/16/25 07:12 O2 Flow Rate 2 01/16/25 07:12 BMI result Body Mass Index 23.6 Const: Other: General: AO X 3, no acute distress Resp: CTA bilateral CVS: S1,S2,RRR GI: +BS, NT, no distention Skin: No rash Neuro: Left sided weakness old since stroke Psych: appropriate affect Objective Data Active Medications Acetaminophen (Acetaminophen 325 Mg Tablet) 650 mg PO Q6H PRN PRN Reason: Pain, Mild 1-3,fever,headache Last Admin: 01/16/25 08:50 Dose: 325 mg Documented By: CORTEZ Ascorbic Acid (Ascorbic Acid 500 Mg Tablet) 500 mg PO DAILY [facility] Last Admin: 01/16/25 09:18 Dose: Not Given Documented By: CORTEZ Non-Admin Reason: Pt unable to swallow Atorvastatin Calcium (Atorvastatin Calcium 20 Mg Tablet) 20 mg PO BEDTIME [facility] Calcium Carbonate (Calcium Carbonate 750 Mg Tab.Chew) 750 mg PO Q4H PRN PRN Reason: Heartburn Calcium Carbonate/Cholecalciferol (Calcium + Vitamin D 250 Mg Tablet) 500 mg PO DAILY [facility] Last Admin: 01/16/25 09:18 Dose: Not Given Documented By: CORTEZ Non-Admin Reason: Pt unable to swallow Clotrimazole (Clotrimazole 1 % Cream 15 Gm Tube) 1 appl TOPICAL BID PRN; Protocol PRN Reason: Itching Cyanocobalamin (Cyanocobalamin (Vitamin B-12) 1,000 Mcg Tablet) 1,000 mcg PO DAILY [facility] Last Admin: 01/16/25 09:18 Dose: Not Given Documented By: CORTEZ Non-Admin Reason: Pt unable to swallow Dextrose (Dextrose 50 % 25 Gm/50 Ml Syringe) 25 gm IVPUSH Q15M PRN; Protocol PRN Reason: per Hypoglycemia Standing Ord. Diphenhydramine HCl (Diphenhydramine Hcl 25 Mg Capsule) 25 mg PO Q6H PRN PRN Reason: headache, nausea, vomiting Enoxaparin Sodium (Enoxaparin Sodium 30 Mg/0.3 Ml Syringe) 30 mg SUBCUT Q24H [facility] Last Admin: 01/15/25 15:23 Dose: 30 mg Documented By: CORTEZ Gabapentin (Gabapentin 300 Mg Capsule) 300 mg PO BID [facility] Last Admin: 01/16/25 09:18 Dose: Not Given Documented By: CORTEZ Non-Admin Reason: Pt unable to swallow Glucose (Glucose Gel 15 Gm Gel..Gram.) 15 gm PO Q15M PRN; Protocol PRN Reason: per Hypoglycemia Standing Ord. Hydrochlorothiazide (Hydrochlorothiazide 25 Mg Tablet) 25 mg PO BEDTIME [facility]; Protocol Cefepime HCl 1 gm/ Sodium (Chloride) 50 mls @ 100 mls/hr IV Q24H [facility] Last Infusion: 01/15/25 13:10 Dose: Infused Documented By: CORTEZ Lactated Ringer's (Lr) 1,000 mls @ 100 mls/hr IVCONT .Q10H [facility] Last Admin: 01/16/25 09:33 Dose: 100 mls/hr Documented By: CORTEZ Insulin Human Lispro (Insulin Lispro 100 Unit/Ml 3 Ml Vial) 0 unit SUBCUT QIDACHS [facility]; Protocol Last Admin: 01/16/25 07:48 Dose: Not Given Documented By: CORTEZ Non-Admin Reason: No Insulin Coverage Losartan Potassium (Losartan Potassium 50 Mg Tablet) 50 mg PO BEDTIME [facility]; Protocol Magnesium Hydroxide (Milk Of Magnesia 30 Ml Oral.Susp) 30 ml PO DAILY PRN PRN Reason: Constipation Meclizine HCl (Meclizine Hcl 25 Mg Tablet) 25 mg PO TID PRN PRN Reason: Dizziness Melatonin (Melatonin 3 Mg Tablet) 6 mg PO BEDTIME PRN PRN Reason: Insomnia Metoclopramide HCl (Metoclopramide Hcl 10 Mg Tablet) 10 mg PO Q6H PRN PRN Reason: Nausea and Vomiting Multivitamins/Vitamin C (Multivitamin Tablet) 1 tab PO DAILY [facility] Last Admin: 01/16/25 09:18 Dose: Not Given Documented By: CORTEZ Non-Admin Reason: Pt unable to swallow Naloxone HCl (Naloxone Hcl 0.4 Mg/Ml Vial) 0.04 mg IVPUSH Q5M PRN PRN Reason: Excessive sedation or RR < 8 Non-Formulary Medication (Finerenone [Kerendia]) 20 mg PO BEDTIME [facility] Ondansetron HCl (Ondansetron Hcl 4 Mg/2 Ml Vial) 4 mg IVPUSH Q8H PRN PRN Reason: Nausea and Vomiting Oxybutynin Chloride (Oxybutynin Chloride Er 5 Mg Tab.Er.24) 5 mg PO BEDTIME [facility] Polyethylene Glycol (Polyethylene Glycol 3350 17 Gm Powd.Pack) 17 gm PO DAILY PRN PRN Reason: Constipation Ropinirole HCl (Ropinirole Hcl 0.25 Mg Tablet) 0.25 mg PO BEDTIME [facility] Sodium Chloride (0.9 % Sodium Chloride Flush 3 Ml Syringe) 3 ml IVFLUSH QSHIFT [facility] Last Admin: 01/16/25 09:17 Dose: Not Given Documented By: CORTEZ Non-Admin Reason: IVF infusing Vitamin D (Cholecalciferol (Vitamin D3) 25 Mcg Tablet) 50 mcg PO DAILY [facility] Last Admin: 01/16/25 09:18 Dose: Not Given Documented By: CORTEZ Non-Admin Reason: Pt unable to swallow Labs 01/16/25 05:01 01/16/25 05:01 Labs: Laboratory Results - last 24 hr 01/15/25 01/15/25 01/15/25 11:05 11:19 15:54 MCV MCH MCHC RDW Plt Count MPV Absolute Nucleated RBC Nucleated RBC % (auto) Anion Gap Estim Creat Clear Calc Estimated GFR POC Glucose 201 H 299 H Random Glucose Lactic Acid 2.0 Calcium 01/15/25 01/16/25 01/16/25 20:27 05:01 07:16 MCV 89.5 MCH 29.8 MCHC 33.3 RDW 13.5 Plt Count 184 MPV 9.8 Absolute Nucleated RBC 0.000 Nucleated RBC % (auto) 0.0 Anion Gap 11 L Estim Creat Clear Calc 37.9 Estimated GFR 49 POC Glucose 210 H 141 H Random Glucose 146 H Lactic Acid Calcium 8.1 L Microbiology Microbiology Results: Microbiology 01/14/25 11:43 Blood Culture - Preliminary Blood - Venous Gram negative rubi 01/14/25 11:28 Blood Culture - Preliminary Blood - Venous Gram negative rubi 01/14/25 Unknown Urine Culture - Final Urine Other - Suprapubic Assessment and Plan (1) Metabolic encephalopathy: Status: Resolved (2) Acute UTI: Status: Acute (3) Non-insulin dependent type 2 diabetes mellitus: Status: Inactive (4) Mixed hyperlipidemia: Status: Inactive Plan This is a 84-year-old female with pertinent history of urinary incontinence, s/p suprapubic cath, hyperlipidemia, l hypertension, [id number] diabetes mellitus, history of CVA here with fever, AMS and found to have sepsis d/t UTI Acute metabolic encephalopathy d/t UTI, resolved -Treat underlying UTI Sepsis d/t UTI with chronic indwelling catheter Infected Kidney stone GNR bacteremia, sensitive pending s/p cystoscopy with stent 01/14 Septic shock 01/15, resolved, decrease IVF to 100/hr Follow up culture sensitivity Anemia, hemoglobin down from 12.6 to 8.8 tody, 9.3 yesterday ? hemodilution from ivf, no sings of bleeding monitor check occult blood Urinary incontinence: On oxybutynin and Flomax HTN losartan at night, hold if BP low [id number] diabetes mellitus -BS check, SSI, metformin when eating History of CVA with right sided weakness: Not on aspirin or high-intensity statin DVT prophylaxis: Lovenox Full code. Quality Stroke Does the patient have a stroke diagnosis?: No VTE Prior VTE?: No VTE Risk Level:: Medical - moderate - high VTE Device Contraindication: Treatment Not Indicated VTE Drug Contraindication: N/A - Med Ordered
[2025-01-16 11:32] LABS: Glucose, Whole Blood 176 mg/dL (60-115)
[2025-01-16] MEDS: 0.9 % Sodium Chloride Flush 3 ML SYRINGE IVFLUSH ×2 (15:52→20:38)
[2025-01-16 16:17] LABS: Glucose, Whole Blood 216 mg/dL (60-115)
--- NOTE | 2025-01-16 16:29 | MHC.CM.PN ---
PER MD ROUNDS, PT IS EXPECTED TO REMAIN OVER THE WEEKEND DCP: [facility]
[2025-01-16 20:16] LABS: Glucose, Whole Blood 196 mg/dL (60-115)
[2025-01-16] MEDS: oxyBUTYnin chloride ER 5 MG TAB.ER.24 PO (20:36)
[2025-01-16 22:31] LABS: OBS1 NEGATIVE (NEGATIVE)
[2025-01-16 22:32] LABS: OBS Int Ctl Valid YES
[2025-01-17] VITALS (7 sets, daily range): BP systolic 132–148; BP diastolic 63–91; PULSE 79–100; RESP 16–17; TEMP 36.3–36.6; O2SAT 92–97
[2025-01-17 07:10] LABS: Anion Gap 17 (12-20); Blood Urea Nitrogen 16 mg/dL (9-16); Calcium 8.3 mg/dL (8.4-10.2); Carbon Dioxide 24 mmol/L (22-29); Chloride 100 mmol/L (96-108); Creatinine Clr Calc Pharmacy 43.6; Estimated Glomerular Filt Rate 58; Potassium 3.5 mmol/L (3.3-5.1); Sodium 137 mmol/L (135-145)
[2025-01-17 07:17] LABS: Glucose, Whole Blood 159 mg/dL (60-115)
[2025-01-17] MEDS: Lactated Ringers 1,000 ML 100 ML IVCONT ×2 (07:34→16:52)
[2025-01-17] MEDS: Calcium + Vitamin D 250 MG TABLET 500 MG PO (07:36)
--- NOTE | 2025-01-17 09:04 | P.PNIM_ITS ---
Subjective Subjective Date of Service: 01/17/25 Interval History: f/u on sespis, uti and infected kidney s/p cystoscopy with stent 01/14, hypotensive 01/15 and required multiple IVF boluses, hypotension now resolved, sepsis resolved. Doing well, no new issues, vital stable, Physical Exam 2 Vital Signs: Vital Signs: Last Vital Signs Temp 98 F 01/17/25 06:57 Pulse 82 01/17/25 06:57 Resp 16 01/17/25 06:57 BP 132/63 01/17/25 06:57 Pulse Ox 94 01/17/25 06:57 O2 Del Method Room Air 01/17/25 06:57 O2 Flow Rate 2 01/17/25 03:24 BMI result Body Mass Index 23.6 Const: Other: General: AO X 3, no acute distress Resp: CTA bilateral CVS: S1,S2,RRR GI: +BS, NT, no distention Skin: No rash Neuro: Left sided weakness old since stroke Psych: appropriate affect Objective Data Active Medications Acetaminophen (Acetaminophen 325 Mg Tablet) 650 mg PO Q6H PRN PRN Reason: Pain, Mild 1-3,fever,headache Last Admin: 01/17/25 04:21 Dose: 650 mg Documented By: REYES Ascorbic Acid (Ascorbic Acid 500 Mg Tablet) 500 mg PO DAILY [facility] Last Admin: 01/17/25 07:36 Dose: 500 mg Documented By: CHRISTINE Atorvastatin Calcium (Atorvastatin Calcium 20 Mg Tablet) 20 mg PO BEDTIME [facility] Last Admin: 01/16/25 20:37 Dose: 20 mg Documented By: REYES Calcium Carbonate (Calcium Carbonate 750 Mg Tab.Chew) 750 mg PO Q4H PRN PRN Reason: Heartburn Calcium Carbonate/Cholecalciferol (Calcium + Vitamin D 250 Mg Tablet) 500 mg PO DAILY [facility] Last Admin: 01/17/25 07:36 Dose: 500 mg Documented By: CHRISTINE Clotrimazole (Clotrimazole 1 % Cream 15 Gm Tube) 1 appl TOPICAL BID PRN; Protocol PRN Reason: Itching Cyanocobalamin (Cyanocobalamin (Vitamin B-12) 1,000 Mcg Tablet) 1,000 mcg PO DAILY [facility] Last Admin: 01/17/25 07:36 Dose: 1,000 mcg Documented By: CHRISTINE Dextrose (Dextrose 50 % 25 Gm/50 Ml Syringe) 25 gm IVPUSH Q15M PRN; Protocol PRN Reason: per Hypoglycemia Standing Ord. Diphenhydramine HCl (Diphenhydramine Hcl 25 Mg Capsule) 25 mg PO Q6H PRN PRN Reason: headache, nausea, vomiting Enoxaparin Sodium (Enoxaparin Sodium 30 Mg/0.3 Ml Syringe) 30 mg SUBCUT Q24H [facility] Last Admin: 01/16/25 15:52 Dose: 30 mg Documented By: CORTEZ Gabapentin (Gabapentin 300 Mg Capsule) 300 mg PO BID [facility] Last Admin: 01/17/25 07:36 Dose: 300 mg Documented By: CHRISTINE Glucose (Glucose Gel 15 Gm Gel..Gram.) 15 gm PO Q15M PRN; Protocol PRN Reason: per Hypoglycemia Standing Ord. Hydrochlorothiazide (Hydrochlorothiazide 25 Mg Tablet) 25 mg PO BEDTIME [facility]; Protocol Last Admin: 01/16/25 20:37 Dose: 25 mg Documented By: REYES Cefepime HCl 1 gm/ Sodium (Chloride) 50 mls @ 100 mls/hr IV Q24H [facility] Last Infusion: 01/16/25 12:41 Dose: Infused Documented By: CORTEZ Lactated Ringer's (Lr) 1,000 mls @ 100 mls/hr IVCONT .Q10H [facility] Last Admin: 01/17/25 07:34 Dose: 100 mls/hr Documented By: CHRISTINE Insulin Human Lispro (Insulin Lispro 100 Unit/Ml 3 Ml Vial) 0 unit SUBCUT QIDACHS [facility]; Protocol Last Admin: 01/17/25 07:35 Dose: 2 unit Documented By: CHRISTINE Losartan Potassium (Losartan Potassium 50 Mg Tablet) 50 mg PO BEDTIME [facility]; Protocol Last Admin: 01/16/25 20:37 Dose: 50 mg Documented By: REYES Magnesium Hydroxide (Milk Of Magnesia 30 Ml Oral.Susp) 30 ml PO DAILY PRN PRN Reason: Constipation Meclizine HCl (Meclizine Hcl 25 Mg Tablet) 25 mg PO TID PRN PRN Reason: Dizziness Melatonin (Melatonin 3 Mg Tablet) 6 mg PO BEDTIME PRN PRN Reason: Insomnia Metoclopramide HCl (Metoclopramide Hcl 10 Mg Tablet) 10 mg PO Q6H PRN PRN Reason: Nausea and Vomiting Multivitamins/Vitamin C (Multivitamin Tablet) 1 tab PO DAILY [facility] Last Admin: 01/17/25 07:36 Dose: 1 tab Documented By: CHRISTINE Naloxone HCl (Naloxone Hcl 0.4 Mg/Ml Vial) 0.04 mg IVPUSH Q5M PRN PRN Reason: Excessive sedation or RR < 8 Non-Formulary Medication (Finerenone [Kerendia]) 20 mg PO BEDTIME [facility] Ondansetron HCl (Ondansetron Hcl 4 Mg/2 Ml Vial) 4 mg IVPUSH Q8H PRN PRN Reason: Nausea and Vomiting Last Admin: 01/16/25 20:46 Dose: 4 mg Documented By: REYES Comments: c/o nausea Oxybutynin Chloride (Oxybutynin Chloride Er 5 Mg Tab.Er.24) 5 mg PO BEDTIME [facility] Last Admin: 01/16/25 20:36 Dose: 5 mg Documented By: REYES Polyethylene Glycol (Polyethylene Glycol 3350 17 Gm Powd.Pack) 17 gm PO DAILY PRN PRN Reason: Constipation Ropinirole HCl (Ropinirole Hcl 0.25 Mg Tablet) 0.25 mg PO BEDTIME [facility] Last Admin: 01/16/25 20:37 Dose: 0.25 mg Documented By: REYES Sodium Chloride (0.9 % Sodium Chloride Flush 3 Ml Syringe) 3 ml IVFLUSH QSHIFT [facility] Last Admin: 01/17/25 07:25 Dose: Not Given Documented By: CHRISTINE Non-Admin Reason: IV Running Vitamin D (Cholecalciferol (Vitamin D3) 25 Mcg Tablet) 50 mcg PO DAILY [facility] Last Admin: 01/17/25 07:36 Dose: 50 mcg Documented By: CHRISTINE Labs 01/16/25 05:01 01/17/25 06:06 Labs: Laboratory Results - last 24 hr 01/16/25 01/16/25 01/16/25 11:22 16:14 20:10 Anion Gap Estim Creat Clear Calc Estimated GFR POC Glucose 176 H 216 H 196 H Random Glucose Calcium Stool Occult Blood 01/16/25 01/17/25 01/17/25 22:00 06:06 07:13 Anion Gap 17 Estim Creat Clear Calc 43.6 Estimated GFR 58 POC Glucose 159 H Random Glucose 173 H Calcium 8.3 L Stool Occult Blood NEGATIVE Microbiology Microbiology Results: Microbiology 01/14/25 11:43 Blood Culture - Final Blood - Venous Serratia marcescens 01/14/25 11:28 Blood Culture - Final Blood - Venous Serratia marcescens Assessment and Plan (1) Metabolic encephalopathy: Status: Resolved (2) Acute UTI: Status: Acute (3) Non-insulin dependent type 2 diabetes mellitus: Status: Inactive (4) Mixed hyperlipidemia: Status: Inactive Plan This is a 84-year-old female with pertinent history of urinary incontinence, s/p suprapubic cath, hyperlipidemia, l hypertension, cfs-wlfsiwx-hcuazrhkj diabetes mellitus, history of CVA here with fever, AMS and found to have sepsis d/t UTI Acute metabolic encephalopathy d/t UTI, resolved -Treat underlying UTI Sepsis d/t UTI with chronic indwelling catheter Infected Kidney stone Serratia marcescens bacteremia, pansensitive s/p cystoscopy with stent 01/14 Septic shock 01/15, resolved, decrease IVF to 100/hr Follow up culture sensitivity Continue Cefepime, unknonw pen allergy, will change Abx to Cipro Anemia, hemoglobin down from 12.6 to 8.8 tody, 9.3 yesterday ? hemodilution from ivf, no sings of bleeding monitor check occult blood Urinary incontinence: On oxybutynin and Flomax HTN losartan at night, hold if BP low Che-vbtzzzn-apmfzheta diabetes mellitus -BS check, SSI, metformin when eating History of CVA with right sided weakness: Not on aspirin or high-intensity statin DVT prophylaxis: Lovenox Full code. Quality Stroke Does the patient have a stroke diagnosis?: No VTE Prior VTE?: No VTE Risk Level:: Medical - moderate - high VTE Device Contraindication: Treatment Not Indicated VTE Drug Contraindication: N/A - Med Ordered
[2025-01-17] MEDS: Furosemide 40 MG/4 ML VIAL IVPUSH (10:14)
[2025-01-17 11:07] LABS: Glucose, Whole Blood 206 mg/dL (60-115)
--- NOTE | 2025-01-17 11:39 | P.PNUR_ITS ---
Subjective Subjective Date of Service: 01/17/25 Interval history: Baseline Cr Baseline WBC Good UO Followup as outpatient for cysto stent removal Physical Exam 2 Vital Signs: Vital Signs: Last Vital Signs Temp 98 F 01/17/25 11:18 Pulse 82 01/17/25 11:18 Resp 16 01/17/25 11:18 BP 143/70 H 01/17/25 11:18 Pulse Ox 93 01/17/25 11:18 O2 Del Method Room Air 01/17/25 11:18 O2 Flow Rate 2 01/17/25 03:24 BMI result Body Mass Index 23.6 Const: General: cooperative, healthy appearing, comfortable and no acute distress Orientation/consciousness: patient oriented x3 HEENT: Face and sinus: Yes normal facial exam Mouth: moist mucous membranes Neck: Neck: Yes normal visual inspection, Yes full ROM and Yes trachea midline Chest: Chest palpation & inspection: normal inspection of the chest Resp: Effort & Inspection: normal respiratory effort, able to speak in complete sentences and no respiratory distress GI: Inspection: Yes normal to inspection Back/Spine/Pelvis: Cervical Spine: normal cervical lordosis Thoracic/Lumbar Spine: thoracic and lumbar spine normal to inspection Skin: General skin exam: no rashes or lesions noted Neuro: General: patient oriented x3, tone normal and moves all extremities Extrem: General: Yes normal to inspection and Yes capillary refill normal Urology Results Labs 01/16/25 05:01 01/17/25 06:06 Labs: Laboratory Results - last 24 hr 01/16/25 01/16/25 01/16/25 16:14 20:10 22:00 Sodium Potassium Chloride Carbon Dioxide Anion Gap BUN Creatinine Estim Creat Clear Calc Estimated GFR POC Glucose 216 H 196 H Random Glucose Calcium Stool Occult Blood NEGATIVE 01/17/25 01/17/25 01/17/25 06:06 07:13 10:59 Sodium 137 Potassium 3.5 Chloride 100 Carbon Dioxide 24 Anion Gap 17 BUN 16 Creatinine 0.93 Estim Creat Clear Calc 43.6 Estimated GFR 58 POC Glucose 159 H 206 H Random Glucose 173 H Calcium 8.3 L Stool Occult Blood Progress Note: A&P Assessment and plan (1) Hydroureteronephrosis: Status: Acute (2) Ureterolithiasis: Status: Acute Plan Followup outpatient removal of stent Time Spent With Patient Time: Total time managing care of this patient today ____ minutes. Progress Note: Quality Stroke Does the patient have a stroke diagnosis?: No
[2025-01-17 16:27] LABS: Glucose, Whole Blood 163 mg/dL (60-115)
[2025-01-17] MEDS: Milk of Magnesia 30 ML ORAL.SUSP PO (16:44)
[2025-01-17] MEDS: oxyBUTYnin chloride ER 5 MG TAB.ER.24 PO (20:07)
[2025-01-17] MEDS: FINERENONE 20 MG 20 EACH PO (20:08)
[2025-01-17 20:15] LABS: Glucose, Whole Blood 236 mg/dL (60-115)
[2025-01-17] MEDS: 0.9 % Sodium Chloride Flush 3 ML SYRINGE IVFLUSH (21:42)
[2025-01-18] VITALS (8 sets, daily range): BP systolic 100–150; BP diastolic 49–67; PULSE 80–97; RESP 16–18; TEMP 36–36.6; O2SAT 92–96
[2025-01-18] MEDS: Lactated Ringers 1,000 ML 100 ML IVCONT (03:59)
--- NOTE | 2025-01-18 05:41 | HO.SKINPHOTO ---
Location: Category: Stage: Length: Width: Depth: cm
[2025-01-18 06:36] LABS: Anion Gap 15 (12-20); Blood Urea Nitrogen 13 mg/dL (9-16); Calcium 8.6 mg/dL (8.4-10.2); Carbon Dioxide 30 mmol/L (22-29); Chloride 97 mmol/L (96-108); Creatinine Clr Calc Pharmacy 44.1; Estimated Glomerular Filt Rate 58; Potassium 3.0 mmol/L (3.3-5.1); Sodium 139 mmol/L (135-145)
[2025-01-18 06:55] LABS: Glucose, Whole Blood 183 mg/dL (60-115)
[2025-01-18] MEDS: Potassium Chloride Packet 20 MEQ PACKET 40 MEQ PO (08:19)
[2025-01-18] MEDS: Calcium + Vitamin D 250 MG TABLET 500 MG PO (08:20)
[2025-01-18] MEDS: Furosemide 40 MG/4 ML VIAL IVPUSH (09:18)
--- NOTE | 2025-01-18 11:11 | HO.PM.IMPN ---
Subjective Subjective Date of Service: 01/18/25 Interval History: Doing well, no new issues gen weakness Physical Exam Vital Signs: Vital Signs: Last Vital Signs Temp 98 F 01/18/25 06:50 Pulse 97 01/18/25 06:50 Resp 17 01/18/25 06:50 BP 119/58 L 01/18/25 09:18 Pulse Ox 93 01/18/25 09:00 O2 Del Method Room Air 01/18/25 09:00 O2 Flow Rate 2 01/18/25 06:50 BMI result Body Mass Index 23.6 Const: Other: General: AO X 3, no acute distress Resp: rales at bases CVS: S1,S2,RRR GI: +BS, NT, no distention Skin: No rash Neuro: Left sided weakness old since stroke Psych: appropriate affect Objective Data Active Medications Acetaminophen (Acetaminophen 325 Mg Tablet) 650 mg PO Q6H PRN PRN Reason: Pain, Mild 1-3,fever,headache Last Admin: 01/17/25 18:24 Dose: 650 mg Documented By: CHRISTINE Ascorbic Acid (Ascorbic Acid 500 Mg Tablet) 500 mg PO DAILY [facility] Last Admin: 01/18/25 08:20 Dose: 500 mg Documented By: CHRISTINE Atorvastatin Calcium (Atorvastatin Calcium 20 Mg Tablet) 20 mg PO BEDTIME [facility] Last Admin: 01/17/25 20:06 Dose: 20 mg Documented By: MANDY Calcium Carbonate (Calcium Carbonate 750 Mg Tab.Chew) 750 mg PO Q4H PRN PRN Reason: Heartburn Calcium Carbonate/Cholecalciferol (Calcium + Vitamin D 250 Mg Tablet) 500 mg PO DAILY [facility] Last Admin: 01/18/25 08:20 Dose: 500 mg Documented By: CHRISTINE Clotrimazole (Clotrimazole 1 % Cream 15 Gm Tube) 1 appl TOPICAL BID PRN; Protocol PRN Reason: Itching Cyanocobalamin (Cyanocobalamin (Vitamin B-12) 1,000 Mcg Tablet) 1,000 mcg PO DAILY [facility] Last Admin: 01/18/25 08:21 Dose: 1,000 mcg Documented By: CHRISTINE Dextrose (Dextrose 50 % 25 Gm/50 Ml Syringe) 25 gm IVPUSH Q15M PRN; Protocol PRN Reason: per Hypoglycemia Standing Ord. Diphenhydramine HCl (Diphenhydramine Hcl 25 Mg Capsule) 25 mg PO Q6H PRN PRN Reason: headache, nausea, vomiting Enoxaparin Sodium (Enoxaparin Sodium 40 Mg/0.4 Ml Syringe) 40 mg SUBCUT Q24H [facility] Last Admin: 01/17/25 16:43 Dose: 40 mg Documented By: CHRISTINE Gabapentin (Gabapentin 300 Mg Capsule) 300 mg PO BID [facility] Last Admin: 01/18/25 08:21 Dose: 300 mg Documented By: CHRISTINE Glucose (Glucose Gel 15 Gm Gel..Gram.) 15 gm PO Q15M PRN; Protocol PRN Reason: per Hypoglycemia Standing Ord. Hydrochlorothiazide (Hydrochlorothiazide 25 Mg Tablet) 25 mg PO BEDTIME [facility]; Protocol Last Admin: 01/17/25 20:07 Dose: 25 mg Documented By: MANDY Ciprofloxacin (Cipro) 400 mg in 200 mls @ 200 mls/hr IV Q12H [facility] Last Infusion: 01/18/25 10:20 Dose: Infused Documented By: CHRISTINE Insulin Human Lispro (Insulin Lispro 100 Unit/Ml 3 Ml Vial) 0 unit SUBCUT QIDACHS [facility]; Protocol Last Admin: 01/18/25 08:20 Dose: 2 unit Documented By: CHRISTINE Losartan Potassium (Losartan Potassium 50 Mg Tablet) 50 mg PO BEDTIME [facility]; Protocol Last Admin: 01/17/25 20:06 Dose: 50 mg Documented By: MANDY Magnesium Hydroxide (Milk Of Magnesia 30 Ml Oral.Susp) 30 ml PO DAILY PRN PRN Reason: Constipation Last Admin: 01/17/25 16:44 Dose: 30 ml Documented By: CHRISTINE Meclizine HCl (Meclizine Hcl 25 Mg Tablet) 25 mg PO TID PRN PRN Reason: Dizziness Melatonin (Melatonin 3 Mg Tablet) 6 mg PO BEDTIME PRN PRN Reason: Insomnia Metoclopramide HCl (Metoclopramide Hcl 10 Mg Tablet) 10 mg PO Q6H PRN PRN Reason: Nausea and Vomiting Multivitamins/Vitamin C (Multivitamin Tablet) 1 tab PO DAILY [facility] Last Admin: 01/18/25 08:20 Dose: 1 tab Documented By: CHRISTINE Naloxone HCl (Naloxone Hcl 0.4 Mg/Ml Vial) 0.04 mg IVPUSH Q5M PRN PRN Reason: Excessive sedation or RR < 8 Patient Own Medication ( Finerenone [Kerendia ] 20 Mg Tablet) 20 mg PO BEDTIME [facility] Last Admin: 01/17/25 20:08 Dose: 20 mg Documented By: MANDY Ondansetron HCl (Ondansetron Hcl 4 Mg/2 Ml Vial) 4 mg IVPUSH Q8H PRN PRN Reason: Nausea and Vomiting Last Admin: 01/16/25 20:46 Dose: 4 mg Documented By: REYES Comments: c/o nausea Oxybutynin Chloride (Oxybutynin Chloride Er 5 Mg Tab.Er.24) 5 mg PO BEDTIME [facility] Last Admin: 01/17/25 20:07 Dose: 5 mg Documented By: MANDY Polyethylene Glycol (Polyethylene Glycol 3350 17 Gm Powd.Pack) 17 gm PO DAILY PRN PRN Reason: Constipation Ropinirole HCl (Ropinirole Hcl 0.25 Mg Tablet) 0.25 mg PO BEDTIME [facility] Last Admin: 01/17/25 20:07 Dose: 0.25 mg Documented By: MANDY Sodium Chloride (0.9 % Sodium Chloride Flush 3 Ml Syringe) 3 ml IVFLUSH QSHIFT [facility] Last Admin: 01/18/25 08:15 Dose: Not Given Documented By: CHRISTINE Non-Admin Reason: IV Running Vitamin D (Cholecalciferol (Vitamin D3) 25 Mcg Tablet) 50 mcg PO DAILY [facility] Last Admin: 01/18/25 08:21 Dose: 50 mcg Documented By: CHRISTINE Labs 01/16/25 05:01 01/18/25 05:32 Labs: Laboratory Results - last 24 hr 01/17/25 01/17/25 01/18/25 16:24 20:08 05:32 Anion Gap 15 Estim Creat Clear Calc 44.1 Estimated GFR 58 POC Glucose 163 H 236 H Random Glucose 176 H Calcium 8.6 01/18/25 06:48 Anion Gap Estim Creat Clear Calc Estimated GFR POC Glucose 183 H Random Glucose Calcium Microbiology Microbiology Results: Microbiology 01/14/25 11:43 Blood Culture - Final Blood - Venous Serratia marcescens 01/14/25 11:28 Blood Culture - Final Blood - Venous Serratia marcescens Assessment and Plan (1) Metabolic encephalopathy: Status: Resolved (2) Acute UTI: Status: Acute (3) Non-insulin dependent type 2 diabetes mellitus: Status: Inactive (4) Mixed hyperlipidemia: Status: Inactive Plan This is a 84-year-old female with pertinent history of urinary incontinence, s/p suprapubic cath, hyperlipidemia, l hypertension, rhy-czohzaa-fvmardzog diabetes mellitus, history of CVA here with fever, AMS and found to have sepsis d/t UTI Acute metabolic encephalopathy d/t UTI, resolved -Treat underlying UTI Sepsis d/t UTI with chronic indwelling catheter Infected Kidney stone Serratia marcescens bacteremia, sensitive to Cipro s/p cystoscopy with stent 01/14 Septic shock 01/15, resolved, decrease IVF to 100/hr Abx changed to Cipro 01/17, and PO Cipro 500 bid for total of 14 days at dischage, ending 01/28 Anemia, hemoglobin down from 12.6 to 8.8 tody, 9.3 abd stable ? hemodilution from ivf, no sings of bleeding monitor check occult blood Urinary incontinence: On oxybutynin and Flomax Hypokalemia, d/t Lasix, oral replacement reccheck tomorrow Fluid overload from IVF when septic IV Lasix today HTN losartan at night Ytm-bcjkynm-ssslcnodv diabetes mellitus -BS check, SSI, metformin when eating History of CVA with right sided weakness: Not on aspirin or high-intensity statin DVT prophylaxis: Lovenox Full code. PT eval in the morning Quality Stroke Does the patient have a stroke diagnosis?: No VTE Prior VTE?: No VTE Risk Level:: Medical - moderate - high VTE Device Contraindication: Treatment Not Indicated VTE Drug Contraindication: N/A - Med Ordered
[2025-01-18 11:12] LABS: Glucose, Whole Blood 289 mg/dL (60-115)
[2025-01-18 12:00] LABS: Magnesium 1.1 mg/dL (1.6-2.6)
[2025-01-18] MEDS: Magnesium Sulfate/H2O 2 GM/50 ML PIGGYBACK IV (12:49)
[2025-01-18 16:11] LABS: Glucose, Whole Blood 280 mg/dL (60-115)
[2025-01-18] MEDS: 0.9 % Sodium Chloride Flush 3 ML SYRINGE IVFLUSH ×2 (16:42→21:41)
[2025-01-18 20:30] LABS: Glucose, Whole Blood 215 mg/dL (60-115)
[2025-01-18] MEDS: oxyBUTYnin chloride ER 5 MG TAB.ER.24 PO (20:48)
[2025-01-18] MEDS: FINERENONE 20 MG 20 EACH PO (20:59)
[2025-01-19 02:49] VITALS: BP 116/55; PULSE 77; RESP 16; TEMP 36.1; O2SAT 92
[2025-01-19 06:52] VITALS: BP 139/62; PULSE 79; RESP 17; TEMP 36.6; O2SAT 92
[2025-01-19 07:13] LABS: Glucose, Whole Blood 193 mg/dL (60-115)
[2025-01-19] MEDS: Calcium + Vitamin D 250 MG TABLET 500 MG PO (07:47)
[2025-01-19] MEDS: 0.9 % Sodium Chloride Flush 3 ML SYRINGE IVFLUSH ×3 (07:47→21:05)
[2025-01-19 11:04] VITALS: BP 111/66; PULSE 89; RESP 18; TEMP 36.2; O2SAT 92
[2025-01-19 11:11] LABS: Glucose, Whole Blood 320 mg/dL (60-115)
--- NOTE | 2025-01-19 11:44 | MHC.CM.PN ---
Addendum entered by Milagro Nicole 01/19/25 13:17: Patients spouse notified that discharge is on hold for today. Original Note: Per rounds Ok to discharge today. PT eval this am. Patient did not tolerate sitting at edge of bed. She reports dizziness. CM will follow. DP home with [facility] via BLS once medically cleared to discharge.
[2025-01-19 12:16] LABS: Anion Gap 12 (12-20); Blood Urea Nitrogen 16 mg/dL (9-16); Calcium 8.9 mg/dL (8.4-10.2); Carbon Dioxide 33 mmol/L (22-29); Chloride 94 mmol/L (96-108); Creatinine Clr Calc Pharmacy 37.9; Estimated Glomerular Filt Rate 49; Potassium 2.9 mmol/L (3.3-5.1); Sodium 136 mmol/L (135-145)
[2025-01-19 12:29] LABS: Hematocrit 29.5 % (37.0-47.0); Hemoglobin 9.6 g/dl (12.0-16.0); Mean Corpuscular HGB Conc 32.5 g/dl (31.0-35.0); Mean Corpuscular Hemoglobin 29.4 pg (27.0-33.0); Mean Corpuscular Volume 90.2 fL (80.0-98.0); NRBC Abs Auto 0.000 X10*3/uL (0.0-0.012); NRBC Pct Auto 0.0 /100WBC (0.0-0.2); Platelet Count 239 X10*3/uL (160-400); Red Blood Count 3.27 X10*6/uL (4.20-5.50); White Blood Count 9.6 X10*3/uL (4.8-10.8)
[2025-01-19] MEDS: Potassium Chloride/H20 10 MEQ/100 ML PIGGYBACK 100 MEQ IV (12:45)
[2025-01-19] MEDS: Potassium Chloride Packet 20 MEQ PACKET 40 MEQ PO (12:45)
--- NOTE | 2025-01-19 13:24 | MHC.CM.PN ---
Per MD rounds patient was planned for discharge today. During a PT eval the patient c/o dizziness. Discharge is on hold today. Patient dtr was notified the discharge is on hold. DP Home resumption of [facility]. Patient will transport via BLS at discharge.
[2025-01-19 15:45] VITALS: BP 126/69; PULSE 86; RESP 14; TEMP 36.2; O2SAT 95
[2025-01-19 16:16] LABS: Glucose, Whole Blood 271 mg/dL (60-115)
[2025-01-19 20:00] VITALS: BP 129/58; PULSE 79; RESP 16; TEMP 36.7; O2SAT 93
[2025-01-19 20:29] LABS: Glucose, Whole Blood 245 mg/dL (60-115)
[2025-01-19] MEDS: oxyBUTYnin chloride ER 5 MG TAB.ER.24 PO (20:40)
[2025-01-19] MEDS: FINERENONE 20 MG 20 EACH PO (21:03)
[2025-01-19 23:32] VITALS: BP 135/70; PULSE 80; RESP 20; TEMP 36.7; O2SAT 94
[2025-01-20 03:36] VITALS: BP 125/56; PULSE 79; RESP 18; TEMP 36.7; O2SAT 95
[2025-01-20 07:34] LABS: Glucose, Whole Blood 190 mg/dL (60-115)
[2025-01-20 07:43] VITALS: BP 114/56; PULSE 73; RESP 15; TEMP 36.3; O2SAT 93
[2025-01-20] MEDS: 0.9 % Sodium Chloride Flush 3 ML SYRINGE IVFLUSH (08:09)
[2025-01-20] MEDS: Calcium + Vitamin D 250 MG TABLET 500 MG PO (08:09)
[2025-01-20 10:36] LABS: Anion Gap 12 (12-20); Blood Urea Nitrogen 14 mg/dL (9-16); Calcium 9.1 mg/dL (8.4-10.2); Carbon Dioxide 33 mmol/L (22-29); Chloride 97 mmol/L (96-108); Creatinine Clr Calc Pharmacy 39.4; Estimated Glomerular Filt Rate 51; Magnesium 1.4 mg/dL (1.6-2.6); Potassium 3.2 mmol/L (3.3-5.1); Sodium 139 mmol/L (135-145)
[2025-01-20] MEDS: Magnesium Sulfate/H2O 2 GM/50 ML PIGGYBACK IV (10:43)
--- NOTE | 2025-01-20 11:15 | PM.DS ---
DS: Providers Provider Date of Service: 01/20/25 Date of admission: 01/14/25 13:11 Date of discharge: 01/20/25 Primary care physician: Liz Marks NP Consults: 01/16/25 14:35 Consult to Wound Care Routine Reason for consultation: right foot 2nd toe abrasion/slit DS: Diagnosis Discharge Diagnosis (1) Metabolic encephalopathy: Status: Resolved (2) Acute UTI: Status: Acute (3) Non-insulin dependent type 2 diabetes mellitus: Status: Inactive (4) Mixed hyperlipidemia: Status: Inactive DS: Summary Hospital Course Hospital Course: admission hpi Chief Complaint: Altered mental status and fever This is a 84-year-old female with pertinent history of urinary incontinence, has chronic suprapubic cather, mixed hyperlipidemia, essential hypertension, fnr-ziprxxs-wjjnfrbfk diabetes mellitus, history of CVA sent to the ED to be evaluated for fever, confusion and cloudy smelling urine. Work up here has revealed gross UTI and meet sepsis criteris with elevated WBC of 24K, tachycardia and temp of 101. CT of abdomen and Pelvis show 1. Severe right hydroureteronephrosis. There is a 4 mm calculus at the UVJ and at least 2 additional calculi in the distal ureter measuring up to 6 mm in diameter. 2. Bilateral nephrolithiasis as described. Has been given IV vanco and Cefepime. Past urine cultures have included Pseudomoas and Enteroccocus. She is less confused now. There is plan for possible cystoscopy later today hospital course: This is a 84-year-old female with pertinent history of urinary incontinence, s/p suprapubic cath, hyperlipidemia, l hypertension, spe-pgugbom-yzwhgwcbb diabetes mellitus, history of CVA here with fever, AMS and found to have sepsis d/t UTI and infected kidney stone, she was started on antibiotiotics and the same day underwent cystoscopy with stent, by the next day she developped septic shock with hypotension and required agresive IVF rescuitation with good effect, blood pressure ultimately improved, blood culture has grown Serratia marcescens bacteremia, sensitive to Cipro. Sepsis has resolved, fever resoved, and WBC which started at 24K has normalized presently 8.7. Metabolic encephalopathy related to sepsis, uti has also fully resolved. She will be transition to oral Cipro to complete 14 days of antibiotics. Anemia, hemoglobin down from 12.6 to 8.8 tody, 9.3 abd stable ? hemodilution from ivf, no sings of bleeding monitor check occult blood Urinary incontinence: On oxybutynin and Flomax Hypokalemia, d/t Lasix replaced, K is 3.2 today and suplement given Hypomagenesemia 1.4 today IV and PO given and will repeat Fluid overload from IVF when septic, treated with IF lasix IV Lasix today HTN losartan at night Pyq-vpjqmyg-nxdrzvhjl diabetes mellitus -BS check, SSI, metformin when eating History of CVA with right sided weakness: Not on aspirin or high-intensity statin Time Attestation Discharge Coordination Time (in mins): 45 Quality: Safe Use of Opioids Does Pt have an Active Cancer Diagnosis on the Problem List?: No Quality: Stroke Does the patient have a stroke diagnosis?: No Physical Exam Vital Signs: Vital Signs: Last Vital Signs Temp 97.2 F 01/19/25 11:04 Pulse 89 01/19/25 11:04 Resp 18 01/19/25 11:04 BP 111/66 01/19/25 11:04 Pulse Ox 92 01/19/25 11:04 O2 Del Method Room Air 01/19/25 11:04 O2 Flow Rate 2 01/18/25 06:50 BMI result Body Mass Index 23.6 DS: Data Data Completed and Pending Completed studies during hospitalization [Text1]: Pending at discharge 01/14/25 17:34 Surgical [PTH] Routine Labs on day of discharge: Laboratory Results - last 24 hr 01/18/25 01/18/25 01/18/25 05:32 16:01 20:23 POC Glucose 280 H 215 H Magnesium 1.1 L* 01/19/25 01/19/25 06:51 11:02 POC Glucose 193 H 320 H Magnesium Discharge Plan Discharge Anticipated Discharge Date/Time: 01/20/25 14:45 Patient Disposition: Home Health Service Discharge Diagnosis: Sepsis, UTI, infected kidney stone Referrals: [facility] [Outside] - 1 Week Liz Marks NP [Primary Care Provider, Internal Medicine] - 1 Week Discharge Medications: New ciprofloxacin HCl [Cipro] 500 mg tablet 500 mg PO BID Qty: 28 0RF Continued metformin 500 mg tablet 1,000 mg PO BID ascorbic acid (vitamin C) [Vitamin C] 1,000 mg Tablet 500 mg PO QAM atorvastatin 20 mg tablet 20 mg PO QPM ropinirole 0.25 mg tablet 0.25 mg PO QPM meclizine 25 mg tablet 25 mg PO TID PRN (Reason: Dizziness) oxybutynin chloride 5 mg tablet extended release 24hr 5 mg PO QPM gabapentin 300 mg capsule 300 mg PO BID hydrochlorothiazide 25 mg tablet 25 mg PO QPM clotrimazole 1 % cream 1 appl TOPICAL BID PRN (Reason: Itching) calcium carbonate-vitamin D3 [Calcium 600 with Vitamin D3] 600 mg-12.5 mcg (500 unit) Capsule 2 cap PO DAILY Kerendia 20 mg tablet 20 mg PO QPM diphenhydramine HCl 25 mg capsule 25 mg PO Q6H PRN (Reason: headache, nausea, vomiting) Qty: 20 0RF ibuprofen 400 mg tablet 400 mg PO TID PRN (Reason: fever or pain) Qty: 30 0RF metoclopramide HCl [Reglan] 10 mg tablet 10 mg PO Q6H PRN (Reason: nausea and vomiting) Qty: 14 0RF losartan 50 mg tablet 50 mg PO QPM aspirin 81 mg Tablet,Delayed Release (Dr/Ec) 81 mg PO QPM multivitamin Tablet 1 tab PO QAM acetaminophen 500 mg Tablet 1,000 mg PO QAM PRN (Reason: Pain) apple cider vinegar 500 mg Tablet 450 mg PO QAM cholecalciferol (vitamin D3) [Vitamin D3] 50 mcg (2,000 unit) Tablet 50 mcg PO QAM omega 5-leq-lec-fish oil [Fish Oil] 1,000 mg (120 mg-180 mg) Capsule 1 cap PO QAM niwxuhhvh-rmkwzayw-euioetxi-AA 40-80-400 mg Capsule 2 cap PO QAM Glucosamine Chondroitin 550-30-1 mg Capsule 1 cap PO QAM cyanocobalamin (vitamin B-12) [Vitamin B-12] 1,000 mcg tablet 1,000 mcg PO DAILY tramadol 50 mg tablet 50 mg PO Q6H PRN (Reason: Pain) Hyaluronic Acid (sodium) 20 mg Capsule 200 mg PO DAILY Discharge Orders: Discharge Order (Routine); Ordered 01/20/25 Ordered By: Sixto Ivy Diet: Advance to usual diet Activity on Discharge: As tolerated Stand Alone Forms: Patient Portal Discharge page Print Language: Chinese Care Plan Goals: recovery from sepsis, uti, and infected kidney Health Concerns: sepsis, uti, infected kidney Plan of Treatment: Take Ciprofloxaccin 500 mg twice daily follow up with Dr. Salgado in 2 weeks Follow up with your primary care provider within a week, call for appointment3 Assessment: See above
[2025-01-20 11:19] LABS: Glucose, Whole Blood 268 mg/dL (60-115)
[2025-01-20 12:00] VITALS: BP 123/59; PULSE 85; RESP 16; TEMP 36.3; O2SAT 96
[2025-01-20] MEDS: Potassium Chloride ER 20 MEQ TAB.ER.PRT 40 MEQ PO (12:17)
[2025-01-20 14:41] LABS: Anion Gap 12 (12-20); Carbon Dioxide 31 mmol/L (22-29); Chloride 96 mmol/L (96-108); Magnesium 1.9 mg/dL (1.6-2.6); Potassium 3.3 mmol/L (3.3-5.1); Sodium 136 mmol/L (135-145)
[2025-01-20 15:18] VITALS: BP 119/61; PULSE 89; RESP 17; TEMP 36; O2SAT 98
--- NOTE | 2025-01-20 15:28 | MHC.CM.PN ---
IMM Patient is discharged today to home. [facility] will resume services. 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 Patients dtr notified of discharge today. She will be at the home to accept the patient.
[2025-01-20 16:02] LABS: Glucose, Whole Blood 281 mg/dL (60-115)
== END 2025-01-20 18:16 | disposition home health service (06) | DRG 659 ==
LOC: HO.ED 13:26 → HO.EDOVER 13:58 → HO.S3 18:17
PROVIDERS: Internal Medicine; Urology; Admitting Provider Internal Medicine; Emergency Provider Emergency Medicine; PCP Nurse Practitioner Adult Health; Visit Provider Internal Medicine
PROC: 0T768DZ Dilation of Right Ureter with Intraluminal Device, Via Natural or Artificial Opening Endoscopic (ICD-10-PCS; principal; 2025-01-14 16:00)
DX: T83.518A Infection and inflammatory reaction due to other urinary catheter, initial encounter (principal); A41.9 Sepsis, unspecified organism; G93.41 Metabolic encephalopathy; R65.21 Severe sepsis with septic shock; N13.6 Pyonephrosis; I69.351 Hemiplegia and hemiparesis following cerebral infarction affecting right dominant side; E87.70 Fluid overload, unspecified; E78.2 Mixed hyperlipidemia; E87.6 Hypokalemia; D64.9 Anemia, unspecified; R33.9 Retention of urine, unspecified; E83.42 Hypomagnesemia; B96.89 Other specified bacterial agents as the cause of diseases classified elsewhere; E11.9 Type 2 diabetes mellitus without complications; Z20.822 Contact with and (suspected) exposure to COVID-19; Z87.440 Personal history of urinary (tract) infections; Z79.84 Long term (current) use of oral hypoglycemic drugs; Z79.82 Long term (current) use of aspirin; Z79.899 Other long term (current) drug therapy
CPT/HCPCS: 36415; 71045; 74176; 80048; 80051; 80053; 80076; 81001; 82272; 82365; 82803; 82947; 83605; 83690; 83735; 84145; 85025; 85027; 86140; 87040; 87077; 87086; 87186; 87205; 87637; 88300; 93005; 97162; 97163; 97530; 99285; C1758; C1769; C2617; J0131; J0692; J0744; J1650; J1885; J1938; J2003; J2371; J2405; J2704; J3010; J3374; J3475; J3480; J7120; Q9967

== ENCOUNTER → 2025-01-14 09:52 | Outpatient (BNV) | payer MEDICARE, MEDICAID, SELFPAY | PROVIDERS: Admitting Provider Internal Medicine; Emergency Provider Emergency Medicine; Visit Provider Internal Medicine Cardiovascular Disease | DX: R00.0 Tachycardia, unspecified (principal) | CPT/HCPCS: 93010 ==

== ENCOUNTER → 2025-01-14 09:52 | Outpatient (BNV) | payer MEDICARE, MEDICAID, SELFPAY | PROVIDERS: Emergency Provider Emergency Medicine; Visit Provider Radiology Diagnostic Radiology | DX: N13.2 Hydronephrosis with renal and ureteral calculous obstruction (principal); R50.9 Fever, unspecified | CPT/HCPCS: 71045; 74176 ==

== ENCOUNTER → 2025-01-14 13:11 | Outpatient (BNV) | payer MEDICARE, MEDICAID, SELFPAY | PROVIDERS: Admitting Provider Internal Medicine; Emergency Provider Emergency Medicine; Visit Provider Urology | DX: N13.30 Unspecified hydronephrosis (principal); N20.0 Calculus of kidney; A41.9 Sepsis, unspecified organism; R65.20 Severe sepsis without septic shock; G93.41 Metabolic encephalopathy | CPT/HCPCS: 99231 ==

== ENCOUNTER → 2025-01-14 13:11 | Outpatient (BNV) | payer MEDICARE, MEDICAID, SELFPAY | PROVIDERS: Admitting Provider Internal Medicine; Emergency Provider Emergency Medicine; Visit Provider Internal Medicine | DX: G93.41 Metabolic encephalopathy (principal); N39.0 Urinary tract infection, site not specified; E11.9 Type 2 diabetes mellitus without complications; E78.2 Mixed hyperlipidemia | CPT/HCPCS: 99232 ==

== ENCOUNTER 2025-02-04 09:52 | Outpatient (AMB) | payer MEDICARE, MEDICAID, SELFPAY ==
--- OUTSIDE RECORDS SUMMARY | 2025-01-30 08:42 | XMS_ITS | Encounter Summary ---
Author Organization Formerly [facility] Address [address] [place] [address] [place] [address] Phone Care Team Providers Care Register Clerk Name Role Phone Liz Marks NP Primary Care Provider [phone] Reason for Referral * MRI/CAT Scan - Closed Specialty Diagnoses / Procedures Referred By Maxwell foster Referred To Contact Radiology Diagnoses Cerebrovascular accident (CVA), unspecified mechanism Procedures MRI Angio Brain Matthew Champion MD [address] [place] [address], [address] [address] Phone: tel: fax: mailto:[email or web address] Referral ID Status Reason Start Date Expiration Date Visits Re quested Visits Authorized [id number] Closed 12/12/2024 12/12/2025 1 1 Reason for Visit * MRI/CAT Scan - Closed Specialty Diagnoses / Procedures Referred By Maxwell foster Referred To Contact Radiology Diagnoses Cerebrovascular accident (CVA), unspecified mechanism Procedures MRI Angio Brain Matthew Champion MD [address] [place] [address], [address] [place] [address] Phone: tel: fax: mailto: Referral ID Status Reason Start Date Expiration Date Visits Re quested Visits Authorized [id number] Closed 12/12/2024 12/12/2025 1 1 Encounter Details Date Type Department Care Team (Latest Contact Info) Description 01/30/2025 8:42 AM EDT - 01/30/2025 8:48 AM EDT Hospital Encounter [facility], [facility] - [address] [address] Matthew Champion MD [address] [place] [address] Street, [address] [place] [address] [email or web address] Discharge Disposition: Home or Self Care Social History Tobacco Use Types Packs/Day Years [...] on file Sexual Orientation Not on file documented as of this encounter Medications at Time of Discharge acetaminophen (TYLENOL) 500 MG tablet Take 1,000 mg by mouth 3 (three) times a day. Ca cit-D3-mag#11-zinc -nsiq-lmn-zyp (CALTRATE 600+D) 600 mg calcium- 800 unit-50 mg Tab Take 1 tablet by mouth daily. hydroCHLOROthiazid e (HYDRODIURIL) 25 MG tablet Take 25 mg by mouth daily. losartan (COZAAR) 50 MG tablet Take 50 mg by mouth daily. meclizine (ANTIVERT) 25 MG tablet Take 25 mg by mouth as needed. metFORMIN (GLUCOPHAGE) 500 MG tablet Take 1,000 mg by mouth 2 (two) times a day with meals. omega 1-afg-xkt-fish oil 1,000 mg (120 mg-180 mg) Cap Take 1 capsule by mouth daily. simvastatin (ZOCOR) 40 MG tablet Take 40 mg by mouth nightly at bedtime. tamsulosin (FLOMAX) 0.4 mg Cap Take 0.4 mg by mouth daily. therapeutic multivitamin tablet Take 1 tablet by mouth daily. documented as of this encounter Plan of Treatment Upcoming Encounters Date Type Department Care Team (Late st Contact Info) Description 02/14/2025 8:45 AM EDT Appointment [facility], [address] [address] Yudy Ham NP [address] [place] [address] [email or web address] documented as of this encounter Procedures Procedure Name Priority Date/Time Associated Diagnosis Comments MRA HEAD WITHOUT CONTRAST Routine 01/30/2025 9:45 AM EDT Cerebrovascular accident (CVA), unspecified mechanism documented in this encounter Results * MRA HEAD WITHOUT CONTRAST (01/30/2025 9:45 AM EDT) Anatomical Region Laterality Modality Head Magnetic Resonan ce 01/30/2025 4:14 PM EDT Impressions 01/30/2025 4:26 PM EDT 1. No occlusion or high-grade stenosis of the proximal intracranial arteries is identified. 2. Unchanged 2 mm posteriorly directed outpouching from the supraclinoid segment of the right internal carotid artery, likely a tiny aneurysm. 3. No occlusion or high-grade stenosis of the cervical arteries is identified. Narrative 01/30/2025 4:26 PM EDT MRI ANGIO BRAIN WITHOUT CONTRAST, MRI ANGIO NECK WITH CONTRAST Referring clinician's provided indication for this examination in Epic: Outside Radiology Order; CVA TECHNIQUE: MRI ANGIO BRAIN WITHOUT CONTRAST, MRI ANGIO NECK WITH CONTRAST MRA of the head was performed utilizing gqjt-fo-gsjnoe technique (no gadolinium). Maximal intensity projection 3D angiographic reformatted images were performed. MRA of the neck was performed with the administration of intravenous contrast utilizing bolus triggering and subtraction techniques. Maximal intensity projection 3D angiographic reformatted images were performed. COMPARISON: MRI BRAIN WITHOUT CONTRAST ; outside hospital CTA of the head and neck dated 01/18/2019 FINDINGS: MRA HEAD: Anterior Circulation: The intracranial internal carotid arteries are patent without high-grade stenosis. Unchanged 2 mm posteriorly directed outpouching from the supraclinoid segment of the right internal carotid artery, likely a tiny aneurysm. The proximal anterior and middle cerebral arteries are patent without high-grade stenosis. No definite aneurysm is identified. Posterior Circulation: The intradural vertebral arteries, basilar artery, and proximal posterior cerebral arteries are patent without high-grade stenosis. No aneurysm is identified. MRA NECK: Aortic Arch and Origin of Major Cervical Vessels: There is a left-sided, three- vessel aortic arch. The brachiocephalic artery and bilateral subclavian arteries are patent. Right Common Carotid Artery: No high-grade stenosis, occlusion or dissection. Right Internal Carotid Artery: Mild stenosis at the origin. No high-grade stenosis, occlusion or dissection. Left Common Carotid Artery: No high-grade stenosis, occlusion or dissection. Left Internal Carotid Artery: No high-grade stenosis, occlusion or dissection. External Carotid Arteries: No high-grade stenosis, occlusion or dissection. Right Vertebral Artery: No high-grade stenosis, occlusion or dissection. Left Vertebral Artery: No high-grade stenosis, occlusion or dissection. Severe degenerative changes in the cervical spine, incompletely evaluated. CAROTID STENOSIS REFERENCE: -Distal internal carotid artery diameter as the denominator for stenosis measurement: MILD = <50% stenosis. MODERATE = 50-69% stenosis. SEVERE = 70-89% stenosis. HAIRLINE/CRITICAL = 90-99% stenosis. OCCLUDED = 100% stenosis. Procedure Note Pascual Morales MD - 01/30/2025 MRI ANGIO BRAIN WITHOUT CONTRAST, MRI ANGIO NECK WITH CONTRAST Referring clinician's provided indication for this examination in Epic:Outside Radiology Order; CVA TECHNIQUE: MRI ANGIO BRAIN WITHOUT CONTRAST, MRI ANGIO NECK WITHCONTRAST MRA of the head was performed utilizing vabi-ln-lbriua technique ([employer]). Maximal intensity projection 3D angiographic reformattedimages were performed. MRA of the neck was performed with the administration of intravenouscontrast utilizing bolus triggering and subtraction techniques. Maximalintensity projection 3D angiographic reformatted images were performed. COMPARISON: MRI BRAIN WITHOUT CONTRAST ; outside hospital CTAof the head and neck dated 01/18/2019 FINDINGS: MRA HEAD: Anterior Circulation: The intracranial internal carotid arteries arepatent without high-grade stenosis. Unchanged 2 mm posteriorly directedoutpouching from the supraclinoid segment of the right internal carotidartery, likely a tiny aneurysm. The proximal anterior and middle cerebralarteries are patent without high-grade stenosis. No definite aneurysm isidentified. Posterior Circulation: The intradural vertebral arteries, basilar artery,and proximal posterior cerebral arteries are patent without high-gradestenosis. No aneurysm is identified. MRA NECK: Aortic Arch and Origin of Major Cervical Vessels: There is a left-sided,three-vessel aortic arch. The brachiocephalic artery and bilateralsubclavian arteries are patent. Right Common Carotid Artery: No high-grade stenosis, occlusion ordissection. Right Internal Carotid Artery: Mild stenosis at the origin. No high- gradestenosis, occlusion or dissection. Left Common Carotid Artery: No high-grade stenosis, occlusion ordissection. Left Internal Carotid Artery: No high-grade stenosis, occlusion ordissection. External Carotid Arteries: No high-grade stenosis, occlusion ordissection. Right Vertebral Artery: No high-grade stenosis, occlusion or dissection. Left Vertebral Artery: No high-grade stenosis, occlusion or dissection. Severe degenerative changes in the cervical spine, incompletelyevaluated. CAROTID STENOSIS REFERENCE: -Distal internal carotid artery diameter as the denominator for stenosismeasurement: MILD = <50% stenosis. MODERATE = 50-69% stenosis. SEVERE = 70-89% stenosis. HAIRLINE/CRITICAL = 90-99% stenosis. OCCLUDED = 100% stenosis. IMPRESSION: 1. No occlusion or high-grade stenosis of the proximal intracranialarteries is identified. 2. Unchanged 2 mm posteriorly directed outpouching from the supraclinoidsegment of the right internal carotid artery, likely a tiny aneurysm. 3. No occlusion or high-grade stenosis of the cervical arteries isidentified. Matthew Champion MD IM MR HEAD/NECK Final Resul t documented in this encounter Visit Diagnoses Diagnosis Cerebrovascular accident (CVA), unspecified mechanism documented in this encounter Care Teams Register Clerk Relationship Specialty Start Date End Date Liz Marks NP [address] [place] [address] PCP - General 04/14/19 documented as of this encounter Additional Source Comments The information contained in this document represents components of the legal health record. It is not the complete legal health record.[facility]
--- OUTSIDE RECORDS SUMMARY | 2025-01-30 08:49 | XMS_ITS | Encounter Summary ---
Author Organization [facility] Address [address] [place] [address] [place] [address] Phone Care Team Providers Care Head Track Coach Name Role Phone Liz Marks NP Primary Care Provider [phone] Reason for Referral * MRI/CAT Scan - Closed Specialty Diagnoses / Procedures Referred By Maxwell foster Referred To Contact Radiology Diagnoses Cerebrovascular accident (CVA), unspecified mechanism Procedures MRI Angio Neck Matthew Champion MD [address] [place] [address], [address] [address] Phone: tel: fax: mailto: Referral ID Status Reason Start Date Expiration Date Visits Re quested Visits Authorized [id number] Closed 12/12/2024 12/12/2025 1 1 Reason for Visit * MRI/CAT Scan - Closed Specialty Diagnoses / Procedures Referred By Maxwell foster Referred To Contact Radiology Diagnoses Cerebrovascular accident (CVA), unspecified mechanism Procedures MRI Angio Neck Matthew Champion MD [address] [place] [address], [address] [place] [address] Phone: tel: fax: mailto: Referral ID Status Reason Start Date Expiration Date Visits Re quested Visits Authorized [id number] Closed 12/12/2024 12/12/2025 1 1 Encounter Details Date Type Department Care Team (Latest Contact Info) Description 01/30/2025 8:49 AM EDT - 01/30/2025 11:59 PM EDT Hospital Encounter [facility] - [address] [address] Matthew Champion MD [address] [place] [address] Street, [address] [place] [address] [email or web address] Discharge Disposition: Home or Self Care [...] 3 (three) times a day. Ca cit-D3-mag#11-zinc -bmyv-nlt-kne (CALTRATE 600+D) 600 mg calcium- 800 unit-50 [...] (two) times a day with meals. omega 7-wqw-yxp-fish oil 1,000 mg (120 mg-180 mg) Cap [...] Info) Description 02/14/2025 8:45 AM EDT Appointment [facility] [place] [address] [address] Yudy Ham NP [address] [place] [address] [email or web address] documented as of this encounter Procedures Procedure Name Priority Date/Time Associated Diagnosis Comments MRA NECK WITH CONTRAST Routine 01/30/2025 10:30 AM EDT Cerebrovascular accident (CVA), unspecified mechanism documented in this encounter Results * MRA NECK WITH CONTRAST (01/30/2025 10:30 AM EDT) Anatomical Region Laterality Modality Neck Magnetic Resonan ce 01/30/2025 4:14 PM EDT [...] MRA of the head was performed utilizing xxcr-cj-iwqivb technique (no gadolinium). Maximal intensity projection 3D [...] MRA of the head was performed utilizing hjer-hc-kdkqth technique ([employer]). Maximal intensity projection 3D angiographic reformattedimages were [...] the cervical arteries isidentified. Matthew Champion MD IMG MR HEAD/NECK Final Resul t documented in this encounter Visit Diagnoses Diagnosis Cerebrovascular accident (CVA), unspecified mechanism documented in this encounter Administered Medications Inactive Administered Medications - up to 3 most recent administrations Medication Order MAR Action Action Date Dose Rate Site gadoterate meglumine (DOTAREM/CLARISCAN) 0.5 mmol/mL (376.9 mg/mL) injection 14 mL 14 mL (rounded from 13.78 mL = 0.1 mmol/kg 68.9 kg), Intravenous, Once as needed, pre procedure/treatment, Starting on Sun01/30/25 at 0945, For 1 dose, Procedural Contrast/Med Active Now Given 01/30/2025 9:46 AM EDT 14 mL documented in this encounter Care Teams Head Track Coach Relationship Specialty Start Date End Date Liz Marks NP [address] [place] [address] PCP - General 04/14/19 documented as of this encounter Additional Source Comments The information contained in this document represents components of the legal health record. It is not the complete legal health record.[facility]
--- NOTE | 2025-02-04 09:59 | A.OFFVIS_ITS ---
Intake Visit Reasons: Cysto/ stent removal (approved by Cherrie) Intake Note: Patient is present for Cystoscopy stent removal Urology Rx: VIT-C Oxybutynin Blood Thinners: asprin Imaging completed: none Feather Duster Winder Required: No Accompanied by: Self / Same As Patient Allergies egg Allergy (Verified 02/04/25 10:00) Unknown Penicillins Allergy (Verified 02/04/25 10:00) Unknown walnut Allergy (Verified 02/04/25 10:00) Unknown HPI Comments Details: Toshia is a pleasant female. She is a patient of . She is seen for the following urologic conditions - neurogenic bladder - nephrolithiasis Here for stent removal Uric acid stone Start potassium citrate Neurogenic bladder Has had suprapubic tube for number of years Start methenamine vitamin-C PFSH Medical History Mixed hyperlipidemia Urinary incontinence Non-insulin dependent type 2 diabetes mellitus Hypertension 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 Social History Household Members: Children and None Household Members Other:: daughter and son in law Housing: House Do you presently have visiting nurse or other home services: Yes Unable to assess alcohol history related to: Unknown Alcohol intake: current Alcohol intake frequency: other Patient Tobacco Use Status: Former Tobacco user e-Cigarette/Vaping Use: Former Use Second Hand Smoke Exposure: No service: No Review of Systems Const Denies chills and Denies fever(s) Card Reports no additional complaints and Denies syncope Resp Denies cough GI Denies abdominal pain and Denies heartburn Reports as per HPI and Denies change in libido Neuro Denies syncope Psych Denies change in libido Endo Denies change in libido Physical Exam Const General: cooperative, healthy appearing, comfortable and no acute distress Orientation/consciousness: patient oriented x3 HEENT Face and sinus: Yes normal facial exam Mouth: moist mucous membranes Neck Neck: Yes normal visual inspection, Yes full ROM and Yes trachea midline Chest Chest palpation & inspection: normal inspection of the chest Resp Effort & Inspection: normal respiratory effort, able to speak in complete sentences and no respiratory distress GI Inspection: Yes normal to inspection Back/Spine/Pelvis Cervical Spine: normal cervical lordosis Thoracic/Lumbar Spine: thoracic and lumbar spine normal to inspection Skin General skin exam: no rashes or lesions noted Neuro General: patient oriented x3, gait normal, tone normal and moves all extremities Extrem General: Yes normal to inspection and Yes capillary refill normal Office Procedures Cystoscopy Consent Discussed risk and benefit or proposed procedure with the patient. Information consent for procedure given to the patient. Discussed technical aspects, risks, benefits and alternatives in full. Addressed all of the patient's questions and concerns regarding the procedure. The patient demonstrated knowledge and understanding. They wish to proceed with this procedure. Preparation The patient was prepped in the usual manner. A extension work instructor was present and in the room. Genitalia was prepped with betadine solution in a sterile manner. Lidocaine Jelly 2% was placed into the urethra and 16Fr flexible Olympus cystoscope was inserted into the meatus after adequate lubrication. Procedure A well lubricated 16 Kinyarwanda cystoscope was placed No abnormality noted of urethra during placement Indwelling stent seen within bladder emerging from right ureteric orifices The stent was grasped with a 3 prong grasper and removed without difficulty The patient tolerated the procedure well [id number] with stent removal DISPOSABLE SCOPE URO-G FLEXIBLE SCOPE Procedure code (CPT) selection complete Office Meds lidocaine HCl 2 % mucosal jelly in applicator Performing Provider: Jose Miguel Salgado MD Performing Location: [facility] Administered by: Megan Polanco RN on 02/04/25 10:28 Dose Route Admin Location Dispensed Lot Number Expiration Date NDC Ballistic Technician 10 mL intra-urethral 10 mL naproxen 500 mg tablet Performing Provider: Jose Miguel Salgado MD Performing Location: [facility] Administered by: Megan Polanco RN on 02/04/25 10:28 Dose Route Admin Location Dispensed Lot Number Expiration Date NDC Ballistic Technician 500 mg PO 1 tab Comments: Patients daughter reports she took the last dose of Cipro today. ABX in office not given. Assessment & Plan Assessment & Plan (1) Kidney stone: Code(s): N20.0 - Calculus of kidney Category: Medical (2) Hypotonic neurogenic bladder: Code(s): N31.9 - Neuromuscular dysfunction of bladder, unspecified Category: Medical Plan Start medications Imaging three-month Orders: Orders AMB Cystoscopy Today N13.30 - Unspecified hydronephrosis, R32 - Unspecified urinary incontinence US renal BI 3 Months N20.0 - Calculus of kidney Medications: New ascorbic acid (vitamin C) 1,000 mg PO DAILY 90 tabs 1RF 90 days N31.9 - Neuromuscular dysfunction of bladder, unspecified methenamine hippurate 1 g PO DAILY 90 tabs 1RF 90 days N31.9 - Neuromuscular dysfunction of bladder, unspecified potassium citrate ER 20 mEq (2 x 10 mEq (1,080 mg)) PO BID 360 tabs 0RF 90 days N20.0 - Calculus of kidney Discontinued ciprofloxacin HCl (Cipro) Discontinued Reason: Patient Completed Course 500 mg PO BID 28 tabs 0RF Patient Instructions: This note is constructed using voice recognition software. While every effort has been made to ensure accuracy floor cleaner errors may have been included. Imaging studies, laboratory and physical exam results were discussed and reviewed in detail. No major barriers to patient understanding were identified. An opportunity to ask questions regarding the treatment plan was provided. All questions were answered. The patient expressed understanding and agreement with the above treatment plan. The patient is aware they should contact our office by phone for worsening of their current condition or the appearance of new urologic symptoms. Compliance is encouraged with any medications and followup testing that is ordered. It is a privilege to participate in the urologic care of your patient. If you have any questions or concerns regarding treatment for the above conditions, or other urologic issues, please do not hesitate to contact me. The office telephone contact is [phone]. Sincerely, Dr Jose Miguel Salgado MD, [facility] - Urology Compassionate Specialist Care for the Genitourinary System Coding Level of Care Code Est Pt Level 4 (31160) Complex EM visit Add On G2211 Diagnoses Kidney stone N20.0 Hypotonic neurogenic bladder N31.9 CPT Codes Cystoscopy - CPT: 92749-[id number] with stent removal ([id number])
--- OUTSIDE RECORDS SUMMARY | 2025-02-04 11:03 | XMS_ITS | Clinical Summary ---
Author Organization [facility] Address [address] [address] Phone Care Team Providers Care Geology Technician Name Role Phone Liz Marks RIGOBERTO Primary Care Provider [phone] Allergies Active Allergy Reactions Criticality Noted Date [...] 3 (three) times a day. Active omega 4-wcq-bye-fish oil 1,000 mg (120 mg-180 mg) Cap Take 1 capsule by mouth daily. Active Ca cit-D3-mag#11-zin t-wgyj-gzg-bor (CALTRATE 600+D) 600 mg calcium- 800 unit-50 [...] Encounters Date Type Department Care Team Description 01/30/2025 8:49 AM EDT - 01/30/2025 11:59 PM EDT Hospital Encounter [address] [address] Matthew Champion MD Discharge Disposition: Home or Self Care 01/30/2025 8:42 AM EDT - 01/30/2025 8:48 AM EDT Hospital Encounter [address] [address] Matthew Champion MD Discharge Disposition: Home or Self Care 12/31/2024 2:08 PM EDT - 12/31/2024 11:59 PM EDT Hospital Encounter Non-Invasive Cardiology [address] [place] [address] Matthew Champion MD Discharge Disposition: Home or Self Care 12/12/2024 Procedure Pass [address] [address] 12/12/2024 Procedure Pass [address] [address] 12/12/2024 Procedure Pass Non-Invasive Cardiology [address] [place] [address] 12/12/[address] [facility] Department [address] [place] [address] Matthew Champion MD Cerebrovascular accident (CVA), unspecified mechanism (Primary Dx) 12/12/2024 Transcribe Orders Virtual Department [address] [place] [address] Matthew Champion MD Cerebrovascular accident (CVA), unspecified mechanism (Primary Dx) 12/08/2024 7:14 AM EDT - 12/08/2024 11:59 PM EDT Hospital Encounter [address] [address] Matthew Champion MD Discharge Disposition: Home or Self Care 12/08/2024 Ancillary Orders [facility],Outside Imaging [address] [place] [address] Unknown, Mel, 12/08/2024 Ancillary Orders [facility],Outside Imaging [address] [place] [address] Unknown, Mel, 12/08/2024 Ancillary Orders [facility],Outside Imaging [address] [place] [address] Unknown, Mel, 12/08/2024 Ancillary Orders [facility],Outside Imaging [address] [place] [address] Unknown, Mel, 11/17/2024 Procedure Pass [facility], [facility] - [facility] [address] [place] [address] 11/17/2024 Transcribe Orders Virtual Department [address] [place] [address] Matthew Champion MD Memory loss (Primary Dx); [...] EST Inhaled Oxygen Concentration - - Weight 68.9 kg (152 lb) 01/27/2025 10:55 AM EDT Height 162.6 cm (5' 4 ) 01/27/2025 10:55 AM EDT Body Mass Index 26.09 01/27/2025 10:55 AM EDT Plan of Treatment Upcoming Encounters Date Type Department Care Team (Late st Contact Info) Description 02/14/2025 8:45 AM EDT Appointment [facility], Bone Density - [address] [address] Yudy Ham NP [address] [place] [address] [email or web address] Health Maintenance Due Date Last Done Comments Adult Td,Tdap Booster 1942 DEPRESSION SCREENING 1954 LIPID PANEL 1960 OSTEOPOROSIS SCREENING INITIAL (ONE-TIME) 2007 ZOSTER VACCINES (2 of 3) 03/06/2012 01/10/2012 RSV VACCINE (1 - 1-dose 75+ series) 2017 CREATININE LEVEL 04/29/2020 04/29/2019, , 03/12/2019, Additional history exists POTASSIUM LEVEL 04/29/2020 04/29/2019, 03/04, 03/12/2019, Additional history exists COVID-19 VACCINE ( - season) 2024 10/04/2020 INFLUENZA VACCINE (#1) 2025 9, 02/20/2018, 04/05/2017, Additional history exists PNEUMOCOCCAL VACCINES (50+ years) Completed 04/29/2019, 03/09/2016, [...] Procedure Name Priority Date/Time Associated Diagnosis Comments MCT (MOBILE CARDIAC TELEMETRY) Routine 02/02/2025 11:41 AM EDT Cerebrovascular accident (CVA), unspecified mechanism MRA NECK WITH CONTRAST Routine 10:30 AM EDT Cerebrovascular accident (CVA), unspecified mechanism MRA HEAD WITHOUT CONTRAST Routine 01/30/2025 9:45 AM EDT Cerebrovascular accident (CVA), unspecified mechanism MRI BRAIN WITHOUT CONTRAST Routine 12/08/2024 8:48 AM EDT Memory loss Cerebrovascular accident (CVA), unspecified mechanism Vertigo COMPREHENSIVE METABOLIC PANEL Routine 04/29/2019 1:30 PM EST Bruising from Last 3 Months or Most Recently Relevant to Health Maintenance Results * MCT (Mobile Cardiac Telemetry) (02/02/2025 11:41 AM EDT) Anatomical Region Laterality Modality Heart Other Narrative 02/02/2025 1:06 PM EDT This 26-day MCT monitor was ordered for the indication of CVA. There were only 8 days and 8 hours of data obtained. The predominant rhythm was sinus rhythm. Minimum heart rate 56 bpm Average heart rate 79 bpm Maximum heart rate 134 bpm There were rare PACs and PVCs. There was no documented evidence of atrial fibrillation/flutter. There were no clinically significant pauses documented. There were 2 patient triggered events, without specified symptoms, both which correlated with sinus rhythm. Conclusion: Normal 30-day MCT monitor. If suspicion for cardioembolic CVA is high, recommended ILR for longer-term monitoring. Event Monitor Main Form The type of event monitor used is: continuous telemetry. Start date: 12/31/2024 End date: 01/26/2025 us Matthew Champion MD CV CARDIAC SERVICES ORDERABL ES Final Result * MRA NECK WITH CONTRAST (01/30/2025 10:30 [...] MRA of the head was performed utilizing xwta-nm-rvknwv technique (no gadolinium). Maximal intensity projection 3D [...] MRA of the head was performed utilizing bobl-qb-lwfped technique (nogadolinium). Maximal intensity projection 3D angiographic reformattedimages were [...] the cervical arteries isidentified. Matthew Champion MD [facility] [place] HEAD/NECK Final Resul t * MRA HEAD WITHOUT CONTRAST (01/30/2025 9:45 [...] MRA of the head was performed utilizing mrai-oy-mxkgzk technique (no gadolinium). Maximal intensity projection 3D [...] MRA of the head was performed utilizing mipb-zi-gwisgx technique (nogadolinium). Maximal intensity projection 3D angiographic reformattedimages were [...] high-grade stenosis of the cervical arteries isidentified. us Matthew Champion MD IMG MR HEAD/NECK Final Resul t * MRI BRAIN WITHOUT CONTRAST (12/08/2024 8:48 [...] regional atrophy isidentified. us Matthew Champion MD IMG MR HEAD/NECK Final Resul t * (ABNORMAL) Comprehensive metabolic panel (04/29/2019 1:30 PM EST) SODIUM 138 133 - 146 mmol/L [facility] POTASSIUM 3.6 3.3 - 5.1 mmol/L [facility] CHLORIDE 97 96 - 108 mmol/L [facility] CO2 26 21 - 35 mmol/L [facility] BUN 22(H) 6 - 19 mg/dL [facility] CREATININE 0.60 0.5 - 1.5 mg/dL [facility] GLUCOSE 141(H) 70 - 99 mg/dL [facility] ALBUMIN 4.5 3.9 - 4.8 g/dL [facility] TOTAL PROTEIN 8.3(H) 6.5 - 8.0 g/dL [facility] CALCIUM 10.7(H) 8.4 - 10.3 mg/dL [facility] ALKALINE PHOSPHATASE 170(H) 39 - 117 U/L [facility] TOTAL BILIRUBIN 0.3 0.0 - 1.2 mg/dL [facility] AST 48(H) 0 - 37 U/L [facility] ALT 53(H) 0 - 40 U/L [facility] GLOBULIN 3.8 1 - 4.8 g/dL [facility] EGFR 89 >59 mL/min/1.7 3m2 [facility] Comment:If patient is black, multiply result by 1.159. Estimated glomerular filtration rate calculated using the CKD-EPI equation. ANION GAP 19 10 - 20 mmol/L [facility] Blood 04/29/2019 1:30 PM EST 04/29/2019 1:51 PM EST us Kyle Humphrey MD LAB BLOOD ORDERABLES Final Resul t [facility] [address] [place] [address] from Last 3 Months or Most Recently Relevant to Health Maintenance Insurance MEDICARE PART A & B [place] & [place] A & B MEDICARE PART A & B MEDICARE [place] & [place] MEDICARE PART A & B HEALTH MEDICARE PART A & B Member Subscriber Plan / Payer ( fective 2008-) Name:Pamella Seniorn Member ID:[id number] Relation to Subscriber:Self Name:Toshia Senior Subscriber ID:[id number] Payer ID:[id number] Group ID:Not on file Type:Medicare Address: [employer] [address] [place] [phone] [place] A [place] Care Teams Geology Technician Relationship Specialty Start Date End Date Liz Marks NP [address] [place] [address] PCP - General 04/14/19 Additional Source Comments The information contained in this document represents components of the legal health record. It is not the complete legal health record.[facility]
--- OUTSIDE RECORDS SUMMARY | 2025-02-04 11:03 | XMS_ITS | Encounter Summary ---
Author Organization [facility] Address [address] [facility] [address] [place] [address] Phone Care Team Providers Care Char Conveyor Tender Cellar Name Role Phone KendrickLiz Jeremias FRANKLIN Primary Care Provider [phone] Encounter Details Date Type Department Care Team (Late Contact Info) Description 11/08/2021 Transcribe Orders Virtual Department [address] [place] [address] Jose Miguel Stacy MD [address] [address] [email or web address] Abdominal wall mass of left lower quadrant (Primary Dx) Social History Tobacco Use Types Packs/Day Years Used Date Smoking Tobacco: Former Cigarettes Q uit: 04/14/2009 Smokeless Tobacco: Never Alcohol Use Standard Drinks/Week Comments Not Currently 0 (1 standard drink = 0.6 oz pur e alcohol) Comments Unknown Sex and Gender Information Value Date Recorded Sex Assigned at Not on file Legal Sex Female 10:52 AM EDT Gender Identity Not on file Sexual Orientation Not on file documented as of this encounter Plan of Treatment Upcoming Encounters Date Type Department Care Team (Late Contact Info) Description 02/14/2025 8:45 AM EDT Appointment [facility], Bone [facility] [address] [place] [address] Yudy Ham NP [address] [place] [address] [email or web address] documented as of this encounter Visit Diagnoses Diagnosis Abdominal wall mass of left lower quadrant- Primary documented in this encounter Care Teams Char Conveyor Tender Cellar Relationship Specialty Start Date End Date Liz Marks NP [address] [place], [place] [address] PCP - General 04/14/19 documented as of this encounter Additional Source Comments The information contained in this document represents components of the legal health record. It is not the complete legal health record.[facility]
--- OUTSIDE RECORDS SUMMARY | 2025-02-04 11:03 | XMS_ITS | Patient Health Record ---
Author Organization [facility] Address [address] [facility] [place] [address] Care Team Providers Care Chief Of Service Name Role Phone Kendrick HUBBARD, Liz Primary Care Provider Josse Leyva Unavailable [phone] Allergies Allergen (clinical drug ingredient) Drug/Non Drug [...] Treatment Pending Test Test Name Order Date [id number] NAIL, 6 OR MORE 12/16/2019 [id number] NAIL, 6 OR MORE 03/16/2020 [id number] Plate 03/16/2020 [id number] SKIN LESIONS, 2 TO 4 03/16/20 [id number] SKIN LESIONS, 2 TO 4 12/16/19 Insurance Providers Payer Name Payer Address Payer Phone Subscriber Number Group Number Insured Name Patient Relationship to Insured Coverage Start Date Coverage End Date Medicare National Govt S[employer] [address] [place] [address] [id number] Toshia Senior Self - patient is the insured [employer] [facility] [address] [place] [address] [phone] [id number] Toshia Senior Self - patient is the insured Medical (General) History Medical History History ICD Code Anemia Arthritis Back,Hip,and Knee pain Cataracts Diabetic Headaches/Migraines High blood pressure Sciatica Stroke Measles Chicken pox Transfusions Vertigo Surgical History Surgery Date(Month/Year) tonsillectomy 194 hysterectomy 1990 cataract surgery 2018 eye lift 2019 Dental Surgery 1994
--- OUTSIDE RECORDS SUMMARY | 2025-02-04 11:03 | XMS_ITS | Encounter Summary ---
Author Organization [facility] Address [address] [address] Phone Care Team Providers Care Signal System Testing Maintainer Name Role Phone KendrickLiz Jeremias FRANKLIN Primary Care Provider [phone] Encounter Details Date Type Department Care Team (Late Contact Info) Description 11/17/2024 Procedure Pass [facility], [address] [address] Social History Tobacco Use Types Packs/Day Years [...] Info) Description 02/14/2025 8:45 AM EDT Appointment [facility], [address] [address] Yudy Ham NP [address] [place] [address] [email or web address] documented as of this encounter Visit Diagnoses Not on filedocumented in this encounter Care Teams Signal System Testing Maintainer Relationship Specialty Start Date End Date Liz Marks NP [address] [place] [address] PCP - General 04/14/19 documented as of this encounter Additional Source Comments The information contained in this document represents components of the legal health record. It is not the complete legal health record.[facility]
--- OUTSIDE RECORDS SUMMARY | 2025-02-04 11:03 | XMS_ITS | Encounter Summary ---
Author Organization [facility] Address [address] [address] Phone Care Team Providers Care Transit Planner Name Role Phone KendrickLiz Jeremias FRANKLIN Primary Care Provider [phone] Encounter Details Date Type Department Care Team (Late Contact Info) Description 12/12/2024 Procedure Pass Non-Invasive Cardiology [address] [place] [address] Social History Tobacco Use Types Packs/Day Years [...] Info) Description 02/14/2025 8:45 AM EDT Appointment [facility], [facility] [address] [place] [address] Yudy Ham NP [address] [place] [address] [email or web address] documented as of this encounter Visit Diagnoses Not on filedocumented in this encounter Care Teams Transit Planner Relationship Specialty Start Date End Date Liz Marks NP [address] [place] [address] PCP - General 04/14/19 documented as of this encounter Additional Source Comments The information contained in this document represents components of the legal health record. It is not the complete legal health record.[facility]
--- OUTSIDE RECORDS SUMMARY | 2025-02-04 11:03 | XMS_ITS | Encounter Summary ---
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) Social History Tobacco Use Types [...] Description 02/14/2025 8:45 AM EDT Appointment [facility], Bone [facility] [address] [place] [address] Yudy Ham NP [address] [place] [address] [email or web address] documented as of this encounter Results * ACETYLCHOLINE RECEPTOR BINDING ANTIBODY (06/18/2019 1:55 PM EST) ACH RECEPTOR BIND AB 0.00 <=0.02 nmol/L [facility] DPT OF LAB MED AND PAT+ Comment: (NOTE) ADDITIONAL INFORMATION This test was developed and its performance characteristics determined by [facility] in a manner consistent with CLIA requirements. This test has not been cleared or approved by the U.S. Food and Drug Administration. Blood 06/18/2019 1:55 PM EST 06/18/2019 2:02 PM EST Matthew Champion MD LAB BLOOD ORDERABLES Final R esult Performing Organization Address City/[facility]/ZIP Co de Phone Number [facility] DPT OF LAB MED AND PAT+ [address] [place] [address] * (ABNORMAL) Ferritin (06/18/2019 1:55 PM EST) FERRITIN 338(H) 13 - 150 ug/L [facility] Blood 06/18/2019 1:55 PM EST 06/18/2019 8:03 PM EST Matthew Champion MD LAB BLOOD ORDERABLES Final R esult Performing Organization Address City/[facility] Co de Phone Number [address] [address] * Vitamin B12 (06/18/2019 1:55 PM EST) VITAMIN B12 364 232 - 1,245 pg/mL [facility] Blood 06/18/2019 1:55 PM EST 06/18/2019 8:03 PM EST Matthew Champion MD LAB BLOOD ORDERABLES Final R esult Performing Organization Address City/[facility]/ZIP Co de Phone Number [address] [address] * TSH (06/18/2019 1:55 PM EST) TSH 1.66 0.27 - 4.20 uIU/mL [facility] Blood 06/18/2019 1:55 PM EST 06/18/2019 8:03 PM EST us Matthew Champion MD LAB BLOOD ORDERABLES Final R esult [address] [address] documented in this encounter Visit Diagnoses Diagnosis 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 It is not the complete legal health record.[facility]
--- OUTSIDE RECORDS SUMMARY | 2025-02-04 11:03 | XMS_ITS | Encounter Summary ---
Author Organization [facility] Address [address] [facility] [address] [place] [address] Phone Care Team Providers Care Supervisor [employer] Name Role Phone Liz Marks NP Primary Care Provider [phone] Reason for Referral * MRI/CAT Scan - Closed Specialty Diagnoses / Procedures Referred By Maxwell t Referred To Contact Radiology Diagnoses Cerebrovascular accident (CVA), unspecified mechanism Procedures MRI Angio Neck Matthew Champion MD [address] [place] [address], [address] [address] Phone: tel: fax: mailto:[email or web address] Referral ID Status Reason Start Date Expiration Date Visits Re quested Visits Authorized [id number] Closed 12/12/2024 12/12/2025 1 1 * MRI/CAT Scan - Closed Specialty Diagnoses / Procedures Referred By Maxwell foster Referred To Contact Radiology Diagnoses Cerebrovascular accident (CVA), unspecified mechanism Procedures MRI Angio Brain Matthew Champion MD [address] [place] [address], [address] [place] [address] Phone: tel: fax: mailto: Referral ID Status Reason Start Date Expiration Date Visits Re quested Visits Authorized [id number] Closed 12/12/2024 12/12/2025 1 1 Encounter Details Date Type Department Care Team (Latest Contact Info) Description 12/12/2024 Transcribe Orders Virtual Department 30 [place] [address] Matthew Champion MD [address] [place] [address], [address] [place] [address] [email or web address] Cerebrovascular accident (CVA), unspecified mechanism (Primary Dx) Social History Tobacco Use Types [...] Info) Description 02/14/2025 8:45 AM EDT Appointment [facility], [facility] [address] [place] [address] Yudy Ham NP [address] [place] [address] [email or web address] documented as of this encounter Results * MRA NECK WITH [...] MRA of the head was performed utilizing ccyw-aj-ahsxka technique (no gadolinium). Maximal intensity projection 3D [...] MRA of the head was performed utilizing comq-zj-hzwclu technique (nogadolinium). Maximal intensity projection 3D angiographic [...] IMG MR HEAD/NECK Final Resul t * MRA [...] MRA of the head was performed utilizing zxdv-ul-pddbbk technique (no gadolinium). Maximal intensity projection 3D [...] clinician's provided indication for this examination in [facility]:Outside Radiology Order; CVA TECHNIQUE: MRI ANGIO BRAIN WITHOUT CONTRAST, MRI ANGIO NECK WITHCONTRAST MRA of the head was performed utilizing oxrn-sf-vxhbri technique (nogadolinium). Maximal intensity projection 3D angiographic [...] Visit Diagnoses Diagnosis Cerebrovascular accident (CVA), unspecified mechanism- Primary Cerebrovascular accident (CVA), unspecified mechanism Cerebrovascular accident (CVA), unspecified mechanism documented in this encounter Care Teams Supervisor [employer] Relationship Specialty Start Date End Date Liz Marks NP [address] [place] [address] PCP - General 04/14/19 documented as of this encounter Additional Source Comments The information contained in this document represents components of the legal health record. It is not the complete legal health record.[facility]
--- OUTSIDE RECORDS SUMMARY | 2025-02-04 11:03 | XMS_ITS | Encounter Summary ---
Author Organization [facility] Address [address] [facility] [address] [place] [address] Phone Care Team Providers Care Wafer Fabrication Operator Name Role Phone KendrickLiz Jeremias FRANKLIN Primary Care Provider [phone] Encounter Details Date Type Department Care Team (Latest Contact Info) Description 06/25/2019 Transcribe Orders Virtual Department [address] [place] [address] Matthew Champion MD [address] [place] [address], [address] [place] [address] [email or web address] Cerebrovascular accident (CVA), unspecified mechanism (Primary Dx); Vertigo Social History Tobacco Use Types Packs/Day Years [...] Info) Description 02/14/2025 8:45 AM EDT Appointment [facility], Bone [facility] [address] [place] [address] Yudy Ham NP [address] [place] [address] [email or web address] documented as of this encounter Results * Event Monitor Looping up to 30 Days (08/04/2019 2:59 PM EST) Anatomical Region Laterality Modality Heart Other Narrative 08/05/2019 4:04 PM EST 30-day monitor: 666 hours recorded. The baseline rhythm is sinus with a minimum heart rate of 56, maximum 144, average 82 bpm. There are no pauses longer than 2.5 seconds duration. There are occasional PVCs present. There were 2 patient activations which occurred during sinus rhythm without ectopy. Impression: 30-day monitor demonstrates predominantly sinus rhythm. Patient activations during sinus rhythm without ectopy. Occasional PVCs detected through automatic detection. Event Monitor Main Form Start date: 08/01/2019 End date: 07/31/2019 Matthew Champion MD CV CARDIAC SERVICES ORDERABL ES Final Result documented in this encounter Visit Diagnoses Diagnosis Cerebrovascular accident (CVA), unspecified mechanism- Primary Vertigo Dizziness and giddiness Cerebrovascular accident (CVA), unspecified mechanism Vertigo Dizziness and giddiness documented in this encounter Care Teams Wafer Fabrication Operator Relationship Specialty Start Date End Date Liz Marks NP [address] [place] [address] PCP - General 04/14/19 documented as of this encounter Additional Source Comments The information contained in this document represents components of the legal health record. It is not the complete legal health record.[facility]
--- OUTSIDE RECORDS SUMMARY | 2025-02-04 11:04 | XMS_ITS | Encounter Summary ---
Author Organization [facility] Address [address] [address] Phone Care Team Providers Care National Accounts Recruiter Name Role Phone KendrickLiz Jeremias FRANKLIN Primary Care Provider [phone] Encounter Details Date Type Department Care Team (Late Contact Info) Description 12/12/2024 Procedure Pass [facility], [address] [address] Social History Tobacco Use Types Packs/Day Years [...] Description 02/14/2025 8:45 AM EDT Appointment [facility], [address] [address] Yudy Ham NP [address] [place] [address] [email or web address] documented as of this encounter Visit Diagnoses Not on filedocumented in this encounter Care Teams National Accounts Recruiter Relationship Specialty Start Date End Date Liz Marks NP [address] [place] [address] PCP - General 04/14/19 documented as of this encounter Additional Source Comments The information contained in this document represents components of the legal health record. It is not the complete legal health record.[facility]
--- OUTSIDE RECORDS SUMMARY | 2025-02-04 11:04 | XMS_ITS | Encounter Summary ---
Author Organization [facility] Address [address] [address] Phone Care Team Providers Care Director Of Quantitative Research Name Role Phone KendrickLiz Jeremias FRANKLIN Primary Care Provider [phone] Encounter Details Date Type Department Care Team (Late Contact Info) Description 12/12/2024 Procedure Pass [facility], [address] [address] Social History Tobacco Use Types Packs/Day Years [...] Info) Description 02/14/2025 8:45 AM EDT Appointment [facility], [address] [address] Yudy Ham NP [address] [place] [address] [email or web address] documented as of this encounter Visit Diagnoses Not on filedocumented in this encounter Care Teams Director Of Quantitative Research Relationship Specialty Start Date End Date Liz Marks NP [address] [place] [address] PCP - General 04/14/19 documented as of this encounter Additional Source Comments The information contained in this document represents components of the legal health record. It is not the complete legal health record.[facility]
--- OUTSIDE RECORDS SUMMARY | 2025-02-04 11:04 | XMS_ITS | Encounter Summary ---
Author Organization [facility] Address 399 [facility] [address] [place] [address] Phone Care Team Providers Care Teradata Developer Name Role Phone KendrickLiz Jeremias FRANKLIN Primary Care Provider [phone] Encounter Details Date Type Department Care Team (Late Contact Info) Description 04/29/2019 Transcribe Orders [facility] [address] [place] [address] Kyle Humphrey MD [address] [place] [address] [email or web address] Screening for unspecified condition (Primary Dx) Social History Tobacco Use Types [...] Info) Description 02/14/2025 8:45 AM EDT Appointment [facility], [facility] [address] [place] [address] Yudy Ham NP [address] [place] [address] [email or web address] documented as of this encounter Visit Diagnoses Diagnosis Screening for unspecified condition- Primary documented in this encounter Care Teams Teradata Developer Relationship Specialty Start Date End Date Liz Marks NP [address] [place] [address] PCP - General 04/14/19 documented as of this encounter Additional Source Comments The information contained in this document represents components of the legal health record. It is not the complete legal health record.[facility]
--- OUTSIDE RECORDS SUMMARY | 2025-02-04 11:04 | XMS_ITS | Encounter Summary ---
Author Organization [facility] Address 399 [facility] [address] [place] [address] Phone Care Team Providers Care Distribution Transformer Assembler Name Role Phone KendrickLiz Jeremias FRANKLIN Primary Care Provider [phone] Encounter Details Date Type Department Care Team (Latest Contact Info) Description 06/03/2019 Transcribe Orders Virtual Department 30 [place] [address] Moises Ryan MD [address] [place] [address], [address] [place] [address] [email or web address] Other retention of urine (Primary Dx) Social History Tobacco Use Types [...] Info) Description 02/14/2025 8:45 AM EDT Appointment [facility], [facility] [address] [place] [address] Yudy Ham NP [address] [place] [address] [email or web address] documented as of this encounter Results * US Kidneys and Bladder (06/16/2019 10:18 AM EST) Anatomical Region Laterality Modality Abdomen, Kidney Ultrasound 06/16/2019 10:2 0 AM EST Impressions 06/16/2019 10:22 AM EST Minimal right upper pole caliectasis and left-sided pyelocaliectasis. No significant parenchymal pathology identified. POS - [id number] Narrative 06/16/2019 10:22 AM EST COMPARISON: None FINDINGS: Kidneys are within normal limits in size with the right measuring 10.4 x 5.0 cm and the left 11.1 x 5.5 cm in a longitudinal plane. No solid or cystic parenchymal lesion or shadowing intrarenal calculi are demonstrated on either side. There is minimal right upper pole caliectasis and left-sided collecting system fullness suggesting mild hydronephrosis. Patient has an indwelling Cabrera catheter which she reportedly was not instructed to clamp and therefore the bladder is empty at the time of imaging. Procedure Note Smith Reed MD - 06/16/2019 COMPARISON: None FINDINGS: Kidneys are within normal limits in size with the right measuring 10.4 x5.0 cm and the left 11.1 x 5.5 cm in a longitudinal plane. No solid orcystic parenchymal lesion or shadowing intrarenal calculi are demonstratedon either side. There is minimal right upper pole caliectasis andleft-sided collecting system fullness suggesting mild hydronephrosis. Patient has an indwelling Cabrera catheter which she reportedly was notinstructed to clamp and therefore the bladder is empty at the time ofimaging. IMPRESSION: Minimal right upper pole caliectasis and left-sided pyelocaliectasis. Nosignificant parenchymal pathology identified. POS - [id number] Moises Ryan MD [facility] Final Result documented in this encounter Visit Diagnoses Diagnosis Other retention of urine- Primary Other retention of urine documented in this encounter Care Teams Distribution Transformer Assembler Relationship Specialty Start Date End Date Liz Marks NP [address] [place] [address] PCP - General 04/14/19 documented as of this encounter Additional Source Comments The information contained in this document represents components of the legal health record. It is not the complete legal health record.[facility]
== END 2025-02-04 10:51 | disposition home or self-care (01) ==
LOC: HO.HUSH 09:53
PROVIDERS: PCP Nurse Practitioner Adult Health; Visit Provider Urology
DX: N20.0 Calculus of kidney (principal); N31.9 Neuromuscular dysfunction of bladder, unspecified; N13.30 Unspecified hydronephrosis; R32 Unspecified urinary incontinence
CPT/HCPCS: 52310

== ENCOUNTER → 2025-02-04 09:52 | Outpatient (BNVA) | payer MEDICARE, MEDICAID, SELFPAY | PROVIDERS: PCP Nurse Practitioner Adult Health; Visit Provider Urology | DX: N20.0 Calculus of kidney (principal); N31.9 Neuromuscular dysfunction of bladder, unspecified; Z46.6 Encounter for fitting and adjustment of urinary device; Z93.50 Unspecified cystostomy status | CPT/HCPCS: 52310 ==

== ENCOUNTER 2025-03-15 11:37 | Inpatient (IN) | payer MEDICARE, MEDICAID, SELFPAY ==
--- NOTE | ~2025-03-15 | CT_ITS ---
CLINICAL HISTORY: bilat lower quadrant tenderness CT ABDOMEN AND PELVIS WITH CONTRAST Comparison: CT/SR - CT ABDOMEN PELVIS WITHOUT IV CONTRAST - 01/14/25 12:00 EDT Findings: Scattered atelectasis and/or scarring. No consolidation or pleural effusion. Nonspecific wall thickening in the distal esophagus. Small pericardial effusion. 1 mm nonobstructing calculus in the right kidney. Multiple nonobstructing calculi in the left kidney, largest 5 mm. Heterogeneous attenuation in the upper pole of the right kidney for which the possibility of focal pyelonephritis is raised. No acute abnormalities in the remaining solid organs. No large calcified gallstone. Prominent aortic and arterial calcifications. Ectatic abdominal aorta with no aneurysmal dilatation. No small bowel obstruction, ileus or ascites. No free air or pneumatosis. Numerous diverticula in the distal descending colon and sigmoid with no significant mucosal or paracolic edema. Tzookmhu-be-[id number] rectosigmoid stool impaction. The appendix is identified. No acute appendicitis. There is mild right hydroureteronephrosis with no obstructing calculus. A 2 mm calculus in the urinary bladder is identified and the possibility for a recently passed stone is raised. Redemonstration of a suprapubic Cabrera catheter. There are gas locules surrounding the balloon tip. No lymphadenopathy or destructive osseous lesion. Stable grade 1 spondylolisthesis L4-5. IMPRESSION: 1. Mild right hydroureteronephrosis with no obstructing calculus. A 2 mm calculus in the urinary bladder is identified and the possibility for a recently passed stone is raised. 2. Heterogeneous attenuation in the upper pole of the right kidney for which the possibility of focal pyelonephritis is raised. 3. Nonobstructing bilateral nephrolithiasis. 4. Multiple gas locules in the urinary bladder lumen may be iatrogenic or infectious in etiology. 5. No obstructive or acute inflammatory changes in the gastrointestinal tract. This document has been electronically signed by: Gosia Neil DO on 03/15/2025 14:42:23
--- NOTE | 2025-03-15 11:56 | ED.GENADULT ---
HPI - General Adult General Chief complaint: Abdominal Pain Stated complaint: LOWER R ABD PAIN LIGHTHEADED DIZZINESS Time Seen by Provider: 03/15/25 11:48 Source: patient, EMS, RN notes reviewed and old records reviewed Mode of arrival: EMS Limitations: no limitations History of Present Illness ED Provider: Gumaro HPI narrative: Patient is a 84-year-old female with history of neurogenic bladder with suprapubic catheter, hydro ureteral nephrosis, hypertension, hysterectomy, CVA with left sided deficits presenting to the emergency department with complaint of right lower quadrant abdominal pain, nausea and vomiting since Sunday night. Reports Sunday morning she received a cortisone shot to her left shoulder and Sunday night symptoms began. Denies diarrhea. States emesis has been nonbloody, nonbilious. Denies fevers but reports hot and cold sweats. States that her daughter manages her urinary catheter. No vomiting this am but did gag while taking one of her medications. MD complaint: abdominal pain Onset (ago): day(s) Related Data Home Medications ?Medication ?Instructions ?Recorded ?Confirmed atorvastatin 20 mg tablet 20 mg PO QPM 09/24/22 01/14/25 calcium 600 mg (as 2 cap PO DAILY 09/24/22 01/14/25 carbonate)-vitamin D3 12.5 mcg (500 unit) capsule (Calcium with Vit D3) clotrimazole 1 % topical cream 1 appl topical BID PRN Itching 09/24/22 01/14/25 finerenone 20 mg tablet (Kerendia) 20 mg PO QPM 09/24/22 01/14/25 gabapentin 300 mg capsule 300 mg PO BID 09/24/22 01/14/25 hydrochlorothiazide 25 mg tablet 25 mg PO QPM 09/24/22 01/14/25 meclizine 25 mg tablet 25 mg PO TID PRN Dizziness 09/24/22 01/14/25 metformin 500 mg tablet 1,000 mg PO BID 09/24/22 01/14/25 oxybutynin chloride 5 mg 5 mg PO QPM 09/24/22 01/14/25 tablet,extended release 24 hr ropinirole 0.25 mg tablet 0.25 mg PO QPM 09/24/22 01/14/25 acetaminophen 500 mg tablet 1,000 mg PO QAM PRN Pain 08/31/23 01/14/25 apple cider vinegar 500 mg tablet 450 mg PO QAM 08/31/23 01/14/25 aspirin 81 mg tablet,delayed 81 mg PO QPM 08/31/23 01/14/25 release cholecalciferol (vitamin D3) 50 50 mcg PO QAM 08/31/23 01/14/25 mcg (2,000 unit) tablet (Vitamin D3) chondroitin 80 mg-collagen 400 2 cap PO QAM 08/31/23 01/14/25 mg-hyaluronic 40 mg-amino acid capsule glucosamine sulf dipot 1 cap PO QAM 08/31/23 01/14/25 chlr,msm,chond 550 mg-C 30 mg-lyric 1 mg capsule (Glucosamine Chondroitin) losartan 50 mg tablet 50 mg PO QPM 08/31/23 01/14/25 multivitamin 1 tab PO QAM 08/31/23 01/14/25 omega 3-uwl-bzg-fish oil 1,000 mg 1 cap PO QAM 08/31/23 01/14/25 (120 mg-180 mg) capsule (Fish Oil) cyanocobalamin (vitamin B-12) 1,000 mcg PO DAILY 01/14/25 01/14/25 1,000 mcg tablet (Vitamin B-12) sodium hyaluronate 20 mg capsule 200 mg PO DAILY 01/14/25 01/14/25 tramadol 50 mg tablet 50 mg PO Q6H PRN Pain 01/14/25 01/14/25 Previous Rx's ?Medication ?Instructions ?Recorded diphenhydramine HCl 25 mg capsule 25 mg PO Q6H PRN headache, 12/08/23 nausea, vomiting #20 caps ibuprofen 400 mg tablet 400 mg PO TID PRN fever or pain 12/08/23 #30 tabs metoclopramide HCl 10 mg tablet 10 mg PO Q6H PRN nausea and 12/08/23 (Reglan) vomiting #14 tabs ascorbic acid (vitamin C) 1,000 mg 1,000 mg PO DAILY 90 days #90 tabs 02/04/25 tablet methenamine hippurate 1 gram tablet 1 g PO DAILY 90 days #90 tabs 02/04/25 potassium citrate 10 mEq (1,080 20 meq (2 x 10 mEq (1,080 mg)) PO 02/04/25 mg) tablet,extended release BID 90 days #360 tabs Allergies Allergy/AdvReac Type Severity Reaction Status Date / Time egg Allergy Unknown Verified 03/15/25 12:06 Penicillins Allergy Unknown Verified 03/15/25 12:06 walnut Allergy Unknown Verified 03/15/25 12:06 Review of Systems Review of Systems: As per hpi Yes all other systems are reviewed and are negative [facility] Past Medical History Medical History (Updated 03/15/25 @ 16:17 by Juliette Flores NP) Suprapubic catheter Mixed hyperlipidemia Urinary incontinence Non-insulin dependent type 2 diabetes mellitus Hypertension 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 Social History Social History Household Members: Children and None Household Members Other:: daughter and son in law Housing: House Do you presently have visiting nurse or other home services: Yes Alcohol intake: current Alcohol intake frequency: other Patient Tobacco Use Status: Former Tobacco user Smoked in Last 30 Days: No e-Cigarette/Vaping Use: Former Use Second Hand Smoke Exposure: No Use of substances other than those prescribed or required for medical reasons: No Advance Directives: Yes Advance Directives Information Provided: Yes Advance Directives on File: No Do you have a plan to hurt others: No Plan service: No Physical Exam ED Vital Signs: Vital Signs - 24 hr 03/15/25 12:03 Temperature 97.3 F Pulse Rate 107 H Respiratory Rate 18 Blood Pressure 128/54 L Pulse Oximetry 97 Oxygen Delivery Method Room Air BMI result Body Mass Index 25.9 Medications Administered Generic Name Dose Route Start Last Admin Trade Name Freq PRN Reason Stop Dose Admin Sodium Chloride 1,000 mls @ 500 mls/hr 03/15/25 14:30 03/15/25 15:08 Ns IV 03/15/25 16:29 500 mls/hr .Q2H ZAC Administration Discontinued Medications Generic Name Dose Route Start Last Admin Trade Name Freq PRN Reason Stop Dose Admin Iohexol 100 ml 03/15/25 13:57 03/15/25 13:58 Iohexol 350 Mg/Ml 100 Ml Infus..Btl IV 03/15/25 13:58 85 ml ONCE ONE Administration Medical Decision Making Medical Decision Making MDM Narrative: Patient is a 84-year-old female with history of neurogenic bladder with suprapubic catheter, hydro ureteral nephrosis, hypertension, hysterectomy presenting to the emergency department with complaint of right lower quadrant abdominal pain, nausea and vomiting since Sunday night. On exam patient is awake, A+Ox3, mildly tachycardic, VS otherwise WNL, afebrile, normal neurological exam without focal deficits, physical exam findings as above. Given reported symptoms and physical exam findings, initial differential includes but is not limited to UTI, pyelonephritis, diverticulitis, appendicitis. Labs notable for leukocytosis. UA notable for 2+ leukocytes, positive nitrites. Will cover with ceftriaxone. CT abdomen pelvis notable for mild right hydroureteronephrosis, 2 millimeter calculi in bladder. My interpretation is in agreement with the radiologist's interpretation. Case discussed with Ebony Flores NP who accepts admission to medicine. Differential Diagnosis Differential Diagnoses: The differential diagnosis associated with the presentation includes as per [facility] Admission/Observation Consideration of admission/observation: Escalation of care including admission/observation considered Consult Healthcare Provider Management of the patient was discussed with: Hospitalist Lab Data [facility] Lab Attestation statement: I reviewed the patient's lab results. [facility] 03/15/25 12:56 03/15/25 12:56 Labs: Lab Results 03/15/25 03/15/25 Range/Units 12:56 15:14 WBC 15.9 H (4.8-10.8) X10*3/uL RBC 4.42 D (4.20-5.50) X10*6/uL Hgb 12.8 D (12.0-16.0) g/dl Hct 40.5 D (37.0-47.0) % MCV 91.6 (80.0-98.0) fL MCH 29.0 (27.0-33.0) pg MCHC 31.6 (31.0-35.0) g/dl RDW 13.6 (11.0-16.0) % Plt Count 369 D (160-400) X10*3/uL MPV 9.4 (9.4-12.3) fL Immature Gran % (Auto) 1.6 H (0.0-0.4) % Neut % (Auto) 69.8 (45-73) % Lymph % (Auto) 20.4 (20-40) % [place] % (Auto) 7.0 (2-11) % Eos % (Auto) 0.9 (0-4) % Baso % (Auto) 0.3 (0-2) % Lymph # (Auto) 3.2 (1.2-4.9) X10*3/uL [place] # (Auto) 1.1 (0.1-1.2) X10*3/uL Eos # (Auto) 0.2 (0.0-0.4) X10*3/uL Baso # (Auto) 0.0 (0.0-0.2) X10*3/uL Abs Immat Gran (auto) 0.26 H (0.00-0.03) X10*3/uL Absolute Neuts (auto) 11.1 H (2.0-8.3) x10*3/uL Absolute Nucleated RBC 0.000 (0.0-0.012) X10*3/uL Nucleated RBC % (auto) 0.0 (0.0-0.2) /100WBC PT 12.2 (10.9-12.4) SEC INR 1.1 (0.9-1.1) Sodium 138 (135-145) mmol/L Potassium 5.0 D (3.3-5.1) mmol/L Chloride 102 (96-108) mmol/L Carbon Dioxide 25 (22-29) mmol/L Anion Gap 16 (12-20) BUN 42 H (9-16) mg/dL Creatinine 1.32 (0.5-1.4) mg/dL Estim Creat Clear Calc 31.2 Estimated GFR 39 Random Glucose 157 H (60-115) mg/dL Calcium 10.4 H D (8.4-10.2) mg/dL Total Bilirubin 0.6 (0.0-1.0) mg/dL AST 27 (5-31) U/L ALT 21 (0-31) U/L Alkaline Phosphatase 68 (39-117) U/L Total Protein 8.4 H (6.5-8.0) g/dL Albumin 4.7 (3.5-5.0) g/dL Lipase 21 (8-78) U/L Urine Color Yellow Urine Appearance Cloudy Urine pH 6.0 (5.0-9.0) Ur Specific [place] >= 1.030 H (1.005-1.025) Urine Protein Negative (Neg-Trace) mg/dL Urine Glucose (UA) Negative (Negative) mg/dL Urine Ketones Negative (Negative) mg/dL Urine Blood Small (1+) H (Negative) Urine Nitrite Positive H (Negative) Ur Leukocyte Esterase Moderate (2+) H (Negative) Urine RBC 0-2 (0-2) /HPF Urine WBC 11-20 (0-5) /HPF Ur Squamous Epith Cells 0-2 (0-2) /HPF Urine Bacteria 4+ (None Seen) Hyaline Casts 3-5 (0-2) /LPF Independent Interpretation I performed an independent interpretation of an: CT Scan Interpretation: CT abdomen pelvis notable for mild right hydroureteronephrosis, 2 millimeter calculi in bladder. Radiology Impression Discussion of test interpretation with radiology: I have reviewed the radiologist's reading. Radiologist Impression: IMPRESSION: 1. Mild right hydroureteronephrosis with no obstructing calculus. A 2 mm calculus in the urinary bladder is identified and the possibility for a recently passed stone is raised. 2. Heterogeneous attenuation in the upper pole of the right kidney for which the possibility of focal pyelonephritis is raised. 3. Nonobstructing bilateral nephrolithiasis. 4. Multiple gas locules in the urinary bladder lumen may be iatrogenic or infectious in etiology. 5. No obstructive or acute inflammatory changes in the gastrointestinal tract. External Record Review External record reviewed: Inpatient record, Office record and Outpatient record Prescription Management I considered prescription management with: Antibiotic Discharge Plan Discharge Clinical Impression: UTI (urinary tract infection) Qualifiers: Urinary tract infection type: site unspecified Hematuria presence: with hematuria Qualified Code(s): N39.0 - Urinary tract infection, site not specified Patient Disposition: Admitted As Inpatient
[2025-03-15 12:03] VITALS: BP 128/54; BP 134/86; PULSE 107; PULSE 112; RESP 18; TEMP 36.3; O2SAT 97; O2SAT 98; BMI 25.9
--- OUTSIDE RECORDS SUMMARY | 2025-03-15 12:16 | XMS_ITS | Encounter Summary ---
Author Organization [facility] Address [address] [facility] [address] [place] [address] Phone Care Team Providers Care Vineyard Supervisor Name Role Phone Liz Marks NP Primary Care Provider [phone] Encounter Details Date Type Department Care Team (Late st Contact Info) Description 12/12/2024 Procedure Pass [facility], [address] [address] Social History Tobacco Use Types Packs/Day Years [...] as of this encounter Plan of Treatment Not on file documented as of this encounter Visit Diagnoses Not on filedocumented in this encounter Care Teams Vineyard Supervisor Relationship Specialty Start Date End Date Liz Marks NP [address] [place] [address] PCP - General 04/14/19 documented as of this encounter Additional Source Comments The information contained in this document represents components of the legal health record. It is not the complete legal health record.[facility]
--- OUTSIDE RECORDS SUMMARY | 2025-03-15 12:16 | XMS_ITS | Encounter Summary ---
Author Organization [facility] Address [address] [address] Phone Care Team Providers Care Tray Worker Name Role Phone Liz Marks NP Primary Care Provider [phone] Encounter Details Date Type Department Care Team (Late st Contact Info) Description 12/12/2024 Procedure Pass Non-In[facility] Cardiology [address] [place] [address] Social History Tobacco Use Types Packs/Day Years [...] on filedocumented in this encounter Care Teams Tray Worker Relationship Specialty Start Date End Date Liz Marks NP [address] [place] [address] PCP - General 04/14/19 documented as of this encounter Additional Source Comments The information contained in this document represents components of the legal health record. It is not the complete legal health record.[facility]
--- OUTSIDE RECORDS SUMMARY | 2025-03-15 12:16 | XMS_ITS | Encounter Summary ---
Author Organization [facility] Address 399 [facility] [address] [place] [address] Phone Care Team Providers Care Reinsurance Clerk Name Role Phone Liz Marks NP Primary Care Provider [phone] Reason for Referral * MRI/CAT Scan - Closed Specialty Diagnoses / Procedures Referred By Maxwell t Referred To Contact Radiology Diagnoses Cerebrovascular accident (CVA), unspecified mechanism Procedures MRI Angio Neck Matthew Champion MD [address] [place] [address], [address] [address] Phone: tel: fax: mailto:[email or web address] Referral ID Status Reason Start Date Expiration Date Visits Re quested Visits Authorized [id number] Closed 12/12/2024 12/12/2025 1 1 * MRI/CAT Scan - Closed Specialty Diagnoses / Procedures Referred By Maxwell foster Referred To Contact Radiology Diagnoses Cerebrovascular accident (CVA), unspecified mechanism Procedures MRI Angio Brain Matthew Champion MD [address] [place] [address], [address] [place] [address] Phone: tel: fax: mailto: Referral ID Status Reason Start Date Expiration Date Visits Re quested Visits Authorized [id number] Closed 12/12/2024 12/12/2025 1 1 Encounter Details Date Type Department Care Team (Latest Contact Info) Description 12/12/2024 Transcribe Orders Virtual Department [address] [facility] [place] [address] Matthew Champion MD [address] [place] [address], [address] [place] [address] [email or web address] Cerebrovascular accident (CVA), unspecified mechanism (Primary Dx) [...] on file documented as of this encounter Results * [...] MRA of the head was performed utilizing bhhz-bu-omdrku technique (no gadolinium). Maximal intensity projection 3D [...] MRA of the head was performed utilizing xnjh-hg-zajjib technique (nogadolinium). Maximal intensity projection 3D angiographic [...] MRA of the head was performed utilizing ygka-dw-rjknpa technique (no gadolinium). Maximal intensity projection 3D [...] MRA of the head was performed utilizing lzdy-ma-fmpffx technique (Brandpotionadolinium). Maximal intensity projection 3D angiographic reformattedimages were performed. MRA of the neck was performed with the administration of intravenouscontrast utilizing bolus triggering and subtraction techniques. Maximalintensity projection 3D angiographic reformatted images were performed. COMPARISON: MRI BRAIN WITHOUT CONTRAST 2025-Wade-07; outside hospital CTAof the head and neck [...] mechanism documented in this encounter Care Teams Reinsurance Clerk Relationship Specialty Start Date End Date Liz Marks NP [address] [place], [place] [id number] PCP - General 04/14/19 documented as of this encounter Additional Source Comments The information contained in this document represents components of the legal health record. It is not the complete legal health record.[facility]
--- OUTSIDE RECORDS SUMMARY | 2025-03-15 12:16 | XMS_ITS | Encounter Summary ---
Author Organization [facility] Address 399 [facility] [address] [place] [address] Phone Care Team Providers Care Hardboard Press Operator Name Role Phone Liz Marks NP Primary Care Provider [phone] Encounter Details Date Type Department Care Team (Late st Contact Info) Description 11/17/2024 Procedure Pass [facility], [address] [address] Social History Tobacco Use Types Packs/Day Years [...] on filedocumented in this encounter Care Teams Hardboard Press Operator Relationship Specialty Start Date End Date Liz Marks NP [address] [place] [address] PCP - General 04/14/19 documented as of this encounter Additional Source Comments The information contained in this document represents components of the legal health record. It is not the complete legal health record.[facility]
--- OUTSIDE RECORDS SUMMARY | 2025-03-15 12:16 | XMS_ITS | Patient Health Record ---
Author Organization [facility] randall HuangKimani Address [address] [facility] [place] [address] Care Team Providers Care Packing Line Worker Name Role Phone Kendrick HUBBARD, Liz Primary Care Provider Josse Leyva Unavailable [phone] Allergies Allergen (clinical drug ingredient) Drug/Non Drug [...] Type 2 diabetes mellitus with peripheral angiopathy (772703905) Type 2 diabetes mellitus with diabetic peripheral angiopathy without gangrene (E11.51) Active confirmed Plan Of Treatment Pending Test Test Name Order Date [id number] NAIL, 6 OR MORE 12/16/2019 [id number] NAIL, 6 OR MORE 03/16/2020 [id number] Plate 03/16/2020 [id number] SKIN LESIONS, 2 TO 4 03/16/20 [id number] SKIN LESIONS, 2 TO 4 12/16/19 Insurance Providers Payer Name Payer Address Payer Phone Subscriber Number Group Number Insured Name Patient Relationship to Insured Coverage Start Date Coverage End Date Medicare National Govt Sv[employer] [address] [facility] [address] [id number] Toshia Senior Self - patient is the insured [employer] [address] [place] [address] [phone] [id number] Toshia Senior Self - patient is the insured Medical (General) History Medical History History ICD Code Anemia Arthritis Back,Hip,and Knee pain Cataracts Diabetic Headaches/Migraines High blood pressure Sciatica Stroke Measles Chicken pox Transfusions Vertigo Surgical History Surgery Date(Month/Year) tonsillectomy 194 hysterectomy 1991 cataract surgery 2018 eye lift 2019 Dental Surgery 1994
--- OUTSIDE RECORDS SUMMARY | 2025-03-15 12:16 | XMS_ITS | Encounter Summary ---
Author Organization [facility] Address [address] [facility] [address] [place] [address] Phone Care Team Providers Care Cannon Pinion Adjuster Name Role Phone Liz Marks RIGOBERTO Primary Care Provider [phone] [phone] Encounter Details Date Type Department Care Team (Latest Contact Info) Description 06/25/2019 Transcribe Orders Virtual Department [address] [place] [address] Matthew Champion MD [address] [place] [address], [address] [place], [place] [id number] [email or web address] Cerebrovascular accident (CVA), unspecified mechanism (Primary [...] Form Start date: 08/01/2019 End date: 07/31/2019 us Matthew Champion MD CV CARDIAC SERVICES ORDERABL ES Final Result documented in this encounter Visit Diagnoses Diagnosis Cerebrovascular accident (CVA), unspecified mechanism- Primary Vertigo Dizziness and giddiness Cerebrovascular accident (CVA), unspecified mechanism Vertigo Dizziness and giddiness documented in this encounter Care Teams Cannon Pinion Adjuster Relationship Specialty Start Date End Date Liz Marks NP [address] [place], [place] [id number] PCP - General 04/14/19 documented as of this encounter Additional Source Comments The information contained in this document represents components of the legal health record. It is not the complete legal health record.[facility]
--- OUTSIDE RECORDS SUMMARY | 2025-03-15 12:16 | XMS_ITS | Encounter Summary ---
Author Organization [facility] Address [address] [facility] [address] [place] [address] Phone Care Team Providers Care Woodworking Machine Setter Name Role Phone Liz Marks NP Primary Care Provider +1- [phone] Encounter Details Date Type Department Care Team (Late st Contact Info) Description 11/08/2021 Transcribe Orders Virtual Department 30 [place] [address] Jose Miguel Stacy MD [address] [address] [email or web address] Abdominal wall mass of left lower quadrant [...] Primary documented in this encounter Care Teams Woodworking Machine Setter Relationship Specialty Start Date End Date Liz Marks NP 31 [place] [address] PCP - General 04/14/19 documented as of this encounter Additional Source Comments The information contained in this document represents components of the legal health record. It is not the complete legal health record.[facility]
--- OUTSIDE RECORDS SUMMARY | 2025-03-15 12:16 | XMS_ITS | Encounter Summary ---
Author Organization [facility] Address [address] [place] [address] [place] [address] Phone Care Team Providers Care Adjunct Professor Of Law Name Role Phone Liz Marks Jeremias FRANKLIN Primary Care Provider +1 [phone] Encounter Details Date Type Department Care Team (Latest Contact Info) Description 06/03/2019 Transcribe Orders Virtual Department [address] [place] [address] Moises Ryan MD [address] [place] [address], [address] [place] [address] [email or web address] Other retention of urine (Primary Dx) Social [...] No significant parenchymal pathology identified. POS - [id number] Narrative 06/16/2019 10:22 AM EST COMPARISON: None [...] pyelocaliectasis. Nosignificant parenchymal pathology identified. POS - [id number] Moises Ryan MD [facility] RENAL Final Result documented in this encounter Visit Diagnoses Diagnosis Other retention of urine- Primary Other retention of urine documented in this encounter Care Teams Adjunct Professor Of Law Relationship Specialty Start Date End Date Liz Marks NP [address] [place] [address] PCP - General 04/14/19 documented as of this encounter Additional Source Comments The information contained in this document represents components of the legal health record. It is not the complete legal health record.[facility]
--- OUTSIDE RECORDS SUMMARY | 2025-03-15 12:16 | XMS_ITS | Clinical Summary ---
Author Organization [facility] Address [address] [address] Phone Care Team Providers Care Scrum Master Name Role Phone Liz Marks RIGOBERTO Primary Care Provider [phone]- [phone] Allergies Active Allergy Reactions Criticality Noted Date [...] 3 (three) times a day. Active omega 2-cos-ryq-fish oil 1,000 mg (120 mg-180 mg) Cap Take 1 capsule by mouth daily. Active Ca cit-D3-mag#11-zin q-nqya-dwj-bor (CALTRATE 600+D) 600 mg calcium- 800 unit-50 [...] - 01/30/2025 11:59 PM EDT Hospital Encounter [address] [address] Matthew Champion MD Discharge Disposition: Home or Self Care 01/30/2025 8:42 AM EDT - 01/30/2025 8:48 AM EDT Hospital Encounter [address] [address] Matthew Champion MD Discharge Disposition: Home or Self Care 12/31/2024 2:08 PM EDT - 12/31/2024 11:59 PM EDT Hospital Encounter Non-Invasive Cardiology [address] [place] [address] Matthew Champion MD Discharge Disposition: Home or Self Care 12/12/2024 Procedure Pass [address] [address] 12/12/2024 Procedure Pass [address] [address] 12/12/2024 Procedure Pass Non-Invasive Cardiology [address] [place] [address] from Last 3 Months Social History Tobacco [...] 01/27/2025 10:55 AM EDT Plan of Treatment Health Maintenance Due Date Last Done Comments Adult Td,Tdap Booster 1942 DEPRESSION SCREENING 1954 LIPID PANEL 1960 OSTEOPOROSIS SCREENING INITIAL (ONE-TIME) 2007 ZOSTER VACCINES (2 of 3) 03/06/2012 01/10/2012 RSV VACCINE (1 - 1-dose 75+ series) 2017 CREATININE LEVEL 04/29/2020 04/29/2019, , 03/12/2019, Additional history exists POTASSIUM LEVEL 04/29/2020 04/29/2019, 03/04, 03/12/2019, Additional history exists INFLUENZA VACCINE (#1) 2025 9, 02/20/2018, 04/05/2017, Additional history exists COVID-19 VACCINE ( - season) 2025 10/04/2020 PNEUMOCOCCAL VACCINES (50+ years) Completed 04/29/2019, [...] AM EDT Cerebrovascular accident (CVA), unspecified mechanism COMPREHENSIVE METABOLIC PANEL Routine 04/29/2019 1:30 PM [...] telemetry. Start date: 12/31/2024 End date: 01/26/2025 Matthew Champion MD CV CARDIAC SERVICES ORDERABL [...] MRA of the head was performed utilizing idrr-ah-cdgumr technique (no gadolinium). Maximal intensity projection 3D [...] MRA of the head was performed utilizing sahl-oj-uqijnr technique (nogadolinium). Maximal intensity projection 3D angiographic [...] MRA of the head was performed utilizing naxh-sj-ambvpj technique (no gadolinium). Maximal intensity projection 3D [...] MRA of the head was performed utilizing jtts-he-kbdzgf technique (nogadolinium). Maximal intensity projection 3D angiographic [...] EST) SODIUM 138 133 - 146 mmol/L [facility] POTASSIUM 3.6 3.3 - 5.1 mmol/L [facility] CHLORIDE 97 96 - 108 mmol/L [facility] CO2 26 21 - 35 mmol/L [facility] BUN 22(H) 6 - 19 mg/dL [facility] CREATININE 0.60 0.5 - 1.5 mg/dL [facility] GLUCOSE 141(H) 70 - 99 mg/dL [facility] ALBUMIN 4.5 3.9 - 4.8 g/dL [facility] TOTAL PROTEIN 8.3(H) 6.5 - 8.0 g/dL [facility] CALCIUM 10.7(H) 8.4 - 10.3 mg/dL [facility] ALKALINE PHOSPHATASE 170(H) 39 - 117 U/L [facility] TOTAL BILIRUBIN 0.3 0.0 - 1.2 mg/dL [facility] AST 48(H) 0 - 37 U/L [facility] ALT 53(H) 0 - 40 U/L [facility] GLOBULIN 3.8 1 - 4.8 g/dL [facility] EGFR 89 >59 mL/min/1.7 3m2 [facility] Comment:If patient is black, multiply result by 1.159. Estimated glomerular filtration rate calculated using the CKD-EPI equation. ANION GAP 19 10 - 20 mmol/L [facility] Blood 04/29/2019 1:30 PM EST 04/29/2019 1:51 PM EST us Kyle Humphrey MD LAB BLOOD ORDERABLES Final Resul t [address] [address] from Last 3 Months or Most Recently Relevant to Health Maintenance Insurance MEDICARE PART A [place] MED[place]ARE PART A & B MEDICARE PART A & [place] [address] [place] [address] MEDICARE PART A & B MEDICARE [place] & [place] & B [facility] Care Teams Scrum Master Relationship Specialty Start Date End Date Liz Marks NP [address] [place] [address] PCP - General 04/14/19 Additional Source Comments The information contained in this document represents components of the legal health record. It is not the complete legal health record.[facility]
--- OUTSIDE RECORDS SUMMARY | 2025-03-15 12:16 | XMS_ITS | Encounter Summary ---
Author Organization [facility] Address [address] [facility] [address] [place] [address] Phone Care Team Providers Care Sales Order Processor Name Role Phone Liz Marks NP Primary Care Provider [phone] Encounter Details Date Type Department Care Team (Late st Contact Info) Description 04/29/2019 Transcribe Orders [facility] Laboratory [address] [place] [address] Kyle Humphrey MD [address] [place] [address] [email or web address] Screening for unspecified condition (Primary Dx) Social [...] Primary documented in this encounter Care Teams Sales Order Processor Relationship Specialty Start Date End Date Liz Marks NP [address] [place] [address] PCP - General 04/14/19 documented as of this encounter Additional Source Comments The information contained in this document represents components of the legal health record. It is not the complete legal health record.[facility]
--- OUTSIDE RECORDS SUMMARY | 2025-03-15 12:16 | XMS_ITS | Encounter Summary ---
Author Organization [facility] Address [address] [facility] [address] [place] [address] Phone Care Team Providers Care Lead Ramp Agent Name Role Phone KendrickLiz Jeremias FRANKLIN Primary Care Provider [phone] Encounter Details Date Type Department Care Team (Latest Contact Info) Description 06/18/2019 Transcribe Orders [facility] [address] [place] [address] Matthew Champion MD [address] [place] [address], [address] [place], [place] [id number] [email or web address] Cerebrovascular accident (CVA) due to thrombosis [...] ACH RECEPTOR BIND AB 0.00 <=0.02 nmol/L [facility] DPT OF LAB MED AND PAT+ Comment: (NOTE) ADDITIONAL INFORMATION This test was developed and its performance characteristics determined by [facility] in a manner consistent with CLIA requirements. This test has not been cleared or approved by the U.S. Food and Drug Administration. Blood 06/18/2019 1:55 PM EST 06/18/2019 2:02 PM EST us Matthew Champion MD LAB BLOOD ORDERABLES Final R esult [facility] DPT OF LAB MED AND PAT+ [address] [place] [address] * (ABNORMAL) Ferritin (06/18/2019 1:55 PM EST) FERRITIN 338(H) 13 - 150 ug/L [facility] Blood 06/18/2019 1:55 PM EST 06/18/2019 8:03 PM EST us Matthew Champion MD LAB BLOOD ORDERABLES Final R esult Performing Organization Address [facility] Co de Phone Number [address] [address] * Vitamin B12 (06/18/2019 1:55 PM EST) VITAMIN B12 364 232 - 1,245 pg/mL [facility] Blood 06/18/2019 1:55 PM EST 06/18/2019 8:03 PM EST us Matthew Champion MD LAB BLOOD ORDERABLES Final R esult Performing Organization Address [facility] Co de Phone Number [address] [address] * TSH (06/18/2019 1:55 PM EST) TSH 1.66 0.27 - 4.20 uIU/mL [facility] Blood 06/18/2019 1:55 PM EST 06/18/2019 8:03 PM EST us Matthew Champion MD LAB BLOOD ORDERABLES Final R esult [facility] [address] [place] [address] documented in this encounter Visit Diagnoses Diagnosis 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 It is not the complete legal health record.[facility]
--- OUTSIDE RECORDS SUMMARY | 2025-03-15 12:16 | XMS_ITS | Encounter Summary ---
Author Organization [facility] Address [address] [facility] [address] [place] [address] Phone Care Team Providers Care Market Survey Representative Name Role Phone Liz Marks NP Primary Care Provider [phone]- [phone] Encounter Details Date Type Department Care Team (Late st Contact Info) Description 12/12/2024 Procedure Pass [facility], [address] [address] Social History Tobacco Use Types Packs/Day Years [...] on filedocumented in this encounter Care Teams Market Survey Representative Relationship Specialty Start Date End Date Liz Marks NP [address] [place] [address] PCP - General 04/14/19 documented as of this encounter Additional Source Comments The information contained in this document represents components of the legal health record. It is not the complete legal health record.[facility]
[2025-03-15 13:03] LABS: MANUAL DIFF FLAG NO
[2025-03-15 13:04] LABS: Hematocrit 40.5 % (37.0-47.0); Hemoglobin 12.8 g/dl (12.0-16.0); Imm Gran Abs Auto 0.26 X10*3/uL (0.00-0.03); Imm Gran Pct Auto 1.6 % (0.0-0.4); Lymphocytes Absolute Auto 3.2 X10*3/uL (1.2-4.9); Mean Corpuscular HGB Conc 31.6 g/dl (31.0-35.0); Mean Corpuscular Hemoglobin 29.0 pg (27.0-33.0); Mean Corpuscular Volume 91.6 fL (80.0-98.0); NRBC Abs Auto 0.000 X10*3/uL (0.0-0.012); NRBC Pct Auto 0.0 /100WBC (0.0-0.2); Platelet Count 369 X10*3/uL (160-400); Red Blood Count 4.42 X10*6/uL (4.20-5.50); White Blood Count 15.9 X10*3/uL (4.8-10.8)
[2025-03-15 13:10] LABS: INTERNATIONAL NORM RATIO 1.1 (0.9-1.1); Prothrombin Time 12.2 SEC (10.9-12.4)
[2025-03-15 13:16] LABS: Alanine Aminotransferase 21 U/L (0-31); Albumin Level 4.7 g/dL (3.5-5.0); Alkaline Phosphatase 68 U/L (39-117); Anion Gap 16 (12-20); Aspartate Amino Transferase 27 U/L (5-31); Blood Urea Nitrogen 42 mg/dL (9-16); Calcium 10.4 mg/dL (8.4-10.2); Carbon Dioxide 25 mmol/L (22-29); Chloride 102 mmol/L (96-108); Creatinine Clr Calc Pharmacy 31.2; Estimated Glomerular Filt Rate 39; Lipase 21 U/L (8-78); Potassium 5.0 mmol/L (3.3-5.1); Sodium 138 mmol/L (135-145); Total Protein 8.4 g/dL (6.5-8.0)
[2025-03-15] MEDS: iohexoL 350 MG/ML 100 ML INFUS..BTL IV (13:58)
[2025-03-15 15:23] LABS: Appearance Urine Cloudy; Glucose Urine UA Negative (Negative); PH 6.0 (5.0-9.0); Specific Gravity - Urine >= 1.030 (1.005-1.025); UMIC TRIGGER UACC YES
[2025-03-15 15:31] LABS: UACC Culture Trigger YES
--- NOTE | 2025-03-15 16:16 | PM.IMHP ---
History of Present Illness Date of Service: 03/15/25 Chief Complaint: Nausea and vomiting 84-year-old female with history of neurogenic bladder with suprapubic catheter, hydro ureteral nephrosis, hypertension, hysterectomy, CVA with left sided deficits presenting to the emergency department with complaint of right lower quadrant abdominal pain, nausea and vomiting since [place] night. Noted to have elevated white blood cell count, tachycardia and UTI. BP stable but soft. She was started on IV fluids. Abdominal CT showed mild hydroureteronephrosis with no obstructing calculus. She will be admitted for sepsis secondary to UTI. Review of Systems Review of Systems: Denies any recent fever chills or decrease in appetite respiratory denies any shortness of breath or cough cardiovascular Denied chest pain gastrointestinal See HPI genitourinary denies any dysuria frequency or hematuria, suprapubic catheter musculoskeletal denies any joint pain or swelling neuropsych denies any weakness or seizures all other systems reviewed are negative [facility] Medical History (Updated 03/15/25 @ 16:17 by Juliette Flores NP) Suprapubic catheter Mixed hyperlipidemia Urinary incontinence Non-insulin dependent type 2 diabetes mellitus Hypertension 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 Social History Household Members: Children and None Household Members Other:: daughter and son in law Housing: House Do you presently have visiting nurse or other home services: Yes Alcohol intake: current Alcohol intake frequency: other Patient Tobacco Use Status: Former Tobacco user Smoked in Last 30 Days: No e-Cigarette/Vaping Use: Former Use Second Hand Smoke Exposure: No Use of substances other than those prescribed or required for medical reasons: No Advance Directives: Yes Advance Directives Information Provided: Yes Advance Directives on File: No Do you have a plan to hurt others: No Plan service: No Meds Allergies Allergy/AdvReac Type Severity Reaction Status Date / Time egg Allergy Unknown Verified 03/15/25 12:06 Penicillins Allergy Unknown Verified 03/15/25 12:06 walnut Allergy Unknown Verified 03/15/25 12:06 Active Medications: Current Medications Acetaminophen (Acetaminophen 325 Mg Tablet) 650 mg PO Q6H PRN PRN Reason: Pain, Mild 1-3,fever,headache Calcium Carbonate (Calcium Carbonate 750 Mg Tab.Chew) 750 mg PO Q4H PRN PRN Reason: Heartburn Heparin Sodium (Porcine) (Heparin Sodium,Porcine 5,000 Unit/Ml Vial) 5,000 unit SUBCUT Q12H [facility] Sodium Chloride (Ns) 1,000 mls @ 500 mls/hr IV .Q2H [facility] Stop: 03/15/25 16:29 Last Admin: 03/15/25 15:08 Dose: 500 mls/hr Levofloxacin (Levaquin) 500 mg in 100 mls @ 100 mls/hr IV Q24H [facility] Magnesium Hydroxide (Milk Of Magnesia 30 Ml Oral.Susp) 30 ml PO DAILY PRN PRN Reason: Constipation Melatonin (Melatonin 3 Mg Tablet) 6 mg PO BEDTIME PRN PRN Reason: Insomnia Ondansetron HCl (Ondansetron Hcl 4 Mg/2 Ml Vial) 4 mg IVPUSH Q8H PRN PRN Reason: Nausea and Vomiting Sodium Chloride (0.9 % Sodium Chloride Flush 3 Ml Syringe) 3 ml IVFLUSH QSHIFT [facility] Home Medications ?Medication ?Instructions ?Recorded ?Confirmed ?Last Taken ?Type atorvastatin 20 mg tablet 20 mg PO QPM 09/24/22 01/14/25 01/13/25 History calcium 600 mg (as 2 cap PO DAILY 09/24/22 01/14/25 01/13/25 History carbonate)-vitamin D3 12.5 mcg (500 unit) capsule (Calcium with Vit D3) clotrimazole 1 % topical cream 1 appl topical BID PRN Itching 09/24/22 01/14/25 01/13/25 History finerenone 20 mg tablet (Kerendia) 20 mg PO QPM 09/24/22 01/14/25 01/13/25 History gabapentin 300 mg capsule 300 mg PO BID 09/24/22 01/14/25 01/13/25 History hydrochlorothiazide 25 mg tablet 25 mg PO QPM 09/24/22 01/14/25 01/13/25 History meclizine 25 mg tablet 25 mg PO TID PRN Dizziness 09/24/22 01/14/25 01/13/25 History metformin 500 mg tablet 1,000 mg PO BID 09/24/22 01/14/25 01/13/25 History oxybutynin chloride 5 mg 5 mg PO QPM 09/24/22 01/14/25 01/13/25 History tablet,extended release 24 hr ropinirole 0.25 mg tablet 0.25 mg PO QPM 09/24/22 01/14/25 01/13/25 History acetaminophen 500 mg tablet 1,000 mg PO QAM PRN Pain 08/31/23 01/14/25 01/13/25 History apple cider vinegar 500 mg tablet 450 mg PO QAM 08/31/23 01/14/25 01/13/25 History aspirin 81 mg tablet,delayed 81 mg PO QPM 08/31/23 01/14/25 01/13/25 History release cholecalciferol (vitamin D3) 50 50 mcg PO QAM 08/31/23 01/14/25 01/13/25 History mcg (2,000 unit) tablet (Vitamin D3) chondroitin 80 mg-collagen 400 2 cap PO QAM 08/31/23 01/14/25 01/13/25 History mg-hyaluronic 40 mg-amino acid capsule glucosamine sulf dipot 1 cap PO QAM 08/31/23 01/14/25 01/13/25 History chlr,msm,chond 550 mg-C 30 mg-lyric 1 mg capsule (Glucosamine Chondroitin) losartan 50 mg tablet 50 mg PO QPM 08/31/23 01/14/25 01/13/25 History multivitamin 1 tab PO QAM 08/31/23 01/14/25 01/13/25 History omega 5-fme-jzl-fish oil 1,000 mg 1 cap PO QAM 08/31/23 01/14/25 01/13/25 History (120 mg-180 mg) capsule (Fish Oil) cyanocobalamin (vitamin B-12) 1,000 mcg PO DAILY 01/14/25 01/14/25 01/13/25 History 1,000 mcg tablet (Vitamin B-12) sodium hyaluronate 20 mg capsule 200 mg PO DAILY 01/14/25 01/14/25 01/13/25 History tramadol 50 mg tablet 50 mg PO Q6H PRN Pain 01/14/25 01/14/25 01/13/25 History Physical Exam Vital Signs and Narrative: Vital Signs: Last Vital Signs Temp 97.3 F 03/15/25 12:03 Pulse 107 H 03/15/25 12:03 Resp 18 03/15/25 12:03 BP 128/54 L 03/15/25 12:03 Pulse Ox 97 03/15/25 12:03 O2 Del Method Room Air 03/15/25 12:03 BMI result Body Mass Index 25.9 Appearing in no acute distress head is normocephalic atraumatic eyes pupils are PERRLA sclera is anicteric mouth throat mucous membranes are intact and moist neck is supple no lymphadenopathy, no JVD noted lung sounds are clear to auscultation heart regular rate rhythm, clear S1, S2 positive bowel sounds, abdomen is soft, nontender neuro patient is alert x3, no focal deficits Results Labs 03/15/25 12:56 03/15/25 12:56 Labs: Laboratory Results - last 24 hr 03/15/25 03/15/25 12:56 15:14 MCV 91.6 MCH 29.0 MCHC 31.6 RDW 13.6 Plt Count 369 D MPV 9.4 Immature Gran % (Auto) 1.6 H Neut % (Auto) 69.8 Lymph % (Auto) 20.4 Bollinger % (Auto) 7.0 Eos % (Auto) 0.9 Baso % (Auto) 0.3 Lymph # (Auto) 3.2 [place]linger # (Auto) 1.1 Eos # (Auto) 0.2 Baso # (Auto) 0.0 Abs Immat Gran (auto) 0.26 H Absolute Neuts (auto) 11.1 H Absolute Nucleated RBC 0.000 Nucleated RBC % (auto) 0.0 PT 12.2 INR 1.1 Anion Gap 16 Estim Creat Clear Calc 31.2 Estimated GFR 39 Random Glucose 157 H Calcium 10.4 H D Total Bilirubin 0.6 AST 27 ALT 21 Alkaline Phosphatase 68 Total Protein 8.4 H Albumin 4.7 Lipase 21 Urine Color Yellow Urine Appearance Cloudy Urine pH 6.0 Ur Specific [place] >= 1.030 H Urine Protein Negative Urine Glucose (UA) Negative Urine Ketones Negative Urine Blood Small (1+) H Urine Nitrite Positive H Ur Leukocyte Esterase Moderate (2+) H Urine RBC 0-2 Urine WBC 11-20 Ur Squamous Epith Cells 0-2 Urine Bacteria 4+ Hyaline Casts 3-5 Assessment and Plan (1) Hypertension: Status: Acute Plan 84 year old women admitted with poor po intake secondary to UTI Sepsis secondary to UTI Hx of chronic suprapubic catheter Leukocytosis, tachycardia, lactic acid pending Abd ct with mild hydronephrosis and no obstructing stone start IV levaquin Follow urine cx Poor po intake IV fluids Clear liquid diet supportive care Hypertension stable BP hold antihypertensives for now secondary to sepsis and poor po intake DM2 sliding scale hold metformin for now HLD on asa and statin DVT prophylaxis with Heparin Full code Quality Stroke Does the patient have a stroke diagnosis?: No VTE Prior VTE?: No VTE Risk Level:: Medical - moderate - high VTE Device Contraindication: Treatment Not Indicated VTE Drug Contraindication: N/A - Med Ordered
[2025-03-15 17:20] VITALS: BP 132/59; PULSE 93; RESP 20; TEMP 36.2; O2SAT 98
[2025-03-15 17:30] LABS: Glucose, Whole Blood 196 mg/dL (60-115)
--- NOTE | 2025-03-15 18:05 | PHA.MEDREC ---
Addendum entered by Óscar Arce, Tejinder 03/15/25 18:21: MED REC CHECKED BY [facility] Original Note: Pharmacy Consult ? Medication Reconciliation Pharmacy has completed the medication reconciliation. Confirmed medication list with patient's family member. Patient took all morning doses of non-prn medications today, and all nightime doses of non-prn meds last night. Patient took a quarter pill of tramadol on (03/12), but does not take tramadol regularly.
[2025-03-15 18:11] VITALS: BP 133/68; PULSE 85; RESP 18; TEMP 36.1; O2SAT 98
[2025-03-15 18:54] LABS: Reflex Lactate? Lactic Acid Added
[2025-03-15 19:53] LABS: ~Lactic Acid-LAB USE ONLY 3.8 mmol/L (0.5-2.0)
[2025-03-15 20:00] VITALS: BP 137/65; PULSE 95; RESP 18; TEMP 36.3; O2SAT 98
--- NOTE | 2025-03-15 20:11 | PM.EVENT ---
Event Note Date of Service: 03/15/25 Event Note: Notified by nursing that pt's LA still elevated 3.8, down from 4.5 not on IVF. Ordered bolus of NS and then hourly rate. VSS. Pt did not have BC's drawn in ED and has had positive BC back in January. Current infection UTI, urine culture pending. Ordered BC X2. Repeat LA 2300. Reviewed POC with nursing. Time Spent With Patient Time: Total time managing care of this patient today ____ minutes.
[2025-03-15 20:16] LABS: Glucose, Whole Blood 189 mg/dL (60-115)
[2025-03-15 21:18] LABS: Reflex Lactate? 2 Y
--- NOTE | 2025-03-15 21:37 | PC.NURSE ---
Pt's repeat lactic-3.8 Estefani Marinaout BELEN notified .Ordered blood cultures,500 cc ns bolus and IV fluids NS at 100/hr.
[2025-03-15 23:13] VITALS: BP 114/58; PULSE 63; RESP 20; O2SAT 98
[2025-03-16 01:15] LABS: Reflex Lactate? Lactic Acid Added
[2025-03-16 01:51] LABS: ~Lactic Acid-LAB USE ONLY 2.2 mmol/L (0.5-2.0)
[2025-03-16 02:52] VITALS: BP 126/58; PULSE 62; RESP 14; TEMP 36.1; O2SAT 97
[2025-03-16 03:27] LABS: Reflex Lactate? 2 Y
[2025-03-16 03:58] LABS: ~Lactic Acid-LAB USE ONLY 1.4 mmol/L (0.5-2.0)
[2025-03-16 05:32] LABS: Hematocrit 34.8 % (37.0-47.0); Hemoglobin 11.0 g/dl (12.0-16.0); Mean Corpuscular HGB Conc 31.6 g/dl (31.0-35.0); Mean Corpuscular Hemoglobin 29.2 pg (27.0-33.0); Mean Corpuscular Volume 92.3 fL (80.0-98.0); NRBC Abs Auto 0.000 X10*3/uL (0.0-0.012); NRBC Pct Auto 0.0 /100WBC (0.0-0.2); Platelet Count 268 X10*3/uL (160-400); Red Blood Count 3.77 X10*6/uL (4.20-5.50); White Blood Count 11.1 X10*3/uL (4.8-10.8)
[2025-03-16 05:50] LABS: Alanine Aminotransferase 12 U/L (0-31); Albumin Level 3.7 g/dL (3.5-5.0); Alkaline Phosphatase 55 U/L (39-117); Anion Gap 13 (12-20); Aspartate Amino Transferase 23 U/L (5-31); Blood Urea Nitrogen 27 mg/dL (9-16); Calcium 8.9 mg/dL (8.4-10.2); Carbon Dioxide 21 mmol/L (22-29); Chloride 109 mmol/L (96-108); Creatinine Clr Calc Pharmacy 43.4; Estimated Glomerular Filt Rate 56; Potassium 4.0 mmol/L (3.3-5.1); Sodium 139 mmol/L (135-145); Total Protein 6.7 g/dL (6.5-8.0)
[2025-03-16 07:15] VITALS: BP 130/62; PULSE 66; RESP 15; TEMP 36; O2SAT 98
[2025-03-16 07:22] LABS: Glucose, Whole Blood 130 mg/dL (60-115)
--- NOTE | 2025-03-16 09:11 | P.PNIM_ITS ---
Subjective Subjective Date of Service: 03/16/25 Interval History: flank pain improved Physical Exam 2 Exam: Exam: General: AO X 3, no acute distress Resp: CTA bilateral, no accessory muscles used CVS: S1,S2,RRR GI: soft, non tender, non distended Neuro: motor grossly intact, alert Psych: appropriate affect, appropriate insight Vital Signs: Vital Signs: Last Vital Signs Temp 96.8 F 03/16/25 07:15 Pulse 66 03/16/25 07:15 Resp 15 03/16/25 07:15 BP 130/62 03/16/25 07:15 Pulse Ox 98 03/16/25 07:15 O2 Del Method Room Air 03/16/25 07:15 BMI result Body Mass Index 25.9 Objective Data Active Medications Acetaminophen (Acetaminophen 325 Mg Tablet) 650 mg PO Q6H PRN PRN Reason: Pain, Mild 1-3,fever,headache Last Admin: 03/15/25 22:33 Dose: 650 mg Documented By: QUINN Calcium Carbonate (Calcium Carbonate 750 Mg Tab.Chew) 750 mg PO Q4H PRN PRN Reason: Heartburn Dextrose (Dextrose 50 % 25 Gm/50 Ml Syringe) 25 gm IVPUSH Q15M PRN; Protocol PRN Reason: per Hypoglycemia Standing Ord. Glucose (Glucose Gel 15 Gm Gel..Gram.) 15 gm PO Q15M PRN; Protocol PRN Reason: per Hypoglycemia Standing Ord. Heparin Sodium (Porcine) (Heparin Sodium,Porcine 5,000 Unit/Ml Vial) 5,000 unit SUBCUT Q12H [facility] Last Admin: 03/16/25 03:58 Dose: 5,000 unit Documented By: QUINN Levofloxacin (Levaquin) 500 mg in 100 mls @ 100 mls/hr IV Q24H [facility] Last Infusion: 03/15/25 19:23 Dose: Infused Documented By: QUINN Sodium Chloride (Ns) 1,000 mls @ 100 mls/hr IVCONT .Q10H [facility] Last Admin: 03/16/25 08:16 Dose: Not Given Documented By: TRES Non-Admin Reason: IV Running Insulin Human Lispro (Insulin Lispro 100 Unit/Ml 3 Ml Vial) 0 unit SUBCUT QIDACHS [facility]; Protocol Last Admin: 03/16/25 07:23 Dose: Not Given Documented By: TRES Non-Admin Reason: No Insulin Coverage Magnesium Hydroxide (Milk Of Magnesia 30 Ml Oral.Susp) 30 ml PO DAILY PRN PRN Reason: Constipation Melatonin (Melatonin 3 Mg Tablet) 6 mg PO BEDTIME PRN PRN Reason: Insomnia Ondansetron HCl (Ondansetron Hcl 4 Mg/2 Ml Vial) 4 mg IVPUSH Q8H PRN PRN Reason: Nausea and Vomiting Sodium Chloride (0.9 % Sodium Chloride Flush 3 Ml Syringe) 3 ml IVFLUSH QSHIFT [facility] Last Admin: 03/16/25 08:15 Dose: Not Given Documented By: TRES Non-Admin Reason: IV Running Labs 03/16/25 05:06 03/16/25 05:06 Labs: Laboratory Results - last 24 hr 03/15/25 03/15/25 03/15/25 12:56 15:14 16:52 MCV 91.6 MCH 29.0 MCHC 31.6 RDW 13.6 Plt Count 369 D MPV 9.4 Immature Gran % (Auto) 1.6 H Neut % (Auto) 69.8 Lymph % (Auto) 20.4 [place] % (Auto) 7.0 Eos % (Auto) 0.9 Baso % (Auto) 0.3 Lymph # (Auto) 3.2 [place] # (Auto) 1.1 Eos # (Auto) 0.2 Baso # (Auto) 0.0 Abs Immat Gran (auto) 0.26 H Absolute Neuts (auto) 11.1 H Absolute Nucleated RBC 0.000 Nucleated RBC % (auto) 0.0 PT 12.2 INR 1.1 Anion Gap 16 Estim Creat Clear Calc 31.2 Estimated GFR 39 POC Glucose Random Glucose 157 H Lactic Acid 4.5 H* Lactic Acid F/U @ 2Hr Lactic Acid F/U @ 4Hr Calcium 10.4 H D Total Bilirubin 0.6 AST 27 ALT 21 Alkaline Phosphatase 68 Total Protein 8.4 H Albumin 4.7 Lipase 21 Urine Color Yellow Urine Appearance Cloudy Urine pH 6.0 Ur Specific [place] >= 1.030 H Urine Protein Negative Urine Glucose (UA) Negative Urine Ketones Negative Urine Blood Small (1+) H Urine Nitrite Positive H Ur Leukocyte Esterase Moderate (2+) H Urine RBC 0-2 Urine WBC 11-20 Ur Squamous Epith Cells 0-2 Urine Bacteria 4+ Hyaline Casts 3-5 03/15/25 03/15/25 03/15/25 17:26 19:14 19:39 MCV MCH MCHC RDW Plt Count MPV Immature Gran % (Auto) Neut % (Auto) Lymph % (Auto) [place] % (Auto) Eos % (Auto) Baso % (Auto) Lymph # (Auto) [place] # (Auto) Eos # (Auto) Baso # (Auto) Abs Immat Gran (auto) Absolute Neuts (auto) Absolute Nucleated RBC Nucleated RBC % (auto) PT INR Anion Gap Estim Creat Clear Calc Estimated GFR POC Glucose 196 H 189 H Random Glucose Lactic Acid Lactic Acid F/U @ 2Hr 3.8 H* Lactic Acid F/U @ 4Hr Calcium Total Bilirubin AST ALT Alkaline Phosphatase Total Protein Albumin Lipase Urine Color Urine Appearance Urine pH Ur Specific [place] Urine Protein Urine Glucose (UA) Urine Ketones Urine Blood Urine Nitrite Ur Leukocyte Esterase Urine RBC Urine WBC Ur Squamous Epith Cells Urine Bacteria Hyaline Casts 03/15/25 03/16/25 03/16/25 23:06 01:25 03:37 MCV MCH MCHC RDW Plt Count MPV Immature Gran % (Auto) Neut % (Auto) Lymph % (Auto) [place] % (Auto) Eos % (Auto) Baso % (Auto) Lymph # (Auto) [place] # (Auto) Eos # (Auto) Baso # (Auto) Abs Immat Gran (auto) Absolute Neuts (auto) Absolute Nucleated RBC Nucleated RBC % (auto) PT INR Anion Gap Estim Creat Clear Calc Estimated GFR POC Glucose Random Glucose Lactic Acid 2.3 H* Lactic Acid F/U @ 2Hr 2.2 H* Lactic Acid F/U @ 4Hr 1.4 Calcium Total Bilirubin AST ALT Alkaline Phosphatase Total Protein Albumin Lipase Urine Color Urine Appearance Urine pH Ur Specific [place] Urine Protein Urine Glucose (UA) Urine Ketones Urine Blood Urine Nitrite Ur Leukocyte Esterase Urine RBC Urine WBC Ur Squamous Epith Cells Urine Bacteria Hyaline Casts 03/16/25 03/16/25 05:06 07:18 MCV 92.3 MCH 29.2 MCHC 31.6 RDW 13.5 Plt Count 268 D MPV 9.6 Immature Gran % (Auto) Neut % (Auto) Lymph % (Auto) [place] % (Auto) Eos % (Auto) Baso % (Auto) Lymph # (Auto) [place] # (Auto) Eos # (Auto) Baso # (Auto) Abs Immat Gran (auto) Absolute Neuts (auto) Absolute Nucleated RBC 0.000 Nucleated RBC % (auto) 0.0 PT INR Anion Gap 13 Estim Creat Clear Calc 43.4 Estimated GFR 56 POC Glucose 130 H Random Glucose 124 H Lactic Acid Lactic Acid F/U @ 2Hr Lactic Acid F/U @ 4Hr Calcium 8.9 D Total Bilirubin 0.6 AST 23 ALT 12 Alkaline Phosphatase 55 Total Protein 6.7 Albumin 3.7 Lipase Urine Color Urine Appearance Urine pH Ur Specific [place] Urine Protein Urine Glucose (UA) Urine Ketones Urine Blood Urine Nitrite Ur Leukocyte Esterase Urine RBC Urine WBC Ur Squamous Epith Cells Urine Bacteria Hyaline Casts Assessment and Plan (1) Acute UTI: Status: Acute Plan 84F PMH neurogenic bladder with suprapubic catheter, nephrolithiasis, hypertension, history of hysterectomy, history of CVA with left hemiparesis presented with abdominal pain nausea and vomiting Sepsis secondary to complicated urinary tract infection inpatient with neurogenic bladder with suprapubic catheter and history of nephrolithiasis Acute lactic acidosis due to metformin not sepsis Continue Levaquin, follow up cultures Hypertension Losartan History of CVA Aspirin, statin Diabetes Insulin sliding scale DVT prophylaxis with heparin subQ Full code reason for continued hospitalization: Awaiting cultures Quality Stroke Does the patient have a stroke diagnosis?: No VTE Prior VTE?: No VTE Risk Level:: Medical - moderate - high VTE Device Contraindication: Treatment Not Indicated VTE Drug Contraindication: N/A - Med Ordered
[2025-03-16 11:34] LABS: Glucose, Whole Blood 204 mg/dL (60-115)
[2025-03-16 15:53] VITALS: BP 121/56; PULSE 75; RESP 19; TEMP 36.4; O2SAT 98
[2025-03-16 16:37] LABS: Glucose, Whole Blood 169 mg/dL (60-115)
[2025-03-16 20:00] VITALS: BP 116/56; PULSE 69; RESP 18; TEMP 36.6; O2SAT 97
[2025-03-16 20:50] LABS: Glucose, Whole Blood 167 mg/dL (60-115)
[2025-03-16] MEDS: oxyBUTYnin chloride ER 5 MG TAB.ER.24 PO (21:24)
[2025-03-16] MEDS: Aspirin Enteric Coated 81 MG TABLET.DR PO (21:24)
[2025-03-16 21:27] VITALS: BP 116/59
[2025-03-16 23:37] VITALS: BP 147/65; PULSE 65; RESP 16; TEMP 36.2; O2SAT 97
[2025-03-16] MEDS: 0.9 % Sodium Chloride Flush 3 ML SYRINGE IVFLUSH (23:40)
[2025-03-17 02:58] VITALS: BP 130/60; PULSE 62; RESP 16; TEMP 36.3; O2SAT 96
[2025-03-17 06:18] LABS: Hematocrit 31.0 % (37.0-47.0); Hemoglobin 9.8 g/dl (12.0-16.0); Mean Corpuscular HGB Conc 31.6 g/dl (31.0-35.0); Mean Corpuscular Hemoglobin 29.2 pg (27.0-33.0); Mean Corpuscular Volume 92.3 fL (80.0-98.0); NRBC Abs Auto 0.000 X10*3/uL (0.0-0.012); NRBC Pct Auto 0.0 /100WBC (0.0-0.2); Platelet Count 249 X10*3/uL (160-400); Red Blood Count 3.36 X10*6/uL (4.20-5.50); White Blood Count 8.5 X10*3/uL (4.8-10.8)
[2025-03-17 06:41] LABS: Anion Gap 12 (12-20); Blood Urea Nitrogen 21 mg/dL (9-16); Calcium 8.4 mg/dL (8.4-10.2); Carbon Dioxide 21 mmol/L (22-29); Chloride 112 mmol/L (96-108); Creatinine Clr Calc Pharmacy 44.3; Estimated Glomerular Filt Rate 58; Magnesium 1.4 mg/dL (1.6-2.6); Potassium 4.1 mmol/L (3.3-5.1); Sodium 141 mmol/L (135-145)
--- NOTE | 2025-03-17 06:41 | PM.EVENT ---
Event Note Date of Service: 03/17/25 Event Note: Urgent alert from lab, MG 1.4. Ordered 2 GMS MG IV X1 now. Time Spent With Patient Time: Total time managing care of this patient today ____ minutes.
[2025-03-17 07:45] LABS: Glucose, Whole Blood 168 mg/dL (60-115)
[2025-03-17 07:52] VITALS: BP 132/63; PULSE 57; RESP 16; TEMP 36; O2SAT 96
[2025-03-17] MEDS: Magnesium Sulfate/H2O 2 GM/50 ML PIGGYBACK IV (08:01)
[2025-03-17] MEDS: 0.9 % Sodium Chloride Flush 3 ML SYRINGE IVFLUSH ×2 (08:04→23:51)
--- NOTE | 2025-03-17 08:50 | P.PNIM_ITS ---
Subjective Subjective Date of Service: 03/17/25 Interval History: flank pain improved, now with headache Physical Exam 2 Exam: Exam: General: AO X 3, no acute distress Resp: CTA bilateral, no accessory muscles used CVS: S1,S2,RRR GI: soft, non tender, non distended Neuro: motor grossly intact, alert Psych: appropriate affect, appropriate insight Vital Signs: Vital Signs: Last Vital Signs Temp 96.8 F 03/17/25 07:52 Pulse 57 03/17/25 07:52 Resp 16 03/17/25 07:52 BP 132/63 03/17/25 07:52 Pulse Ox 96 03/17/25 07:52 O2 Del Method Room Air 03/17/25 07:52 BMI result Body Mass Index 25.9 Objective Data Active Medications Acetaminophen (Acetaminophen 325 Mg Tablet) 650 mg PO Q6H PRN PRN Reason: Pain, Mild 1-3,fever,headache Last Admin: 03/17/25 04:34 Dose: 650 mg Documented By: ALISTAIR Aspirin (Aspirin Enteric Coated 81 Mg Tablet.) 81 mg PO BEDTIME [facility] Last Admin: 03/16/25 21:24 Dose: 81 mg Documented By: ALISTAIR Atorvastatin Calcium (Atorvastatin Calcium 20 Mg Tablet) 20 mg PO BEDTIME [facility] Last Admin: 03/16/25 21:24 Dose: 20 mg Documented By: ALISTAIR Calcium Carbonate (Calcium Carbonate 750 Mg Tab.Chew) 750 mg PO Q4H PRN PRN Reason: Heartburn Cyanocobalamin (Cyanocobalamin (Vitamin B-12) 1,000 Mcg Tablet) 1,000 mcg PO DAILY [facility] Last Admin: 03/17/25 08:01 Dose: 1,000 mcg Documented By: JACQUE Dextrose (Dextrose 50 % 25 Gm/50 Ml Syringe) 25 gm IVPUSH Q15M PRN; Protocol PRN Reason: per Hypoglycemia Standing Ord. Diphenhydramine HCl (Diphenhydramine Hcl 25 Mg Capsule) 25 mg PO Q6H PRN PRN Reason: headache, nausea, vomiting Gabapentin (Gabapentin 300 Mg Capsule) 300 mg PO BID [facility] Last Admin: 03/17/25 08:01 Dose: 300 mg Documented By: JACQUE Glucose (Glucose Gel 15 Gm Gel..Gram.) 15 gm PO Q15M PRN; Protocol PRN Reason: per Hypoglycemia Standing Ord. Heparin Sodium (Porcine) (Heparin Sodium,Porcine 5,000 Unit/Ml Vial) 5,000 unit SUBCUT Q12H [facility] Last Admin: 03/17/25 04:34 Dose: 5,000 unit Documented By: ALISTAIR Levofloxacin (Levaquin) 500 mg in 100 mls @ 100 mls/hr IV Q24H [facility] Last Infusion: 03/16/25 17:49 Dose: Infused Documented By: LUCIAME Sodium Chloride (Ns) 1,000 mls @ 100 mls/hr IVCONT .Q10H [facility] Last Admin: 03/17/25 06:30 Dose: 100 mls/hr Documented By: ALISTAIR Insulin Human Lispro (Insulin Lispro 100 Unit/Ml 3 Ml Vial) 0 unit SUBCUT QIDACHS [facility]; Protocol Last Admin: 03/17/25 08:01 Dose: 2 unit Documented By: JACQUE Losartan Potassium (Losartan Potassium 50 Mg Tablet) 50 mg PO BEDTIME [facility]; Protocol Last Admin: 03/16/25 21:27 Dose: 50 mg Documented By: ALISTAIR Magnesium Hydroxide (Milk Of Magnesia 30 Ml Oral.Susp) 30 ml PO DAILY PRN PRN Reason: Constipation Meclizine HCl (Meclizine Hcl 25 Mg Tablet) 25 mg PO TID PRN PRN Reason: Dizziness Last Admin: 03/17/25 04:34 Dose: 25 mg Documented By: ALISTAIR Melatonin (Melatonin 3 Mg Tablet) 6 mg PO BEDTIME PRN PRN Reason: Insomnia Metoclopramide HCl (Metoclopramide Hcl 10 Mg Tablet) 10 mg PO Q6H PRN PRN Reason: Nausea and Vomiting Multivitamins/Vitamin C (Multivitamin Tablet) 1 tab PO DAILY [facility] Last Admin: 03/17/25 08:01 Dose: 1 tab Documented By: JACQUE Ondansetron HCl (Ondansetron Hcl 4 Mg/2 Ml Vial) 4 mg IVPUSH Q8H PRN PRN Reason: Nausea and Vomiting Oxybutynin Chloride (Oxybutynin Chloride Er 5 Mg Tab.Er.24) 5 mg PO BEDTIME [facility] Last Admin: 03/16/25 21:24 Dose: 5 mg Documented By: ALISTAIR Ropinirole HCl (Ropinirole Hcl 0.25 Mg Tablet) 0.25 mg PO BEDTIME [facility] Last Admin: 03/16/25 21:24 Dose: 0.25 mg Documented By: ALISTAIR Sodium Chloride (0.9 % Sodium Chloride Flush 3 Ml Syringe) 3 ml IVFLUSH QSHIFT [facility] Last Admin: 03/17/25 08:04 Dose: 3 ml Documented By: JACQUE Tramadol HCl (Tramadol Hcl 50 Mg Tablet) 50 mg PO Q6H PRN PRN Reason: Pain, Severe (Pain Scale 7-10) Last Admin: 03/16/25 21:25 Dose: 50 mg Documented By: ALISTAIR Vitamin D (Cholecalciferol (Vitamin D3) 25 Mcg Tablet) 50 mcg PO DAILY [facility] Last Admin: 03/17/25 08:01 Dose: 50 mcg Documented By: JACQUE Labs 03/17/25 05:50 03/17/25 05:50 Labs: Laboratory Results - last 24 hr 03/16/25 03/16/25 03/16/25 11:30 16:29 20:46 MCV MCH MCHC RDW Plt Count MPV Absolute Nucleated RBC Nucleated RBC % (auto) Anion Gap Estim Creat Clear Calc Estimated GFR POC Glucose 204 H 169 H 167 H Random Glucose Calcium Magnesium 03/17/25 03/17/25 05:50 07:42 MCV 92.3 MCH 29.2 MCHC 31.6 RDW 13.3 Plt Count 249 MPV 9.8 Absolute Nucleated RBC 0.000 Nucleated RBC % (auto) 0.0 Anion Gap 12 Estim Creat Clear Calc 44.3 Estimated GFR 58 POC Glucose 168 H Random Glucose 168 H Calcium 8.4 Magnesium 1.4 L* Microbiology Microbiology Results: Microbiology 03/15/25 Unknown Urine Culture - Preliminary Urine Catheterized - Cabrera Catheter Culture in progress. 03/15/25 20:44 Blood Culture - Preliminary Blood - Venous No growth after 24 hours. 03/15/25 20:44 Blood Culture - Preliminary Blood - Venous No growth after 24 hours. Assessment and Plan (1) Acute UTI: Status: Acute Plan 84F PMH neurogenic bladder with suprapubic catheter, nephrolithiasis, hypertension, history of hysterectomy, history of CVA with left hemiparesis presented with abdominal pain nausea and vomiting Sepsis secondary to complicated urinary tract infection inpatient with neurogenic bladder with suprapubic catheter and history of nephrolithiasis Acute lactic acidosis due to metformin not sepsis Continue Levaquin, follow up cultures - still pending Hypertension Losartan History of CVA Aspirin, statin Diabetes Insulin sliding scale DVT prophylaxis with heparin subQ Full code reason for continued hospitalization: Awaiting cultures prior to discharge Quality Stroke Does the patient have a stroke diagnosis?: No VTE Prior VTE?: No VTE Risk Level:: Medical - moderate - high VTE Device Contraindication: Treatment Not Indicated VTE Drug Contraindication: N/A - Med Ordered
[2025-03-17 11:11] LABS: Glucose, Whole Blood 126 mg/dL (60-115)
--- NOTE | 2025-03-17 13:26 | MHC.CM.PN ---
IMM 03/17/25 DX UTI+SEPSIS She lives with her dtr. Her dtr is her MEDICAL TERMINOLOGIST through [employer] She requires assistance with all functional mobility. [facility] was active with the patient prior to admit. DP home resume MEDICAL TERMINOLOGIST services and [facility]. Patient will transport via BLS.
[2025-03-17 15:33] VITALS: BP 125/58; PULSE 67; RESP 14; TEMP 36; O2SAT 97
[2025-03-17 16:15] LABS: Glucose, Whole Blood 232 mg/dL (60-115)
[2025-03-17 20:00] VITALS: BP 103/53; PULSE 70; RESP 18; TEMP 35.9; O2SAT 97
[2025-03-17 21:01] LABS: Glucose, Whole Blood 174 mg/dL (60-115)
[2025-03-17] MEDS: oxyBUTYnin chloride ER 5 MG TAB.ER.24 PO (21:26)
[2025-03-17] MEDS: Aspirin Enteric Coated 81 MG TABLET.DR PO (21:26)
[2025-03-17 21:27] VITALS: BP 113/58
[2025-03-17 22:25] VITALS: RESP 16
[2025-03-18 03:25] VITALS: BP 109/52; PULSE 64; RESP 18; TEMP 35.8; O2SAT 98
[2025-03-18 06:24] LABS: Hematocrit 31.8 % (37.0-47.0); Hemoglobin 9.7 g/dl (12.0-16.0); Mean Corpuscular HGB Conc 30.5 g/dl (31.0-35.0); Mean Corpuscular Hemoglobin 28.8 pg (27.0-33.0); Mean Corpuscular Volume 94.4 fL (80.0-98.0); NRBC Abs Auto 0.000 X10*3/uL (0.0-0.012); NRBC Pct Auto 0.0 /100WBC (0.0-0.2); Platelet Count 249 X10*3/uL (160-400); Red Blood Count 3.37 X10*6/uL (4.20-5.50); White Blood Count 10.3 X10*3/uL (4.8-10.8)
[2025-03-18 06:35] LABS: Anion Gap 11 (12-20); Blood Urea Nitrogen 17 mg/dL (9-16); Calcium 8.5 mg/dL (8.4-10.2); Carbon Dioxide 21 mmol/L (22-29); Chloride 111 mmol/L (96-108); Creatinine Clr Calc Pharmacy 52.2; Estimated Glomerular Filt Rate > 60; Potassium 3.8 mmol/L (3.3-5.1); Sodium 139 mmol/L (135-145)
[2025-03-18 07:14] VITALS: BP 121/60; PULSE 60; RESP 16; TEMP 36.2; O2SAT 97
[2025-03-18 07:26] LABS: Glucose, Whole Blood 124 mg/dL (60-115)
[2025-03-18] MEDS: 0.9 % Sodium Chloride Flush 3 ML SYRINGE IVFLUSH (07:42)
[2025-03-18 11:38] LABS: Glucose, Whole Blood 185 mg/dL (60-115)
--- NOTE | 2025-03-18 11:52 | MHC.CM.PN ---
DX UTI + sepsis. Per MD rounds patient is not cleared to discharge. DP Home resumption [facility] and [employer] services. Patient will transport to home via BLS.
--- NOTE | 2025-03-18 13:17 | PM.DS ---
DS: Providers Provider Date of Service: 03/18/25 Date of admission: 03/15/25 16:13 Date of discharge: 03/18/25 Primary care physician: Liz Marks NP Attending physician on discharge: Crista Self Discharging clinician: Crista Self DS: Diagnosis Discharge Diagnosis (1) Acute UTI: Status: Acute DS: Summary Hospital Course Hospital Course: HPI:84-year-old female with history of neurogenic bladder with suprapubic catheter, hydro ureteral nephrosis, hypertension, hysterectomy, CVA with left sided deficits presenting to the emergency department with complaint of right lower quadrant abdominal pain, nausea and vomiting since Sunday night. Noted to have elevated white blood cell count, tachycardia and UTI. BP stable but soft. She was started on IV fluids. Abdominal CT showed mild hydroureteronephrosis with no obstructing calculus. She will be admitted for sepsis secondary to UTI. Hospital course: 84F PMH neurogenic bladder with suprapubic catheter: Came with a UTI: ct abd -possible focal pyelonpehritis (please see detailed report in imaging section) Started on IV antibiotics, blood culture negative, urine culture mixed joyce. Patient currently asymptomatic. Patient was started on Levaquin, seems to be improving. Patient will be going home with p.o. Levaquin for 3 more days. Blood culture negative at 48 hours. Acute lactic acidosis due to metformin not sepsis Hypomagnesemia: Repleted and improving. P.o. replacements order. Monitor BMP/magnesium levels outpatient. plan: Complete Levaquin 500 mg p.o. daily for 5 days. P.o. replacements ordered. Monitor BMP/magnesium levels outpatient. Follow up with PCP/Urology outpatient Above management discussed with the patient detail length she understand and in agreement with the above plan, time spent 45 minute. All questions answered. Time Attestation Total time managing care of this patient today: 45 mintues. Discharge Coordination Time (in mins): 45 minute. Quality: Safe Use of Opioids Does Pt have an Active Cancer Diagnosis on the Problem List?: No Quality: Stroke Does the patient have a stroke diagnosis?: No Physical Exam Exam: Exam: General: AO X 3, no acute distress Resp: CTA bilateral, no accessory muscles used CVS: S1,S2,RRR GI: soft, non tender, non distended Neuro: motor grossly intact, alert Psych: appropriate affect, appropriate insight Vital Signs: Vital Signs: Last Vital Signs Temp 97.1 F 03/18/25 07:14 Pulse 60 03/18/25 07:14 Resp 16 03/18/25 07:14 BP 121/60 03/18/25 07:14 Pulse Ox 97 03/18/25 07:14 O2 Del Method Room Air 03/18/25 07:14 BMI result Body Mass Index 25.9 DS: Data Data Completed and Pending Completed studies during hospitalization [Text1]: Procedures Dilation of Right Ureter with Intraluminal Device, Via Natural or Artificial Opening Endoscopic (01/14/25) Extirpation of Matter from Right Ureter, Via Natural or Artificial Opening Endoscopic (01/14/25) Fluoroscopy of Right Kidney, Ureter and Bladder (01/14/25) Labs on day of discharge: Laboratory Results - last 24 hr 03/17/25 03/17/25 03/18/25 16:12 20:55 05:18 WBC 10.3 RBC 3.37 L Hgb 9.7 L Hct 31.8 L MCV 94.4 MCH 28.8 MCHC 30.5 L RDW 13.5 Plt Count 249 MPV 10.2 Absolute Nucleated RBC 0.000 Nucleated RBC % (auto) 0.0 Sodium 139 Potassium 3.8 Chloride 111 H Carbon Dioxide 21 L Anion Gap 11 L BUN 17 H Creatinine 0.79 Estim Creat Clear Calc 52.2 Estimated GFR > 60 POC Glucose 232 H 174 H Random Glucose 170 H Calcium 8.5 03/18/25 03/18/25 07:18 11:34 WBC RBC Hgb Hct MCV MCH MCHC RDW Plt Count MPV Absolute Nucleated RBC Nucleated RBC % (auto) Sodium Potassium Chloride Carbon Dioxide Anion Gap BUN Creatinine Estim Creat Clear Calc Estimated GFR POC Glucose 124 H 185 H Random Glucose Calcium Preliminary micro results at discharge 03/15/25 20:44 Blood Culture - Preliminary Blood - Venous No growth after 48 hours. 03/15/25 20:44 Blood Culture - Preliminary Blood - Venous No growth after [address] scan - abdomen: My impression: ct abd: 1. Mild right hydroureteronephrosis with no obstructing calculus. A 2 mm calculus in the urinary bladder is identified and the possibility for a recently passed stone is raised. 2. Heterogeneous attenuation in the upper pole of the right kidney for which the possibility of focal pyelonephritis is raised. 3. Nonobstructing bilateral nephrolithiasis. 4. Multiple gas locules in the urinary bladder lumen may be iatrogenic or infectious in etiology. 5. No obstructive or acute inflammatory changes in the gastrointestinal tract. Discharge Plan Discharge Anticipated Discharge Date/Time: 03/18/25 13:04 Patient Disposition: Home, Self-Care Discharge Diagnosis: uti Referrals: Liz Marks, FIBER ANALYST [Primary Care Provider, Internal Medicine] - 1 Week Discharge Medications: New levofloxacin 500 mg Tablet 500 mg PO Q24H Qty: 5 0RF magnesium oxide 400 mg magnesium capsule 400 mg PO BID Qty: 20 0RF Continued metformin 500 mg tablet 1,000 mg PO BID atorvastatin 20 mg tablet 20 mg PO QPM ropinirole 0.25 mg tablet 0.25 mg PO QPM meclizine 25 mg tablet 25 mg PO TID PRN (Reason: Dizziness) oxybutynin chloride 5 mg tablet extended release 24hr 5 mg PO QPM gabapentin 300 mg capsule 300 mg PO BID hydrochlorothiazide 25 mg tablet 25 mg PO QPM calcium carbonate-vitamin D3 [Calcium 600 with Vitamin D3] 600 mg-12.5 mcg (500 unit) Capsule 2 cap PO DAILY Kerendia 20 mg tablet 20 mg PO QPM diphenhydramine HCl 25 mg capsule 25 mg PO Q6H PRN (Reason: headache, nausea, vomiting) Qty: 20 0RF ibuprofen 400 mg tablet 400 mg PO TID PRN (Reason: fever or pain) Qty: 30 0RF metoclopramide HCl [Reglan] 10 mg tablet 10 mg PO Q6H PRN (Reason: nausea and vomiting) Qty: 14 0RF losartan 50 mg tablet 50 mg PO QPM aspirin 81 mg Tablet,Delayed Release (Dr/Ec) 81 mg PO QPM multivitamin Tablet 1 tab PO QAM acetaminophen 500 mg Tablet 1,000 mg PO QAM PRN (Reason: Pain) apple cider vinegar 500 mg Tablet 450 mg PO QAM cholecalciferol (vitamin D3) [Vitamin D3] 50 mcg (2,000 unit) Tablet 50 mcg PO QAM omega [id number]-fish oil [Fish Oil] 1,000 mg (120 mg-180 mg) Capsule 1 cap PO QAM cyanocobalamin (vitamin B-12) [Vitamin B-12] 1,000 mcg tablet 1,000 mcg PO DAILY tramadol 50 mg tablet 50 mg PO Q6H PRN (Reason: Pain) Patient Comments: Patient's daughter claims patient took a quarter tablet of tramadol on , but has not been taking regularly. ascorbic acid (vitamin C) 1,000 mg tablet 1,000 mg PO DAILY 90 Days Qty: 90 1RF methenamine hippurate 1 gram tablet 1 g PO DAILY 90 Days Qty: 90 1RF potassium citrate 10 mEq (1,080 mg) tablet extended release 20 meq PO BID 90 Days Qty: 360 0RF Discharge Orders: Discharge Order (Routine); Ordered 03/18/25 Ordered By: Crista Self Diet: Advance to usual diet Activity on Discharge: As tolerated Stand Alone Forms: Patient Portal Discharge page Print Language: Slovenian Care Plan Goals: as below. Health Concerns: Complete Levaquin 500 mg p.o. daily for 5 days. P.o. replacements ordered. Monitor BMP/magnesium levels outpatient. Follow up with PCP outpatient Plan of Treatment: As above. Assessment: As above.
[2025-03-18 13:39] LABS: Magnesium 1.7 mg/dL (1.6-2.6)
[2025-03-18 15:43] VITALS: BP 115/56; PULSE 68; RESP 16; TEMP 36.1; O2SAT 96
[2025-03-18 16:16] LABS: Glucose, Whole Blood 187 mg/dL (60-115)
--- NOTE | 2025-03-18 17:12 | PC.NURSE ---
Pt originally scheduled for DC warehouse picker time 18:30 via ambulance. Jodi NAJERA called and updated that ambulance company is running an hour behind, pickup time will now be 19:30.
[2025-03-18 20:00] VITALS: BP 132/79; PULSE 72; RESP 18; TEMP 36.5; O2SAT 98
== END 2025-03-18 20:34 | disposition home health service (06) | DRG 872 ==
LOC: HO.ED 13:14 → HO.EDOVER 16:25 → HO.S3 16:30
PROVIDERS: Internal Medicine; Nurse Practitioner Family; Registered Nurse Emergency; Admitting Provider Nurse Practitioner Acute Care; Emergency Provider Emergency Medicine; PCP Nurse Practitioner Adult Health; Visit Provider Internal Medicine
DX: A41.9 Sepsis, unspecified organism (principal); N13.6 Pyonephrosis; I69.354 Hemiplegia and hemiparesis following cerebral infarction affecting left non-dominant side; E87.21 Acute metabolic acidosis; E83.42 Hypomagnesemia; E78.2 Mixed hyperlipidemia; I10 Essential (primary) hypertension; E78.5 Hyperlipidemia, unspecified; N31.9 Neuromuscular dysfunction of bladder, unspecified; Z96.0 Presence of urogenital implants; Z87.442 Personal history of urinary calculi; Z79.84 Long term (current) use of oral hypoglycemic drugs; Z79.899 Other long term (current) drug therapy
CPT/HCPCS: 36415; 74177; 80048; 80053; 81001; 82947; 83605; 83690; 83735; 85025; 85027; 85610; 87040; 87086; 99285; J1644; J1956; J3475; Q9967

== ENCOUNTER → 2025-03-15 11:48 | Outpatient (BNV) | payer MEDICARE, MEDICAID, SELFPAY | PROVIDERS: Emergency Provider Emergency Medicine; PCP Nurse Practitioner Adult Health; Visit Provider Radiology Diagnostic Radiology | DX: N13.39 Other hydronephrosis (principal); R10.813 Right lower quadrant abdominal tenderness; R10.812 Left upper quadrant abdominal tenderness | CPT/HCPCS: 74177 ==

== ENCOUNTER → 2025-03-15 16:13 | Outpatient (BNV) | payer MEDICARE, MEDICAID, SELFPAY | PROVIDERS: Admitting Provider Nurse Practitioner Acute Care; Emergency Provider Emergency Medicine; PCP Nurse Practitioner Adult Health; Visit Provider Nurse Practitioner Acute Care | DX: I10 Essential (primary) hypertension (principal) | CPT/HCPCS: 99223; 99499 ==

== ENCOUNTER 2025-05-01 09:27 | Outpatient (REF) | payer MEDICARE, MEDICAID, SELFPAY ==
--- NOTE | ~2025-05-01 | US_ITS ---
CLINICAL HISTORY: N20.0 - Calculus of kidney US kidneys Comparison: 08/17/2022 Findings: Right kidney normal size and echotexture, 9.7 cm length. No hydronephrosis. Normal color flow. Left kidney normal size and echotexture, 10.0 cm length. No hydronephrosis. Normal color flow. A shadowing interpolar echogenic focus measuring up to 5 mm diameter is compatible with nonobstructing calculus. Impression: 1. Nonobstructing left renal calculus. Otherwise, unremarkable kidneys This document has been electronically signed by: Julio César Sumner MD on 05/01/2025 14:49:01
--- OUTSIDE RECORDS SUMMARY | 2025-05-01 09:30 | XMS_ITS | Clinical Summary ---
Author Organization [facility] Address [address] [facility] [address] [place] [address] Phone Care Team Providers Care Liquified Natural Gas Specialist Name Role Phone Liz Marks RIGOBERTO Primary Care Provider +1- [phone] Allergies Active Allergy Reactions Criticality Noted Date [...] 3 (three) times a day. Active omega 7-ypx-coc-fish oil 1,000 mg (120 mg-180 mg) Cap Take 1 capsule by mouth daily. Active Ca cit-D3-mag#11-zin v-hczf-ztr-bor (CALTRATE 600+D) 600 mg calcium- 800 unit-50 [...] Encounters Date Type Department Care Team Description 03/31/2025 Transcribe [facility] [address] Floor, [address] [place] [address] Conchis Edmond Cerebrovascular accident (CVA), unspecified mechanism (Primary Dx) 03/31/2025 [facility] [address] 3rd Floor, [address] [place] [address] EdmondKatelyn shenkranthi 01/30/2025 8:49 AM EDT - 01/30/2025 11:59 PM EDT Hospital Encounter [address] [address] Matthew Champion MD Discharge Disposition: Home or Self Care 01/30/2025 8:42 AM EDT - 01/30/2025 8:48 AM EDT Hospital Encounter [address] [address] Matthew Champion MD Discharge Disposition: Home or Self Care 12/12/2024 Procedure Pass [address] [address] 12/12/2024 Procedure Pass [address] [address] from Last 3 Months Social History Tobacco [...] Care Team (Late st Contact Info) Description 09/09/2025 8:40 AM EDT Office Visit [facility] [address] [place] [address] 3rd Floor, [address] [place] [address] Bello Gan MD [address] [place] [address] Health Maintenance Due Date Last Done Comments [...] 02/20/2018, 04/05/2017, Additional history exists COVID-19 VACCINE (2 - 2024- season) 2025 10/04/2020 PNEUMOCOCCAL VACCINES (50+ years) [...] accident (CVA), unspecified mechanism COMPREHENSIVE METABOLIC PANEL (CMP) Routine 04/29/2019 1:30 PM EST Bruising from [...] MRA of the head was performed utilizing hgzh-ob-hywxnh technique (no gadolinium). Maximal intensity projection 3D [...] MRA of the head was performed utilizing qoqd-jm-wxevrj technique (nogadolinium). Maximal intensity projection 3D angiographic [...] cervical arteries isidentified. us Matthew Champion MD [facility] MR HEAD/NECK Final Resul t * MRA [...] MRA of the head was performed utilizing luys-an-xmbsia technique (no gadolinium). Maximal intensity projection 3D [...] MRA of the head was performed utilizing cnqn-dy-jqkxgd technique (nogadolinium). Maximal intensity projection 3D angiographic [...] EST) SODIUM 138 133 - 146 mmol/L [facility] POTASSIUM 3.6 3.3 - 5.1 mmol/L [facility] CHLORIDE 97 96 - 108 mmol/L [facility] CO2 26 21 - 35 mmol/L [facility] BUN 22(H) 6 - 19 mg/dL [facility] CREATININE 0.60 0.5 - 1.5 mg/dL [facility] GLUCOSE 141(H) 70 - 99 mg/dL [facility] ALBUMIN 4.5 3.9 - 4.8 g/dL [facility] TOTAL PROTEIN 8.3(H) 6.5 - 8.0 g/dL [facility] CALCIUM 10.7(H) 8.4 - 10.3 mg/dL [facility] ALKALINE PHOSPHATASE 170(H) 39 - 117 U/L [facility] TOTAL BILIRUBIN 0.3 0.0 - 1.2 mg/dL [facility] AST 48(H) 0 - 37 U/L [facility] ALT 53(H) 0 - 40 U/L [facility] GLOBULIN 3.8 1 - 4.8 g/dL [facility] EGFR 89 >59 mL/min/1.7 3m2 [facility] Comment:If patient is black, multiply result by 1.159. Estimated glomerular filtration rate calculated using the CKD-EPI equation. ANION GAP 19 10 - 20 mmol/L [facility] Blood 04/29/2019 1:30 PM EST 04/29/2019 1:51 PM EST us Kyle Humphrey MD LAB BLOOD BKR ORDERABLES Final R esult [facility] [address] [place] [address] from Last 3 Months or Most Recently Relevant to Health Maintenance Insurance MEDICARE PART A & B [facility] MEDICARE PART A & B MEDICARE PART A & B MEDICARE PART A & B MEDICARE PART A & B HEALTH MEDICARE PART A & B [place]IC[place] Member Subscriber Plan / Payer (Ef fective 2024-) Name:Pamella Seniorn Relation to Subscriber:Self Name:Toshia Senior Payer ID:[id number] Group ID:Not on file Type:Medicaid Address: [address] [address] [place]ICARE [place] A & [place] Member Subscriber Plan / Payer (Ef fective 2024-) Name:So Seniorellen Relation to Subscriber:Self Name:Pamella Seniorn Payer ID:[id number] Group ID:Not on file Type:Medicaid Address: [address] [address] MEDICARE PART A & B [facility] Care Teams Liquified Natural Gas Specialist Relationship Specialty Start Date End Date Liz Marks NP [address] [place] [address] PCP - General 04/14/19 Additional Source Comments The information contained in this document represents components of the legal health record. It is not the complete legal health record.[facility]
--- OUTSIDE RECORDS SUMMARY | 2025-05-01 09:30 | XMS_ITS | Encounter Summary ---
Author Organization [facility] Address [address] [facility] [address] [place] [address] Phone Care Team Providers Care Warehouse Packaging Supervisor Name Role Phone Liz Marks RIGOBERTO Primary Care Provider [phone]- [phone] Encounter Details Date Type Department Care Team (Late Contact Info) Description 11/17/2024 Procedure Pass [facility], [address] [address] Social History Tobacco Use Types Packs/Day Years [...] Description 09/09/2025 8:40 AM EDT Office Visit [facility] [address] [facility], [address] [place] [address] Bello Gan MD [address] [place] [address] documented as of this encounter Visit Diagnoses Not on filedocumented in this encounter Care Teams Warehouse Packaging Supervisor Relationship Specialty Start Date End Date Liz Marks NP [address] [place] [address] PCP - General 04/14/19 documented as of this encounter Additional Source Comments The information contained in this document represents components of the legal health record. It is not the complete legal health record.[facility]
--- OUTSIDE RECORDS SUMMARY | 2025-05-01 09:30 | XMS_ITS | Encounter Summary ---
Author Organization [facility] Address [address] [facility] [address] [place] [address] Phone Care Team Providers Care Oil Distributor Name Role Phone Liz Marks NP Primary Care Provider [phone]- [phone] Encounter Details Date Type Department Care Team (Late Contact Info) Description 11/08/2021 Transcribe Orders Virtual Department 30 [place] [address] Jose Miguel Stacy MD [address] [facility] 2nd [place] [address] Abdominal wall mass of left lower quadrant [...] Department Care Team (Late Contact Info) Description 09/09/2025 8:40 AM EDT Office Visit [facility] 22 [facility] 3rd Floor, [address] [place] [address] Bello Gan MD 50 [place] [address] documented as of this encounter Visit Diagnoses Diagnosis Abdominal wall mass of left lower quadrant- Primary documented in this encounter Care Teams Oil Distributor Relationship Specialty Start Date End Date Liz Marks NP [address] [place] [address] PCP - General 04/14/19 documented as of this encounter Additional Source Comments The information contained in this document represents components of the legal health record. It is not the complete legal health record.[facility]
--- OUTSIDE RECORDS SUMMARY | 2025-05-01 09:30 | XMS_ITS | Encounter Summary ---
Author Organization [facility] Address [address] [facility] [address] [place] [address] Phone Care Team Providers Care Software Team Leader Name Role Phone Liz Marks RIGOBERTO Primary Care Provider [phone] Encounter Details Date Type Department Care Team (Latest Contact Info) Description 06/18/2019 Transcribe Orders [facility] [address] [place] [address] Matthew Champion MD [address] [place] [address], [address] [place] [address] [email or web address] Cerebrovascular accident (CVA) due to thrombosis [...] Description 09/09/2025 8:40 AM EDT Office Visit [facility] [address] [facility] 3rd Floor, [address] [place] [address] Bello Gan MD [address] [place] [address] documented as of this encounter Results * ACETYLCHOLINE RECEPTOR BINDING ANTIBODY (06/18/2019 1:55 PM EST) ACH RECEPTOR BIND AB 0.00 <=0.02 nmol/L [facility] DPT OF LAB MED AND PAT+ Comment: (NOTE) ADDITIONAL INFORMATION This test was developed and its performance characteristics determined by [facility] in a manner consistent with CLIA requirements. This test has not been cleared or approved by the U.S. Food and Drug Administration. Blood 06/18/2019 1:55 PM EST 06/18/2019 2:02 PM EST Matthew Champion MD LAB BLOOD ORDERABLES Final R esult Performing Organization Address City/[facility]/ZIP Co de Phone Number [facility] DPT OF LAB MED AND PAT+ [address] [place] [address] * (ABNORMAL) Ferritin (06/18/2019 1:55 PM EST) FERRITIN 338(H) 13 - 150 ug/L [facility] Blood 06/18/2019 1:55 PM EST 06/18/2019 8:03 PM EST Matthew Champion MD LAB BLOOD BKR ORDERABLES Fin al Result Performing Organization Address [facility]/ZIP Co de Phone Number [address] [address] * Vitamin B12 (06/18/2019 1:55 PM EST) VITAMIN B12 364 232 - 1,245 pg/mL [facility] Blood 06/18/2019 1:55 PM EST 06/18/2019 8:03 PM EST Matthew Champion MD LAB BLOOD BKR ORDERABLES Fin al Result Performing Organization Address [facility]/ZIP Co de Phone Number [address] [address] * TSH (06/18/2019 1:55 PM EST) TSH 1.66 0.27 - 4.20 uIU/mL [facility] Blood 06/18/2019 1:55 PM EST 06/18/2019 8:03 PM EST us Matthew Champion MD LAB BLOOD BKR ORDERABLES Fin al Result [address] [address] documented in this encounter Visit Diagnoses Diagnosis 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 It is not the complete legal health record.[facility]
--- OUTSIDE RECORDS SUMMARY | 2025-05-01 09:30 | XMS_ITS | Encounter Summary ---
Author Organization [facility] Address [address] [facility] [address] [place] [address] Phone Care Team Providers Care Car Shakeout Operator Name Role Phone Liz Marks RIGOBERTO Primary Care Provider [phone] Encounter Details Date Type Department Care Team (Latest Contact Info) Description 06/25/2019 Transcribe Orders Virtual Department 30 [place] [address] Matthew Champion MD [address] [place] [address], [address] [place], [place] [id number] [email or web address] Cerebrovascular accident (CVA), unspecified mechanism (Primary [...] Description 09/09/2025 8:40 AM EDT Office Visit [facility] 22 [facility] 3rd Floor, [address] [place] [address] Bello Gan MD 50 [place] [address] documented as of this encounter Results * [...] giddiness documented in this encounter Care Teams Car Shakeout Operator Relationship Specialty Start Date End Date Liz Marks NP [address] [place] [address] PCP - General 04/14/19 documented as of this encounter Additional Source Comments The information contained in this document represents components of the legal health record. It is not the complete legal health record.[facility]
--- OUTSIDE RECORDS SUMMARY | 2025-05-01 09:30 | XMS_ITS | Encounter Summary ---
Author Organization [facility] Address [address] [facility] [address] [place] [address] Phone Care Team Providers Care Ingot Stripper Name Role Phone Liz Marks RIGOBERTO Primary Care Provider [phone]- [phone] Encounter Details Date Type Department Care Team (Late st Contact Info) Description 12/12/2024 Procedure Pass [facility], [address] [address] Social History Tobacco Use Types Packs/Day Years [...] Description 09/09/2025 8:40 AM EDT Office Visit [facility] 3[address], [address] [place] [address] Bello Gan MD [address] [place] [address] documented as of this encounter Visit Diagnoses Not on filedocumented in this encounter Care Teams Ingot Stripper Relationship Specialty Start Date End Date Liz Marks NP [address] [place] [address] PCP - General 04/14/19 documented as of this encounter Additional Source Comments The information contained in this document represents components of the legal health record. It is not the complete legal health record.[facility]
--- OUTSIDE RECORDS SUMMARY | 2025-05-01 09:30 | XMS_ITS | Encounter Summary ---
Author Organization [facility] Address [address] [facility] [address] [place] [address] Phone Care Team Providers Care Svp Research And Strategic Analysis Name Role Phone Liz Marks NP Primary Care Provider [phone] Reason for Referral * MRI/CAT Scan - Closed Specialty Diagnoses / Procedures Referred By Maxwell t Referred To Contact Radiology Diagnoses Cerebrovascular accident (CVA), unspecified mechanism Procedures MRI Angio Neck Matthew Champion MD [address] [place] [address], [address] [address] Phone: tel: fax: [email or web address] Referral ID Status Reason Start Date Expiration Date Visits Re quested Visits Authorized [id number] Closed 12/12/2024 12/12/2025 1 1 * MRI/CAT Scan - Closed Specialty Diagnoses / Procedures Referred By Maxwell foster Referred To Contact Radiology Diagnoses Cerebrovascular accident (CVA), unspecified mechanism Procedures MRI Angio Brain Matthew Champion MD [address] [place] [address], [address] [place] [address] Phone: tel: fax: mailto: Referral ID Status Reason Start Date Expiration Date Visits Re quested Visits Authorized [id number] Closed 12/12/2024 12/12/2025 1 1 Encounter Details Date Type Department Care Team (Latest Contact Info) Description 12/12/2024 Transcribe Orders Virtual Department 30 [place] [address] Matthew Champion MD [address] [place] [address], [address] [place] [email or web address] Cerebrovascular accident (CVA), unspecified mechanism (Primary [...] Description 09/09/2025 8:40 AM EDT Office Visit [facility] [address] [place] [address] 3rd Floor, [address] [place] [address] Bello Gan MD [address] [place] [address] [email or web address] documented as of this encounter Results * [...] MRA of the head was performed utilizing timk-rl-zqdrbs technique (no gadolinium). Maximal intensity projection 3D [...] MRA of the head was performed utilizing guzs-ku-ngrecg technique (Sekal ASum). Maximal intensity projection 3D angiographic reformattedimages were [...] MRA of the head was performed utilizing lwvo-by-wsoyff technique (no gadolinium). Maximal intensity projection 3D [...] MRA of the head was performed utilizing kgqr-ma-vihsrc technique (Sekal ASum). Maximal intensity projection 3D angiographic reformattedimages were [...] mechanism documented in this encounter Care Teams Svp Research And Strategic Analysis Relationship Specialty Start Date End Date Liz Marks NP [address] [place] [address] PCP - General 04/14/19 documented as of this encounter Additional Source Comments The information contained in this document represents components of the legal health record. It is not the complete legal health record.[facility]
--- OUTSIDE RECORDS SUMMARY | 2025-05-01 09:30 | XMS_ITS | Encounter Summary ---
Author Organization [facility] Address [address] [facility] [address] [place] [address] Phone Care Team Providers Care Top Frame Fitter Name Role Phone Liz Marks NP Primary Care Provider [phone]- [phone] Encounter Details Date Type Department Care Team (Late Contact Info) Description 04/29/2019 Transcribe Orders [facility] [address] [place] [address] Kyle Humphrey MD [address] [place] [address] [email or web address] Screening for unspecified condition (Primary Dx) Social [...] Description 09/09/2025 8:40 AM EDT Office Visit [facility] 22 [facility] 3rd Floor, [address] [place] [address] Bello Gan MD 50 [place] [address] documented as of this encounter Visit Diagnoses Diagnosis Screening for unspecified condition- Primary documented in this encounter Care Teams Top Frame Fitter Relationship Specialty Start Date End Date Liz Marks NP [address] [place] [address] PCP - General 04/14/19 documented as of this encounter Additional Source Comments The information contained in this document represents components of the legal health record. It is not the complete legal health record.[facility]
--- OUTSIDE RECORDS SUMMARY | 2025-05-01 09:30 | XMS_ITS | Encounter Summary ---
Author Organization [facility] Address [address] [facility] [address] [place] [address] Phone Care Team Providers Care Paster Operator Name Role Phone Liz Marks RIGOBERTO Primary Care Provider [phone] [phone] Encounter Details Date Type Department Care Team (Late Contact Info) Description 12/12/2024 Procedure Pass [facility]-In[facility]iology 30 [place] [address] Social History Tobacco Use Types Packs/Day Years [...] Description 09/09/2025 8:40 AM EDT Office Visit [facility] 22 [facility] 3rd Floor, [address] [place] [address] Bello Gan MD [address] [place] [address] [email or web address] documented as of this encounter Visit Diagnoses Not on filedocumented in this encounter Care Teams Paster Operator Relationship Specialty Start Date End Date Liz Marks NP [address] [place] [address] PCP - General 04/14/19 documented as of this encounter Additional Source Comments The information contained in this document represents components of the legal health record. It is not the complete legal health record.[facility]
--- OUTSIDE RECORDS SUMMARY | 2025-05-01 09:30 | XMS_ITS | Encounter Summary ---
Author Organization [facility] Address [address] [place] [address] [place] [address] Phone Care Team Providers Care Senior Materials Analyst Name Role Phone Liz Marks RIGOBERTO Primary Care Provider [phone] Encounter Details Date Type Department Care Team (Latest Contact Info) Description 06/03/2019 Transcribe Orders Virtual Department 30 [place] [address] Moiess Ryan MD [address] [facility], [address] [place] [address] Other retention of urine (Primary Dx) Social [...] Description 09/09/2025 8:40 AM EDT Office Visit [facility] 22 [facility] 3rd Floor, [address] [place] [address] Bello Gan MD 50 [place] [address] documented as of this encounter Results * US Kidneys and Bladder (06/16/2019 10:18 AM EST) Anatomical Region Laterality Modality Abdomen, Kidney Ultrasound 06/16/2019 10:2 0 AM EST Impressions 06/16/2019 10:22 AM EST Minimal right upper pole caliectasis and left-sided pyelocaliectasis. No significant parenchymal pathology identified. POS - [id number] Narrative 06/16/2019 10:22 AM EST COMPARISON: None [...] pyelocaliectasis. Nosignificant parenchymal pathology identified. POS - [id number] Moises Ryan MD [facility] RE[facility] Final Result documented in this encounter Visit Diagnoses Diagnosis Other retention of urine- Primary Other retention of urine documented in this encounter Care Teams Senior Materials Analyst Relationship Specialty Start Date End Date Liz Marks NP [address] [place], [place] [address] [phone] (work) PCP - General 04/14/19 documented as of this encounter Additional Source Comments The information contained in this document represents components of the legal health record. It is not the complete legal health record.[facility]
--- OUTSIDE RECORDS SUMMARY | 2025-05-01 09:30 | XMS_ITS | Patient Health Record ---
[facility] Address [address] [place] [address] Care Team Providers Care Veneer Glue Jointer Feedback Name Role Phone Kendrick HUBBARD, Liz Primary Care Provider Josse Leyva Unavailable [phone] Allergies Allergen (clinical drug ingredient) Drug/Non Drug [...] Type 2 diabetes mellitus with peripheral angiopathy (832476947) Type 2 diabetes mellitus with diabetic peripheral angiopathy without gangrene (E11.51) Active confirmed Plan Of Treatment Pending Test Test Name Order Date [id number] NAIL, 6 OR MORE 12/16/2019 [id number] NAIL, 6 OR MORE 03/16/2020 [id number] Plate 03/16/2020 [id number] SKIN LESIONS, 2 TO 4 03/16/20 [id number] SKIN LESIONS, 2 TO 4 12/16/19 Insurance Providers Payer Name Payer Address Payer Phone Subscriber Number Group Number Insured Name Patient Relationship to Insured Coverage Start Date Coverage End Date Medicare National [employer] [address] [place] [address] [id number] Toshia Senior Self - patient is the insured [employer] [address] [place] [address] [phone] [id number] Toshia Senior Self - patient is the insured Medical (General) History Medical History History ICD Code Anemia Arthritis Back,Hip,and Knee pain Cataracts Diabetic Headaches/Migraines High blood pressure Sciatica Stroke Measles Chicken pox Transfusions Vertigo Surgical History Surgery Date(Month/Year) tonsillectomy 194 hysterectomy 1991 cataract surgery 2018 eye lift 2019 Dental Surgery 1994
--- OUTSIDE RECORDS SUMMARY | 2025-05-01 09:30 | XMS_ITS | Encounter Summary ---
Author Organization [facility] Address [address] [facility] [address] [place] [address] Phone Care Team Providers Care Psychologist Military Personnel Name Role Phone Liz Marks RIGOBERTO Primary Care Provider [phone]- [phone] Encounter Details Date Type Department Care Team (Late st Contact Info) Description 12/12/2024 Procedure Pass [facility], [address] [address] Social History Tobacco Use Types Packs/Day Years [...] Description 09/09/2025 8:40 AM EDT Office Visit [facility] 3rd Floor, [address] [place] [address] Bello Gan MD [address] [place] [address] documented as of this encounter Visit Diagnoses Not on filedocumented in this encounter Care Teams Psychologist Military Personnel Relationship Specialty Start Date End Date Liz Marks NP [address] [place] [address] PCP - General 04/14/19 documented as of this encounter Additional Source Comments The information contained in this document represents components of the legal health record. It is not the complete legal health record.[facility]
== END 2025-05-01 09:28 | disposition home or self-care (01) ==
LOC: HO.US 09:27
PROVIDERS: Visit Provider Urology
DX: N20.0 Calculus of kidney (principal)
CPT/HCPCS: 76775